=== PATIENT | female | born 1955 | race Caucasian/White ===

== ENCOUNTER 2024-08-30 10:59 | Emergency (ER) | payer OTHER, SELFPAY ==
[2024-08-30] VITALS (17 sets, daily range): BP systolic 117; BP diastolic 59–62; PULSE 60–70; TEMP 36.7; O2SAT 96–99; BMI 33.5
--- NOTE | 2024-08-30 11:41 | US_ITS ---
[place] [id number] Patient Name: OVIDIO AZAR MRN: [id number] date: 1955 Sex: F Assigned Patient Location: ER Current Patient Location: ER Accession/Order Number: [id number] Exam Date: 08/30/2024 12:10 Report Date: 08/30/2024 13:23 At the request of: TREVOR MOSQUEDA Procedure: US venous doppler LE RT Ultrasound venous duplex scan right lower extremity CLINICAL: Right leg pain TECHNIQUE: Sanchez-scale, color Doppler and Duplex examination of the right lower extremity was performed with and without provocative maneuvers. FINDINGS: Comparison: None. Sonographic examination of the right lower extremity deep venous system to include the common femoral, superficial femoral and popliteal veins, demonstrates normal compressibility, color-flow, respiratory variation, and augmentation. The origin of the greater saphenous vein demonstrates normal compression, and there is normal color-flow in the proximal profunda femoral vein. There is normal color-flow in the peroneal, posterior tibial, and anterior tibial veins. US/US venous doppler LE RT IMPRESSION: 1. No deep venous thrombosis in the right lower extremity. Electronically authenticated by: PRINCE PIKE Date: 08/30/2024 13:23
--- NOTE | 2024-08-30 11:42 | ECG_ITS ---
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
--- NOTE | 2024-08-30 11:42 | XR_ITS ---
The [address] [address] Patient Name: OVIDIO AZAR MRN: [id number] date: 1955 Sex: F Assigned Patient Location: ER Current Patient Location: ER Accession/Order Number: [id number] Exam Date: 08/30/2024 12:07 Report Date: 08/30/2024 12:19 At the request of: TREVOR MOSQUEDA Procedure: XR chest 2V EXAM: XR chest 2V HISTORY: left leg swollen COMPARISON: None. TECHNIQUE: PA and lateral views of the chest performed. FINDINGS: There is a left subclavian dual-lead pacemaker with leads extending into the right atrium and the right ventricle. There is mild enlargement of the cardiac silhouette. The mediastinal silhouette and hilar shadows are unremarkable. There is epicardial fat at the right cardiophrenic angle. There is epicardial fat along the left cardiac apex. There is no consolidation, pleural effusion or pulmonary vascular congestion. There is no pneumothorax or acute osseous abnormality. There is spinal fixation hardware along the cervical spine. XR/XR chest 2V IMPRESSION: There is no acute cardiopulmonary process. Electronically authenticated by: KATLIN WATSON Date: 08/30/2024 12:19
--- NOTE | 2024-08-30 11:43 | ED_ITS ---
HPI HPI - General Adult General Chief complaint: Extremity Problem, Nontraumatic Stated complaint: RIGHT FOOT PAIN Time Seen by Provider: 08/30/24 11:40 Source: patient Mode of arrival: ambulance History of Present Illness HPI narrative: Patient is a 69-year-old female who is presenting to the ER today with chief complaint of lower remedy pain, right foot pain with mild swelling. Patient came in by EMS. Patient states she has been having the pain and swelling yesterday and today. Patient has been using her 's rollator and sitting down and pushing herself around the house yesterday and today. Patient had no fall, no injury. Patient does not remember twisting or turning it in the last 2 or 3 days. Does not believe that she injured the right foot while she was sleeping. Patient has no history of gout. Patient has no significant kidney history. Patient has been told that her kidneys are not working as good, but she does not know if she is ever been told she has stage III of 4 kidney disea se. Patient's PCP is Dr. Wyatt. Patient has not been to [facility] before. Patient typically goes to [facility]. Patient asked EMS to bring her to [facility] today. She has no chest pain or shortness of breath. She has multiple comorbidities. She has no chest pain, tightness, no shortness of breath. No acute complaints. All systems are negative except as noted/marked. All systems reviewed and otherwise negative. Nurses note and vital signs reviewed and patient is not hypoxic. General: The patient appears well and in no apparent distress. Patient is resting comfortably on cart. Patient is not toxic, lethargic, or listless. Patient is guarded to any type of motion towards her right lower extremity/foot, or touching the dorsal aspect of right foot. Skin: Warm, dry, no pallor noted. There is no rash noted. No petechiae, purpura. Patient has no erythema, redness, mild swelling to the right distal third of the lower extremity and dorsal aspect of right foot. No signs of venous stasis or cellulitis. Head: Normocephalic, atraumatic Eye: Normal conjunctiva, no drainage, EOMI. PERRL Ears, Nose, Mouth, and Throat: oral mucosa is moist. Nares patent. Mouth without vesicles. Cardiovascular: Regular Rate and Rhythm, no murmur, gallop, rub Respiratory: Patient is in no distress, no accessory muscle use, lungs are clear to auscultation, no wheezing, rales or rhonchi Back: non-tender, no CVA tenderness bilaterally to percussion. No CT LS midline pain GI: no tenderness to palpation, no masses appreciated. No rebound, guarding, or rigidity noted. No distention Musculoskeletal: Patient has full range of motion of all of the extremities except to right lower extremity. Patient right Achilles tendon is intact. Patient has moderate tenderness palpation to the right lateral and medial malleoli, patient has moderate to severe tenderness palpation to the dorsal aspect of the right foot. No redness noted. No specific joint. No history of gouty arthritis. Patient has no pain at proximal right fibular head. No pain to plantar aspect. No pain to the posterior aspect of right posterior hip, popliteal fossa, or calf. no motor, sensory, or focal neurological deficits Neurological: A&O x4, normal speech Psychiatric: Cooperative Related Data Home Medications ?Medication ?Instructions ?Recorded ?Confirmed albuterol sulfate 90 mcg/actuation 2 puff inhalation Q6H PRN 08/30/24 08/30/24 aerosol inhaler shortness of breath or wheezing amlodipine 10 mg tablet 10 mg PO QDAY 08/30/24 08/30/24 aspirin 81 mg tablet,delayed 81 mg PO DAILY 08/30/24 08/30/24 release (Adult Aspirin Regimen) clopidogrel 75 mg tablet 75 mg PO QDAY 08/30/24 08/30/24 furosemide 40 mg tablet 40 mg PO QDAY 08/30/24 08/30/24 glimepiride 2 mg tablet 2 mg PO QDAY 08/30/24 08/30/24 hydroxyzine HCl 25 mg tablet 25 mg PO TID PRN itching 08/30/24 08/30/24 irbesartan 300 mg tablet 300 mg PO .qhs 08/30/24 08/30/24 isosorbide mononitrate 30 mg 30 mg PO QAM 08/30/24 08/30/24 tablet,extended release 24 hr nitroglycerin 0.4 mg sublingual 0.4 mg sublingual Q5M PRN chest 08/30/24 08/30/24 tablet pain pantoprazole 20 mg tablet,delayed 20 mg PO QDAY 08/30/24 08/30/24 release rosuvastatin 40 mg tablet 40 mg PO QAM 08/30/24 08/30/24 tramadol 50 mg tablet 50 mg PO Q8H PRN pain 08/30/24 08/30/24 triamterene 37.5 1 tab PO QAM 08/30/24 08/30/24 mg-hydrochlorothiazide 25 mg tablet Previous Rx's ?Medication ?Instructions ?Recorded hydrocodone 5 mg-acetaminophen 325 1 tab PO Q4H PRN pain #10 tabs 08/30/24 mg tablet Allergies Allergy/AdvReac Type Severity Reaction Status Date / Time No Known Drug Allergies Allergy Verified 08/30/24 11:01 Opioid HPI Opioid Management Most Recent Opioid Data: Last Pain Scale 7 08/30/24 13:15 08/30/24 Last MAR Pain Assessment 08/30/24 13:16 [facility] Medical History (Updated 08/30/24 @ 15:16 by Alfredo Silva MD) Carpal tunnel syndrome of right wrist ?G56.01 - Carpal tunnel syndrome, right upper limb (ICD-10) Carpal tunnel syndrome of left wrist ?G56.02 - Carpal tunnel syndrome, left upper limb (ICD-10) Arthritis ?M19.90 - Unspecified osteoarthritis, unspecified site (ICD-10) Diabetes 1.5, managed as type 2 ?E13.9 - Other specified diabetes mellitus without complications (ICD-10) HTN (hypertension) ?I10 - Essential (primary) hypertension (ICD-10) History of heart attack ?I25.2 - Old myocardial infarction (ICD-10) CVA (cerebral vascular accident) ?I63.9 - Cerebral infarction, unspecified (ICD-10) Pacemaker ?Z95.0 - Presence of cardiac pacemaker (ICD-10) Surgical History (Updated 08/30/24 @ 11:52 by Nelly Marroquin) H/O: hysterectomy ?Z90.710 - Acquired absence of both cervix and uterus (ICD-10) History of cataract removal with insertion of prosthetic lens ?Z98.49 - Cataract extraction status, unspecified eye (ICD-10) ?Z96.1 - Presence of intraocular lens (ICD-10) S/P foot surgery, right ?Z98.890 - Other specified postprocedural states (ICD-10) History of cholecystectomy ?Z90.49 - Acquired absence of other specified parts of digestive tract (ICD- 10) H/O neck surgery ?Z98.890 - Other specified postprocedural states (ICD-10) Total knee replacement status ?Z96.659 - Presence of unspecified artificial knee joint (ICD-10) Social History Little interest or pleasure in doing things: not at all Feeling down, depressed, or hopeless: not at all Exam Constitutional Vital Signs, click to edit/add: Last Vital Signs Temp 98.0 F 08/30/24 11:01 Pulse 70 08/30/24 15:28 Resp 18 08/30/24 15:28 BP 117/62 08/30/24 15:28 Pulse Ox 97 08/30/24 15:28 O2 Del Method Room Air 08/30/24 11:01 Course Vital Signs Vital signs: Vital Signs Temperature 98.0 F 08/30/24 11:01 Pulse Rate 61 08/30/24 11:01 Respiratory Rate 18 08/30/24 11:01 Blood Pressure 117/59 08/30/24 11:01 Pulse Oximetry 99 08/30/24 11:01 Oxygen Delivery Method Room Air 08/30/24 11:01 Temperature 98.0 F 08/30/24 11:01 Pulse Rate 70 08/30/24 15:28 Respiratory Rate 18 08/30/24 15:28 Blood Pressure 117/62 08/30/24 15:28 Pulse Oximetry 97 08/30/24 15:28 Oxygen Delivery Method Room Air 08/30/24 11:01 Medical Decision Making MDM Narrative Medical decision making narrative: Patient preliminary ultrasound shows no obvious signs of acute DVT. Patient lungs are clear. Patient BUN and creatinine are 52/2.65. H&H is 8.9/26. The BNP is 1381. We have no old test in our computer system to compare patient's lab work 2. Patient states she normally goes to [facility] for all of her medical care. Patient told EMS that she wanted to try out [place] today. Patient sees Dr. Santos in the office I have spoken to Dr. Wyatt at approximately 2 PM. I have discussed with him patient's BUN and creatinine today of 52/2.65. In looking at patient's lab work from August 30 of last 2023, patient's BUN and creatinine were 36/1.36. CBC was 10.7/30. On November 16, 2023, patient's BUN and creatinine were 47/1.68. Procedure note: Patient was placed in a right foot Oumar wrap and Aircast. Patient has a rollator of her 's at home that she will use. Splint was assisted with . the patient was neurovascularly intact before and after the splint was placed. the affected bones/injured area had proper alignment in a splint. Education on splint care at home was given at bedside. Patient and family have no questions at discharge. Patient uric acid was slightly elevated, patient kidney function is also elevated at 52/2.65. Education on using ice was discussed at bedside. Patient uses Tylenol and tramadol at home for pain. Education at bedside and very clear discharge paperwork was done as well that patient cannot take tramadol and [place] together, but she can use Tylenol for minimal pain, tramadol for medium pain which patient understood the language, and [place] for severe pain. Patient knows that she has to wait 4 hours before she can take any 1 of those pills and they have to be . Patient is aware that she could do Tylenol with tramadol but not with [place]. This was discussed at bedside and on discharge paperwork. Patient is A and O x 3, GCS 15. Patient understands that she cannot take tramadol and [place] together. Patient understands that she will follow-up with Dr. Santos in the office. I type very clearly on her discharge papers with Dr. Wyatt has told me that he will follow-up with her in the office on Monday or Monday. Patient has no other questions, lungs are clear, no signs of CHF. BNP elevated, but chest x- ray clear, patient is lungs are crystal clear, no rales or crackles. Lab work was obtained from [facility] to compare her BUN and creatinine to today's testing. Patient has not been at [place] before, she typically goes to [facility]. Lab Data Labs: Lab Results 08/30/24 Range/Units 11:10 WBC 11.5 H (4.0-11.0) 10^3/uL RBC 2.88 L (4.20-5.40) 10^6/uL Hgb 8.9 L (12.0-16.0) g/dL Hct 26.3 L (36.0-48.0) % MCV 91.3 (81.0-99.0) fL MCH 30.9 (26.7-34.0) pg MCHC 33.8 (29.9-35.2) g/dL RDW 11.9 (11.0-15.0) % Plt Count 172 (150-450) 10^3/uL MPV 10.5 (9.5-13.5) fL Neut % (Auto) 85.4 H (43.0-75.0) % Lymph % (Auto) 6.1 L (20.5-60.0) % [place] % (Auto) 7.6 (1.7-12.0) % Eos % (Auto) 0.3 L (0.9-7.0) % Baso % (Auto) 0.2 (0.2-2.0) % Neut # (Auto) 9.8 H (1.4-6.5) 10^3/uL Lymph # (Auto) 0.7 L (1.2-3.8) 10^3/uL [place] # (Auto) 0.9 H (0.3-0.8) 10^3/uL Eos # (Auto) 0.0 (0.0-0.7) 10^3/uL Baso # (Auto) 0.0 (0.0-0.1) 10^3/uL Abs Immat Gran (auto) 0.05 H (0.00-0.03) 10^3/uL Imm/Tot Granulo (auto) 0.4 (0.0-0.5) % Sodium 134 L (136-145) mmol/L Potassium 5.1 (3.5-5.1) mmol/L Chloride 97 L (98-107) mmol/L Carbon Dioxide 23.6 (21.0-32.0) mmol/L Anion Gap 18.5 BUN 52.0 H (7.0-18.0) mg/dL Creatinine 2.65 H (0.55-1.02) mg/dL Est GFR ( Amer) 22 L (>=60 mL/min/1.73m^2) Est GFR (Non-Af Amer) 18 L (>=60 mL/min/1.73m^2) BUN/Creatinine Ratio 19.6 Glucose 167 H (74-106) mg/dL Uric Acid 10.1 H (2.6-6.0) mg/dL Calcium 9.1 (8.5-10.1) mg/dL NT-Pro-B Natriuret Pep 1381.0 H* (<=900.0) pg/mL Discharge Plan Discharge Chief Complaint: Extremity Problem, Nontraumatic Clinical Impression: Foot pain, right, Pain in right lower leg, MORRIS (acute kidney injury) Patient Disposition: Home, Self-Care Time of Disposition Decision: 15:15 Condition: Fair Mode of Transportation: Private Vehicle Prescriptions / Home Meds: New hydrocodone-acetaminophen 5-325 mg tablet 1 tab PO Q4H PRN (Reason: pain) Qty: 10 0RF No Action albuterol sulfate 90 mcg/actuation HFA aerosol inhaler 2 puff INHALATION Q6H PRN (Reason: shortness of breath or wheezing) amlodipine 10 mg tablet 10 mg PO QDAY clopidogrel 75 mg tablet 75 mg PO QDAY furosemide 40 mg tablet 40 mg PO QDAY glimepiride 2 mg tablet 2 mg PO QDAY hydroxyzine HCl 25 mg tablet 25 mg PO TID PRN (Reason: itching) irbesartan 300 mg tablet 300 mg PO .qhs isosorbide mononitrate 30 mg tablet extended release 24 hr 30 mg PO QAM nitroglycerin 0.4 mg tablet, sublingual 0.4 mg sublingual Q5M PRN (Reason: chest pain) pantoprazole 20 mg tablet,delayed release (DR/EC) 20 mg PO QDAY rosuvastatin 40 mg tablet 40 mg PO QAM tramadol 50 mg tablet 50 mg PO Q8H PRN (Reason: pain) triamterene-hydrochlorothiazid 37.5-25 mg tablet 1 tab PO QAM aspirin [Adult Aspirin Regimen] 81 mg tablet,delayed release (DR/EC) 81 mg PO DAILY Print Language: Lithuanian Instructions: Acute Kidney Injury (DC), Gout (ED), Foot Sprain (ED), P.R.I.C.E. Treatment (ED) Additional Instructions: You are not displaying classic signs or symptoms of gout, but education on gout was given to you for educational purposes only since we have discussed this at bedside. Use ice 20 minutes on, 20 minutes off If you are having mild pain, use Tylenol. For medium pain, use tramadol. If you are having severe pain, use [place]. Do not take Tylenol and [place] together, you could accidentally take too much Tylenol together. If you are having severe pain, substitute a [place] tablet instead of Tylenol. Do not take Tylenol and [place] at the same time, you may actually take too much Tylenol at 1 setting or in 1 day. Maximum Tylenol dose of Tylenol is 3000 mg a day. Call the office on Monday, and make sure that you tell the office staff that Dr. Silva has spoken to Dr. Wyatt and you need to be seen Monday or Monday in the office. This is from Dr. Santos orders. Your BUN and creatinine were 52/2.65 today, those are kidney function test we discussed. Referrals: SAHRA WYATT [Primary Care Provider] - 1 week
[2024-08-30 11:58] LABS: Basophils Percent Auto 0.2 % (0.2-2.0); Eosinophils Percent Auto 0.3 % (0.9-7.0); Hematocrit 26.3 % (36.0-48.0); Hemoglobin 8.9 g/dL (12.0-16.0); Immature Granulocytes Abs Auto 0.05 10^3/uL (0.00-0.03); Immature Granulocytes Pct Auto 0.4 % (0.0-0.5); Lymphocytes Absolute Auto 0.7 10^3/uL (1.2-3.8); Lymphocytes Percent Auto 6.1 % (20.5-60.0); Mean Corpuscular HGB Conc 33.8 g/dL (29.9-35.2); Mean Corpuscular Hemoglobin 30.9 pg (26.7-34.0); Mean Corpuscular Volume 91.3 fL (81.0-99.0); Mean Platelet Volume 10.5 fL (9.5-13.5); Monocytes Absolute Auto 0.9 10^3/uL (0.3-0.8); Monocytes Percent Auto 7.6 % (1.7-12.0); Neutrophils Absolute Auto 9.8 10^3/uL (1.4-6.5); Neutrophils Percent Auto 85.4 % (43.0-75.0); Platelet Count 172 10^3/uL (150-450); Red Blood Count 2.88 10^6/uL (4.20-5.40); Red Cell Distribution Width 11.9 % (11.0-15.0); White Blood Count 11.5 10^3/uL (4.0-11.0)
[2024-08-30 12:04] LABS: Anion Gap 18.5; BUN Creatinine Ratio 19.6; Calcium 9.1 mg/dL (8.5-10.1); Carbon Dioxide 23.6 mmol/L (21.0-32.0); Chloride 97 mmol/L (98-107); Estimated GFR (African America 22 (>=60 mL/min/1.73m^2); Estimated GFR (Non-African Ame 18 (>=60 mL/min/1.73m^2); Glucose 167 mg/dL (74-106); Potassium 5.1 mmol/L (3.5-5.1); Sodium 134 mmol/L (136-145)
[2024-08-30] MEDS: TRAMADOL HCL 50 MG TABLET PO (13:15)
[2024-08-30] MEDS: ACETAMINOPHEN 500 MG TABLET PO (13:16)
--- NOTE | 2024-08-30 14:15 | XR_ITS ---
The [address] [address] Patient Name: OVIDIO AZAR MRN: [id number] date: 1955 Sex: F Assigned Patient Location: ER Current Patient Location: Accession/Order Number: [id number] Exam Date: 08/30/2024 14:45 Report Date: 08/30/2024 15:54 At the request of: TREVOR MOSQUEDA Procedure: XR foot RT min 3V EXAMINATION: XR foot RT min 3V, , 08/30/2024 11:45 AM PST INDICATION: pain HISTORY: Ordering Provider Reason for Exam: pain Technologist Note: Additional: COMPARISON: None. TECHNIQUE: Right foot x-ray: 3 view(s). FINDINGS: No acute fracture. Joint alignment is anatomic. Joint spaces are preserved. Soft tissues are within normal limits. XR/XR foot RT min 3V IMPRESSION: No acute fracture or traumatic malalignment. Electronically authenticated by: MEDINA DOE Date: 08/30/2024 15:54
[2024-08-30 14:21] LABS: Uric Acid 10.1 mg/dL (2.6-6.0)
--- NOTE | 2024-08-30 15:24 | PC.NURSE ---
right foot wrapped in LUMA Wrap and air cast. Instructions discussed with patient.
== END 2024-08-30 15:45 | disposition home or self-care (01) ==
PROVIDERS: Emergency Provider Emergency Medicine; PCP Internal Medicine
DX: M25.571 Pain in right ankle and joints of right foot (principal); M79.661 Pain in right lower leg; N17.9 Acute kidney failure, unspecified; Z95.0 Presence of cardiac pacemaker; Z90.710 Acquired absence of both cervix and uterus; Z90.49 Acquired absence of other specified parts of digestive tract
CPT/HCPCS: 36415; 71046; 73630; 80048; 83880; 84550; 85025; 93005; 93971; 99285

== ENCOUNTER 2024-11-14 10:35 | Emergency (ER) | payer OTHER, SELFPAY ==
[2024-11-14 10:40] VITALS: BP 137/83; PULSE 66; TEMP 37; O2SAT 100; BMI 36.3
--- NOTE | 2024-11-14 11:14 | ED.GENADUL1 ---
HPI HPI - General Adult General Chief complaint: Extremity Injury, Lower Stated complaint: FELL 3 WKS AGO HURT LEFT FOOT PAIN Time Seen by Provider: 11/14/24 11:10 Source: patient Mode of arrival: Wheelchair Limitations: no limitations History of Present Illness HPI narrative: This 69-year-old female states she fell injuring the left foot 3 weeks ago and continues to have pain. Today she was unable to bear weight due to pain. She denies any other area of injury. Related Data Home Medications ?Medication ?Instructions ?Recorded ?Confirmed albuterol sulfate 90 mcg/actuation 2 puff inhalation Q6H PRN 08/30/24 08/30/24 aerosol inhaler shortness of breath or wheezing amlodipine 10 mg tablet 10 mg PO QDAY 08/30/24 08/30/24 aspirin 81 mg tablet,delayed 81 mg PO DAILY 08/30/24 08/30/24 release (Adult Aspirin Regimen) clopidogrel 75 mg tablet 75 mg PO QDAY 08/30/24 08/30/24 furosemide 40 mg tablet 40 mg PO QDAY 08/30/24 08/30/24 glimepiride 2 mg tablet 2 mg PO QDAY 08/30/24 08/30/24 hydroxyzine HCl 25 mg tablet 25 mg PO TID PRN itching 08/30/24 08/30/24 irbesartan 300 mg tablet 300 mg PO .qhs 08/30/24 08/30/24 isosorbide mononitrate 30 mg 30 mg PO QAM 08/30/24 08/30/24 tablet,extended release 24 hr nitroglycerin 0.4 mg sublingual 0.4 mg sublingual Q5M PRN chest 08/30/24 08/30/24 tablet pain pantoprazole 20 mg tablet,delayed 20 mg PO QDAY 08/30/24 08/30/24 release rosuvastatin 40 mg tablet 40 mg PO QAM 08/30/24 08/30/24 tramadol 50 mg tablet 50 mg PO Q8H PRN pain 08/30/24 08/30/24 triamterene 37.5 1 tab PO QAM 08/30/24 08/30/24 mg-hydrochlorothiazide 25 mg tablet Previous Rx's ?Medication ?Instructions ?Recorded hydrocodone 5 mg-acetaminophen 325 1 tab PO Q4H PRN pain #10 tabs 08/30/24 mg tablet Allergies Allergy/AdvReac Type Severity Reaction Status Date / Time No Known Drug Allergies Allergy Verified 08/30/24 11:01 Opioid HPI Opioid Management Most Recent Opioid Data: Last Pain Scale 7 08/30/24, 13:15 Review of Systems ROS Status of ROS 10 or more systems reviewed and unremarkable except as noted in history and below [facility] Medical History Carpal tunnel syndrome of right wrist ?G56.01 - Carpal tunnel syndrome, right upper limb (ICD-10) Carpal tunnel syndrome of left wrist ?G56.02 - Carpal tunnel syndrome, left upper limb (ICD-10) Arthritis ?M19.90 - Unspecified osteoarthritis, unspecified site (ICD-10) Diabetes 1.5, managed as type 2 ?E13.9 - Other specified diabetes mellitus without complications (ICD-10) HTN (hypertension) ?I10 - Essential (primary) hypertension (ICD-10) History of heart attack ?I25.2 - Old myocardial infarction (ICD-10) CVA (cerebral vascular accident) ?I63.9 - Cerebral infarction, unspecified (ICD-10) Pacemaker ?Z95.0 - Presence of cardiac pacemaker (ICD-10) Surgical History H/O: hysterectomy ?Z90.710 - Acquired absence of both cervix and uterus (ICD-10) History of cataract removal with insertion of prosthetic lens ?Z98.49 - Cataract extraction status, unspecified eye (ICD-10) ?Z96.1 - Presence of intraocular lens (ICD-10) S/P foot surgery, right ?Z98.890 - Other specified postprocedural states (ICD-10) History of cholecystectomy ?Z90.49 - Acquired absence of other specified parts of digestive tract (ICD-10) H/O neck surgery ?Z98.890 - Other specified postprocedural states (ICD-10) Total knee replacement status ?Z96.659 - Presence of unspecified artificial knee joint (ICD-10) Social History Little interest or pleasure in doing things: not at all Feeling down, depressed, or hopeless: not at all Exam Narrative Exam Narrative: Focused physical examination of the left lower extremity is carried out. There is no obvious swelling or deformity of the left foot. Pulses are intact. Tenderness localizes mainly over the lateral aspect of the foot. Ankle ligaments are intact. There is no overlying redness or warmth. The left lower leg and knee are nontender. Skin is warm and dry. Constitutional Vital Signs, click to edit/add: Last Vital Signs Temp 98.6 F 11/14/24 10:40 Pulse 60 11/14/24 14:11 Resp 18 11/14/24 14:11 BP 170/58 H 11/14/24 14:11 Pulse Ox 97 11/14/24 14:11 O2 Del Method Room Air 11/14/24 14:11 Course Vital Signs Vital signs: Vital Signs Temperature 98.6 F 11/14/24 10:40 Pulse Rate 66 11/14/24 10:40 Respiratory Rate 18 11/14/24 10:40 Blood Pressure 137/83 11/14/24 10:40 Pulse Oximetry 100 11/14/24 10:40 Oxygen Delivery Method Room Air 11/14/24 10:40 Temperature 98.6 F 11/14/24 10:40 Pulse Rate 60 11/14/24 14:11 Respiratory Rate 18 11/14/24 14:11 Blood Pressure 170/58 H 11/14/24 14:11 Pulse Oximetry 97 11/14/24 14:11 Oxygen Delivery Method Room Air 11/14/24 14:11 Medical Decision Making MDM Narrative Medical decision making narrative: X-rays of the left ankle and foot do not reveal any fracture or other acute pathology. An Ortho boot is applied so that the patient may be able to walk and she is referred to outpatient podiatry follow-up. Discharge Plan Discharge Chief Complaint: Extremity Injury, Lower Clinical Impression: Sprain of foot, left Qualifiers: Encounter type: initial encounter Qualified Code(s): S93.602A - Unspecified sprain of left foot, initial encounter Patient Disposition: Home, Self-Care Time of Disposition Decision: 13:51 Condition: Good Mode of Transportation: Private Vehicle Prescriptions / Home Meds: No Action albuterol sulfate 90 mcg/actuation HFA aerosol inhaler 2 puff INHALATION Q6H PRN (Reason: shortness of breath or wheezing) amlodipine 10 mg tablet 10 mg PO QDAY clopidogrel 75 mg tablet 75 mg PO QDAY furosemide 40 mg tablet 40 mg PO QDAY glimepiride 2 mg tablet 2 mg PO QDAY hydroxyzine HCl 25 mg tablet 25 mg PO TID PRN (Reason: itching) irbesartan 300 mg tablet 300 mg PO .qhs isosorbide mononitrate 30 mg tablet extended release 24 hr 30 mg PO QAM nitroglycerin 0.4 mg tablet, sublingual 0.4 mg sublingual Q5M PRN (Reason: chest pain) pantoprazole 20 mg tablet,delayed release (DR/EC) 20 mg PO QDAY rosuvastatin 40 mg tablet 40 mg PO QAM tramadol 50 mg tablet 50 mg PO Q8H PRN (Reason: pain) triamterene-hydrochlorothiazid 37.5-25 mg tablet 1 tab PO QAM aspirin [Adult Aspirin Regimen] 81 mg tablet,delayed release (DR/EC) 81 mg PO DAILY hydrocodone-acetaminophen 5-325 mg tablet 1 tab PO Q4H PRN (Reason: pain) Qty: 10 0RF Print Language: Italian Instructions: Foot Sprain (ED) Additional Instructions: Elevation. Ice. 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 Return for worsening symptoms. Referrals: SAHRA DAVIS [Primary Care Provider, Internal Medicine] - 1 week Gerber Ho DPM [Physician, Podiatry] - As soon as possible Discharge Date/Time: 11/14/24 14:13
[2024-11-14 14:11] VITALS: BP 170/58; PULSE 60; O2SAT 97
== END 2024-11-14 14:13 | disposition home or self-care (01) ==
PROVIDERS: Emergency Provider Emergency Medicine; PCP Internal Medicine
DX: S93.602A Unspecified sprain of left foot, initial encounter (principal); Z90.710 Acquired absence of both cervix and uterus; Z90.49 Acquired absence of other specified parts of digestive tract; Z96.659 Presence of unspecified artificial knee joint; W19.XXXA Unspecified fall, initial encounter
CPT/HCPCS: 73610; 73630; 99284

== ENCOUNTER 2025-01-12 10:33 | Emergency (ER) | payer OTHER, SELFPAY ==
[2025-01-12] VITALS (27 sets, daily range): BP systolic 122–177; BP diastolic 42–80; PULSE 60–62; TEMP 36.7; O2SAT 95–100; BMI 35.6
--- OUTSIDE RECORDS SUMMARY | 2025-01-12 10:48 | XMS_ITS | Encounter Summary ---
Author Organization [facility] Address [address] [facility] [place] [address] Care Team Providers Care Switch Technician Name Role Phone Jason Wyatt MD Unavailable [phone] Jason Wyatt MD Primary Care Provider [phone] Jason Wyatt MD Unavailable [phone] Bryon Pruitt MD Unavailable [phone] Sara Brewer Unavailable Alida Telles RN Unavailable [phone] Melissa Sloan LPN Unavailable Encounter Details Date Type Department Care Team (Late st Contact Info) Description 10/12/2023 Abstract [facility] 112 [facility] 110 [place] [address] Jason Wyatt MD [address] [facility] 110 [place], [place] [address] Social History Tobacco Use Types Packs/Day Years Used Date Smoking Tobacco: Never Smokeless Tobacco: Never Alcohol Use Standard Drinks/Week Comments Never 0 (1 standard drink = 0.6 oz pur e alcohol) Humiliation, Afraid, Rape, and Kick questionnair e Answer Date Recorded Within the last year, have y ou been afraid of your partner or ex-partner? No 03/02/2023 Within the last year, have y ou been humiliated or emotionally abused in other ways by your partner or ex-partner? No Within the last year, have y ou been kicked, hit, slapped, or otherwise physically hurt by your partner or ex-partner? No 03/02/2023 Within the last year, have y ou been raped or forced to have any kind of sexual activity by your partner or ex-partner? No 03/02/2023 Social Connection and Isolation Panel [NHANES] A nswer Date Recorded In a typical week, how many times do you talk on the phone with family, friends, or neighbors? Once a week 03/02/2023 How often do you get together with friends or re latives? Once a week 03/02/2023 How often do you attend mandaeism or jehovah's witness serv ices? Never 03/02/2023 Do you belong to any clubs o r organizations such as mandaeism groups, unions, fraternal or athletic groups, or school groups? No 03/02/2023 How often do you attend meet ings of the clubs or organizations you belong to? Never 03/02/2023 Are you , , di vorced, , never , or living with a partner? 03/02/2023 AUDIT-C Answer Date Recorded Q1: How often do you have a drink containing alcohol? Never 03/02/2023 Q2: How many drinks containi ng alcohol do you have on a typical day when you are drinking? Patient does not drink Q3: How often do you have si x or more drinks on one occasion? Never 03/02/2023 Overall Financial Resource Strain (CARDIA) Answe r Date Recorded How hard is it for you to pa y for the very basics like food, housing, medical care, and heating? Not hard at all 03/02/2023 PHQ-2 Answer Date Recorded Patient Health Questionnaire-2 Score 0 03/09/2023 [facility] of Occupat ional Health - Occupational Stress Questionnaire Answer Date Recorded Do you feel stress - tense, restless, nervous, or anxious, or unable to sleep at night because your mind is troubled all the time - these days? To some extent 03/02/2023 Exercise Vital Sign Answer Date Recorde d On average, how many days pe r week do you engage in moderate to strenuous exercise (like a brisk walk)? 7 days 03/02/2023 On average, how many minutes do you engage in exercise at this level? 10 min 03/02/2023 Hunger Vital Sign Answer Date Recorded Within the past 12 months, y ou worried that your food would run out before you got the money to buy more. Never true 03/02/20 Within the past 12 months, t he food you bought just didn't last and you didn't have money to get more. Never true 03/02/2023 PRAPARE - Transportation Answer Date Re corded In the past 12 months, has l ack of transportation kept you from medical appointments or from getting medications? No 02/14 In the past 12 months, has l ack of transportation kept you from meetings, work, or from getting things needed for daily living? No 03/02/2023 Housing Stability Vital Sign Answer Danial e Recorded In the last 12 months, was t here a time when you were not able to pay the mortgage or rent on time? No 03/02/2023 In the last 12 months, how many places have you lived? 1 03/02/2023 In the last 12 months, was t here a time when you did not have a steady place to sleep or slept in a usp (including now)? No 03/02/2023 Comments Unknown Sex and Gender Information Value Date Recorded Sex Assigned at Not on file Legal Sex Female 6:36 PM EDT Gender Identity Not on file Sexual Orientation Not on file documented as of this encounter Plan of Treatment Upcoming Encounters Date Type Department Care Team (Late st Contact Info) Description 01/20/2025 9:00 AM EDT Office Visit [facility] [address] [facility] 110 [place] [address] Jason Wyatt MD [address] [facility] 110 [place] [address] documented as of this encounter Visit Diagnoses Not on filedocumented in this encounter Care Teams Switch Technician Relationship Specialty Start Date End Date Jason Wyatt MD [address] [facility] 110 [place] [address] PCP - Devoted 07/17/22 Jason Wyatt MD [address] [facility] 110 [place] [address] PCP - General Internal Medicine 01/02/23 Jason Wyatt MD [address] [place] [address] [place] [address] PCP - Humana 07/17/21 01/14/24 Bryon Pruitt MD [address] [place] [address] Referring Physician Neurology 06/06/24 Sara Brewer PA [address] [place] [address] [place] [address] Physician Turn Out Neurology 06/06/24 Alida Telles, ZE [address] [place] [address] Clinical Advocate Family Medicine 08/23/24 10/02/24 Melissa Sloan LPN [address] [place] [address] [place] [address] 10/02/24 documented as of this encounter
--- OUTSIDE RECORDS SUMMARY | 2025-01-12 10:48 | XMS_ITS | Encounter Summary ---
Author Organization [facility] Address [address] [facility] [place] [address] Care Team Providers Care Shove Up Name Role Phone Jason Wyatt MD Unavailable [phone] Jason Wyatt MD Primary Care Provider [phone] Jason Wyatt MD Unavailable [phone] Bryon Pruitt MD Unavailable [phone] Sara Brewer Unavailable Alida Telles RN Unavailable [phone] Melissa Sloan LPN Unavailable Encounter Details Date Type Department Care Team (Late st Contact Info) Description 11/06/2023 Abstract [facility] 112 [facility] 110 [place] [address] Jason Wyatt MD [address] [place] [facility] 110 [place], [place] [id number] Social History Tobacco Use Types Packs/Day Years [...] week 03/02/2023 How often do you attend episcopalian or adventist serv ices? Never 03/02/2023 Do you belong to any clubs o r organizations such as episcopalian groups, unions, fraternal or athletic groups, or [...] Recorded Patient Health Questionnaire-2 Score 0 03/09/2023 [facility] of Occupat ional Health - Occupational Stress [...] place to sleep or slept in a care home (including now)? No 03/02/2023 Comments Unknown Sex [...] Visit [facility] [address] [facility] 110 [place] [address] Jason Wyatt MD [address] [facility] [address] [place] [address] documented as of this encounter Visit Diagnoses Not on filedocumented in this encounter Care Teams Shove Up Relationship Specialty Start Date End Date Jason Wyatt MD [address] [facility] 110 [place] [address] PCP - Devoted 07/17/22 Jason Wyatt MD [address] [facility] 110 [place] [address] PCP - General Internal Medicine 01/02/23 Jason Wyatt MD [address] [place] [address] [place] [address] PCP - Humana 07/17/21 01/14/24 Bryon Pruitt MD [address] [place] [address] Referring Physician Neurology 06/06/24 Sara Brewer PA [address] [place] [address] [place] [address] Physician Fence Installer Foreman Neurology 06/06/24 Alida Telles, ZE [address] [place] [address] Clinical Advocate Family Medicine 08/23/24 10/02/24 Melissa Sloan LPN [address] [place] [address] [place] [address] 10/02/24 documented as of this encounter
--- OUTSIDE RECORDS SUMMARY | 2025-01-12 10:48 | XMS_ITS | Encounter Summary ---
Author Organization [facility] Address [address] [facility] [place] [address] Care Team Providers Care Packaging Associate Name Role Phone Jason Wyatt MD Unavailable [phone] Jason Wyatt MD Primary Care Provider [phone] Jason Wyatt MD Unavailable [phone] Bryon Pruitt MD Unavailable [phone] Sara Brewer Unavailable Alida Telles RN Unavailable [phone] Melissa Sloan LPN Unavailable Encounter Details Date Type Department Care Team (Late st Contact Info) Description 10/31/2023 Abstract [facility] 112 [facility] 110 [place] [address] Jason Wyatt MD [address] [place] [facility] 110 [place], [place] [address] Social History Tobacco Use Types Packs/Day Years [...] week 03/02/2023 How often do you attend samaritan or confucianist serv ices? Never 03/02/2023 Do you belong to any clubs o r organizations such as samaritan groups, unions, fraternal or athletic groups, or [...] Recorded Patient Health Questionnaire-2 Score 0 03/09/2023 [facility] of Occupat ional Health - Occupational [...] place to sleep or slept in a jail (including now)? No 03/02/2023 Comments Unknown Sex [...] Visit [facility] [address] [facility] 110 [place] [address] Jason Wyatt MD [address] [facility] 110 [place] [address] documented as of this encounter Visit Diagnoses Not on filedocumented in this encounter Care Teams Packaging Associate Relationship Specialty Start Date End Date Jason Wyatt MD [address] [facility] 110 [place] [address] PCP - Devoted 07/17/22 Jason Wyatt MD [address] [facility] 110 [place] [address] PCP - General Internal Medicine 01/02/23 Jason Wyatt MD [address] [place] [address] [place] [address] PCP - Humana 07/17/21 01/14/24 Bryon Pruitt MD [address] [place] [address] Referring Physician Neurology 06/06/24 Sara Brewer PA [address] [place] [address] [place] [address] Physician Engineering Tech Neurology 06/06/24 Alida Telles, ZE [address] [place] [address] Clinical Advocate Family Medicine 08/23/24 10/02/24 Melissa Sloan LPN [address] [place] [address] [place] [address] 10/02/24 documented as of this encounter
--- OUTSIDE RECORDS SUMMARY | 2025-01-12 10:49 | XMS_ITS | Encounter Summary ---
Author Organization [facility] Address [address] [facility] [place] [address] Care Team Providers Care Revenue Accountant Name Role Phone Jason Wyatt MD Unavailable [phone] Jason Wyatt MD Primary Care Provider [phone] Jason Wyatt MD Unavailable [phone] Bryon Pruitt MD Unavailable [phone] Sara Brewer Unavailable Alida Telles RN Unavailable [phone] Melissa Sloan LPN Unavailable Encounter Details Date Type Department Care Team (Late st Contact Info) Description 01/03/2023 Abstract [facility] [address] [facility] 110 [place] [address] Jason Wyatt MD [address] [id number] Social History Tobacco Use Types Packs/Day Years Used Date Smoking Tobacco: Never Smokeless Tobacco: Never Comments Unknown Sex and Gender Information Value Date Recorded Sex Assigned at Not on file Legal Sex Female 6:36 PM EDT Gender Identity Not on file Sexual Orientation Not on file documented as of this encounter Plan of Treatment Upcoming Encounters Date Type Department Care Team (Late Contact Info) Description 01/20/2025 9:00 AM EDT Office Visit [facility] [address] [facility] 110 [place] [address] Jason Wyatt MD 112 [facility] 110 [place], [place] [id number] documented as of this encounter Visit Diagnoses Not on filedocumented in this encounter Care Teams Revenue Accountant Relationship Specialty Start Date End Date Jason Wyatt MD [address] [facility] 110 [place] [address] PCP - Devoted 07/17/22 Jason Wyatt MD [address] [facility] 110 [place] [address] PCP - General Internal Medicine 01/02/23 Jason Wyatt MD [address] [facility] 110 [place] [address] PCP - Humana 07/17/21 01/14/24 Bryon Prutit MD [address] [facility] 110 [place] [address] Referring Physician Neurology 06/06/24 Sara Brewer PA [address] [facility] 110 [place] [address] Physician Senior Drupal Developer Neurology 06/06/24 Alida Telles, ZE [address] [place] [address] Clinical Advocate Family Medicine 08/23/24 10/02/24 Melissa Sloan LPN [address] [facility] 110 [place] [address] 10/02/24 documented as of this encounter
--- OUTSIDE RECORDS SUMMARY | 2025-01-12 10:49 | XMS_ITS | Encounter Summary ---
Author Organization [facility] Address [address] [facility] [place] [address] Care Team Providers Care Greenskeeper Supervisor Name Role Phone Jason Wyatt MD Unavailable [phone] Jason Wyatt MD Primary Care Provider [phone] Bryon Pruitt MD Unavailable [phone] Sara Brewer Unavailable Alida Telles RN Unavailable [phone] Melissa Sloan LPN Unavailable Encounter Details Date Type Department Care Team (Late st Contact Info) Description 01/25/2024 Abstract [facility] [address] [facility] 110 [place] [address] Jason Wyatt MD 112 [facility] 110 [place], [place] [id number] Social History Tobacco Use Types Packs/Day Years [...] week 03/02/2023 How often do you attend jain or pentecostalism serv ices? Never 03/02/2023 Do you belong to any clubs o r organizations such as jain groups, unions, fraternal or athletic groups, or [...] Recorded Patient Health Questionnaire-2 Score 0 03/09/2023 [facility] of Occupat ional Health - Occupational [...] the money to buy more. Never true 08/17/20 23 Within the past 12 months, t he [...] Visit [facility] [address] [facility] 110 [place] [address] Jason Wyatt MD [address] [facility] 110 [place] [address] documented as of this encounter Visit Diagnoses Not on filedocumented in this encounter Care Teams Greenskeeper Supervisor Relationship Specialty Start Date End Date Jason Wyatt MD [address] [facility] 110 [place] [address] PCP - Devoted 07/17/22 Jason Wyatt MD [address] [facility] 110 [place] [address] PCP - General Internal Medicine 01/02/23 Bryon Pruitt MD [address] [address] Referring Physician Neurology 06/06/24 Sara Brewer PA [address] [address] Physician Disease Case Manager Rn Neurology 06/06/24 Alida Telles, ZE [address] [place] [address] Clinical Advocate Family Medicine 08/23/24 10/02/24 Melissa Sloan LPN [address] [address] 10/02/24 documented as of this encounter
--- OUTSIDE RECORDS SUMMARY | 2025-01-12 10:49 | XMS_ITS | Encounter Summary ---
Author Organization [facility] Address [address] [facility] [place] [address] Care Team Providers Care Psychologist Research Assistant Name Role Phone Jason Wyatt MD Unavailable [phone] Jason Wyatt MD Primary Care Provider [phone] Bryon Pruitt MD Unavailable [phone] Sara Brewer Unavailable Alida Telles RN Unavailable [phone] Melissa Sloan LPN Unavailable Encounter Details Date Type Department Care Team (Late st Contact Info) Description 02/21/2024 Abstract [facility] [address] [facility] 110 [place] [address] Jason Wyatt MD 112 [facility] 110 [place], [place] [id number] Social History Tobacco Use Types Packs/Day Years Used Date Smoking Tobacco: Never Smokeless Tobacco: Never Alcohol Use Standard Drinks/Week Comments Never 0 (1 standard drink = 0.6 oz pur e alcohol) B1300 Health Literacy Answer Date Recor ded How often do you need to hav e someone help you when you read instructions, pamphlets, or other written material from your doctor or pharmacy? Never 02/19/2024 Humiliation, Afraid, Rape, and Kick questionnair e [...] week 03/02/2023 How often do you attend religion or sabianism serv ices? Never 03/02/2023 Do you belong to any clubs o r organizations such as religion groups, unions, fraternal or athletic groups, or [...] Recorded Patient Health Questionnaire-2 Score 0 03/09/2023 [facility] of Occupat ional Health - Occupational Stress [...] place to sleep or slept in a intermediate (including now)? No 03/02/2023 Comments Unknown Sex [...] Visit [facility] [address] [facility] 110 [place] [address] Jason Wyatt MD [address] [facility] 110 [place] [address] documented as of this encounter Visit Diagnoses Not on filedocumented in this encounter Care Teams Psychologist Research Assistant Relationship Specialty Start Date End Date Jason Wyatt MD [address] [facility] [address] [place] [address] PCP - Devoted 07/17/22 Jason Wyatt MD [address] [facility] 110 [place] [address] PCP - General Internal Medicine 01/02/23 Bryon Pruitt MD [address] [place] [address] Referring Physician Neurology 06/06/24 Sara Brewer PA [address] [place] [address] Physician Reverse Unit Operator Fisherman Neurology 06/06/24 Alida Telles, RN [address] [place] [address] Clinical Advocate Family Medicine 08/23/24 10/02/24 Melissa Sloan LPN [address] [place] [address] 10/02/24 documented as of this encounter
--- OUTSIDE RECORDS SUMMARY | 2025-01-12 10:49 | XMS_ITS | Encounter Summary ---
Author Organization [facility] Address [address] [facility] [place] [address] Care Team Providers Care Gas Pit Worker Name Role Phone Jason Wyatt MD Unavailable [phone] Jason Wyatt MD Primary Care Provider [phone] Jason Wyatt MD Unavailable [phone] Bryon Pruitt MD Unavailable [phone] Sara Brewer Unavailable Alida Telles RN Unavailable [phone] Melissa Sloan LPN Unavailable Encounter Details Date Type Department Care Team (Late st Contact Info) Description 09/04/2023 Abstract [facility] 112 [facility] 110 [place] [address] Jason Wyatt MD [address] [facility] 110 [place], [place] [address] Social History Tobacco Use Types Packs/Day Years [...] week 03/02/2023 How often do you attend amish or mandaeism serv ices? Never 03/02/2023 Do you belong to any clubs o r organizations such as amish groups, unions, fraternal or athletic groups, or [...] Recorded Patient Health Questionnaire-2 Score 0 03/09/2023 [facility] of Occupat ional Health - Occupational [...] place to sleep or slept in a senior living (including now)? No 03/02/2023 Comments Unknown Sex [...] Visit [facility] [address] [facility] 110 [place] [address] Jason Wyatt MD [address] [facility] 110 [place] [address] documented as of this encounter Visit Diagnoses Not on filedocumented in this encounter Care Teams Gas Pit Worker Relationship Specialty Start Date End Date Jason Wyatt MD [address] [facility] 110 [place] [address] PCP - Devoted 07/17/22 Jason Wyatt MD [address] [facility] 110 [place] [address] PCP - General Internal Medicine 01/02/23 Jason Wyatt MD [address] [place] [address] [place] [address] PCP - Humana 07/17/21 01/14/24 Bryon Pruitt MD [address] [place] [address] Referring Physician Neurology 06/06/24 Sara Brewer PA [address] [place] [address] [place] [address] Physician Baker Neurology 06/06/24 Alida Telles, ZE [address] [place] [address] Clinical Advocate Family Medicine 08/23/24 10/02/24 Melissa Sloan LPN [address] [place] [address] [place] [address] 10/02/24 documented as of this encounter
--- OUTSIDE RECORDS SUMMARY | 2025-01-12 10:49 | XMS_ITS | Encounter Summary ---
Author Organization [facility] Address [address] [facility] [place] [address] Care Team Providers Care Oil Exploration Engineer Name Role Phone Jason Wyatt MD Unavailable [phone] Jason Wyatt MD Primary Care Provider [phone] Bryon Pruitt MD Unavailable [phone] Sara Brewer Unavailable Alida Telles RN Unavailable [phone] Melissa Sloan LPN Unavailable Encounter Details Date Type Department Care Team (Late st Contact Info) Description 04/03/2024 Abstract [facility] [address] [facility] 110 [place] [id number] Jason Wyatt MD 112 [facility] 110 [place], [place] [address] Social History Tobacco Use Types Packs/Day Years [...] week 03/02/2023 How often do you attend cheondoism or voodoo serv ices? Never 03/02/2023 Do you belong to any clubs o r organizations such as cheondoism groups, unions, fraternal or athletic groups, or [...] Date Recorded Patient Health Questionnaire-2 Score 0 03/06/2024 [facility] of Occupat ional Health - [...] place to sleep or slept in a nursing home (including now)? No 03/02/2023 Comments Unknown [...] Visit [facility] [address] [facility] 110 [place] [address] Jason Wyatt MD [address] [facility] [address] [place] [address] documented as of this encounter Visit Diagnoses Not on filedocumented in this encounter Care Teams Oil Exploration Engineer Relationship Specialty Start Date End Date Jason Wyatt MD [address] [facility] [address] [place] [address] PCP - Devoted 07/17/22 Jason Wyatt MD [address] [facility] [address] [place] [address] PCP - General Internal Medicine 01/02/23 Bryon Pruitt MD [address] [place] [address] Referring Physician Neurology 06/06/24 Sara Brewer PA [address] [place] [address] Physician Card Maker Neurology 06/06/24 Alida Telles, RN [address] [place] [address] Clinical Advocate Family Medicine 08/23/24 10/02/24 Melissa Sloan LPN [address] [place] [address] 10/02/24 documented as of this encounter
--- OUTSIDE RECORDS SUMMARY | 2025-01-12 10:49 | XMS_ITS | Encounter Summary ---
Author Organization [facility] Address [address] [facility] [place] [address] Care Team Providers Care Crucible Furnace Tender Name Role Phone Jason Wyatt MD Unavailable [phone] Jason Wyatt MD Primary Care Provider [phone] Jason Wyatt MD Unavailable [phone] Bryon Pruitt MD Unavailable [phone] Sara Brewer Unavailable Alida Telles RN Unavailable [phone] Melissa Sloan LPN Unavailable Encounter Details Date Type Department Care Team (Late st Contact Info) Description 08/24/2023 Abstract [facility] 112 [facility] 110 [place] [address] Jason Wyatt MD 112 [address] [facility] 110 [place], [place] [id number] Social History Tobacco Use Types Packs/Day Years [...] week 03/02/2023 How often do you attend muslim or voodoo serv ices? Never 03/02/2023 Do you belong to any clubs o r organizations such as muslim groups, unions, fraternal or athletic groups, or [...] Recorded Patient Health Questionnaire-2 Score 0 03/09/2023 [facility] ional [facility] - [...] place to sleep or slept in a chcf (including now)? No 03/02/2023 Comments Unknown Sex [...] Visit [facility] [address] [facility] 110 [place] [address] Jason Wyatt MD [address] [facility] 110 [place] [address] documented as of this encounter Visit Diagnoses Not on filedocumented in this encounter Care Teams Crucible Furnace Tender Relationship Specialty Start Date End Date Jason Wyatt MD [address] [facility] 110 [place] [address] PCP - Devoted 07/17/22 Jason Wyatt MD [address] [facility] 110 [place] [address] PCP - General Internal Medicine 01/02/23 Jason Wyatt MD [address] [place] [address] [place] [address] PCP - Humana 07/17/21 01/14/24 Bryon Pruitt MD [address] [place] [address] Referring Physician Neurology 06/06/24 Sara Brewer PA [address] [place] [address] [place] [address] Physician Water Pollution Control Technician Neurology 06/06/24 Alida Telles, ZE [address] [place] [address] Clinical Advocate Family Medicine 08/23/24 10/02/24 Melissa Sloan LPN [address] [place] [address] [place] [address] 10/02/24 documented as of this encounter
--- OUTSIDE RECORDS SUMMARY | 2025-01-12 10:49 | XMS_ITS | Encounter Summary ---
Author Organization [facility] Address [address] [place] [address] Phone Care Team Providers Care Container Repairer Name Role Phone Generic Provider, No Assigned Pcp Primary Car e Provider Unavailable Jason Wyatt MD Primary Care Provider [phone] Encounter Details Date Type Department Care Team (Late st Contact Info) Description 04/13/2023 Scanned Document [facility] [address] [place] [address] Scanning, Generic Provider Social History Tobacco Use Types Packs/Day Years Used Date Smoking Tobacco: Never Assessed Comments Unknown Sex and Gender Information Value Date Recorded Sex Assigned at Female 03/21/2024 1:58 PM EDT Legal Sex Female 8:53 AM EST Gender Identity Female 03/21/2024 1:58 PM EDT Sexual Orientation Choose not to disclose 2023 1:58 PM EDT documented as of this encounter Plan of Treatment Not on file documented as of this encounter Visit Diagnoses Not on filedocumented in this encounter Care Teams Container Repairer Relationship Specialty Start Date End Date Generic Provider, No Assigned Pcp, [place] [address] PCP - General Helminthology Teacher 04/11/24 04/16/24 Jason Wyatt MD [address] [facility] 110 [place] [address] PCP - General Internal Medicine 04/17/24 documented as of this encounter
--- OUTSIDE RECORDS SUMMARY | 2025-01-12 10:49 | XMS_ITS | Encounter Summary ---
Author Organization [facility] Address [address] [facility] [place] [address] Care Team Providers Care Mail Technician Name Role Phone Jason Wyatt MD Unavailable [phone] Jason Wyatt MD Primary Care Provider [phone] Jason Wyatt MD Unavailable [phone] Bryon Pruitt MD Unavailable [phone] Sara Brewer Unavailable Alida Telles RN Unavailable [phone] Melissa Sloan LPN Unavailable Encounter Details Date Type Department Care Team (Late st Contact Info) Description 01/23/2023 Abstract [facility] 112 [address] [facility] 110 [place] [phone] Jason Wyatt MD [address] [address] Social History Tobacco Use Types Packs/Day Years [...] Office Visit [facility] [address] [facility] 110 [place] [address] Jason Wyatt MD 112 [facility] 110 [place], [place] [address] documented as of this encounter Visit Diagnoses Not on filedocumented in this encounter Care Teams Mail Technician Relationship Specialty Start Date End Date Jason Wyatt MD [address] [facility] 110 [place] [address] PCP - Devoted 07/17/22 Jason Wyatt MD [address] [facility] 110 [place] [address] PCP - General Internal Medicine 01/02/23 Jason Wyatt MD [address] [facility] 110 [place] [address] PCP - Humana 07/17/21 01/14/24 Bryon Pruitt MD [address] [facility] 110 [place] [address] Referring Physician Neurology 06/06/24 Sara Brewer PA [address] [facility] 110 [place] [address] Physician Industrial Fabric Cutter Neurology 06/06/24 Alida Telles, ZE [address] [place] [address] Clinical Advocate Family Medicine 08/23/24 10/02/24 Melissa Sloan LPN [address] [facility] 110 [place] [address] 10/02/24 documented as of this encounter
--- OUTSIDE RECORDS SUMMARY | 2025-01-12 10:49 | XMS_ITS | Encounter Summary ---
Author Organization [facility] Address [address] [facility] [place] [address] Care Team Providers Care Siding Coreboard Inspector Name Role Phone Jason Wyatt MD Unavailable [phone] Jason Wyatt MD Primary Care Provider [phone] Jason Wyatt MD Unavailable [phone] Bryon Pruitt MD Unavailable [phone] Sara Brewer Unavailable Alida Telles RN Unavailable [phone] Melissa Sloan LPN Unavailable Encounter Details Date Type Department Care Team (Late st Contact Info) Description 09/13/2023 Abstract [facility] 112 [facility] 110 [place] [address] Jason Wyatt MD 112 [facility] 110 [place], [place] [id number] Social History Tobacco Use Types Packs/Day Years [...] week 03/02/2023 How often do you attend congregation or lutheran serv ices? Never 03/02/2023 Do you belong to any clubs o r organizations such as congregation groups, unions, fraternal or athletic groups, or [...] Recorded Patient Health Questionnaire-2 Score 0 03/09/2023 [facility] Occupat ional Health - [...] place to sleep or slept in a residential (including now)? No 03/02/2023 Comments Unknown Sex [...] Visit [facility] [address] [facility] 110 [place] [address] Jason Wyatt MD [address] [facility] 110 [place] [address] documented as of this encounter Visit Diagnoses Not on filedocumented in this encounter Care Teams Siding Coreboard Inspector Relationship Specialty Start Date End Date Jason Wyatt MD [address] [facility] 110 [place] [address] PCP - Devoted 07/17/22 Jason Wyatt MD [address] [facility] 110 [place] [address] PCP - General Internal Medicine 01/02/23 Jason Wyatt MD [address] [place] [address] [place] [address] PCP - Humana 07/17/21 01/14/24 Bryon Pruitt MD [address] [place] [address] Referring Physician Neurology 06/06/24 Sara Brewer PA [address] [place] [address] [place] [address] Physician Lawn Specialist Neurology 06/06/24 Alida Telles, ZE [address] [place] [address] Clinical Advocate Family Medicine 08/23/24 10/02/24 Melissa Sloan LPN [address] [place] [address] [place] [address] 10/02/24 documented as of this encounter
--- OUTSIDE RECORDS SUMMARY | 2025-01-12 10:49 | XMS_ITS | Encounter Summary ---
Author Organization [facility] Address [address] [place] [address] Care Team Providers Care Credit Union Manager Name Role Phone Jason Wyatt MD Unavailable [phone] Jason Wyatt MD Primary Care Provider [phone] Jason Wyatt MD Unavailable [phone] Bryon Pruitt MD Unavailable [phone] Sara Brewer Unavailable Alida Telles RN Unavailable [phone] Melissa Sloan LPN Unavailable Encounter Details Date Type Department Care Team (Late st Contact Info) Description 01/12/2024 External Result Encounter [facility] External Department Unsolicited Jason Wyatt MD [address] [address] Social History Tobacco Use Types Packs/Day Years [...] week 03/02/2023 How often do you attend holiness or judaism serv ices? Never 03/02/2023 Do you belong to any clubs o r organizations such as holiness groups, unions, fraternal or athletic groups, or [...] money to buy more. Never true 03/02/20 23 Within the past 12 months, t [...] place to sleep or slept in a half-way (including now)? No 03/02/2023 Comments Unknown Sex and Gender Information Value Date Recorded Sex Assigned at Not on file Legal Sex Female 6:36 PM EDT Gender Identity Not on file Sexual Orientation Not on file documented as of this encounter Plan of Treatment Upcoming Encounters Date Type Department Care Team (Late st Contact Info) Description 01/20/2025 9:00 AM EDT Office Visit [facility] [address] [address] Jason Wyatt MD 112 [facility] 110 [place] [address] documented as of this encounter Procedures Procedure Name Priority Date/Time Associated Diagnosis Comments BI MAMMOGRAM SCREENING TOMOSYNTHESIS BILATERAL 01/12/2024 2:31 PM EDT documented in this encounter Results * Bilateral screening mammogram with tomosynthesis (01/12/2024 2:31 PM EDT) Anatomical Region Laterality Modality Breast Bilateral Mammography 01/12/2024 2:31 PM EDT Impressions 01/12/2024 2:34 PM EDT NO MAMMOGRAPHIC EVIDENCE OF MALIGNANCY. ROUTINE FOLLOW-UP IS RECOMMENDED IN ONE YEAR. RESULT CODE: 1 Negative DENSITY CODE: 2 (approximately 25-50% glandular) FOLLOW UP: 1YR The false-negative rate of mammography is approximately 10-percent. Management of a palpable abnormality must be based on clinical grounds. Patient was entered into a reminder system with a target due date for the next mammogram. Impression dictated by: Wilton Jones Jr. D.ORaffy01/12/2024 2:32 PM Dictation Location: [facility] Transcribed By: PWS 01/12/24 1432 Dictated By: Wilton Jones Jr, DO 01/12/24 1431 Signed By: <Electronically signed by Wilton Jones Jr, DO in OV> 01/12/24 1432 Narrative 01/12/2024 2:34 PM EDT [place] [id number] Mammography Report Signed Patient: Marisela Hsieh MR#: [id number] : 1955 Acct:[id number] Age/Sex: 68 / F ADM Date: 01/12/24 Loc: IN Room: Type: [facility] Attending Dr: Jason Wyatt II, MD Copies to: Jason Wyatt II, MD Ordering Provider: Jason Wyatt II, MD Date of Service: 01/12/24 MM/MM screening mammo BI w/CAD: SCREENING CLINICAL DATA: Screening for malignancy. SCREENING MAMMOGRAM - FULL FIELD DIGITAL WITH TOMOSYNTHESIS AND CAD COMPARISON:Mammograms dating back to 2020 Tomosynthesis craniocaudal and mediolateral oblique views of both breasts were obtained using low- dose digital technique. This examination was reviewed with the aid of CAD. FINDINGS: The breast tissue is composed of scattered fibroglandular densities. There are no dominant masses, typically malignant calcifications or architectural distortion. There has been no significant interval change. MM/MM screening mammo BI w/CAD Procedure Note Radiology, Radiologist, - 01/12/[address] [address] Mammography Report Signed Patient: Marisela Hsieh KMR#: [id number] : 5Acct:[id number] Age/Sex: 68 / FADM Date: 01/12/24 Loc: IN Room:Type: [facility] Attending Dr: Jason Wyatt II, MD Copies to: Jason Wyatt II, MD Ordering Provider: Jason Wyatt II, MD Date of Service: 01/12/24 MM/MM screening mammo BI w/CAD: SCREENING CLINICAL DATA: Screening for malignancy. SCREENING MAMMOGRAM - FULL FIELD DIGITAL WITH TOMOSYNTHESIS AND CAD COMPARISON:Mammograms dating back to 2020 Tomosynthesis craniocaudal and mediolateral oblique views of both breastswere obtained using low- dose digital technique. This examination was reviewed with the aid ofCAD. FINDINGS: The breast tissue is composed of scattered fibroglandular densities.There are no dominant masses, typically malignant calcifications or architectural distortion. There hasbeen no significant interval change. MM/MM screening mammo BI w/CAD IMPRESSION: NO MAMMOGRAPHIC EVIDENCE OF MALIGNANCY. ROUTINE FOLLOW-UP IS RECOMMENDED IN ONE YEAR. RESULT CODE: 1 Negative DENSITY CODE: 2 (approximately 25-50% glandular) FOLLOW UP: 1YR The false-negative rate of mammography is approximately 10-percent. Management of a palpable abnormality must be based on clinical grounds. Patient was entered into a reminder system with a target due date for thenext mammogram. Impression dictated by: Wilton Jones Jr., D.ORaffy01/12/2024 2:32 PM Dictation Location: [facility] Transcribed By: [facility] 01/12/24 1432 Dictated By: Wilton Jones Jr, DO 01/12/24 1431 Signed By: <Electronically signed by Wilton Jones Jr, DO inOV> 01/12/24 1432 us Jason Wyatt MD IMG BI PROCEDURES Final Result documented in this encounter Visit Diagnoses Not on filedocumented in this encounter Care Teams Credit Union Manager Relationship Specialty Start Date End Date Jason Wyatt MD [address] [facility] 110 [place] [address] PCP - Devoted 07/17/22 Jason Wyatt MD [address] [facility] 110 [place] [address] PCP - General Internal Medicine 01/02/23 Jason Wyatt MD [address] [facility] 110 [place] [address] PCP - Humana 07/17/21 01/14/24 Bryon Pruitt MD [address] [facility] 110 [place] [address] Referring Physician Neurology 06/06/24 Sara Brewer PA [address] [facility] 110 [place] [address] Physician Wave Guide Assembler Neurology 06/06/24 Alida Telles, RN [address] [place] [address] Clinical Advocate Family Medicine 08/23/24 10/02/24 Melissa Sloan LPN [address] [facility] 110 [place] [address] 10/02/24 documented as of this encounter
--- OUTSIDE RECORDS SUMMARY | 2025-01-12 10:49 | XMS_ITS | Encounter Summary ---
Author Organization [facility] Address [address] [facility] [place] [address] Care Team Providers Care Filtrose Crusher Name Role Phone Jason Wyatt MD Unavailable [phone] Jason Wyatt MD Primary Care Provider [phone] Bryon Pruitt MD Unavailable [phone] Sara Brewer Unavailable Alida Telles RN Unavailable [phone] Melissa Sloan LPN Unavailable Encounter Details Date Type Department Care Team (Late st Contact Info) Description 01/22/2024 Abstract [facility] 112 [address] [facility] 110 [place] [address] Jason Wyatt MD 112 [facility] 110 [place], [place] [address] Social History Tobacco Use Types Packs/Day Years [...] week 03/02/2023 How often do you attend spiritism or pentecostalism serv ices? Never 03/02/2023 Do you belong to any clubs o r organizations such as spiritism groups, unions, fraternal or athletic groups, or [...] Recorded Patient Health Questionnaire-2 Score 0 03/09/2023 [facility] Occupat ional Health - Occupational [...] place to sleep or slept in a halfway (including now)? No 03/02/2023 Comments Unknown Sex [...] Visit [facility] [address] [facility] 110 [place] [address] Jason Wyatt MD [address] [facility] 110 [place] [address] documented as of this encounter Visit Diagnoses Not on filedocumented in this encounter Care Teams Filtrose Crusher Relationship Specialty Start Date End Date Jason Wyatt MD [address] [facility] 110 [place] [address] PCP - Devoted 07/17/22 Jason Wyatt MD [address] [facility] 110 [place] [address] PCP - General Internal Medicine 01/02/23 Bryon Pruitt MD [address] [address] Referring Physician Neurology 06/06/24 Sara Brewer PA [address] [address] Physician City Editor Neurology 06/06/24 Alida Telles, ZE [address] [place] [address] Clinical Advocate Family Medicine 08/23/24 10/02/24 Melissa Sloan LPN [address] [address] 10/02/24 documented as of this encounter
--- OUTSIDE RECORDS SUMMARY | 2025-01-12 10:49 | XMS_ITS | Encounter Summary ---
Author Organization [facility] Address [address] [facility] [place] [address] Care Team Providers Care Duct Cleaner Name Role Phone Jason Wyatt MD Unavailable [phone] Jason Wyatt MD Primary Care Provider [phone] Jason Wyatt MD Unavailable [phone] Bryon Pruitt MD Unavailable [phone] Sara Brewer Unavailable Alida Telles RN Unavailable [phone] Melissa Sloan LPN Unavailable Encounter Details Date Type Department Care Team (Late Contact Info) Description 12/22/2022 Abstract [facility] 112 [facility] 110 [place] [phone] Jason Wyatt MD [address] [id number] Social History Tobacco Use Types Packs/Day Years [...] Office Visit [facility] 112 [address] [facility] 110 [place] [address] Jason Wyatt MD 112 [facility] 110 [place], [place] [address] documented as of this encounter Visit Diagnoses Not on filedocumented in this encounter Care Teams Duct Cleaner Relationship Specialty Start Date End Date Jason Wyatt MD [address] [facility] [address] [place] [address] PCP - Devoted 07/17/22 Jason Wyatt MD [address] [facility] [address] [place] [address] PCP - General Internal Medicine 01/02/23 Jason Wyatt MD [address] [facility] 110 [place] [address] PCP - Humana 07/17/21 01/14/24 Bryon Pruitt MD [address] [facility] 110 [place] [address] Referring Physician Neurology 06/06/24 Sara Brewer PA [address] [facility] 110 [place] [address] Physician Manager Of Enterprise Neurology 06/06/24 Alida Telles, ZE [address] [place] [address] Clinical Advocate Family Medicine 08/23/24 10/02/24 Melissa Sloan LPN [address] [facility] 110 [place] [address] 10/02/24 documented as of this encounter
--- OUTSIDE RECORDS SUMMARY | 2025-01-12 10:49 | XMS_ITS | Encounter Summary ---
Author Organization [facility] Address [address] [facility] [place] [address] Care Team Providers Care Measuring Machine Tender Name Role Phone Jason Wyatt MD Unavailable [phone] Jason Wyatt MD Primary Care Provider [phone] Jason Wyatt MD Unavailable [phone] Bryon Pruitt MD Unavailable [phone] Sara Brewer Unavailable Alida Telles RN Unavailable [phone] Melissa Sloan LPN Unavailable Encounter Details Date Type Department Care Team (Late st Contact Info) Description 12/19/2023 Abstract [facility] 112 [facility] 110 [place] [address] Jason Wyatt MD 112 [place] [facility] 110 [place], [place] [phone] Social History Tobacco Use Types Packs/Day Years [...] week 03/02/2023 How often do you attend zoroastrian or mandaen serv ices? Never 03/02/2023 Do you belong to any clubs o r organizations such as zoroastrian groups, unions, fraternal or athletic groups, or [...] Recorded Patient Health Questionnaire-2 Score 0 03/09/2023 [facility] of Occupat ional Health - [...] place to sleep or slept in a longterm (including now)? No 03/02/2023 Comments Unknown Sex [...] WAY [facility] 110 [place] [address] Jason Wyatt MD [address] [facility] 110 [place] [address] documented as of this encounter Visit Diagnoses Not on filedocumented in this encounter Care Teams Measuring Machine Tender Relationship Specialty Start Date End Date Jason Wyatt MD [address] [facility] 110 [place] [address] PCP - Devoted 07/17/22 Jason Wyatt MD [address] [facility] 110 [place] [address] PCP - General Internal Medicine 01/02/23 Jason Wyatt MD [address] [place] [address] [place] [address] PCP - Humana 07/17/21 01/14/24 Bryon Pruitt MD [address] [place] [address] Referring Physician Neurology 06/06/24 Sara Brewer PA [address] [place] [address] [place] [address] Physician Training Consultant Neurology 06/06/24 Alida Telles, ZE [address] [place] [address] Clinical Advocate Family Medicine 08/23/24 10/02/24 Melissa Sloan LPN [address] [place] [address] [place] [address] 10/02/24 documented as of this encounter
--- OUTSIDE RECORDS SUMMARY | 2025-01-12 10:49 | XMS_ITS | Encounter Summary ---
Author Organization [facility] Address [address] [facility] [place] [address] Care Team Providers Care Human Resource Advisor Name Role Phone Jason Wyatt MD Unavailable [phone] Jason Wyatt MD Primary Care Provider [phone] Bryon Pruitt MD Unavailable [phone] Sara Brewer Unavailable Alida Telles RN Unavailable [phone] Melissa Sloan LPN Unavailable Encounter Details Date Type Department Care Team (Late st Contact Info) Description 04/03/2024 Abstract [facility] [address] [facility] 110 [place] [address] Jason Wyatt MD 112 [facility] 110 [place], [place] [address] Social History Tobacco Use Types Packs/Day Years [...] week 03/02/2023 How often do you attend temple or cheondoism serv ices? Never 03/02/2023 Do you belong to any clubs o r organizations such as temple groups, unions, fraternal or athletic groups, or [...] Recorded Patient Health Questionnaire-2 Score 0 03/06/2024 [facility] of Occupat ional Health - [...] place to sleep or slept in a custodial (including now)? No 03/02/2023 Comments Unknown Sex [...] Visit [facility] [address] [facility] 110 [place] [address] Jason Wyatt MD [address] [facility] 110 [place] [address] documented as of this encounter Visit Diagnoses Not on filedocumented in this encounter Care Teams Human Resource Advisor Relationship Specialty Start Date End Date Jason Wyatt MD [address] [facility] [address] [place] [address] PCP - Devoted 07/17/22 Jason Wyatt MD [address] [facility] 110 [place] [address] PCP - General Internal Medicine 01/02/23 Bryon Pruitt MD [address] [place] [address] Referring Physician Neurology 06/06/24 Sara Brewer PA [address] [place] [address] Physician African History Professor Neurology 06/06/24 Alida Telles, RN [address] [place] [address] Clinical Advocate Family Medicine 08/23/24 10/02/24 Melissa Sloan LPN [address] [place] [address] 10/02/24 documented as of this encounter
--- OUTSIDE RECORDS SUMMARY | 2025-01-12 10:49 | XMS_ITS | Encounter Summary ---
Author Organization [facility] Address [address] [facility] [place] [address] Care Team Providers Care Beef Selector Name Role Phone Jason Wyatt MD Unavailable [phone] Jason Wyatt MD Primary Care Provider [phone] Jason Wyatt MD Unavailable [phone] Bryon Pruitt MD Unavailable [phone] Sara Brewer Unavailable Alida Telles RN Unavailable [phone] Melissa Sloan LPN Unavailable Encounter Details Date Type Department Care Team (Late st Contact Info) Description 10/04/2023 Abstract [facility] 112 [facility] 110 [place] [address] Jason Wyatt MD [address] [facility] 110 [place], [place] [id number] Social History Tobacco Use Types Packs/Day Years [...] week 03/02/2023 How often do you attend taoism or adventist serv ices? Never 03/02/2023 Do you belong to any clubs o r organizations such as taoism groups, unions, fraternal or athletic groups, or [...] Recorded Patient Health Questionnaire-2 Score 0 03/09/2023 [facility] of Occupat ional Health - Occupational [...] [address] [facility] 110 [place] [address] Jason Wyatt MD [address] [facility] 110 [place] [address] documented as of this encounter Visit Diagnoses Not on filedocumented in this encounter Care Teams Beef Selector Relationship Specialty Start Date End Date Jason Wyatt MD [address] [facility] 110 [place] [address] PCP - Devoted 07/17/22 Jason Wyatt MD [address] [facility] 110 [place] [address] PCP - General Internal Medicine 01/02/23 Jason Wyatt MD [address] [place] [address] [place] [address] PCP - Humana 07/17/21 01/14/24 Bryon Pruitt MD [address] [place] [address] Referring Physician Neurology 06/06/24 Sara Brewer PA [address] [place] [address] [place] [address] Physician Ferryboat Helper Neurology 06/06/24 Alida Telles, ZE [address] [place] [address] Clinical Advocate Family Medicine 08/23/24 10/02/24 Melissa Sloan LPN [address] [place] [address] [place] [address] 10/02/24 documented as of this encounter
--- OUTSIDE RECORDS SUMMARY | 2025-01-12 10:49 | XMS_ITS | Encounter Summary ---
Author Organization [facility] Address [address] [facility] [place] [address] Care Team Providers Care Roofing Foreman Name Role Phone Jason Wyatt MD Unavailable [phone] Jason Wyatt MD Primary Care Provider [phone] Jason Wyatt MD Unavailable [phone] Bryon Pruitt MD Unavailable [phone] Sara Brewer Unavailable Alida Telles RN Unavailable [phone] Melissa Sloan LPN Unavailable Encounter Details Date Type Department Care Team (Late st Contact Info) Description 10/10/2023 Abstract [facility] [address] [facility] 110 [place] [address] Jason Wyatt MD [address] [facility] 110 [place], [place] [id number] Social History Tobacco Use Types Packs/Day Years [...] week 03/02/2023 How often do you attend tenriism or mormonism serv ices? Never 03/02/2023 Do you belong to any clubs o r organizations such as tenriism groups, unions, fraternal or athletic groups, or [...] Recorded Patient Health Questionnaire-2 Score 0 03/09/2023 [facility] of Occupat ional Health - [...] Visit [facility] [address] [facility] 110 [place] [address] Jason Wyatt MD [address] [facility] 110 [place] [address] documented as of this encounter Visit Diagnoses Not on filedocumented in this encounter Care Teams Roofing Foreman Relationship Specialty Start Date End Date Jason Wyatt MD [address] [facility] 110 [place] [address] PCP - Devoted 07/17/22 Jason Wyatt MD [address] [facility] 110 [place] [address] PCP - General Internal Medicine 01/02/23 Jason Wyatt MD [address] [place] [address] [place] [address] PCP - Humana 07/17/21 01/14/24 Bryon Pruitt MD [address] [place] [address] Referring Physician Neurology 06/06/24 Sara Brewer PA [address] [place] [address] [place] [address] Physician Multi Share Program Coordinator Neurology 06/06/24 Alida Telles, ZE [address] [place] [address] Clinical Advocate Family Medicine 08/23/24 10/02/24 Melissa Sloan LPN [address] [place] [address] [place] [address] 10/02/24 documented as of this encounter
--- OUTSIDE RECORDS SUMMARY | 2025-01-12 10:49 | XMS_ITS | Encounter Summary ---
Author Organization [facility] Address [address] [facility] [place] [address] Care Team Providers Care Insurance Licensing Supervisor Name Role Phone Jason Wyatt MD Unavailable [phone] Jason Wyatt MD Primary Care Provider [phone] Bryon Pruitt MD Unavailable [phone] Sara Brewer Unavailable Alida Telles RN Unavailable [phone] Melissa Sloan LPN Unavailable Encounter Details Date Type Department Care Team (Late st Contact Info) Description 04/22/2024 Abstract [facility] 112 [address] [facility] 110 [place] [address] Jason Wyatt MD 112 [facility] 110 [place], [place] [id number] Social History Tobacco Use Types Packs/Day Years [...] week 03/02/2023 How often do you attend zoroastrianism or orthodox serv ices? Never 03/02/2023 Do you belong to any clubs o r organizations such as zoroastrianism groups, unions, fraternal or athletic groups, or [...] Recorded Patient Health Questionnaire-2 Score 0 03/06/2024 [facility] of Occupat ional Health - Occupational [...] place to sleep or slept in a long-term (including now)? No 03/02/2023 Comments Unknown Sex [...] [address] [facility] 110 [place] [address] Jason Wyatt MD [address] [facility] [address] [place] [address] documented as of this encounter Visit Diagnoses Not on filedocumented in this encounter Care Teams Insurance Licensing Supervisor Relationship Specialty Start Date End Date Jason Wyatt MD [address] [facility] 110 [place] [address] PCP - Devoted 07/17/22 Jason Wyatt MD [address] [facility] [address] [place] [address] PCP - General Internal Medicine 01/02/23 Bryon Pruitt MD [address] [place] [address] Referring Physician Neurology 06/06/24 Sara Brewer PA [address] [place] [address] Physician Supervisor Inspection Department Neurology 06/06/24 Alida Telles, RN [address] [place] [address] Clinical Advocate Family Medicine 08/23/24 10/02/24 Melissa Sloan LPN [address] [place] [address] 10/02/24 documented as of this encounter
--- OUTSIDE RECORDS SUMMARY | 2025-01-12 10:49 | XMS_ITS | Encounter Summary ---
Author Organization [facility] Address [address] [facility] [place] [address] Care Team Providers Care Mold Stamper And Repairer Name Role Phone Jason Wyatt MD Unavailable [phone] Jason Wyatt MD Primary Care Provider [phone] Jason Wyatt MD Unavailable [phone] Bryon Pruitt MD Unavailable [phone] Sara Brewer Unavailable Alida Telles RN Unavailable [phone] Melissa Sloan LPN Unavailable Encounter Details Date Type Department Care Team (Late st Contact Info) Description 10/31/2023 Abstract [facility] 112 [facility] 110 [place] [address] Jason Wyatt MD [address] [facility] 110 [place], [place] [id number] Social History Tobacco Use Types Packs/Day Years [...] week 03/02/2023 How often do you attend caodaism or taoism serv ices? Never 03/02/2023 Do you belong to any clubs o r organizations such as caodaism groups, unions, fraternal or athletic groups, or [...] Questionnaire-2 Score 0 03/09/2023 [facility] of Occupat ional Health - Occupational [...] place to sleep or slept in a snf (including now)? No 03/02/2023 Comments Unknown Sex [...] Visit [facility] [address] [facility] 110 [place] [address] Jason Wyatt MD [address] [facility] 110 [place] [address] documented as of this encounter Visit Diagnoses Not on filedocumented in this encounter Care Teams Mold Stamper And Repairer Relationship Specialty Start Date End Date Jason Wyatt MD [address] [facility] 110 [place] [address] PCP - Devoted 07/17/22 Jason Wyatt MD [address] [facility] 110 [place] [address] PCP - General Internal Medicine 01/02/23 Jason Wyatt MD [address] [place] [address] [place] [address] PCP - Humana 07/17/21 01/14/24 Bryon Pruitt MD [address] [place] [address] Referring Physician Neurology 06/06/24 Sara Brewer PA [address] [place] [address] [place] [address] Physician Woven Paper Hat Mender Neurology 06/06/24 Alida Telles, ZE [address] [place] [address] Clinical Advocate Family Medicine 08/23/24 10/02/24 Melissa Sloan LPN [address] [place] [address] [place] [address] 10/02/24 documented as of this encounter
--- OUTSIDE RECORDS SUMMARY | 2025-01-12 10:49 | XMS_ITS | Encounter Summary ---
Author Organization [facility] Address [address] [facility] [place] [address] Care Team Providers Care Automobile Washer Steam Name Role Phone Jason Wyatt MD Unavailable [phone] Jason Wyatt MD Primary Care Provider [phone] Bryon Pruitt MD Unavailable [phone] Sara Brewer Unavailable Alida Telles RN Unavailable [phone] Melissa Sloan LPN Unavailable Encounter Details Date Type Department Care Team (Late st Contact Info) Description 01/22/2024 Abstract [facility] 112 [address] [facility] 110 [place] [address] Jason Wyatt MD 112 [facility] 110 [place], [place] [address] Social History Tobacco Use Types Packs/Day Years [...] week 03/02/2023 How often do you attend yazidi or christian serv ices? Never 03/02/2023 Do you belong to any clubs o r organizations such as yazidi groups, unions, fraternal or athletic groups, or [...] Recorded Patient Health Questionnaire-2 Score 0 03/09/2023 [facility] of Occupat ional Health - Occupational Stress [...] place to sleep or slept in a assisted (including now)? No 03/02/2023 Comments Unknown Sex [...] Visit [facility] [address] [facility] 110 [place] [address] Jason Wyatt MD [address] [facility] 110 [place] [address] documented as of this encounter Visit Diagnoses Not on filedocumented in this encounter Care Teams Automobile Washer Steam Relationship Specialty Start Date End Date Jason Wyatt MD [address] [facility] 110 [place] [address] PCP - Devoted 07/17/22 Jason Wyatt MD [address] [facility] 110 [place] [address] PCP - General Internal Medicine 01/02/23 Bryon Pruitt MD [address] [address] Referring Physician Neurology 06/06/24 aSra Brewer PA [address] [address] Physician Livestock Trucker Neurology 06/06/24 Alida Telles, ZE [address] [place] [address] Clinical Advocate Family Medicine 08/23/24 10/02/24 Melissa Sloan LPN [address] [address] 10/02/24 documented as of this encounter
--- OUTSIDE RECORDS SUMMARY | 2025-01-12 10:49 | XMS_ITS | Encounter Summary ---
Author Organization [facility] Address [address] [facility] [place] [address] Care Team Providers Care Foxing Painter Name Role Phone Jason Wyatt MD Unavailable [phone] Jason Wyatt MD Primary Care Provider [phone] Jason Wyatt MD Unavailable [phone] Bryon Pruitt MD Unavailable [phone] Sara Brewer Unavailable Alida Telles RN Unavailable [phone] Melissa Sloan LPN Unavailable Encounter Details Date Type Department Care Team (Late st Contact Info) Description 12/19/2023 Abstract [facility] [address] [facility] 110 [place] [address] Jason Wyatt MD 112 [facility] 110 [place], [place] [id number] Social History Tobacco Use Types Packs/Day Years [...] How often do you attend cheondoism or roman catholic serv ices? Never 03/02/2023 Do you belong [...] Recorded Patient Health Questionnaire-2 Score 0 03/09/2023 [facility] of Occupat ional Health - Occupational [...] place to sleep or slept in a long term (including now)? No 03/02/2023 Comments Unknown Sex [...] [address] [facility] 110 [place] [address] Jason Wyatt MD [address] [facility] 110 [place] [address] documented as of this encounter Visit Diagnoses Not on filedocumented in this encounter Care Teams Foxing Painter Relationship Specialty Start Date End Date Jason Wyatt MD [address] [facility] 110 [place] [address] PCP - Devoted 07/17/22 Jason Wyatt MD [address] [facility] 110 [place] [address] PCP - General Internal Medicine 01/02/23 Jason Wyatt MD [address] [place] [address] [place] [address] PCP - Humana 07/17/21 01/14/24 Bryon Pruitt MD [address] [place] [address] Referring Physician Neurology 06/06/24 Sara Brewer PA [address] [place] [address] [place] [address] Physician Synthetic Gem Press Operator Neurology 06/06/24 Alida Telles, ZE [address] [place] [address] Clinical Advocate Family Medicine 08/23/24 10/02/24 Melissa Sloan LPN [address] [place] [address] [place] [address] 10/02/24 documented as of this encounter
--- OUTSIDE RECORDS SUMMARY | 2025-01-12 10:49 | XMS_ITS | Encounter Summary ---
Author Organization [facility] Address [address] [place] [address] Care Team Providers Care Production Technician Name Role Phone Jason Wyatt MD Unavailable [phone] Jason Wyatt MD Primary Care Provider [phone] Bryon Pruitt MD Unavailable [phone] Sara Brewer Unavailable Melissa Sloan LPN Unavailable Encounter Details Date Type Department Care Team (Late st Contact Info) Description 12/05/2024 Abstract [facility] 112 [address] [facility] 110 [place] [address] Jason Wyatt MD 112 [facility] 110 [place] [address] Social History Tobacco Use Types Packs/Day Years [...] week 03/02/2023 How often do you attend yarsanism or mandaen serv ices? Never 03/02/2023 Do you belong to any clubs o r organizations such as yarsanism groups, unions, fraternal or athletic groups, or [...] Date Recorded Patient Health Questionnaire-2 Score 0 11/21/2024 [facility] of Occupat ional Health - Occupational [...] place to sleep or slept in a [place] [facility] [place] facility (including now)? No 03/02/2023 Comments Unknown Sex and Gender Information Value Date Recorded Sex Assigned at Not on file Legal Sex Female 6:36 PM EDT Gender Identity Not on file Sexual Orientation Not on file documented as of this encounter Plan of Treatment Upcoming Encounters Date Type Department Care Team (Late st Contact Info) Description 01/20/2025 9:00 AM EDT Office Visit [facility] [address] [facility] 110 [place] [address] Jason Wyatt MD [address] [facility] 110 [place] [address] documented as of this encounter Visit Diagnoses Not on filedocumented in this encounter Care Teams Production Technician Relationship Specialty Start Date End Date Jason Wyatt MD [address] [facility] 110 [place] [address] PCP - Devoted 07/17/22 Jason Wyatt MD [address] [facility] [address] [place] [address] PCP - General Internal Medicine 01/02/23 Bryon Pruitt MD [address] [address] Referring Physician Neurology 06/06/24 Sara Brewer PA [address] [address] Physician Mold Shaker Neurology 06/06/24 Melissa Sloan LPN [address] [address] 10/02/24 documented as of this encounter
--- OUTSIDE RECORDS SUMMARY | 2025-01-12 10:49 | XMS_ITS | Encounter Summary ---
Author Organization [facility] Address [address] [place] [address] Care Team Providers Care Lehr Attendant Name Role Phone Jason Wyatt MD Unavailable [phone] Jason Wyatt MD Primary Care Provider [phone] Jason Wyatt MD Unavailable [phone] Bryon Pruitt MD Unavailable [phone] Sara Brewer Unavailable Alida Telles RN Unavailable [phone] Melissa Sloan LPN Unavailable Encounter Details Date Type Department Care Team (Late st Contact Info) Description 12/19/2023 Orders Only [facility] [address] [facility] 110 [place] [address] Unallocated, Noms Provider, [address] [place], [place] [address] Social History Tobacco Use Types Packs/Day Years [...] week 03/02/2023 How often do you attend taoist or restorationist serv ices? Never 03/02/2023 Do you belong to any clubs o r organizations such as taoist groups, unions, fraternal or athletic groups, or [...] Recorded Patient Health Questionnaire-2 Score 0 03/09/2023 [facility] of Occupat ional Health - [...] 01/20/2025 9:00 AM EDT Office Visit [facility] 112 [facility] 110 [place] [address] Jason Wyatt MD 112 [facility] 110 [place], [place] [address] documented as of this encounter Procedures Procedure Name Priority Date/Time Associated Diagnosis Comments SCANNED LABS Routine 12/18/2023 9:32 AM EDT documented in this encounter Results * SCANNED LABS (12/18/2023 9:32 AM EDT) us Noms Provider Unallocated LAB CHG PERFORMABLE S Final Result documented in this encounter Visit Diagnoses Not on filedocumented in this encounter Care Teams Lehr Attendant Relationship Specialty Start Date End Date Jason Wyatt MD [address] [facility] [place] [address] PCP - Devoted 07/17/22 Jason Wyatt MD [address] [facility] [place] [address] PCP - General Internal Medicine 01/02/23 Jason Wyatt MD [address] [facility] [place] [address] PCP - Humana 07/17/21 01/14/24 Bryon Pruitt MD [address] [facility] [place] [address] Referring Physician Neurology 06/06/24 Sara Brewer PA [address] [facility] [place] [address] Physician Commanding Officer Motorized Squad Neurology 06/06/24 Alida Telles, RN [address] [place] [address] Clinical Advocate Family Medicine 08/23/24 10/02/24 Melissa Sloan LPN [address] [facility] [place] [address] 10/02/24 documented as of this encounter
--- OUTSIDE RECORDS SUMMARY | 2025-01-12 10:49 | XMS_ITS | Encounter Summary ---
Author Organization [facility] Address [address] [facility] [place] [address] Care Team Providers Care Perianesthesia Nurse Name Role Phone Jason Wyatt MD Unavailable [phone] Jason Wyatt MD Primary Care Provider [phone] Bryon Pruitt MD Unavailable [phone] Sara Brewer Unavailable Melissa Sloan LPN Unavailable Encounter Details Date Type Department Care Team (Late st Contact Info) Description 12/24/2024 Abstract [facility] [address] [facility] 110 [place] [address] Jason Wyatt MD 112 [facility] 110 [place] [address] Social History Tobacco Use Types [...] week 03/02/2023 How often do you attend nondenominational or yarsani serv ices? Never 03/02/2023 Do you belong to any clubs o r organizations such as nondenominational groups, unions, fraternal or athletic groups, or [...] Recorded Patient Health Questionnaire-2 Score 0 11/21/2024 [facility] of Occupat [...] place to sleep or slept in a penitentiary (including now)? No 03/02/2023 Comments Unknown Sex and Gender Information Value Date Recorded Sex Assigned at Not on file Legal Sex Female 6:36 PM EDT Gender Identity Not on file Sexual Orientation Not on file documented as of this encounter Plan of Treatment Upcoming Encounters Date Type Department Care Team (Late st Contact Info) Description 01/20/2025 9:00 AM EDT Office Visit [facility] [address] [facility] 110 [place] [address] Jason Wyatt MD [address] [facility] 110 [place] [address] documented as of this encounter Visit Diagnoses Not on filedocumented in this encounter Care Teams Perianesthesia Nurse Relationship Specialty Start Date End Date Jason Wyatt MD [address] [facility] 110 [place] [address] PCP - Devoted 07/17/22 Jason Wyatt MD [address] [facility] [address] [place] [address] PCP - General Internal Medicine 01/02/23 Bryon Pruitt MD [address] [address] Referring Physician Neurology 06/06/24 Sara Brewer PA [address] [address] Physician Analytical Consultant Neurology 06/06/24 Melissa Sloan LPN [address] [address] 10/02/24 documented as of this encounter
--- OUTSIDE RECORDS SUMMARY | 2025-01-12 10:49 | XMS_ITS | Encounter Summary ---
Author Organization [facility] Address [address] [facility] [place] [address] Care Team Providers Care Tanning Consultant Name Role Phone Jason Wyatt MD Unavailable [phone] Jason Wyatt MD Primary Care Provider [phone] Bryon Pruitt MD Unavailable [phone] Sara Brewer Unavailable Alida Telles RN Unavailable [phone] Melissa Sloan LPN Unavailable Encounter Details Date Type Department Care Team (Late st Contact Info) Description 01/25/2024 Abstract [facility] [address] [facility] 110 [place] [address] Jason Wyatt MD 112 [facility] 110 [place], [place] [address] Social History Tobacco Use Types Packs/Day Years [...] week 03/02/2023 How often do you attend yazidism or hinduism serv ices? Never 03/02/2023 Do you belong to any clubs o r organizations such as yazidism groups, unions, fraternal or athletic groups, or [...] Patient Health Questionnaire-2 Score 0 03/09/2023 [facility] of Occupat ional Health - Occupational [...] place to sleep or slept in a correction (including now)? No 03/02/2023 Comments Unknown Sex [...] WAY [facility] 110 [place] [address] Jason Wyatt MD [address] [facility] 110 [place] [address] documented as of this encounter Visit Diagnoses Not on filedocumented in this encounter Care Teams Tanning Consultant Relationship Specialty Start Date End Date Jason Wyatt MD [address] [facility] 110 [place] [address] PCP - Devoted 07/17/22 Jason Wyatt MD [address] [facility] 110 [place] [address] PCP - General Internal Medicine 01/02/23 Bryon Pruitt MD [address] [address] Referring Physician Neurology 06/06/24 Sara Brewer PA [address] [address] Physician Php Developer Neurology 06/06/24 Alida Telles, ZE [address] [place] [address] Clinical Advocate Family Medicine 08/23/24 10/02/24 Melissa Sloan LPN [address] [address] 10/02/24 documented as of this encounter
--- OUTSIDE RECORDS SUMMARY | 2025-01-12 10:49 | XMS_ITS | Encounter Summary ---
Author Organization [facility] Address [address] [facility] [place] [address] Care Team Providers Care Foam Rubber Fabricator Name Role Phone Jason Wyatt MD Unavailable [phone] Jason Wyatt MD Primary Care Provider [phone] Jason Wyatt MD Unavailable [phone] Bryon Pruitt MD Unavailable [phone] Sara Brewer Unavailable Alida Telles RN Unavailable [phone] Melissa [place] LPN Unavailable Encounter Details Date Type Department Care Team (Late st Contact Info) Description 01/16/2023 Abstract [facility] [address] [facility] 110 [place] [id number] Jason Wyatt MD [address] [address] Social History Tobacco Use Types Packs/Day Years [...] Office Visit [facility] [address] [facility] 110 [place] [phone] Jason Wyatt MD 112 [facility] 110 [place], [place] [id number] documented as of this encounter Visit Diagnoses Not on filedocumented in this encounter Care Teams Foam Rubber Fabricator Relationship Specialty Start Date End Date Jason Wyatt MD [address] [facility] 110 [place] [address] PCP - Devoted 07/17/22 Jason Wyatt MD [address] [facility] 110 [place] [address] PCP - General Internal Medicine 01/02/23 Jason Wyatt MD [address] [facility] 110 [place] [address] PCP - [employer] 07/17/21 01/14/24 Bryon Pruitt MD [address] [facility] 110 [place] [address] Referring Physician Neurology 06/06/24 Sara Brewer PA [address] [facility] 110 [place] [address] Physician Operating Room Technician Neurology 06/06/24 Alida Telles, ZE [address] [place] [address] Clinical Advocate Family Medicine 08/23/24 10/02/24 Melissa [place] LPN [address] [facility] 110 [place] [address] 10/02/24 documented as of this encounter
--- OUTSIDE RECORDS SUMMARY | 2025-01-12 10:49 | XMS_ITS | Encounter Summary ---
Author Organization [facility] Address [address] [facility] [place] [address] Care Team Providers Care Wood Milling Machine Hand Name Role Phone Jason Wyatt MD Unavailable [phone] Jason Wyatt MD Primary Care Provider [phone] Bryon Pruitt MD Unavailable [phone] Sara Brewer Unavailable Melissa [place] LPN Unavailable Reason for Visit * Reason Comments Med Refill Encounter Details Date Type Department Care Team (Late Contact Info) Description 12/28/2024 Refill [facility] 112 [address] [facility] 110 [place] [id number] Jason Wyatt MD 112 [facility] 110 [place] [address] Primary osteoarthritis involving multiple joints Social History Tobacco Use Types Packs/Day Years [...] How often do you attend nondenominational or sabianism serv ices? Never 03/02/2023 Do [...] Patient Health Questionnaire-2 Score 0 11/21/2024 [facility] of Occupat ional Health - [...] place to sleep or slept in a retirement (including now)? No 03/02/2023 Comments Unknown Sex [...] [facility] [address] [facility] 110 [place] [address] Jason Wyatt MD [address] [facility] 110 [place] [address] documented as of this encounter Visit Diagnoses Diagnosis Primary osteoarthritis involving multiple joints documented in this encounter Care Teams Wood Milling Machine Hand Relationship Specialty Start Date End Date Jason Wyatt MD [address] [facility] [address] [place] [address] PCP - Devoted 07/17/22 Jason Wyatt MD [address] [place] [address] [place] [address] PCP - General Internal Medicine 01/02/23 Bryon Pruitt MD [address] [place] [address] Referring Physician Neurology 06/06/24 Sara Brewer PA [address] [place] [address] Physician Nursing Faculty Neurology 06/06/24 Melissa [place] LPN [address] [place] [address] [place] [address] 10/02/24 documented as of this encounter
--- OUTSIDE RECORDS SUMMARY | 2025-01-12 10:49 | XMS_ITS | Encounter Summary ---
Author Organization [facility] Address [address] [facility] [place] [address] Care Team Providers Care Music Internship Name Role Phone Jason Wyatt MD Unavailable [phone] Jason Wyatt MD Primary Care Provider [phone] Bryon Pruitt MD Unavailable [phone] Sara Brweer Unavailable Alida Telles RN Unavailable [phone] Melissa [place] LPN Unavailable Encounter Details Date Type Department Care Team (Late st Contact Info) Description 04/26/2024 Abstract [facility] 112 [address] [facility] 110 [place] [phone] Jason Wyatt MD 112 [facility] 110 [place], [place] [id number] Social History Tobacco Use Types Packs/Day Years [...] week 03/02/2023 How often do you attend denominational or rastafarian serv ices? Never 03/02/2023 Do you belong to any clubs o r organizations such as denominational groups, unions, fraternal or athletic groups, or [...] Recorded Patient Health Questionnaire-2 Score 0 03/06/2024 [facility] of Occupat ional Health - [...] to sleep or slept in a senior care (including now)? No 03/02/2023 Comments Unknown Sex [...] Visit [facility] [address] [facility] 110 [place] [address] Jason Wyatt MD [address] [place] [address] [place] [address] documented as of this encounter Visit Diagnoses Not on filedocumented in this encounter Care Teams Music Internship Relationship Specialty Start Date End Date Jason Wyatt MD [address] [facility] [address] [place] [address] PCP - Devoted 07/17/22 Jason Wyatt MD [address] [facility] [address] [place] [address] PCP - General Internal Medicine 01/02/23 Bryon Pruitt MD [address] [place] [address] Referring Physician Neurology 06/06/24 Sara Brewer PA [address] [place] [address] Physician Music Instructor Neurology 06/06/24 Alida Telles, RN [address] [place] [address] Clinical Advocate Family Medicine 08/23/24 10/02/24 Melissa [place] LPN [address] [place] [address] 10/02/24 documented as of this encounter
--- OUTSIDE RECORDS SUMMARY | 2025-01-12 10:49 | XMS_ITS | Encounter Summary ---
Author Organization [facility] Address [address] [facility] [place] [address] Care Team Providers Care Nut Roaster Name Role Phone Jason Wyatt MD Unavailable [phone] Jason Wyatt MD Primary Care Provider [phone] Bryon Pruitt MD Unavailable [phone] Sara Brewer Unavailable Alida Telles RN Unavailable [phone] Melissa [place] LPN Unavailable Encounter Details Date Type Department Care Team (Late st Contact Info) Description 02/21/2024 Abstract [facility] [address] [facility] 110 [place] [phone] Jason Wyatt MD 112 [facility] 110 [place], [place] [id number] Social History Tobacco Use Types Packs/Day Years [...] week 03/02/2023 How often do you attend sabianism or buddhist serv ices? Never 03/02/2023 Do you belong to any clubs o r organizations such as sabianism groups, unions, fraternal or athletic groups, or [...] Recorded Patient Health Questionnaire-2 Score 0 03/09/2023 [facility] of Occupat ional Health - Occupational [...] Visit [facility] [address] [facility] 110 [place] [address] Jason Wyatt MD [address] [place] [address] [place] [address] documented as of this encounter Visit Diagnoses Not on filedocumented in this encounter Care Teams Nut Roaster Relationship Specialty Start Date End Date Jason Wyatt MD [address] [place] [address] [place] [address] PCP - Devoted 07/17/22 Jason Wyatt MD [address] [facility] [address] [place] [address] PCP - General Internal Medicine 01/02/23 Bryon Pruitt MD [address] [place] [address] Referring Physician Neurology 06/06/24 Sara Brewer PA [address] [place] [address] Physician Electronic Systems Technician Neurology 06/06/24 Alida Telles, RN [address] [place] [address] Clinical Advocate Family Medicine 08/23/24 10/02/24 Melissa [place] LPN [address] [place] [address] 10/02/24 documented as of this encounter
--- OUTSIDE RECORDS SUMMARY | 2025-01-12 10:49 | XMS_ITS | Encounter Summary ---
Author Organization [facility] Address [address] [facility] [place] [address] Care Team Providers Care Golf Starter And Ranger Name Role Phone Jason Wyatt MD Unavailable [phone] Jason Wyatt MD Primary Care Provider [phone] Bryon Pruitt MD Unavailable [phone] Sara Brewer Unavailable Alida Telles RN Unavailable [phone] Melissa [place] LPN Unavailable Encounter Details Date Type Department Care Team (Late st Contact Info) Description 05/30/2024 Abstract [facility] 112 [address] [facility] 110 [place] [phone] Jason Wyatt MD [address] [facility] 110 [place], [place] [id number] Social History Tobacco Use Types Packs/Day Years [...] week 03/02/2023 How often do you attend anabaptist or nondenominational serv ices? Never 03/02/2023 Do you belong to any clubs o r organizations such as anabaptist groups, unions, fraternal or athletic groups, or [...] Recorded Patient Health Questionnaire-2 Score 0 03/06/2024 [facility] of Occupat ional Health - Occupational [...] Visit [facility] [address] [facility] 110 [place] [address] Jason Wyatt MD [address] [place] [address] [place] [address] documented as of this encounter Visit Diagnoses Not on filedocumented in this encounter Care Teams Golf Starter And Ranger Relationship Specialty Start Date End Date Jason Wyatt MD [address] [facility] [address] [place] [address] PCP - Devoted 07/17/22 Jason Wyatt MD [address] [facility] [address] [place] [address] PCP - General Internal Medicine 01/02/23 Bryon Pruitt MD [address] [place] [address] Referring Physician Neurology 06/06/24 Sara Brewer PA [address] [place] [address] Physician Production Line Manager Neurology 06/06/24 Alida Telles, RN [address] [place] [address] Clinical Advocate Family Medicine 08/23/24 10/02/24 Melissa [place] LPN [address] [place] [address] [place] [address] 10/02/24 documented as of this encounter
--- OUTSIDE RECORDS SUMMARY | 2025-01-12 10:49 | XMS_ITS | Encounter Summary ---
Author Organization [facility] Address [address] [facility] [place] [address] Care Team Providers Care Poultry Dressing Worker Name Role Phone Jason Wyatt MD Unavailable [phone] Jason Wyatt MD Primary Care Provider [phone] Bryon Pruitt MD Unavailable [phone] Sara Brewer Unavailable Melissa [place] LPN Unavailable Encounter Details Date Type Department Care Team (Late st Contact Info) Description 12/16/2024 Abstract [facility] 112 [address] [facility] 110 [place] [address] Jason Wyatt MD 112 [facility] 110 [place] [address] Social History Tobacco Use Types [...] week 03/02/2023 How often do you attend christianity or denominational serv ices? Never 03/02/2023 Do you belong to any clubs o r organizations such as christianity groups, unions, fraternal or athletic groups, or [...] Recorded Patient Health Questionnaire-2 Score 0 11/21/2024 [facility] of Occupat ional Health - [...] 01/20/2025 9:00 AM EDT Office Visit [facility] [address] [facility] 110 [place] [address] Jason Wyatt MD [address] [facility] 110 [place] [address] documented as of this encounter Visit Diagnoses Not on filedocumented in this encounter Care Teams Poultry Dressing Worker Relationship Specialty Start Date End Date Jason Wyatt MD [address] [facility] 110 [place] [address] PCP - Devoted 07/17/22 Jsaon Wyatt MD [address] [facility] 110 [place] [address] PCP - General Internal Medicine 01/02/23 Bryon Pruitt MD [address] [place] [address] [address] Referring Physician Neurology 06/06/24 Sara Brewer PA [address] [place] [address] [address] Physician Administrative Office Assistant Neurology 06/06/24 Melissa [place] LPN [address] [place] [address] [address] 10/02/24 documented as of this encounter
--- OUTSIDE RECORDS SUMMARY | 2025-01-12 10:49 | XMS_ITS | Clinical Summary ---
Author Organization [facility] Address [address] [place] [address] Care Team Providers Care Civil Design Specialist Name Role Phone Jason Wyatt MD Unavailable [phone] Jason Wyatt MD Primary Care Provider [phone] Bryon Pruitt MD Unavailable [phone] Sara Brewer Unavailable Melissa Sloan LPN Unavailable Allergies Active Allergy Reactions Criticality Noted Date Comments Atorvastatin GI intolerance 06/23/2023 Heartburn Dulaglutide 12/27/2022 Other Reaction(s): Vision Changes Lisinopril Cough 12/27/2022 Oxycodone-Acetaminophen GI intolerance 12/28/19 23 Sulfa Antibiotics GI intolerance 12/27/2022 Medications acetaminophen (Tylenol Extra Strength) 500 MG tablet Take 500 mg by mouth every 6 (six) hours. Active albuterol (2.5 MG/3ML) 0.083% nebulizer solution Take 2.5 mg by nebulization every 6 (six) hours if needed. 2021 Active glucose blood test strip 1 each by Other route in the morning. Active aspirin 81 MG EC tabletIndication s:Transient Ischemic Attacks Take 81 mg by mouth in the morning. 2022 Active isosorbide mononitrate ER (Imdur) 30 MG 24 hr tablet Take 30 mg by mouth in the morning. 2023 Active furosemide (Lasix) 40 MG tabletIndication s:Systolic dysfunction, left ventricle Take 1 tablet (40 mg) by mouth Daily 90 tablet 2 2023 Active clopidogrel (Plavix) 75 MG tabletIndication s:Transient cerebral ischemia, unspecified type Take 1 tablet (75 mg) by mouth Daily 100 tablet 3 07/08 Active albuterol HFA 90 mcg/act inhalerIndicatio ns:Moderate persistent asthma without complication (HCC) Inhale 2 puffs every 4 (four) hours if needed for wheezing or shortness of breath 18 g 3 2023 Active hydrOXYzine HCl (Atarax) 25 MG tabletIndication s:Chronic pruritus Take 1 tablet (25 mg) by mouth 3 (three) times a day as needed for itching 90 tablet 3 2023 Active rosuvastatin (Crestor) 40 MG tabletIndication s:Cerebrovascula r accident (CVA) due to thrombosis of cerebral artery (HCC),Mixed hyperlipidemia TAKE 1 TABLET BY MOUTH IN THE MORNING 90 tablet 3 2023 Active insulin degludec (Tresiba FlexTouch) 200 UNIT/ML injectionIndicat ions:Type 2 diabetes mellitus with other diabetic kidney complication (HCC) Inject 20 Units under the skin at bedtime 9 mL 3 2023 Active Additional Information Patient taking differently: 45 UnitsSubcutaneous Nightly, Reported on 10/21/2024 amLODIPine (Norvasc) 10 MG tabletIndication s:Essential hypertension Take 1 tablet (10 mg) by mouth Daily 90 tablet 3 07/22 Active irbesartan (Avapro) 300 MG tabletIndication s:Mixed hyperlipidemia Take 1 tablet (300 mg) by mouth at bedtime 90 tablet 3 2024 Active pantoprazole (ProtoNix) 20 MG EC tabletIndication s:Gastroesophage al reflux disease without esophagitis Take 1 tablet (20 mg) by mouth Daily 90 tablet 3 08/12 Active glimepiride (Amaryl) 2 MG tabletIndication s:Type 2 diabetes mellitus with diabetic chronic kidney disease (HCC) Take 1 tablet (2 mg) by mouth Daily Take before supper 30 tablet 11 08/21 Active Continuous Glucose Sensor (FreeStyle Kwasi 2 Sensor) miscIndications: Type 2 diabetes mellitus with hyperglycemia (HCC),Type 2 diabetes mellitus with other diabetic kidney complication (HCC) USE 1 SENSOR EVERY 14 (FOURTEEN) DAYS 6 each 3 2024 Active triamterene-hydr ochlorothiazide (Maxzide-25) 37.5-25 MG tablet Take 1 tablet by mouth Daily 2024 Active allopurinol (Zyloprim) 100 MG tabletIndication s:Hyperuricemia Take 0.5 tablets (50 mg) by mouth every other day 25 tablet 3 2024 Active traMADol (Ultram) 50 MG tabletIndication s:Primary osteoarthritis involving multiple joints Take 1 tablet (50 mg) by mouth every 8 (eight) hours if needed for severe pain 120 tablet 1 2024 Active traMADol (Ultram) 50 MG tabletIndication s:Primary osteoarthritis involving multiple joints Take 1 tablet (50 mg) by mouth every 8 (eight) hours if needed for severe pain (For osteoarthritis pain) 120 tablet 1 12/30 Discontinued Active Problems Problem Noted Date Diagnosed Date Hyperuricemia 09/18/2024 CKD (chronic kidney disease) stage 4, GFR 15-29 ml/min 09/18/2024 Anemia of chronic disease 09/18/2024 Abnormal EKG 04/17/2024 Coronary artery disease invo lving [place] coronary artery of [place] heart without angina pectoris 08/10/2023 Systolic dysfunction, left ventricle 08/10/2023 Cerebrovascular accident (CV A) due to thrombosis of cerebral artery 05/15/2023 Hemiparesis affecting right side as late effect of cerebrovascular accident 05/15/2023 Abnormal mammogram of left breast 12/27/2022 Acquired absence of both cervix and uterus 12/27 Acquired hallux valgus 12/27/2022 Chronic constipation 12/27/2022 Chronic insomnia 12/27/2022 Contracture, left ankle 12/27/2022 Diabetic mononeuropathy 12/27/2022 Essential hypertension 12/27/2022 Estrogen deficiency 12/27/2022 Gastroesophageal reflux disease without esophagi tis 12/27/2022 Grief reaction 12/27/2022 Arthritis 12/27/2022 Migraine with aura and witho ut status migrainosus, not intractable 12/27/2022 Mixed hyperlipidemia 12/27/2022 Moderate episode of recurrent major depressive d isorder 12/27/2022 Moderate persistent asthma without complication 12/27/2022 Myalgia 12/27/2022 Obesity (BMI 30-39.9) 12/27/2022 Osteopenia of right hip 12/27/2022 Primary osteoarthritis involving multiple joints 12/27/2022 Seasonal allergic rhinitis 12/27/2022 Type 2 diabetes mellitus with hyperglycemia 12/15 Type 2 diabetes mellitus wit h other diabetic kidney complication 12/27/2022 Encounters Date Type Department Care Team Description 01/06/2025 Telephone [facility] [address] [place] [id number] Delma Villarreal NP 12/28/2024 Refill [facility] [address] [place] [address] Jason Wyatt MD Primary osteoarthritis involving multiple joints 12/24/2024 Abstract [facility] [address] [place] [address] Jason Wyatt MD 12/16/2024 Abstract [facility] [address] [facility] [address] [place] [address] Jason Wyatt MD 12/05/2024 Abstract [facility] [address] [facility] [address] [place] [address] Jason Wyatt MD 11/21/2024 10:00 AM EDT Office Visit [facility] [address] [place] [address] Elvira Lutz PA Foot sprain, left, sequela (Primary Dx); Hyperuricemia; Grief reaction 11/21/2024 Bamboo flowsheet [facility] [address] [facility] [address] [place] [address] Elvira Lutz PA 11/21/2024 Travel 11/18/2024 Patient Outreach [facility] [address] [place] [address] Melissa Sloan LPN 11/15/2024 Abstract [facility] [address] [place] [address] Melissa Sloan LPN 10/22/2024 Abstract [facility] [address] [facility] [address] [place] [address] Jason Wyatt MD 10/22/2024 Abstract [facility] [address] [facility] [address] [place] [address] Jason Wyatt MD 10/21/2024 9:15 AM EDT Office Visit [facility] [address] [facility] [address] [place] [address] Jason Wyatt MD Type 2 diabetes mellitus with other diabetic kidney complication (HCC) (Primary Dx); CKD (chronic kidney disease) stage 4, GFR 15-29 ml/min (HCC); Essential hypertension ; Systolic dysfunction, left ventricle 10/21/2024 Travel 10/21/2024 Abstract [facility] [address] [facility] [address] [place] [address] Jason Wyatt MD 10/17/2024 Abstract [facility] [address] [facility] [address] [place] [address] Jason Wyatt MD from Last 3 Months Immunizations Immunization Administration Dates Next Due Influenza, High Dose Seasonal, Preservative Free 06/16/2022,06/09/2021 Influenza, seasonal, intradermal, preservative f ree 07/19/2017 Pneumococcal Polysaccharide PPSV23 07/17/2014 Family History Medical History Relation Name Comments Heart disease Father Diabetes Mother Heart disease Mother Stroke Mother Relation Name Status Comments Father Mother Other spouse Social History Tobacco Use Types Packs/Day Years [...] week 03/02/2023 How often do you attend shinto or catholic serv ices? Never 03/02/2023 Do you belong to any clubs o r organizations such as shinto groups, unions, fraternal or athletic groups, or [...] Recorded Patient Health Questionnaire-2 Score 0 11/21/2024 [facility] Occup[facility] - Occupational Stress [...] on file Sexual Orientation Not on file Last Filed Vital Signs Vital Sign Reading Time Taken Comments Blood Pressure 148/72 11/21/2024 10:06 AM EDT has not taken her BP pills yet today Pulse 52 11/21/2024 10:06 AM EDT Temperature - - Respiratory Rate 16 09/10/2024 9:01 AM EST Oxygen Saturation 99% 11/21/2024 10: 06 AM EDT Inhaled Oxygen Concentration - - Weight 70.4 kg (155 lb 3.2 oz) 11/21/2024 10:06 AM EDT Height 149.9 cm (4' 11 ) 11/21/2024 10: 06 AM EDT Body Mass Index 31.35 11/21/2024 10:06 AM EDT Plan of Treatment Upcoming Encounters Date Type Department Care Team (Late st Contact Info) Description 01/20/2025 9:00 AM EDT Office Visit [facility] 112 [facility] [address] [place] [address] Jason Wyatt MD 112 [facility] [address] [place] [address] Health Maintenance Due Date Last Done Comments CT Colonography 1955 Colonoscopy 1955 FIT-DNA 1955 FIT 1955 FOBT 1955 Sigmoidoscopy 1955 Pneumococcal Vaccine: 65+ Years (2 of 2 - PCV) 07/17/2015 07/17/2014 Diabetes: Retinopathy Screening 05/11/2024 05/11/2023, 11/23/2021, 06/22/2020, Additional history exists Mammogram 01/11/2025 01/12/2024, 12/16, 06/06/2022, Additional history exists Diabetes: Hemoglobin A1C 01/20/2025 025, 08/21/2024, 06/06/2024, Additional history exists Diabetes: Urine Protein Screening 03/06/2025 03/06/2024, 03/10/2023, 02/09/2022, Additional history exists Medicare Annual Wellness (AWV) 03/06/2025 03/06/2024, 03/09/2023 Influenza Vaccine (Season Ended) 2025 06/16/2022, 06/09/2021, 07/19/2017 Colorectal Cancer Screening 11/21/2025 Postponed from 1955 (Patient Refused) Procedures Procedure Name Priority Date/Time Associated Diagnosis Comments POCT GLYCATED HEMOGLOBIN, TOTAL Routine 10/21/2024 9:57 AM EDT Type 2 diabetes mellitus with other diabetic kidney complication (HCC) MICROALBUMIN / CREATININE URINE RATIO Routine 03/06/2024 9:48 AM EDT Type 2 diabetes mellitus with other diabetic kidney complication (HCC) BI MAMMOGRAM SCREENING TOMOSYNTHESIS BILATERAL 01/12/2024 2:31 PM EDT DIABETIC RETINOPATHY SCREENING - OU - BOTH EYES Routine 05/11/2023 from Last 3 Months or Most Recently Relevant to Health Maintenance Results * POCT Glycated hemoglobin, total (10/21/2024 9:57 AM EDT) Hemoglobin A1C 7.6 Blood 10/21/2024 9:57 AM EDT us Jason Wyatt MD POINT OF CARE TEST ENTER/EDIT ORDERABLES Final Result * (ABNORMAL) Microalbumin / creatinine urine ratio (03/06/2024 9:48 AM EDT) CREATININE, RANDOM URINE 66 20 - 275 mg/dL [facility] ALBUMIN, URINE 19.6 See Note: mg/dL [facility] Comment: Reference Range: Reference Range Not established ALBUMIN/CREATININE RATIO, RANDOM URINE 297(H) <30 mg/g creat [facility] Comment: The ADA defines abnormalities in albumin excretion as follows: Albuminuria Category Result (mg/g creatinine) Normal to Mildly increased <30 Moderately increased 30-299 Severely increased > OR = 300 The ADA recommends that at least two of three specimens collected within a 3-6 month period be abnormal before considering a patient to be within a diagnostic category. Urine Urine specimen obtained by clean catch procedure / Unknown 03/06/2024 9:48 AM EDT 03/06/2024 9:49 AM EDT Narrative [facility] - 03/07/2024 11:16 AM EDT FASTING:YES FASTING: YES Resulting Agency Comment Performing Organization Information Site ID: [id number] Name: [facility] Address: [address] [place] [address], [address] [place] [id number] Director: Tyler Tate MD us Jason Wyatt MD LAB URINE ORDERABLES Final Res ult [facility] * Bilateral screening mammogram with tomosynthesis (01/12/2024 [...] mammogram. Impression dictated by: Wilton Jones Jr. DRaffyORaffy01/12/2024 2:32 PM Dictation Location: [facility] Transcribed By: [facility]WS 01/12/24 1432 Dictated By: Wilton Jones Jr, DO 01/12/24 1431 Signed By: <Electronically signed by Wilton Jones Jr, DO in OV> 01/12/24 1432 Narrative 01/12/2024 2:34 [place] [address] Mammography Report Signed Patient: Marisela Hsieh MR#: [id number] : 1955 Acct:[id number] Age/Sex: 68 / F ADM Date: 01/12/24 Loc: [place] Room: Type: [facility] Attending Dr: Jason Wyatt II, MD Copies [...] mammo BI w/CAD Procedure Note Radiology, Radiologist, MD - 01/12/[address] [address] Mammography Report Signed Patient: Marisela Hsieh KMR#: [id number] : 5Acct:[id number] Age/Sex: 68 / FADM Date: 01/12/24 Loc: [place] Room:Type: [facility] Attending Dr: Jason Wyatt II, MD Copies [...] mammogram. Impression dictated by: Wilton Jones Jr., D.O.01/12/2024 2:32 PM Dictation Location: [facility] Transcribed By: [facility] 01/12/24 1432 Dictated By: Wilton Jones Jr, DO 01/12/24 1431 Signed By: <Electronically signed by Wilton Jones Jr, DO inOV> 01/12/24 1432 us Jason Wyatt MD IMG BI PROCEDURES Final Result * (ABNORMAL) Diabetic Retinopathy Screening - OU - Both Eyes (05/11/2023) RESULTS Abnormal Anatomical Region Laterality Modality Head Other 05/11/2023 Narrative 05/11/2023 10:27 AM EDT Diabetic Retinopathy Jason Wyatt MD OPHTH PHOTOGRAPHY Final Result from Last 3 Months or Most Recently Relevant to Health Maintenance Insurance [employer] Care Teams Civil Design Specialist Relationship Specialty Start Date End Date Jason Wyatt MD [address] [facility] [address] [place] [address] PCP - Devoted 07/17/22 Jason Wyatt MD [address] [facility] [address] [place] [address] PCP - General Internal Medicine 01/02/23 Bryon Pruitt MD [address] [facility] [address] [place] [address] Referring Physician Neurology 06/06/24 Sara Brewer PA [address] [facility] [address] [place] [address] Physician Graduate Civil Engineer Neurology 06/06/24 Melissa Sloan LPN [address] [facility] [address] [place] [address] 10/02/24
--- OUTSIDE RECORDS SUMMARY | 2025-01-12 10:50 | XMS_ITS | Encounter Summary ---
Author Organization [facility] Address [address] [facility] [place] [address] Care Team Providers Care Rotoprinter Name Role Phone Jason Wyatt MD Unavailable [phone] Jason Wyatt MD Primary Care Provider [phone] Jason Wyatt MD Unavailable [phone] Bryon Pruitt MD Unavailable [phone] Sara Brewer Unavailable Alida Telles RN Unavailable [phone] Melissa Sloan LPN Unavailable Encounter Details Date Type Department Care Team (Late st Contact Info) Description 04/21/2023 Abstract [facility] 112 [facility] 110 [place] [address] Jason Wyatt MD 112 [facility] [address] [place], [place] [id number] Social History Tobacco Use Types Packs/Day Years [...] week 03/02/2023 How often do you attend anglican or yazidism serv ices? Never 03/02/2023 Do you belong to any clubs o r organizations such as anglican groups, unions, fraternal or athletic groups, or [...] Recorded Patient Health Questionnaire-2 Score 0 03/09/2023 [facility] ional Health - Occupational [...] place to sleep or slept in a fci (including now)? No 03/02/2023 Comments Unknown Sex [...] Visit [facility] [address] [facility] [address] [place] [address] Jason Wyatt MD [address] [facility] [address] [place] [address] documented as of this encounter Visit Diagnoses Not on filedocumented in this encounter Care Teams Rotoprinter Relationship Specialty Start Date End Date Jason Wyatt MD [address] [facility] [address] [place] [address] PCP - Devoted 07/17/22 Jason Wyatt MD [address] [facility] [address] [place] [address] PCP - General Internal Medicine 01/02/23 Jason Wyatt MD [address] [place] [address] [place] [address] PCP - Humana 07/17/21 01/14/24 Bryon Pruitt MD [address] [place] [address] Referring Physician Neurology 06/06/24 Sara Brewer PA [address] [place] [address] [place] [address] Physician Automotive Parts Salesperson Neurology 06/06/24 Alida Telles, ZE [address] [place] [address] Clinical Advocate Family Medicine 08/23/24 10/02/24 Melissa Sloan LPN [address] [place] [address] [place] [address] 10/02/24 documented as of this encounter
--- OUTSIDE RECORDS SUMMARY | 2025-01-12 10:50 | XMS_ITS | Encounter Summary ---
Author Organization [facility] Address [address] [place] [address] Care Team Providers Care Order Desk Clerk Name Role Phone Jason Wyatt MD Unavailable [phone] Jason Wyatt MD Primary Care Provider [phone] Jason Wyatt MD Unavailable [phone] Bryon Pruitt MD Unavailable [phone] Sara Brewer Unavailable Alida Telles RN Unavailable [phone] Melissa Sloan LPN Unavailable Encounter Details Date Type Department Care Team (Late st Contact Info) Description 06/13/2023 Abstract [facility] 112 [facility] 110 [place] [address] Jason Wyatt MD [address] [facility] 110 [place], [place] [id number] Social History Tobacco Use Types Packs/Day Years [...] week 03/02/2023 How often do you attend pentecostalism or confucianist serv ices? Never 03/02/2023 Do you belong to any clubs o r organizations such as pentecostalism groups, unions, fraternal or athletic groups, or [...] Recorded Patient Health Questionnaire-2 Score 0 03/09/2023 [facility] Occupat ional Health - [...] place to sleep or slept in a alf (including now)? No 03/02/2023 Comments Unknown Sex [...] [address] [facility] [address] [place] [address] Jason Wyatt MD [address] [facility] [address] [place] [address] documented as of this encounter Visit Diagnoses Not on filedocumented in this encounter Care Teams Order Desk Clerk Relationship Specialty Start Date End Date Jason Wyatt MD [address] [facility] [address] [place] [address] PCP - Devoted 07/17/22 Jason Wyatt MD [address] [facility] [address] [place] [address] PCP - General Internal Medicine 01/02/23 Jason Wyatt MD [address] [place] [address] [place] [address] PCP - Humana 07/17/21 01/14/24 Bryon Pruitt MD [address] [place] [address] Referring Physician Neurology 06/06/24 Sara Brewer PA [address] [place] [address] [place] [address] Physician Topographical Drafter Neurology 06/06/24 Alida Telles, ZE [address] [place] [address] Clinical Advocate Family Medicine 08/23/24 10/02/24 Melissa Sloan LPN [address] [place] [address] [place] [address] 10/02/24 documented as of this encounter
--- OUTSIDE RECORDS SUMMARY | 2025-01-12 10:50 | XMS_ITS | Encounter Summary ---
Author Organization [facility] Address [address] [facility] [place] [address] Care Team Providers Care Lead Pressman Name Role Phone Jason Wyatt MD Unavailable [phone] Jason Wyatt MD Primary Care Provider [phone] Jason Wyatt MD Unavailable [phone] Bryon Pruitt MD Unavailable [phone] Sara Brewer Unavailable Alida Telles RN Unavailable [phone] Melissa Sloan LPN Unavailable Encounter Details Date Type Department Care Team (Late st Contact Info) Description 04/18/2023 Abstract [facility] 112 [facility] 110 [place] [address] Jason Wyatt MD [address] [facility] 110 [place], [place] [id number] Social History Tobacco Use Types Packs/Day Years [...] week 03/02/2023 How often do you attend quaker or mu-ism serv ices? Never 03/02/2023 Do you belong to any clubs o r organizations such as quaker groups, unions, fraternal or athletic groups, or [...] [address] [facility] [address] [place] [address] Jason Wyatt MD [address] [facility] [address] [place] [address] documented as of this encounter Visit Diagnoses Not on filedocumented in this encounter Care Teams Lead Pressman Relationship Specialty Start Date End Date Jason Wyatt MD [address] [facility] [address] [place] [address] PCP - Devoted 07/17/22 Jason Wyatt MD [address] [facility] [address] [place] [address] PCP - General Internal Medicine 01/02/23 Jason Wyatt MD [address] [place] [address] [place] [address] PCP - Humana 07/17/21 01/14/24 Bryon Pruitt MD [address] [place] [address] Referring Physician Neurology 06/06/24 Sara Brewer PA [address] [place] [address] [place] [address] Physician Compressor Mechanic Bus Neurology 06/06/24 Alida Telles, ZE [address] [place] [address] Clinical Advocate Family Medicine 08/23/24 10/02/24 Melissa Sloan LPN [address] [place] [address] [place] [address] 10/02/24 documented as of this encounter
--- OUTSIDE RECORDS SUMMARY | 2025-01-12 10:50 | XMS_ITS | Encounter Summary ---
Author Organization [facility] Address [address] [facility] [place] [address] Care Team Providers Care Issuing Operator Name Role Phone Jason Wyatt MD Unavailable [phone] Jason Wyatt MD Primary Care Provider [phone] Jason Wyatt MD Unavailable [phone] Bryon Pruitt MD Unavailable [phone] Sara Brewer Unavailable Alida Telles RN Unavailable [phone] Melissa Sloan LPN Unavailable Encounter Details Date Type Department Care Team (Late st Contact Info) Description 04/18/2023 Abstract [facility] 112 [facility] 110 [place] [address] Jason Wyatt MD [address] [facility] 110 [place], [place] [id number] Social History Tobacco Use Types Packs/Day Years [...] How often do you attend tenriism or adventist serv ices? Never 03/02/2023 Do [...] Recorded Patient Health Questionnaire-2 Score 0 03/09/2023 [facility] Occupat ional Health - [...] Visit [facility] [address] [facility] [address] [place] [address] Jason Wyatt MD [address] [facility] [address] [place] [address] documented as of this encounter Visit Diagnoses Not on filedocumented in this encounter Care Teams Issuing Operator Relationship Specialty Start Date End Date Jason Wyatt MD [address] [facility] [address] [place] [address] PCP - Devoted 07/17/22 Jason Wyatt MD [address] [facility] [address] [place] [address] PCP - General Internal Medicine 01/02/23 Jason Wyatt MD [address] [place] [address] [place] [address] PCP - Humana 07/17/21 01/14/24 Bryon Pruitt MD [address] [place] [address] Referring Physician Neurology 06/06/24 Sara Brewer PA [address] [place] [address] [place] [address] Physician Animation Director Neurology 06/06/24 Alida Telles, ZE [address] [place] [address] Clinical Advocate Family Medicine 08/23/24 10/02/24 Melissa Sloan LPN [address] [place] [address] [place] [address] 10/02/24 documented as of this encounter
--- OUTSIDE RECORDS SUMMARY | 2025-01-12 10:50 | XMS_ITS | Encounter Summary ---
Author Organization [facility] Address [address] [facility] [place] [address] Care Team Providers Care Plumber Apprentice Name Role Phone Jason Wyatt MD Unavailable [phone] Jason Wyatt MD Primary Care Provider [phone] Jason Wyatt MD Unavailable [phone] Bryon Pruitt MD Unavailable [phone] Sara Brewer Unavailable Alida Telles RN Unavailable [phone] Melissa Sloan LPN Unavailable Encounter Details Date Type Department Care Team (Late st Contact Info) Description 05/30/2023 Abstract [facility] [address] [facility] [address] [place] [address] Jason Wyatt MD [address] [facility] 110 [place], [place] [id number] Social History Tobacco Use Types Packs/Day Years [...] How often do you attend christianity or muslim serv ices? Never 03/02/2023 Do you belong [...] Recorded Patient Health Questionnaire-2 Score 0 03/09/2023 [facility] - Occupational [...] [facility] [address] [facility] [address] [place] [address] Jason Wyatt MD [address] [facility] [address] [place] [address] documented as of this encounter Visit Diagnoses Not on filedocumented in this encounter Care Teams Plumber Apprentice Relationship Specialty Start Date End Date Jason Wyatt MD [address] [facility] [address] [place] [address] PCP - Devoted 07/17/22 Jason Wyatt MD [address] [facility] [address] [place] [address] PCP - General Internal Medicine 01/02/23 Jason Wyatt MD [address] [place] [address] [place] [address] PCP - Humana 07/17/21 01/14/24 Bryon Pruitt MD [address] [place] [address] Referring Physician Neurology 06/06/24 Sara Brewer PA [address] [place] [address] [place] [address] Physician Customer Service Agent Neurology 06/06/24 Alida Telles, ZE [address] [place] [address] Clinical Advocate Family Medicine 08/23/24 10/02/24 Melissa Sloan LPN [address] [place] [address] [place] [address] 10/02/24 documented as of this encounter
--- OUTSIDE RECORDS SUMMARY | 2025-01-12 10:50 | XMS_ITS | Encounter Summary ---
Author Organization [facility] Address [address] [facility] [place] [address] Care Team Providers Care Vocational Evaluator Name Role Phone Jason Wyatt MD Unavailable [phone] Jason Wyatt MD Primary Care Provider [phone] Jason Wyatt MD Unavailable [phone] Bryon Pruitt MD Unavailable [phone] Sara Brewer Unavailable Alida Telles RN Unavailable [phone] Melissa Sloan LPN Unavailable Encounter Details Date Type Department Care Team (Late st Contact Info) Description 03/22/2023 Abstract [facility] [address] [facility] 110 [place] [address] Jason Wyatt MD [address] [facility] [address] [place], [place] [address] Social History Tobacco Use Types Packs/Day Years [...] week 03/02/2023 How often do you attend scientologist or caodaism serv ices? Never 03/02/2023 Do you belong to any clubs o r organizations such as scientologist groups, unions, fraternal or athletic groups, or [...] Recorded Patient Health Questionnaire-2 Score 0 03/09/2023 [facility] - [...] Visit [facility] [address] [facility] [address] [place] [address] Jason Wyatt MD [address] [facility] [address] [place] [address] documented as of this encounter Visit Diagnoses Not on filedocumented in this encounter Care Teams Vocational Evaluator Relationship Specialty Start Date End Date Jason Wyatt MD [address] [facility] [address] [place] [address] PCP - Devoted 07/17/22 Jason Wyatt MD [address] [facility] [address] [place] [address] PCP - General Internal Medicine 01/02/23 Jason Wyatt MD [address] [place] [address] [place] [address] PCP - Hum[employer] 07/17/21 01/14/24 Bryon Pruitt MD [address] [place] [address] Referring Physician Neurology 06/06/24 Sara Brewer PA [address] [place] [address] [place] [address] Physician Auto Emissions Technician Neurology 06/06/24 Alida Telles, ZE [address] [place] [address] Clinical Advocate Family Medicine 08/23/24 10/02/24 Melissa Sloan LPN [address] [place] [address] [place] [address] 10/02/24 documented as of this encounter
--- OUTSIDE RECORDS SUMMARY | 2025-01-12 10:50 | XMS_ITS | CCD ---
Author Organization [facility] Care Team Providers Care Commercial Reporter Name Role Phone CHAD Wyatt Primary Care Provider BRYON Riley Attending Provider CHAD Wyatt Attending Provider DR JASON WYATT Primary Care Unavailable RYAN, DR BOCANEGRA Consulting Unavailable RYAN, DR BOCANEGRA Attending Unavailable RYAN, DR BOCANEGRA Admitting Unavailable ZIEBMATTHEW, DR CEE Sanches Consulting Unavailable RYAN, DR BOCANEGRA Admitting Unavailable RYAN, DR BOCANEGRA Consulting Unavailable RYAN, DR BOCANEGRA Attending Unavailable CHAD Wyatt Primary Care Provider Bekah, DO Tee Leung Emergency Provider MD Jax Seay Admit Provider MD Jax Seay Attending Provider CHAD Wyatt Primary Care Provider Bekah, DO Tee Leung Emergency Provider MD Jax Seay Admit Provider MD Gema Fay Attending Provider DO Richard Kim Other Provider MD Martina Nash Attending Provider Martina Nash Unavailable CHAD Wyatt Primary Care Provider MD Martina Nash Attending Provider [phone] MD Martina Nash Referring Provider CHAD Wyatt Primary Care Provider MD Martina Nash Attending Provider [phone] MD Martina Nash Referring Provider CHAD Wyatt Primary Care Provider MD Martina Nash Attending Provider JASON WYATT Primary Care Physician Jason Wyatt Primary Care Unavailable Martina Nash Admitting Unavailable Martina Nash Attending Unavailable Jason Wyatt Primary Care Unavailable Gema Fay Attending Unavailable Richard Kim Consulting Unavailable Jax Seay Admitting Unavailable Jason Wyatt Primary Care Unavailable Martina Nash Admitting Unavailable Martina Nash Attending Unavailable Jason Wyatt Attending Unavailable Jason Wyatt Admitting Unavailable Jason Wyatt Primary Care Unavailable Jason Wyatt Primary Care Unavailable Martina Nash Admitting Unavailable Martina Nash Attending Unavailable Jason Wyatt Primary Care Unavailable Martina Nash Referring Unavailable Martina Nash Admitting Unavailable Martina Nash Attending Unavailable Martina Nash Admitting Unavailable Martina Nash Attending Unavailable Jason Wyatt Primary Care Unavailable NONE, XXXX Referring Unavailable Dom Garcia Attending Unavailable Dom Garcia Admitting Unavailable JASON WYATT Referring Unavailable Dom Garcia Attending Unavailable KirnDom armenta Attending Unavailable Kirjaved, Dom Abdifatah Admitting Unavailable MONIKA Espana Attending Unavailable NONE, XXXX Referring Unavailable MONIKA Espana Admitting Unavailable MONIKA Espana Attending Unavailable MD Dom Garcia Admitting Unavailable MD Dom Garcia Attending Unavailable Generic Provider MD, No Assigned Pcp Primary Car e Provider Unavailable Jason Wyatt MD Unavailable [phone] Jason Wyatt MD Primary Care Provider [phone] Jason Wyatt MD Primary Care Provider JASON WYATT Primary Care Unavailable Cee Pruitt MD Unavailable Sara Baker Unavailable Elfego KUNZ, Alida Unavailable Adamowicz, Jarred Admitting Unavailable Adamowicz, Jarred Attending Unavailable Sloan DIETARY SERVICES MANAGER, Melissa Unavailable Unavailable WILLAMS, ESSEIM Attending Unavailable WILLAMS, ESSEIM Referring Unavailable WYATT, JASON B Primary Care Unavailable WYATT, JASON B Primary Care Unavailable WILLAMS, ESSEIM Admitting Unavailable WILLAMS, ESSEIM Attending Unavailable WYATT, JASON B Primary Care Unavailable WILLAMS, ESSEIM Referring Unavailable WYTAT, JASON B Primary Care Unavailable WILLAMS, ESSEIM Referring Unavailable WYATT, JASON B Primary Care Unavailable Cee Pruitt MD Unavailable Unavailable JASON WYATT Attending Unavailable HEMELVIRA RUBIO Attending Unavailable JASON WYATT B Attending Unavailable JASON WYATT B Attending Unavailable WYATTJASON B Attending Unavailable HEMMERELVIRA Attending Unavailable IZABEL COLLINS Attending Unavailable JASON WYATT Attending Unavailable Hemant Espana Admitting Unavailable Hemant Espana Attending Unavailable NONE, XXXX Referring Unavailable Hemant Espana Attending Unavailable NONE, XXXX Referring Unavailable Adamowicz, Jarred Attending Unavailable Adamowicz, Jarred Admitting Unavailable Hemant Espana A Admitting Unavailable Hemant Espana Attending Unavailable Hemant Espana Referring Unavailable Deangelo Schaeffer Attending Unavailable WYATT, JASON B Referring Unavailable Adamowicz, Jarred Attending Unavailable Hemant Espana A Admitting Unavailable Hemant Espana Attending Unavailable NONE, XXXX Referring Unavailable Jovi, Hemant Sharif Admitting Unavailable Dom Garcia Attending Unavailable NONE, XXXX Referring Unavailable Adamowicz, Jarred Attending Unavailable Adamowicz, Jarred Admitting Unavailable Adamowicz, Jarred Attending Unavailable Sara Baker Unavailable Luther MAK, Melissa Unavailable LINDA, FREDRICK Garza Attending Unavailab le Adamowicz, Jarred Admitting Unavailable Adamowicz, Jarred Attending Unavailable Cee Pruitt MD Unavailable [phone] Allergies Allergy Classification Reported Allergen(s) Allergy Type Date of Onset Reaction(s) Facility Acetaminophen (1 source) Acetaminophen Drug Allergy 10-02-19 [facility] Repository Opioid Agonists (1 source) oxyCODONE Drug Allergy 11-16-19 [facility] Rep[facility] Sulfonamides (antibiotic) (1 source) Sulfonamides (Antibiotic) Drug Allergy 11-16-19 24 [facility] Repository (1 source) Acetaminophen / oxyCODONE Drug Allergy 12-31-19 15 [facility] Repository (1 source) Sulfonamides (Antibiotic) Drug allergy (disorder) 12-31-19 15 [facility] Repository (7 sources) Acetaminophen / oxyCODONE Drug Allergy 12-28-19 23 GI intolerance [facility] Other (3 sources) Sulfonamides (Antibiotic) Propensity to adverse reactions vomiting [facility] Other (4 sources) Acetaminophen Drug Allergy 08-30-19 24 vomiting [facility] (20 sources) oxyCODONE; Translations: [Oxycodone] Drug Allergy 08-30-19 Heartburn (finding), GI Upset [facility] (11 sources) Sulfonamides (Antibiotic); Translations: [SULFA (SULFONAMIDE ANTIBIOTICS)] Allergy to substance 12-28-19 GI intolerance [facility] (20 sources) atorvastatin; Translations: [atorvastatin] Drug Allergy 06-23-20 23 Heartburn (finding), GI intolerance, GI Upset [facility] (20 sources) dulaglutide; Translations: [dulaglutide] Drug Allergy 12-28-19 Vision therapy (regime/therap y), Blurred vision [facility] (20 sources) Lisinopril; Translations: [lisinopril] Drug Allergy 12-28-19 Cough (finding), Cough [facility] (5 sources) oxyCODONE; Translations: [OxyCODONE Hydrochloride ER] Drug Allergy [facility] Repository (20 sources) Acetaminophen / oxyCODONE; Translations: [OXYCODONE-ACETAM INOPHEN] Drug Allergy 12-28-19 GI intolerance [facility] (20 sources) atorvastatin Drug Allergy 06-23-20 GI intolerance [facility] Work Phone: (20 sources) Lisinopril Allergy to substance 12-28-19 Cough [facility] (20 sources) Sulfonamides (Antibiotic) Drug Allergy 12-28-19 GI intolerance [facility] Medications Current Medications Medication Drug Class(es) Dates Sig (Normalized) Sig (Original) acetaminophen 325 mg oral tablet (20 sources) Start: 04-30-2024 take 1 tablet by mouth every four hours as needed 650 mg, oral, Every 4 hours PRN, pain mild (1-3), first line, Starting on Mon04/30/24 at 1449, If ordered PRN for pain, nurse is permitted to administer this medication for higher pain scores based on patient preference? Yes Start: 12-18-2023 acetaminophen Refills(s) 0 Start Date: 12/18/23 Status: Ordered Repeat number: 1 Start: 12-18-2023 acetaminophen Refills(s) 0 Start Date: 12/18/23 Status: Ordered take 1 tablet by nate th every six hours acetaminophen (Tylenol Extra Strength) 500 MG tablet Take 500 mg by mouth every 6 (six) hours. Active acetaminophen 325 mg / HYDROcodone bitartrate 5 mg oral tablet (3 sources) Opioid Agonist Start: 08-30-2024 End: 09-10-2024 take 1 tablet by mouth every four hours as needed HYDROcodone-acetaminophen ([place]) 5-325 MG tablet Take 1 tablet by mouth every 4 (four) hours if needed 08/30/2024 09/10/2024 Discontinued (Therapy completed) [id number] 200 actuat albuterol 0.09 mg/actuat metered dose inhaler (20 sources) beta2-Adren ergic Agonist Start: 06-03-2024 End: 09-01-2024 take 2 puff(s) by inhalation every four hours for wheezing albuterol HFA 90 mcg/act inhaler Indications: Moderate persistent asthma without complication (HCC) Inhale 2 puffs every 4 (four) hours if needed for wheezing or shortness of breath 18 g 3 06/03/2024 Active Start: 12-18-2023 albuterol Refi lls(s) 0 Start Date: 12/18/23 Status: Ordered Repeat number: 1 Start: 12-18-2023 albuterol Refi lls(s) 0 Start Date: 12/18/23 Status: Ordered Start: 09-29-2023 End: 11-03-2023 take 2 puff(s) by inhalation every six hours as needed Albuterol Sulfate Active 2 PUFF INHALATION Every 6 hours November 03, 2023 11:33am [employer] puffs as needed Inhalation every 6 hrs; Note: Source Status: Taking; Refills: 5; Provider: Saad Mack ( ) Start: 03-16-2023 take 2 puff(s) by in halation every four hours albuterol 90 mcg/actuation inhaler Inhale 2 puffs every 4 hours if needed. 03/16/2023 Active Start: 03-16-2023 take 2 puff(s) by in halation every four hours for wheezing albuterol HFA 90 mcg/act inhaler Indications: Essential hypertension (CMS/HCC) Inhale 2 puffs every 4 (four) hours if needed for wheezing or shortness of breath. 18 g 3 03/16/2023 Active Start: 02-09-2022 albuterol (2.5 MG/3ML) 0.083% nebulizer solution Take 2.5 mg by nebulization every 6 (six) hours if needed. 02/09/2022 Active Start: 10-31-2018 take 2 puff(s) by in halation every six hours as needed Albuterol Sulfate HFA 108 (90 Base) MCG/ACT 2 puffs as needed Inhalation every 6 hrs for 30 days Oct, Active Start: 10-31-2018 take 2 puff(s) by in halation every six hours as needed Albuterol Sulfate HFA 108 (90 Base) MCG/ACT 2 puffs as needed Inhalation every 6 hrs for 30 days Oct, Active allopurinol 100 mg oral tablet (19 sources) Xanthine Oxidase Inhibitor Start: 11-21-2024 take 0.5 tablet by mouth every other day allopurinol (Zyloprim) 100 MG tablet Indications: Hyperuricemia Take 0.5 tablets (50 mg) by mouth every other day 25 tablet 3 11/21/2024 Active Start: 10-17-2024 allopurinol Re fills(s) 0 Start Date: 10/17/24 Status: Ordered Repeat number: 1 Start: 09-18-2024 End: 11-21-2024 take 0.5 tablet by mouth every week allopurinol (Zyloprim) 100 MG tablet Indications: Hyperuricemia Take 0.5 tablets (50 mg) by mouth 1 (one) time per week 6 tablet 3 09/18/2024 11/21/2024 Discontinued (Reorder) amLODIPine 10 mg oral tablet (20 sources) Dihydropyridine Calcium Channel Mary Start: 12-18-2023 amlodipine Refills(s) 0 Start Date: 12/18/23 Status: Ordered Start: 04-17-2023 End: 07-22-2025 take 1 tablet by mouth once daily amLODIPine (Norvasc) 10 MG tablet Indications: Essential hypertension Take 1 tablet (10 mg) by mouth Daily 90 tablet 3 07/22/2024 07/22/2025 Active aspirin 81 mg delayed release oral tablet (20 sources) Platelet Aggregation Inhibitor, Nonsteroidal Anti-inflammatory Drug Start: 04-17-2023 take 1 tablet by mouth in the morning aspirin 81 MG EC tablet Indications: Transient Ischemic Attacks Take 81 mg by mouth in the morning. 04/17/2023 Active take 1 capsule by mouth once janet ly aspirin 81 mg capsule Take 81 mg by mouth once daily. Active cephalexin 500 mg oral capsule (3 sources) Cephalosporin Antibacterial Start: 04-30-2024 take 1 capsule by mouth twice daily cephalexin (Keflex) 500 mg capsule Indications: Pacemaker Take 1 capsule (500 mg) by mouth 2 times a day. 14 capsule 04/30/2024 Active citalopram 10 mg oral tablet (4 sources) Serotonin Reuptake Inhibitor Start: 07-13-2023 take 1 tablet by mouth once daily before mealtime citalopram (CeleXA) 10 mg tablet Take 1 tablet (10 mg) by mouth once daily in the morning. Take before meals. 07/13/2023 Active clopidogrel 75 mg oral tablet (20 sources) [id number] Platelet Inhibitor Start: 04-17-2023 End: 07-08-2025 take 1 tablet by mouth once daily clopidogrel (Plavix) 75 MG tablet Indications: Transient cerebral ischemia, unspecified type Take 1 tablet (75 mg) by mouth Daily 100 tablet 3 06/03/2024 07/08/2025 Active colchicine 0.6 mg oral tablet (3 sources) Start: 09-10-2024 End: 09-18-2024 take 2 tablets by mouth once daily, then take 1 tablet by mouth once daily colchicine 0.6 MG tablet Indications: Acute gout involving toe of right foot, unspecified cause Take 2 tablets (1.2 mg) by mouth Daily for 1 day, THEN 1 tablet (0.6 mg) Daily for 1 day. Take second dosage 1 hour after first dosage.. 3 tablet 09/10/2024 09/18/2024 Discontinued (Therapy completed) Continuous Blood Gluc Computer Education Professor (FreeStyle Kwasi 2 [place]) device (17 sources) Start: 09-06-2023 End: 09-05-2024 Continuous Blood Gluc Computer Education Professor (FreeStyle Kwasi 2 [place]) device Indications: Type 2 diabetes mellitus with hyperglycemia, with long-term current use of insulin (CMS/HCC) , 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) , Diabetic mononeuropathy associated with type 2 diabetes mellitus (HCC) (CMS/HCC) 1 Device in the morning and 1 Device at noon and 1 Device in the evening and 1 Device before bedtime. 1 each 09/06/2023 09/05/2024 Active Continuous Glucose Sensor (FreeStyle Kwasi 2 Sensor) misc (14 sources) Start: 08-22-2024 Continuous Glucose Sensor (FreeStyle Kwais 2 Sensor) misc Indications: Type 2 diabetes mellitus with hyperglycemia (HCC) , Type 2 diabetes mellitus with other diabetic kidney complication (HCC) USE 1 SENSOR EVERY 14 (FOURTEEN) DAYS 6 each 3 08/22/2024 Active Start: 08-22-2024 Continuous Glu cose Sensor (FreeStyle Kwasi 2 Sensor) misc Indications: Type 2 diabetes mellitus with hyperglycemia (CMS/HCC) , Type 2 diabetes mellitus with other diabetic kidney complication USE 1 SENSOR EVERY 14 (FOURTEEN) DAYS 6 each 3 08/22/2024 Active Start: 08-22-2024 Continuous Glu cose Sensor (FreeStyle Kwasi 2 Sensor) misc Indications: Type 2 diabetes mellitus with hyperglycemia (CMS/HCC) , 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) USE 1 SENSOR EVERY 14 (FOURTEEN) DAYS 6 each 3 08/22/2024 Active Start: 04-13-2024 Continuous Glu cose Sensor (FreeStyle Kwasi 2 Sensor) misc every 14 (fourteen) days 04/13/2024 Active FLUoxetine 10 mg oral capsule (4 sources) Serotonin Reuptake Inhibitor Start: 07-13-2023 take 1 capsule by mouth once daily FLUoxetine (PROzac) 10 mg capsule Take 1 capsule (10 mg) by mouth once daily. 07/13/2023 Active furosemide 40 mg oral tablet (20 sources) Loop Diuretic Start: 01-24-2024 take 1 tablet by mouth once daily furosemide (Lasix) 40 MG tablet Indications: Systolic dysfunction, left ventricle Take 1 tablet (40 mg) by mouth Daily 90 tablet 2 05/22/2024 Active Start: 11-03-2023 End: 11-16-2023 take 1 tablet by mouth once daily Furosemide (Lasix) 40 mg tablet Active 40 MG PO Daily 30 November 16, 2023 12:19pm glimepiride 2 mg oral tablet (20 sources) Sulfonylurea Start: 08-21-2024 End: 08-21-2025 take 1 tablet by mouth once daily glimepiride (Amaryl) 2 MG tablet Indications: Type 2 diabetes mellitus with diabetic chronic kidney disease (HCC) Take 1 tablet (2 mg) by mouth Daily Take before supper 30 tablet 11 08/21/2024 08/21/2025 Active hydroCHLOROthiazide 25 mg / triamterene 37.5 mg oral tablet (20 sources) Potassium-sparing Diuretic, Thiazide Diuretic Start: 12-18-2023 hydrochlorothiazi de-triamterene 25 mg-37.5 mg oral capsule Refill(s) 0 Start Date: 12/18/23 Status: Ordered Start: 06-05-2023 End: 07-09-2025 take 1 tablet by mouth once daily triamterene-hydrochlorothiazide (Maxzide -25) 37.5-25 MG tablet Take 1 tablet by mouth Daily 09/26/2024 Active Start: 06-05-2023 End: 06-04-2024 hydrochlorothiazide-triamter bo 25 mg-37.5 mg Tab Refill(s) 0, 30 EA, 0 Refill(s), TAKE 1 TABLET BY MOUTH IN THE MORNING Start Date: 03/21/24 Status: Ordered Repeat number: 1 take 1 capsule by mouth every twenty-four hours Triamterene-HCTZ 37.5-25 MG 1 tablet in the morning Orally Once a day Active hydrOXYzine hydrochloride 25 mg oral tablet (20 sources) Antihistamine Start: 06-06-2024 End: 10-04-2024 take 1 tablet by mouth three times daily as needed hydrOXYzine HCl (Atarax) 25 MG tablet Indications: Chronic pruritus Take 1 tablet (25 mg) by mouth 3 (three) times a day as needed for itching 90 tablet 3 06/06/2024 Active 3 ml insulin degludec 200 unt/ml pen injector (20 sources) Insulin Analog Start: 06-12-2024 inject 20 [IU] by subcutaneous injection at bedtime insulin degludec (Tresiba FlexTouch) 200 UNIT/ML injection Indications: Type 2 diabetes mellitus with other diabetic kidney complication (HCC) Inject 20 Units under the skin at bedtime 9 mL 3 06/12/2024 Active Start: 12-18-2023 insulin deglud ec (TRESIBA U-100 INSULIN SUBQ) Inject 40 Units as directed once daily in the evening. Last dose 1800 on 04-28-24. 12/18/2023 Active Start: 12-18-2023 insulin deglud ec (TRESIBA U-100 INSULIN SUBQ) Refills(s) 0 12/18/2023 Active Start: 12-18-2023 Tresiba Refill s(s) 0 Start Date: 12/18/23 Status: Ordered Repeat number: 1 Start: 12-18-2023 Tresiba Refill s(s) 0 Start Date: 12/18/23 Status: Ordered Start: 07-18-2023 End: 07-17-2024 insulin degludec (Tresiba Fl exTouch) 100 UNIT/ML injection Indications: Type 2 diabetes mellitus with hyperglycemia, with long-term current use of insulin ([facility]/HCC) Inject 40 Units under the skin at bedtime 36 mL 3 07/18/2023 06/06/2024 Discontinued Insulin Detemir U-100 (Levem ir Flexpen) 100 unit/mL (3 mL) Insulin Pen (7 sources) Start: 04-15-2023 Insulin Detemi r U-100 (Levemir Flexpen) 100 unit/mL (3 mL) Insulin Pen Active 40 UNIT SUBCUT Every evening April 15, 2023 12:00am Start: 04-15-2023 Insulin Detemi r U-100 (Levemir Flexpen) 100 unit/mL (3 mL) Insulin Pen Active 40 UNIT SUBCUT Every evening April 14, 2023 11:00pm Start: 04-15-2023 Insulin Detemi r U-100 (Levemir Flexpen) 100 unit/mL (3 mL) Insulin Pen Active 40 UNIT SUBCUT Every morning April 15, 2023 12:00am 3 ml insulin glargine 100 unt/ml pen injector (7 sources) Insulin Analog Start: 06-07-2024 End: 06-07-2024 Lantus SoloStar 100 UNIT/ML pen Indications: Type 2 diabetes mellitus with diabetic chronic kidney disease (CMS/HCC) INJECT 20 UNITS SUBCUTANEOUSLY (UNDER THE SKIN) TWICE DAILY (IN THE MORNING and BEFORE bedtime) 15 mL 11 06/07/2024 06/07/2024 Discontinued Start: 06-06-2024 End: 06-06-2025 insulin glargine (Lantus Ama oStar) 100 UNIT/ML pen Indications: Type 2 diabetes mellitus with diabetic chronic kidney disease (CMS/HCC) Inject 20 Units under the skin at bedtime 15 mL 3 06/07/2024 06/12/2024 Discontinued (Cost of medication) irbesartan 300 mg oral tablet (20 sources) Angiotensin 2 Receptor Mary Start: 08-12-2024 take 1 tablet by mouth at bedtime irbesartan (Avapro) 300 MG tablet Indications: Mixed hyperlipidemia Take 1 tablet (300 mg) by mouth at bedtime 90 tablet 3 08/12/2024 Active Start: 07-12-2024 take 1 tablet by nate th at bedtime irbesartan (Avapro) 300 MG tablet Indications: Mixed hyperlipidemia (CMS/HCC) TAKE 1 TABLET BY MOUTH AT BEDTIME 90 tablet 3 07/12/2024 Active Start: 08-01-2023 End: 07-31-2024 take 1 tablet by mouth once daily Avapro 300 mg Tab 300 mg = 1 tab(s), Oral, Daily, Refills(s) 0 Start Date: 12/18/23 Status: Ordered Repeat number: 1 Start: 04-17-2023 End: 08-30-2023 take 150 mg by mouth once daily Irbesartan Discontinued 150 MG PO Daily April 17, 2023 12:00am August 30, 2023 9:53am Start: 04-13-2023 End: 04-17-2023 take 75 mg by mouth once daily Irbesartan Discontinued 75 MG PO Daily April 13, 2023 12:00am April 17, 2023 1:04pm 24 hr isosorbide mononitrate 30 mg extended release oral tablet (20 sources) Nitrate Vasodilator Start: 01-24-2024 take 1 tablet by mouth in the morning, then take 1 tablet by mouth every twenty-four hours isosorbide mononitrate ER (Imdur) 30 MG 24 hr tablet Take 30 mg by mouth in the morning. 02/21/2024 Active Start: 10-02-2023 End: 10-09-2023 Isosorbide Mononitrate Disco ntinued 30 MG PO .COMPLEX October 02, 2023 12:00am October 09, 2023 3:51pm 30 mg orally take with a 60 mg tab to = 90 mg daily; Start: 09-21-2023 End: 10-09-2023 Isosorbide Mononitrate Disco ntinued 60 MG PO .COMPLEX October 02, 2023 12:00am October 09, 2023 3:51pm 60 mg orally take with a 30 mg tab to = 90 mg daily; Start: 09-01-2023 End: 09-21-2023 take 30 mg by mouth once daily Isosorbide Mononitrate Discontinued 30 MG PO Daily September 01, 2023 1:00am September 21, 2023 3:32pm Levemir FlexTouch 100 UNIT/ML (3 sources) Start: 08-12-2019 inject 10 [IU] by subcutaneous injection once daily Levemir FlexTouch 100 UNIT/ML 10 units Subcutaneous Once a day for 30 days Jul, Active loratadine 10 mg oral tablet (8 sources) Start: 09-29-2023 End: 11-03-2023 take 1 tablet by mouth once daily Loratadine Active 10 MG PO Daily November 03, 2023 11:34am FreeText[employer] tablet Orally Once a day; Note: Source Status: Not-Taking\PRN; Refills: 0; Qty: 14 Tablet; Provider: Saad Mack ( ) Start: 08-19-2019 take 1 tablet by nate th every twenty-four hours Loratadine 10 MG 1 tablet Orally Once a day for 14 days Aug, Not-Taking/PRN nitroglycerin 0.4 mg sublingual tablet (20 sources) Nitrate Vasodilator Start: 12-18-2023 nitroglyce rin 0.4 mg sublingual Tab 0.4 mg = 1 tab(s), SubLingual, q5min, PRN for chest pain, # 100 tab(s), Refills(s) 0 Start Date: 12/18/23 Status: Ordered Quantity: 100.0 Unit: tab(s) Repeat number: 1 Start: 10-02-2023 Nitroglycerin Active 0.4 MG SUBLINGUAL Q5M October 02, 2023 12:00am do not exceed 3 doses per episode Ondansetron (1 source) Serotonin-3 Receptor Antagonist Start: 04-30-2024 take 1 tablet by mouth every eight hours as needed ondansetron (Zofran) tablet 4 mg pantoprazole 20 mg delayed release oral tablet (20 sources) Proton Pump Inhibitor Start: 05-29-2024 End: 08-12-2025 take 1 tablet by mouth once daily pantoprazole (ProtoNix) 20 MG EC tablet Indications: Gastroesophageal reflux disease without esophagitis Take 1 tablet (20 mg) by mouth Daily 90 tablet 3 08/12/2024 08/12/2025 Active 12 hr ranolazine 500 mg extended release oral tablet (8 sources) Anti-anginal Start: 11-06-2023 take 1 tablet by mouth every twelve hours ranolazine (Ranexa) 500 mg 12 hr tablet Take 1 tablet (500 mg) by mouth every 12 hours. 11/06/2023 Active Start: 10-09-2023 take 500 mg by mouth twice daily Ranolazine Active 500 MG PO Twice daily 60 October 09, 2023 12:00am rimegepant 75 mg disintegrating oral tablet (7 sources) Start: 10-11-2023 End: 10-10-2024 take 1 tablet by mouth every other day Rimegepant Sulfate (Nurtec) 75 MG tablet dispersible Indications: Migraine with aura and without status migrainosus, not intractable (CMS/HCC) Take 75 mg by mouth every other day if needed (migraine) 15 tablet 11 10/11/2023 10/10/2024 Active rosuvastatin calcium 40 mg oral tablet (20 sources) HMG-CoA Reductase Inhibitor Start: 06-22-2023 take 3 tablets by mouth in the morning Start: 06-22-2023 End: 06-10-2024 take 1 tablet by mouth in the morning rosuvastatin (Crestor) 40 MG tablet Indications: Cerebrovascular accident (CVA) due to thrombosis of cerebral artery (HCC) , Mixed hyperlipidemia TAKE 1 TABLET BY MOUTH IN THE MORNING 90 tablet 3 06/10/2024 Active traMADol hydrochloride 50 mg oral tablet (20 sources) Opioid Agonist Start: 12-30-2024 take 1 tablet by mouth every eight hours for pain traMADol (Ultram) 50 MG tablet Indications: Primary osteoarthritis involving multiple joints Take 1 tablet (50 mg) by mouth every 8 (eight) hours if needed for severe pain 120 tablet 1 12/30/2024 Active Start: 10-17-2024 tramadol Refil ls(s) 0 Start Date: 10/17/24 Status: Ordered Repeat number: 1 Start: 04-30-2024 End: 12-30-2024 take 1 tablet by mouth every eight hours for pain traMADol (Ultram) 50 MG tablet Indications: Primary osteoarthritis involving multiple joints Take 1 tablet (50 mg) by mouth every 8 (eight) hours if needed for severe pain (For osteoarthritis pain) 120 tablet 1 08/21/2024 12/30/2024 Discontinued triamcinolone acetonide 0.055 mg/actuat metered dose nasal spray (8 sources) Corticosteroid Start: 09-29-2023 End: 11-03-2023 take 1 spray(s) nasal route once daily Triamcinolone Acetonide (Nasacort Allergy) 55 mcg aerosol,spray Active 1 SPRAY INTRANASAL Daily November 03, 2023 11:35am administer into each nostril Start: 08-19-2019 take 1 spray(s) nasa l route once daily as needed Nasacort Allergy 24HR 55 MCG/ACT 1 spray in each nostril Nasally Once a day for 14 days Aug, Not-Taking/PRN Start: 08-19-2019 take 1 spray(s) nasa l route once daily Nasacort Allergy 24HR 55 MCG/ACT 1 spray in each nostril Nasally Once a day for 14 days Aug, Not-Taking Completed/Discontinued Medications Medication Drug Class(es) Dates Sig (Normalized) Sig (Original) amoxicillin 875 mg / clavulanate 125 mg oral tablet (3 sources) Penicillin-class Antibacterial Start: 03-06-2024 End: 04-17-2024 take 1 tablet by mouth twice daily amoxicillin-pot clavulanate (Augmentin) 875-125 mg tablet Take 1 tablet (875 mg) by mouth 2 times a day. 03/06/2024 04/17/2024 Discontinued (Therapy completed) atorvastatin 40 mg oral tablet (11 sources) HMG-CoA Reductase Inhibitor Start: 04-17-2023 End: 08-30-2023 take 40 mg by mouth once daily in the evening Atorvastatin Discontinued 40 MG PO Every evening April 17, 2023 12:00am August 30, 2023 9:52am chlorhexidine gluconate 40 mg/ml medicated liquid soap (1 source) Start: 04-30-2024 End: 04-30-2024 apply 1 dose topically once Topical, Once, On Mon04/30/24 at 1145, For 1 dose, Preprocedure, For pre-op skin preparation Start: 04-30-2024 End: 04-30-2024 apply 1 dose topically once Topical, Once, On 04/16 at 1145, For 1 dose, Preprocedure, For pre-op skin preparation Glucometer 1 Glucometer Kit (3 sources) Start: 10-10-2018 Glucometer 1 G lucometer Kit as directed in vitro as directed for 90 days *please review for potential _update for e-prescription and drug interaction check* Dx: E11.65 Sep, Not-Taking/PRN Start: 10-10-2018 Glucometer 1 G lucometer Kit as directed in vitro as directed for 90 days *please review for potential _update for e-prescription and drug interaction check* Dx: E11.65 Sep, Not-Taking 3 ml insulin aspart, human 100 unt/ml pen injector (3 sources) Insulin Analog Start: 08-12-2019 inject 5 [IU] by subcutaneous injection three times daily as needed NovoLOG FlexPen 100 UNIT/ML 5 units Subcutaneous Three times a day for 30 days Jul, Not-Taking/PRN ketorolac tromethamine 5 mg/ml ophthalmic solution (11 sources) Nonsteroidal Anti-inflammatory Drug, Cyclooxygenase Inhibitor Start: 04-13-2023 End: 08-30-2023 take 1 drop(s) into the eye(s) four times daily Ketorolac Discontinued 1 DROPS EYE-BOTH Four times daily April 13, 2023 12:00am August 30, 2023 9:55am Start: 12-01-2013 Toradol per 15 mg November, 60 mg methylPREDNISolone (3 sources) Corticosteroid Start: 12-01-2013 Depo-Medrol 80 mg November, 80 mg mupirocin 0.02 mg/mg topical ointment (1 source) RNA Synthetase Inhibitor Antibacterial Start: 04-30-2024 End: 04-30-2024 1 Application, Topical, Once, On Mon04/30/24 at 1145, For 1 dose, Preprocedure, Apply topically to both nares prior to procedure. Do not initiate until staph screening obtained first. Start: 04-30-2024 End: 04-30-2024 1 Application, Topical, Once , On Mon04/30/24 at 1145, For 1 dose, Preprocedure, Apply topically to both nares prior to procedure. Do not initiate until staph screening obtained first. polyethylene glycol 3350 [id number] mg / potassium chloride 2970 mg / sodium bicarbonate 6740 mg / sodium chloride 5860 mg / sodium sulfate 29109 mg powder for oral solution (11 sources) Osmotic Laxative Start: 04-13-2023 End: 08-30-2023 Peg 3350-Electrolytes Discontinued ML April 13, 2023 12:00am August 30, 2023 9:55am Start: 04-12-2023 take 236 g by mouth once daily as needed Golytely 236 GM as directed Orally once daily for 1 days Mar, Not-Taking/PRN SUMAtriptan 100 mg oral tablet (6 sources) Serotonin-1b and Serotonin-1d Receptor Agonist Start: 09-29-2023 End: 11-03-2023 take 1 tablet by mouth twice daily as needed for headache Sumatriptan Succinate (Imitrex) 100 mg tablet Discontinued 100 MG PO September 29, 2023 12:00am November 03, 2023 11:35am [employer] tablet as needed at onset of headache Orally Twice a day; Note: Source Status: Taking; Provider: Saad Mack ( ) take 1 tablet by nate th twice daily as needed for headache Imitrex 100 mg 1 tablet as needed at onset of headache Orally Twice a day Active Problems Active Problems Problem Classification Problem Date Documented Da te Episodic/Chronic Acquired foot deformities (20 sources) Acquired hallux valgus; Translations: [Hallux valgus (acquired), unspecified foot] Onset: 3 12-27-2022 Chronic Acute and unspecified renal failure (2 sources) Acute renal failure syndrome; Translations: [Acute kidney failure, unspecified] 09-10-2024 Episodic Acute cerebrovascular disease (20 sources) Ischemic stroke; Translations: [Cerebral infarction, unspecified] Onset: 3 04-14-2023 Chronic Adjustment disorders (20 sources) Grief finding; Translations: [Adjustment disorder with depressed mood] Onset: 3 12-27-2022 Chronic Asthma (20 sources) Moderate persistent asthma; Translations: [Moderate persistent asthma, uncomplicated] Onset: 3 12-18-2023 Chronic Cardiac dysrhythmias (5 sources) Sinus node dysfunction; Translations: [Sick sinus syndrome] Onset: 5 04-30-2024 Chronic Cardiac dysrhythmias (7 sources) Bradycardia; Translations: [Bradycardia, unspecified] Onset: 4 11-03-2023 Episodic Chronic kidney disease (20 sources) Chronic kidney disease stage 3B ; Translations: [Chronic kidney disease, stage 3b (HCC) (CMS/HCC)] Onset: 5 06-06-2024 Chronic Conduction disorders (11 sources) Cardiac pacemaker in situ; Translations: [Presence of cardiac pacemaker] Onset: 4 04-30-2024 Chronic Coronary atherosclerosis and other heart disease (20 sources) Atypical angina; Translations: [Anginal equivalent] Onset: 4 10-09-2023 Chronic Deficiency and other anemia (11 sources) Anemia of chronic disease; Translations: [Anemia in other chronic diseases classified elsewhere] Onset: 5 09-18-2024 Chronic Deficiency and other anemia (1 source) Anemia of chronic renal failure; Translations: [Anemia in chronic kidney disease] Onset: 5 Chronic Deficiency and other anemia (3 sources) Anemia; Translations: [Anemia, unspecified] Onset: 4 Episodic Diabetes mellitus with complications (20 sources) Disorder of nervous system due to type 2 diabetes mellitus; Translations: [Diabetes mellitus with neurological manifestations type II or unspecified type, uncontrolled] Onset: 3 10-02-2023 Chronic Diabetes mellitus without complication (20 sources) Type 2 diabetes mellitus; Translations: [Type 2 diabetes mellitus without complications] Onset: 3 04-14-2023 Chronic Disorders of lipid metabolism (20 sources) Hyperlipidemia; Translations: [Hyperlipidemia, unspecified] Onset: 3 04-15-2023 Chronic Esophageal disorders (20 sources) Gastroesophageal reflux disease without esophagitis; Translations: [Gastro-esophageal reflux disease without esophagitis] Onset: 3 08-30-2023 Chronic Essential hypertension (20 sources) Hypertensive disorder; Translations: [Essential (primary) hypertension] Onset: 3 04-14-2023 Chronic Gout and other crystal arthropathies (2 sources) Gouty arthritis of toe; Translations: [Gout, unspecified] 09-10-2024 Chronic Headache; including migraine (20 sources) Migraine with aura; Translations: [Migraine with aura, not intractable, without status migrainosus] Onset: 3 12-27-2022 Chronic Late effects of cerebrovascular disease (20 sources) Hemiparesis as late effect of cerebrovascular accident; Translations: [Hemiplegia and hemiparesis following cerebral infarction affecting right dominant side] Onset: 3 05-15-2023 Chronic Malaise and fatigue (1 source) Fatigue; Translations: [Other fatigue] Onset: 4 Episodic Menopausal disorders (20 sources) Decreased estrogen level; Translations: [Other primary ovarian failure] Onset: 3 12-27-2022 Chronic Miscellaneous mental health disorders (20 sources) Chronic insomnia; Translations: [Psychophysiologic insomnia] Onset: 3 08-30-2023 Chronic Mood disorders (20 sources) Recurrent major depressive episodes, moderate ; Translations: [Major depressive disorder, recurrent, moderate] Onset: 3 12-27-2022 Chronic Nutritional deficiencies (3 sources) Vitamin D deficiency; Translations: [Vitamin D deficiency disease] Chronic Osteoarthritis (20 sources) Primary osteoarthritis, right ankle and foot; Translations: [Degenerative joint disease involving multiple joints] Onset: 2 Chronic Other acquired deformities (20 sources) Contracture of joint of left ankle; Translations: [Contracture, left ankle] Onset: 3 12-27-2022 Chronic Other aftercare (6 sources) Long-term current use of insulin; Translations: [senior care (current) use of insulin] 09-29-2023 Episodic Other and ill-defined heart disease (20 sources) Left ventricular systolic dysfunction; Translations: [Heart disease, unspecified] Onset: 4 08-10-2023 Chronic Other gastrointestinal disorders (1 source) Heartburn; Translations: [Heartburn] Onset: 4 Episodic Other inflammatory condition of skin (2 sources) Itching of skin; Translations: [Pruritus, unspecified] 06-06-2024 Episodic Other lower respiratory disease (1 source) Dyspnea on exertion; Translations: [Other forms of dyspnea] Episodic Other lower respiratory disease (1 source) Other forms of dyspnea Episodic Other lower respiratory disease (1 source) Shortness of breath; Translations: [Shortness of breath] Onset: 4 Episodic Other nutritional; endocrine; and metabolic disorders (3 sources) Morbid obesity; Translations: [Morbid obesity with BMI of 40.0-44.9, adult] Chronic Other nutritional; endocrine; and metabolic disorders (20 sources) Body mass index 30+ - obesity; Translations: [Obesity, unspecified] Onset: 3 12-27-2022 Chronic Other nutritional; endocrine; and metabolic disorders (4 sources) Obesity caused by energy imbalance; Translations: [Morbid (severe) obesity due to excess calories] 06-06-2024 Chronic Other upper respiratory disease (20 sources) Seasonal allergic rhinitis; Translations: [Other seasonal allergic rhinitis] Onset: 3 12-27-2022 Chronic Pulmonary heart disease (4 sources) Secondary pulmonary hypertension; Translations: [Other secondary pulmonary hypertension] 03-06-2024 Chronic Residual codes; unclassified (3 sources) Hypersomnia; Translations: [Hypersomnia, unspecified] Onset: 4 Chronic Rheumatoid arthritis and related disease (4 sources) Inflammatory polyarthropathy; Translations: [Inflammatory polyarthropathy] 03-06-2024 Chronic Sprains and strains (2 sources) Sprain of left foot; Translations: [Unspecified sprain of left foot, sequela] 11-21-2024 Episodic Transient cerebral ischemia (13 sources) Cerebral ischemia; Translations: [Transient cerebral ischemic attack, unspecified] Onset: 3 04-13-2023 Chronic Unclassified (3 sources) CONTACT W/AND (SUSP) EXPOS COVID-19; Translations: [CONTACT W/AND (SUSP) EXPOS COVID-19] Onset: 2 Unclassified (1 source) Encounter for preprocedural laboratory examination; Translations: [Encounter for preprocedural laboratory examination] Onset: 4 Past or Other Problems Problem Classification Problem Date Documented Da te Episodic/Chronic Administrative/social admission (5 sources) Caregiver role strain; Translations: [Dependent relative needing care at home] 03-06-2024 Episodic Genitourinary symptoms and ill-defined conditions (1 source) Dysuria; Translations: [DYSURIA] Onset: 07-20-2021 Episodic Other bone disease and musculoskeletal deformities (20 sources) Osteopenia; Translations: [Other specified disorders of bone density and structure, right thigh] Onset: 12-27-2022 12-27-2022 Episodic Other connective tissue disease (20 sources) Muscle pain; Translations: [Myalgia, unspecified site] Onset: 12-27-2022 12-27-2022 Episodic Other gastrointestinal disorders (20 sources) Chronic constipation; Translations: [Other constipation] Onset: 12-27-2022 08-30-2023 Episodic Other lower respiratory disease (2 sources) Nocturnal dyspnea; Translations: [Dyspnea, unspecified] 03-19-2024 Episodic Other nutritional; endocrine; and metabolic disorders (12 sources) Hyperuricemia; Translations: [Hyperuricemia without signs of inflammatory arthritis and tophaceous disease] Onset: 09-18-2024 09-18-2024 Episodic Other screening for suspected conditions (not mental disorders or infectious disease) (20 sources) Echocardiogram abnormal; Translations: [Abnormal findings on diagnostic imaging of heart and coronary circulation] Onset: 12-27-2022 Episodic Other upper respiratory infections (2 sources) Acute pansinusitis; Translations: [Acute pansinusitis, unspecified] 03-06-2024 Episodic Residual codes; unclassified (20 sources) Acquired absence of cervix and uterus; Translations: [Acquired absence of both cervix and uterus] Onset: 12-27-2022 12-27-2022 Episodic Unclassified (1 source) CONTACT W/AND (SUSP) EXPOS COVID-19; Translations: [CONTACT W/AND (SUSP) EXPOS COVID-19] Onset: 07-13-2021 Unclassified (3 sources) Long-term current use of insulin; Translations: [Current use of insulin] Unclassified (1 source) Anginal equivalent I20.89 Unclassified (4 sources) Onset: 04-17-2024 04-17-2024 Results Test Name Value Interpretation Reference Range Facility CBC w/ Auto Diffon 5 Basophil Absolute 0.0 E9/L Normal 0.0-0.2 [facility] Comment on above: Performed By: #### 2 [id number] #### [facility] [address] [place] [address] Basophils/100 WBC (Bld) 0.6 % Normal 0.0-2.0 [facility] Comment on above: Performed By: #### 2 [id number] #### [facility] [address] [place] [address] Eos Absolute 0.3 E9/L Normal 0.0-0.5 [facility] Comment on above: Performed By: #### 2 [id number] #### [facility] [address] [place] [address] Eosinophils/100 WBC (Bld) 5.5 % Normal 0.0-8.0 [facility] Comment on above: Performed By: #### 2 [id number] #### [facility] [address] [place] [address] Erythrocyte distribution width (RBC) [Ratio] 14.9 % High 10.9-14.2 [facility] Comment on above: Performed By: #### 2 [id number] #### [facility] [address] [place] [address] Hematocrit (Bld) [Volume fraction] 32.1 % Low 34.0-46.0 [facility] Comment on above: Performed By: #### 2 [id number] #### [facility] [address] [place] [address] Hemoglobin (Bld) [Mass/Vol] 11.1 g/dL Low 12.0-16.0 [facility] Comment on above: Performed By: #### 2 [id number] #### [facility] [address] [place] [address] Lymph Absolute 1.7 E9/L Normal 1.0-4.0 [facility] Comment on above: Performed By: #### 2 [id number] #### [facility] [address] [place] [address] Lymphocytes/100 WBC (Bld) 27.9 % Normal 14.0-50.0 [facility] Comment on above: Performed By: #### 2 [id number] #### [facility] [address] [place] [address] MCH (RBC) [Entitic mass] 31.4 pg Normal 27.0-34.0 [facility] Comment on above: Performed By: #### 2 [id number] #### [facility] [address] [place] [address] MCHC (RBC) [Mass/Vol] 34.7 g/dL Normal 31.4-36.0 [facility] Comment on above: Performed By: #### 2 [id number] #### [facility] [address] [place] [address] MCV (RBC) [Entitic vol] 90.4 fL Normal 80.0-100.0 [facility] Comment on above: Performed By: #### 2 [id number] #### [facility] [address] [place] [address] [place] Absolute 0.4 E9/L Normal 0.2-1.0 [facility] Comment on above: Performed By: #### 2 [id number] #### [facility] [address] [place] [address] Monocytes/100 WBC (Bld) 6.9 % Normal 4.0-14.0 [facility] Comment on above: Performed By: #### 2 [id number] #### [facility] [address] [place] [address] Neutro Absolute 3.5 E9/L Normal 2.0-7.5 [facility] Comment on above: Performed By: #### 2 [id number] #### [facility] [address] [place] [address] Neutro Auto 59.1 % Normal 36.0-75.0 [facility] Comment on above: Performed By: #### 2 [id number] #### [facility] [address] [place] [address] Platelet 241.0 E9/L Normal 150.0-500. 0 [facility] Comment on above: Performed By: #### 2 [id number] #### [facility] [address] [place] [address] Platelet mean volume (Bld) [Entitic vol] 8.8 fL Normal 6.4-10.8 [facility] Comment on above: Performed By: #### 2 [id number] #### [facility] [address] [place] [address] RBC 3.6 E12/L Low 4.3-5.9 [facility] Comment on above: Performed By: #### 2 [id number] #### [facility] [address] [place] [address] WBC 6.0 E9/L Normal 4.0-11.0 [facility] Comment on above: Performed By: #### 2 [id number] #### [facility] [address] [place] [address] HEMATOLOGYOrdered By: SYSTEM SYSTEM on 12-23-2024 Basophils/100 WBC (Bld) 0.6 % Normal 0.0 - 2.0 % [facility]e Basophils/Leukocytes Auto (Bld) [Pure # fraction] 0.0 E9/L Normal 0.0 - 0.2 E9/L [facility] Eosinophils (Bld) [#/Vol] 0.3 E9/L Normal 0.0 - 0.5 E9/L [facility] Eosinophils/100 WBC (Bld) 5.5 % Normal 0.0 - 8.0 % [facility] Erythrocyte distribution width (RBC) [Ratio] 14.9 % High 10.9 - 14.2 % [facility] Hematocrit (Bld) [Volume fraction] 32.1 % Low 34.0 - 46.0 % [facility] Hemoglobin (Bld) [Mass/Vol] 11.1 g/dL Low 12.0 - 16.0 gm/dL [facility] Lymphocytes (Bld) [#/Vol] 1.7 E9/L Normal 1.0 - 4.0 E9/L [facility] Lymphocytes/100 WBC (Bld) 27.9 % Normal 14.0 - 50.0 % [facility] MCH (RBC) [Entitic mass] 31.4 pg Normal 27.0 - 34.0 pg [facility] MCHC (RBC) [Mass/Vol] 34.7 g/dL Normal 31.4 - 36.0 gm/dL [facility] MCV (RBC) [Entitic vol] 90.4 fL Normal 80.0 - 100.0 fL [facility] Monocytes (Bld) [#/Vol] 0.4 E9/L Normal 0.2 - 1.0 E9/L [facility] Monocytes/100 WBC (Bld) 6.9 % Normal 4.0 - 14.0 % [facility] Neutrophils (Bld) [#/Vol] 3.5 E9/L Normal 2.0 - 7.5 E9/L [facility] Neutrophils/100 WBC (Bld) 59.1 % Normal 36.0 - 75.0 % [facility] Platelet mean volume (Bld) [Entitic vol] 8.8 fL Normal 6.4 - 10.8 fL [facility] Platelets (Bld) [#/Vol] 241.0 E9/L Normal 150.0 - 500.0 E9/L [facility] RBC (Bld) [#/Vol] 3.6 E12/L Low 4.3 - 5.9 E12/L [facility] WBC corrected for nucl RBC Auto (Bld) [#/Vol] 6.0 E9/L Normal 4.0 - 11.0 E9/L [facility] Heart and Vascular Office/Cl [facility] Noteon 12-04-2024 Heart and Vascular Office/Clinic Note Heart and Vascular Office/Clinic Note Chief Complaint 6 month follow up History of Present Illness The patient is a pleasant 69-year-old female with past medical history of diabetes, hypertension, CVA, CAD diagnosed at the cardiac catheterization in August 2023 in a context of abnormal stress test. Patient comes in for 6-month follow-up today. Reviewed prior cath reports from outside hospital. At last visit, patient saw Dr. Garcia at which time she was continued on current medications. Patient reports that she is feeling significantly better since she had pacemaker placed in 04/2025. She has 1 more energy does not feel fatigued all the time. She states that she feels back to like her normal self and is hoping to discontinue some medications in the near future. Patient reports she has not been back up for a pacemaker check to [place] since her pacer was placed. She states that she believes she did have 1 remote check because they sent her something in the mail, but she is not scheduled for any additional appointments with them. Patient blood pressure is at goal today in the office. She is taking a number of medications that would affect her blood pressure including amlodipine, Lasix, HCTZ-triamterene, irbesartan, isosorbide. Patient is hoping to discontinue some of these medications and we did have a discussion about this in the office today. Patient has a history of significant CAD that is not amenable to PCI or CABG. Therefore, patient is being treated medically with aspirin, Plavix, isosorbide, rosuvastatin and nitro as needed. Patient reports that she has not needed any nitro at all since last visit. Explained the benefit of these medications and she is not having any chest pain or anginal symptoms at this time and want to stick with the medications to ensure that she does not start with any additional symptoms. Patient was understanding. REVIEWED PRIOR NOTE FROM 04/25/2024: Patient got labs since last visit, checked iron to ensure that is not why she is anemic and all her iron levels came back normal. She states that she is feeling no better than last visit. Her heart rate is a little higher today at the office at 53 bpm. Patient states that she is getting fatigued very quickly with any activity and taking lots of naps throughout the day. Patient reports that she did the home sleep study yesterday, but results will likely not be back for a couple of weeks yet. Do think that sleep apnea could be contributing to her fatigue and would benefit from treatment if she comes back positive. Feels like a burden as she cannot get anything down and is only sleeping throughout the day. Patient did have an appointment with NICK Jones, and he did suggest a pacemaker placement which has been scheduled for 05/01/2024. Review of Systems PHQ Score Initial Depression Screen Score: 0 SCORE ROS - Provider Constitutional: no fever, no chills, no sweats, no weakness Respiratory: no shortness of breath, no cough Cardiovascular: no chest pain Neuro: no dizziness. no loss of consciousness Physical Exam Vitals & Measurements HR: 63(Peripheral) RR: 16 BP: 110/66 HT: 55 in HT: 139 cm WT: 69.8 kg WT: 153.882 lb BMI: 36.13 General: alert, no acute distress Cardiovascular: regular rate and rhythm, no murmur normal peripheral perfusion Respiratory: Lungs CTAB, respirations non labored Extremities: no edema left lower extremity. no edema right lower extremity Neurological: oriented x 4, LOC appropriate for age, speech normal Skin: Warm, dry, intact- no rash or concerning lesions Cardiac Diagnostics Assessment/Plan 1. CAD in [place] artery (I25.10: Atherosclerotic heart disease of [place] coronary artery without angina pectoris) The patient has severe diffuse coronary artery disease of the LAD territory, long segment of the small caliber mid LAD, diagonal artery, severe stenosis of a small OM2. RCA appears to be relatively free of significant disease, however, PDA and PLV have evidence of severe diffuse disease. Would advocate aggressive medical management, indefinite dual antiplatelet therapy. At last visit, was started on isosorbide 30 mg ER daily by Dr. Garcia as patient cannot tolerate Ranexa. He is tolerating the isosorbide pretty well. Will have patient continue with current medications of aspirin 81 mg daily, Plavix 75 mg daily, isosorbide 30 mg ER daily and rosuvastatin 40 mg daily. Patient declines addition of beta-mary at this time as she wants to cut medicines down and not had any additional even after explained the benefit of medication for CAD 2. HTN (hypertension) (I10: Essential (primary) hypertension) Patient blood pressure is at goal in the office today. Patient is currently taking amlodipine 10 mg daily, Lasix 40 mg daily, HCTZ-triamterene 25-37.5 mg daily, irbesartan 300 mg daily, isosorbide 30 mg ER daily that would affect her blood pressure. Patient is hoping to discontinue medications that she is feeling better and does not want to cont (more content not included)... Normal [facility] Comment on above: Result Comment: Elec tronically Signed By: Hemant Espana PA-C\tk\Date and Time Signed: 12/04/24 10:31 EDT Erythropoiet Lvlon Erythropoietin (EPO) Qn 16.4 mIU/mL Invalid Interpretation Code 2.6-18.5 [facility] Comment on above: Result Comment: [email or web address] DxI 800 Immunoassay System Values obtained with different assay methods or kits cannot be used interchangeably. Results cannot be interpreted as absolute evidence of the presence or absence of malignant disease. Performed at: [facility] [id number] PhD Cameron Rowe Performed By: #### 1 [id number] #### [facility] [address] [place] [address] Free K+L Lt Chains,Qn,Son Immunoglobulin light chains.kappa.free (S) [Mass/Vol] 35.1 mg/L High 3.3-19.4 [facility] Comment on above: Performed By: #### 2 [id number] #### [facility] [address] [place] [address] Immunoglobulin light chains.kappa.free/Immu noglobulin light chains.lambda.free (S) [Mass ratio] 1.31 Invalid Interpretation Code 0.26-1.65 [facility] Comment on above: Result Comment: Perf ormed at: [facility] [id number] PhD Cameron Rowe Performed By: #### 2 [id number] #### [facility] [address] [place] [address] Immunoglobulin light chains.lambda.free [Mass/Vol] 26.7 mg/L High 5.7-26.3 [facility] Comment on above: Performed By: #### 2 [id number] #### [facility] [address] [place] [address] HERBERTH and PE, Serumon 10-22-19 25 Albumin [Mass/Vol] 3.4 g/dL Invalid Interpretation Code 2.9-4.4 [facility] Comment on above: Performed By: #### 1 [id number] #### [facility] [address] [place] [address] Albumin/Globulin [Mass ratio] 1.2 {ratio} Invalid Interpretation Code 0.7-1.7 [facility] Comment on above: Performed By: #### 1 [id number] #### [facility] [address] [place] [address] Alpha 1 globulin Elph [Mass/Vol] 0.2 g/dL Invalid Interpretation Code 0.0-0.4 [facility] Comment on above: Performed By: #### 1 [id number] #### [facility] [address] [place] [address] Alpha 2 globulin Elph [Mass/Vol] 0.9 g/dL Invalid Interpretation Code 0.4-1.0 [facility] Comment on above: Performed By: #### 1 [id number] #### [facility] [address] [place] [address] Beta globulin Elph [Mass/Vol] 0.9 g/dL Invalid Interpretation Code 0.7-1.3 [facility] Comment on above: Performed By: #### 1 [id number] #### [facility] [address] [place] [address] Gamma globulin Elph [Mass/Vol] 0.8 g/dL Invalid Interpretation Code 0.4-1.8 [facility] Comment on above: Performed By: #### 1 [id number] #### [facility] [address] [place] [address] Globulin (S) [Mass/Vol] 2.9 g/dL Invalid Interpretation Code 2.2-3.9 [facility] Comment on above: Performed By: #### 1 [id number] #### [facility] [address] [place] [address] IgA [Mass/Vol] 247 mg/dL Invalid Interpretation Code 87-352 [facility] Comment on above: Performed By: #### 1 [id number] #### [facility] [address] [place] [address] IgG [Mass/Vol] 846 mg/dL Invalid Interpretation Code 586-1602 [facility] Comment on above: Performed By: #### 1 [id number] #### [facility] [address] [place] [address] IgM [Mass/Vol] 97 mg/dL Invalid Interpretation Code [facility] Comment on above: Performed By: #### 1 [id number] #### [facility] [address] [place] [address] Interpretation IEP [Interp] Comment Invalid Interpretation Code [facility] Comment on above: Result Comment: No m onoclonality detected. Performed By: #### 1 [id number] #### [facility] [address] [place] [address] Laboratory comment Alex (Report) Comment Invalid Interpretation Code [facility] Comment on above: Result Comment: Prot ein electrophoresis scan will follow via computer, mail, or creative lead delivery. Performed at: [address] [id number] PhD Cameron Rowe Performed By: #### 1 [id number] #### [facility] [address] [place] [address] Protein [Mass/Vol] 6.3 g/dL Invalid Interpretation Code 6.0-8.5 [facility] Comment on above: Performed By: #### 1 [id number] #### [facility] [address] [place] [address] Protein.monoclonal Elph [Mass/Vol] Not Observed Invalid Interpretation Code Not Observed [facility] Comment on above: Performed By: #### 1 [id number] #### [facility] [address] [place] [address] Laboratory - Hematology and Cell countson 10-21-2024 HbA1c (Bld) [Mass fraction] 7.6 % [facility] No Panel Informationon 10-21 [facility] CBC w/ Auto Diffon 5 Basophils/100 WBC (Bld) 0.6 % Normal 0.0-2.0 [facility] Comment on above: Performed By: #### 2 [id number] #### [facility] [address] [place] [address] Basophils/Leukocytes Auto (Bld) [Pure # fraction] 0.0 E9/L Normal 0.0-0.2 [facility] Comment on above: Performed By: #### 2 [id number] #### [facility] [address] [place] [address] Eosinophils (Bld) [#/Vol] 0.3 E9/L Normal 0.0-0.5 [facility] Comment on above: Performed By: #### 2 [id number] #### [facility] [address] [place] [address] Eosinophils/100 WBC (Bld) 4.9 % Normal 0.0-8.0 [facility] Comment on above: Performed By: #### 2 [id number] #### [facility] [address] [place] [address] Erythrocyte distribution width (RBC) [Ratio] 13.9 % Normal 10.9-14.2 [facility] Comment on above: Performed By: #### 2 [id number] #### [facility] [address] [place] [address] Hematocrit (Bld) [Volume fraction] 27.5 % Low 34.0-46.0 [facility] Comment on above: Performed By: #### 2 [id number] #### [facility] [address] [place] [address] Hemoglobin (Bld) [Mass/Vol] 9.6 g/dL Low 12.0-16.0 [facility] Comment on above: Performed By: #### 2 [id number] #### [facility] [address] [place] [address] Lymphocytes (Bld) [#/Vol] 1.4 E9/L Normal 1.0-4.0 [facility] Comment on above: Performed By: #### 2 [id number] #### [facility] [address] [place] [address] Lymphocytes/100 WBC (Bld) 21.7 % Normal 14.0-50.0 [facility] Comment on above: Performed By: #### 2 [id number] #### [facility] [address] [place] [address] MCH (RBC) [Entitic mass] 31.1 pg Normal 27.0-34.0 [facility] Comment on above: Performed By: #### 2 [id number] #### [facility] [address] [place] [address] MCHC (RBC) [Mass/Vol] 34.8 g/dL Normal 31.4-36.0 [facility] Comment on above: Performed By: #### 2 [id number] #### [facility] [address] [place] [address] MCV (RBC) [Entitic vol] 89.2 fL Normal 80.0-100.0 [facility] Comment on above: Performed By: #### 2 [id number] #### [facility] [address] [place] [address] Monocytes (Bld) [#/Vol] 0.4 E9/L Normal 0.2-1.0 [facility] Comment on above: Performed By: #### 2 [id number] #### [facility] [address] [place] [address] Neutrophils (Bld) [#/Vol] 4.2 E9/L Normal 2.0-7.5 [facility] Comment on above: Performed By: #### 2 [id number] #### [facility] [address] [place] [address] Neutrophils/100 WBC (Bld) 66.1 % Normal 36.0-75.0 [facility] Comment on above: Performed By: #### 2 [id number] #### [facility] [address] [place] [address] Platelet 224.0 E9/L Normal 150.0-500. 0 [facility] Comment on above: Performed By: #### 2 [id number] #### [facility] [address] [place] [address] Platelet mean volume (Bld) [Entitic vol] 8.0 fL Normal 6.4-10.8 [facility] Comment on above: Performed By: #### 2 [id number] #### [facility] [address] [place] [address] RBC (Bld) [#/Vol] 3.1 E12/L Low 4.3-5.9 [facility] Comment on above: Performed By: #### 2 [id number] #### [facility] [address] [place] [address] WBC corrected for nucl RBC Auto (Bld) [#/Vol] 6.4 E9/L Normal 4.0-11.0 [facility] Comment on above: Performed By: #### 2 [id number] #### [facility] [address] [place] [address] CHEMISTRYOrdered By: SYSTEM SYSTEM on 10-17-2024 Albumin [Mass/Vol] 3.9 g/dL Normal 3.3 - 5.0 gm/dL [facility] Albumin/Globulin [Mass ratio] 1.3 {ratio} Normal 1.1 - 2.2 [facility] ALP [Catalytic activity/Vol] 53 [iU]/d Normal 21 - 98 Int._Unit/ L [facility] ALT No additional P-5'-P [Catalytic activity/Vol] 15 [iU]/d Normal 6 - 46 Int._Unit/ L [facility] Anion gap [Moles/Vol] 14 mmol/L Normal 6 - 16 mEq/L [facility] AST [Catalytic activity/Vol] 18 [iU]/d Normal 5 - 43 Int._Unit/ L [facility] Bilirubin [Mass/Vol] 0.4 mg/dL Normal 0.0 - 1 .1 mg/dL [facility] Calcium [Mass/Vol] 9.1 mg/dL Normal 8.9 - 11. 1 mg/dL [facility] Chloride [Moles/Vol] 106 mmol/L Normal 101 - 1 11 mmol/L [facility] CO2 [Moles/Vol] 23 mmol/L Normal 21 - 31 mmol/L [facility] Cobalamin (Vitamin B12) [Mass/Vol] 436 pg/mL Normal 50 - 1500 pg/mL [facility] Creatinine [Mass/Vol] 1.6 mg/dL High 0.5 - 1.3 mg/dL [facility] eGFR 34 mL/min/1.73 m2 Low >=59mL/min /1.73 m2 [facility] Ferritin [Mass/Vol] 143 ng/mL Normal 11 - 307 ng/mL [facility] Folate [Mass/Vol] ng/mL Normal >=6.7ng/mL [facility] Globulin (S) [Mass/Vol] 2.9 g/dL Normal 1.4 - 4.0 gm/dL [facility] Glucose [Mass/Vol] 185 mg/dL Normal 55 - 199 mg/dL [facility] Iron [Mass/Vol] 76 ug/dL Normal 35 - 153 mcg/dL [facility] Iron binding capacity [Mass/Vol] 280 ug/dL Normal 250 - 400 mcg/dL [facility] Iron saturation [Mass fraction] 27 % Normal 20 - 50 % [facility] Potassium [Moles/Vol] 4.4 mmol/L Normal 3.5 - 5.3 mmol/L [facility] Protein [Mass/Vol] 6.8 g/dL Normal 6.0 - 7.8 gm/dL [facility] Sodium [Moles/Vol] 139 mmol/L Normal 135 - 145 mmol/L [facility] Transferrin [Mass/Vol] 200 mg/dL Normal 200 - 370 mg/dL [facility] Urea nitrogen [Mass/Vol] 35 mg/dL High 5 - 21 mg/dL [facility] Urea nitrogen/Creatinine [Mass ratio] 22 mg/mg High 10 - 20 [facility] CMPon 10-17-2024 Albumin [Mass/Vol] 3.9 g/dL Normal 3.3-5.0 [facility] Comment on above: Performed By: #### 2 [id number] #### [facility] [address] [place] [address] Albumin/Globulin (S) [Mass conc ratio] 1.3 Normal 1.1-2.2 [facility] Comment on above: Performed By: #### 2 [id number] #### [facility] [address] [place] [address] ALP [Catalytic activity/Vol] 53 Int._Unit/L Normal 21-98 [facility] Comment on above: Performed By: #### 2 [id number] #### [facility] [address] [place] [address] ALT No additional P-5'-P [Catalytic activity/Vol] 15 Int._Unit/L Normal 6-46 [facility] Comment on above: Performed By: #### 2 [id number] #### [facility] [address] [place] [address] Anion gap [Moles/Vol] 14 mmol/L Normal 6-16 [facility] Comment on above: Performed By: #### 2 [id number] #### [facility] [address] [place] [address] AST [Catalytic activity/Vol] 18 Int._Unit/L Normal 5-43 [facility] Comment on above: Performed By: #### 2 [id number] #### [facility] [address] [place] [address] Bilirubin [Mass/Vol] 0.4 mg/dL Normal 0.0-1.1 [facility] Comment on above: Performed By: #### 2 458108 #### [facility] [address] [place] [address] Calcium [Mass/Vol] 9.1 mg/dL Normal 8.9-11.1 [facility] Comment on above: Performed By: #### 2 743151 #### [facility] [address] [place] [address] Chloride [Moles/Vol] 106 mmol/L Normal 101-111 [facility] Comment on above: Performed By: #### 2 [id number] #### [facility] [address] [place] [address] CO2 [Moles/Vol] 23 mmol/L Normal 21-31 [facility] Comment on above: Performed By: #### 2 [id number] #### [facility] [address] [place] [address] Creatinine [Mass/Vol] 1.6 mg/dL High 0.5-1.3 [facility] Comment on above: Performed By: #### 2 [id number] #### [facility] [address] [place] [address] Globulin (S) [Mass/Vol] 2.9 g/dL Normal 1.4-4.0 [facility] Comment on above: Performed By: #### 2 [id number] #### [facility] [address] [place] [address] Glucose [Mass/Vol] 185 mg/dL Normal 55-199 [facility] Comment on above: Performed By: #### 2 236690 #### [facility] [address] [place] [address] Potassium [Moles/Vol] 4.4 mmol/L Normal 3.5-5.3 [facility] Comment on above: Performed By: #### 2 [id number] #### [facility] [address] [place] [address] Protein [Mass/Vol] 6.8 g/dL Normal 6.0-7.8 [facility] Comment on above: Performed By: #### 2 [id number] #### [facility] [address] [place] [address] Sodium [Moles/Vol] 139 mmol/L Normal 135-145 [facility] Comment on above: Performed By: #### 2 [id number] #### [facility] [address] [place] [address] Urea nitrogen [Mass/Vol] 35 mg/dL High 5-21 [facility] Comment on above: Performed By: #### 2 [id number] #### [facility] [address] [place] [address] Urea nitrogen/Creatinine [Mass ratio] 22 No Units High 10-20 [facility] Comment on above: Performed By: #### 2 [id number] #### [facility] [address] [address] [facility] ED [facility] Hematology Anemia Anemia is a condition in which there are not enough red blood cells or hemoglobin in the blood. Hemoglobin is a substance in red blood cells that carries oxygen. When you do not have enough red blood cells or hemoglobin (are anemic), your body cannot get enough oxygen, and your organs may not work properly. As a result, you may feel very tired or have other problems. What are the causes? Common causes of anemia include: ??? Excessive bleeding. Anemia can be caused by excessive bleeding inside or outside the body, including bleeding from the intestines or from heavy menstrual periods in females. ??? Poor nutrition. ??? Long-lasting (chronic) kidney, thyroid, and liver disease. ??? Bone marrow disorders, spleen problems, and blood disorders. ??? Cancer and treatments for cancer. ??? Human immunodeficiency virus (HIV) and acquired immunodeficiency syndrome (AIDS). ??? Infections, medicines, and autoimmune disorders that destroy red blood cells. What are the signs or symptoms? Symptoms of this condition include: ??? Minor weakness. ??? Dizziness. ??? Headache, or difficulties concentrating and sleeping. ??? Heartbeats that feel irregular or faster than normal (palpitations). ??? Shortness of breath, especially with exercise. ??? Pale skin, lips, and nails, or cold hands and feet. ??? Upset stomach (indigestion) and nausea. Symptoms may occur suddenly or develop slowly. If your anemia is mild, you may not have symptoms. How is this diagnosed? This condition is diagnosed based on blood tests, your medical history, and a physical exam. In some cases, a test may be needed in which cells are removed from the soft tissue inside of a bone and looked at under a microscope (bone marrow biopsy). Your health care provider may also check your stool (feces) for blood and may do more testing to look for the cause of your bleeding. Other tests may include: ??? Imaging tests, such as a CT scan or MRI. ??? A procedure to see inside your esophagus and stomach (endoscopy). The esophagus is the part of the body that moves food from your mouth to your stomach. ??? A procedure to see inside your colon and rectum (colonoscopy). How is this treated? Treatment for this condition depends on the cause. If you continue to lose a lot of blood, you may need to be treated at a hospital. Treatment may include: ??? Taking supplements of iron, vitamin B12, or folic acid. ??? Taking a hormone medicine (erythropoietin) that can help to stimulate red blood cell growth. ??? Receiving donated blood through an IV (blood transfusion). This may be needed if you lose a lot of blood. ??? Making changes to your diet. ??? Having surgery to remove your spleen. Follow these instructions at home: ??? Take pcdr-quj-vbtodij and prescription medicines only as told by your health care provider. ??? Take supplements only as told by your health care provider. ??? Follow any diet instructions that you were given by your health care provider. ??? Keep all follow-up visits. Your health care provider will want to recheck your blood tests. Contact a health care provider if: ??? You develop new bleeding anywhere in the body. ??? You are very weak. Get help right away if: ??? You are short of breath. ??? You have pain in your abdomen or chest. ??? You are dizzy or feel faint. ??? You have trouble concentrating. ??? You have bloody stools, black stools, or tarry stools. ??? You vomit repeatedly or you vomit up blood. These symptoms may be an emergency. Get help right away. Call 911. ??? Do not wait to see if the symptoms will go away. ??? Do not drive yourself to the hospital. Summary ??? Anemia is a condition in which you do not have enough red blood cells or enough of a substance in your red blood cells that carries oxygen. ??? Symptoms may occur suddenly or develop slowly. ??? If your anemia is mild, you may not have symptoms. ??? This condition is diagnosed with blood tests, a medical history, and a physical exam. Other tests may be needed. ??? Treatment for this condition depends on the cause of the anemia. This information is not intended to replace advice given to you by your health care provider. Make sure you discuss any questions you have with your health care provider. Document Revised: 09/26/2022 Document Reviewed: 09/26/2022 [employer] Patient Education ? 2023 [employer] Normal [facility] Ferritinon 10-17-2024 Ferritin [Mass/Vol] 143 ng/mL Normal 11-307 [facility] Comment on above: Performed By: #### 2 [id number] #### [facility] [address] [place] [address] Folateon 10-17-2024 Folate [Mass/Vol] ng/mL Normal >=6.7 [facility] Comment on above: Performed By: #### 2 [id number] #### [facility] [address] [place] [address] HEMATOLOGYOrdered By: SYSTEM SYSTEM on 10-17-2024 Basophils/100 WBC (Bld) 0.6 % Normal 0.0 - 2.0 % [facility] Basophils/Leukocytes Auto (Bld) [Pure # fraction] 0.0 E9/L Normal 0.0 - 0.2 E9/L [facility] Eosinophils (Bld) [#/Vol] 0.3 E9/L Normal 0.0 - 0.5 E9/L [facility] Eosinophils/100 WBC (Bld) 4.9 % Normal 0.0 - 8.0 % [facility] Erythrocyte distribution width (RBC) [Ratio] 13.9 % Normal 10.9 - 14.2 % [facility] Hematocrit (Bld) [Volume fraction] 27.5 % Low 34.0 - 46.0 % [facility] Hemoglobin (Bld) [Mass/Vol] 9.6 g/dL Low 12.0 - 16.0 gm/dL [facility] Lymphocytes (Bld) [#/Vol] 1.4 E9/L Normal 1.0 - 4.0 E9/L [facility] Lymphocytes/100 WBC (Bld) 21.7 % Normal 14.0 - 50.0 % [facility] MCH (RBC) [Entitic mass] 31.1 pg Normal 27.0 - 34.0 pg [facility] MCHC (RBC) [Mass/Vol] 34.8 g/dL Normal 31.4 - 36.0 gm/dL [facility] MCV (RBC) [Entitic vol] 89.2 fL Normal 80.0 - 100.0 fL [facility] Monocytes (Bld) [#/Vol] 0.4 E9/L Normal 0.2 - 1.0 E9/L [facility] Monocytes/100 WBC (Bld) 6.7 % Normal 4.0 - 14.0 % [facility] Neutrophils (Bld) [#/Vol] 4.2 E9/L Normal 2.0 - 7.5 E9/L [facility] Neutrophils/100 WBC (Bld) 66.1 % Normal 36.0 - 75.0 % [facility] Platelet 224.0 E9/L Normal 150.0 - 500.0 E9/L [facility] Platelet mean volume (Bld) [Entitic vol] 8.0 fL Normal 6.4 - 10.8 fL [facility] RBC (Bld) [#/Vol] 3.1 E12/L Low 4.3 - 5.9 E12/L [facility] Reticulocytes/100 RBC (Bld) 1.0 % Normal 0.5 - 2.2 % [facility] Comment on above: Result Comment: Reti culocyte count has been corrected for anemia WBC corrected for nucl RBC Auto (Bld) [#/Vol] 6.4 E9/L Normal 4.0 - 11.0 E9/L [facility] HEMATOLOGYOrdered By: Nelly Pisano on 10-17-2024 ESR (Bld) [Velocity] 39 mm/h High 0 - 34 mm/hr [facility] HemeAutoSS Ironon 10-17-2024 Iron [Mass/Vol] 76 microgram/dL Normal 35-153 [facility] Comment on above: Performed By: #### 2 [id number] #### [facility] [address] [place] [address] Iron Saturationon 10-17-2024 Iron binding capacity [Mass/Vol] 280 microgram/dL Normal 250-400 [facility] Comment on above: Performed By: #### 2 [id number] #### [facility] [address] [place] [address] Iron saturation [Mass fraction] 27 % Normal 20-50 [facility] Comment on above: Performed By: #### 2 [id number] #### [facility] [address] [place] [address] Retic Counton 10-17-2024 Reticulocytes/100 RBC (Bld) 1.0 % Normal 0.5-2.2 [facility] Comment on above: Result Comment: Reti culocyte count has been corrected for anemia Performed By: #### 2 [id number] #### [facility] [address] [place] [address] Sed Rate Automatedon 025 ESR (Bld) [Velocity] 39 mm/h High 0-34 [facility] Comment on above: Performed By: #### 1 [id number] #### [facility] [address] [place] [address] Transferrinon 10-17-2024 Transferrin [Mass/Vol] 200 mg/dL Normal 200-370 [facility] Comment on above: Performed By: #### 2 517852 #### [facility] [address] [place] [address] Vit B12on 10-17-2024 Cobalamin (Vitamin B12) [Mass/Vol] 436 pg/mL Normal 50-1500 [facility] Comment on above: Performed By: #### 2 [id number] #### [facility] [address] [place] [address] eGFRon 10-17-2024 eGFR 34 mL/min/1.73 m2 Low >=59 [facility] Comment on above: Performed By: #### 1 [id number] #### [facility] [address] [place] [address] BASIC METABOLIC PANELon 09-14 Calcium [Mass/Vol] 9.2 mg/dL Normal 8.6-10.4 [facility] Comment on above: Performed By: #### 1 657, 31824, 5616 #### [facility] [address] [facility], [address] [place] [address] Directional Bore Operator: Tyler Tate MD Chloride [Moles/Vol] 101 mmol/L Normal 98-110 [facility] Comment on above: Performed By: #### 1 759, 27136, 5616 #### [facility] [place] [address] Directional Bore Operator: Tyler Tate MD CO2 [Moles/Vol] 25 mmol/L Normal 20-32 [facility] Comment on above: Performed By: #### 1 759, 85496, 5616 #### [facility] [place] [address] Directional Bore Operator: Tyler Tate MD Creatinine [Mass/Vol] 1.67 mg/dL High 0.60-1.[address] [facility] Comment on above: Performed By: #### 1 969, 83303, 5616 #### [facility] [place] [address] Directional Bore Operator: Tyler Tate MD GFR/1.73 sq M.predicted among non-blacks MDRD (S/P/Bld) [Vol rate/Area] 33 mL/min/{1.73_m2} Low > OR = 60 [facility] Comment on above: Performed By: #### 1 539, 99617, 5616 #### [facility] [place] [address] Directional Bore Operator: Tyler Tate MD Glucose [Mass/Vol] 223 mg/dL High 65-99 [facility] Comment on above: Result Comment: Fasting reference interval For someone without known diabetes, a glucose value >125 mg/dL indicates that they may have diabetes and this should be confirmed with a follow-up test. Performed By: #### 1 689, 88371, 5616 #### [facility] [address], [address] [place] [address] Directional Bore Operator: Tyler Tate MD Potassium [Moles/Vol] 4.3 mmol/L Normal 3.5-5.[address] [facility] Comment on above: Performed By: #### 1 759, 24718, 5616 #### [facility] of [address], [address] [place] [address] Directional Bore Operator: Tyler Tate MD Sodium [Moles/Vol] 138 mmol/L Normal 135-146 [facility] Comment on above: Performed By: #### 1 759, 03311, 5616 #### [facility] of [address], [address] [place] [address] Directional Bore Operator: Tyler Tate MD Urea nitrogen [Mass/Vol] 42 mg/dL High 7-25 [facility] Comment on above: Performed By: #### 1 759, 28265, 5616 #### [facility] of [place] [address] Directional Bore Operator: Tyler Tate MD Urea nitrogen/Creatinine [Mass ratio] 25 mg/mg High 6-22 [facility] Comment on above: Performed By: #### 1 759, 23757, 5616 #### [facility] of [place] [address] Directional Bore Operator: Tyler Tate MD CBC (H/H, RBC, INDICES, WBC, PLT)on 09-26-2024 Erythrocyte distribution width (RBC) [Ratio] 11.8 % Normal 11.0-15.0 [facility] Comment on above: Performed By: #### 1 759, 32156, 5616 #### [facility] of [place] [address] Directional Bore Operator: Tyler Tate MD Hematocrit (Bld) [Volume fraction] 28.9 % Low 35.0-45.0 [facility] Comment on above: Performed By: #### 1 759, 24327, 5616 #### [facility] of [place] [address] Directional Bore Operator: Tyler Tate MD Hemoglobin (Bld) [Mass/Vol] 9.5 g/dL Low 11.7-15.5 [facility] Comment on above: Performed By: #### 1 759, 75941, 5616 #### [facility] [address], [address] [place] [address] Directional Bore Operator: Tyler Tate MD MCH (RBC) [Entitic mass] 30.4 pg Normal 27.0-33.0 [facility] Comment on above: Performed By: #### 1 759, 31944, 5616 #### [facility] [place] [address] Directional Bore Operator: Tyler Tate MD MCHC (RBC) [Mass/Vol] 32.9 g/dL Normal 32.0-36.[address] [facility] [address] [facility] Comment on above: Result Comment: For adults, a slight decrease in the calculated MCHC value (in the range of 30 to 32 g/dL) is most likely not clinically significant; however, it should be interpreted with caution in correlation with other red cell parameters and the patient's clinical condition. Performed By: #### 1 759, 34537, 5616 #### [facility] [place] [address] Directional Bore Operator: Tyler Tate MD MCV (RBC) [Entitic vol] 92.3 fL Normal 80.0-100.0 [facility] Comment on above: Performed By: #### 1 759, 25380, 5616 #### [facility] [place] [address] Directional Bore Operator: Tyler Tate MD Platelet mean volume (Bld) [Entitic vol] 11.0 fL Normal 7.5-12.5 [facility] Comment on above: Performed By: #### 1 759, 54744, 5616 #### [facility] [place] [address] Directional Bore Operator: Tyler Tate MD Platelets (Bld) [#/Vol] 228 10*3/uL Normal 140-400 [facility] Comment on above: Performed By: #### 1 759, 96519, 5616 #### [facility] [place] [address] Directional Bore Operator: Tyler Tate MD RBC (Bld) [#/Vol] 3.13 10*6/uL Low 3.80-5.10 [facility] Comment on above: Performed By: #### 1 759, 63981, 5616 #### [facility] of [address], [address] [place] [address] Directional Bore Operator: Tyler Tate MD WBC (Bld) [#/Vol] 7.6 10*3/uL Normal 3.8-10.8 [facility] Comment on above: Performed By: #### 1 759, 32661, 5616 #### [facility] of [address], [address] [place] [address] Directional Bore Operator: Tyler Tate MD IRON, TIBC AND FERRITIN PANE Rafa 09-26-2024 % SATURATION 26 % (calc) Normal 16-45 [facility] Comment on above: Performed By: #### 1 759, 34672, 5616 #### [facility] of [address], [address] [place] [address] Directional Bore Operator: Tyler Tate MD Ferritin [Mass/Vol] 191 ng/mL Normal 16-288 [facility] Comment on above: Performed By: #### 1 759, 76969, 5616 #### [facility] of [place] [address] Directional Bore Operator: Tyler Tate MD IRON BINDING CAPACITY 254 mcg/dL (calc) Normal 250-450 [facility] Comment on above: Performed By: #### 1 759, 90550, 5616 #### [facility] of [place] [address] Directional Bore Operator: Tyler Tate MD IRON, TOTAL 66 mcg/dL Normal 45-160 [facility] Comment on above: Performed By: #### 1 759, 20133, 5616 #### [facility] of [address], [address] [place] [address] Directional Bore Operator: Tyler Tate MD B TYPE NATRIURETIC PEPTIDE ( BNP)on 09-17-2024 Natriuretic peptide B (Bld) [Mass/Vol] 119 pg/mL High <100 [facility] Comment on above: Result Comment: BNP levels increase with age in the general population with the highest values seen in individuals greater than 75 years of age. Reference: J. Am. Hesham. Cardiol. 2002; 40:976-982. Performed By: #### 9 , , 175, 83179 #### [facility] [place] [address] Directional Bore Operator: Tyler Tate MD BASIC METABOLIC PANELon Calcium [Mass/Vol] 9.6 mg/dL Normal 8.6-10.4 [facility] Comment on above: Performed By: #### 9 , , 1758, 56872 #### [facility] [place] [address] Directional Bore Operator: Tyler Tate MD Chloride [Moles/Vol] 100 mmol/L Normal 98-110 [facility] Comment on above: Performed By: #### 9 05, , 1758, 97691 #### [facility] [place] [address] Directional Bore Operator: Tyler Tate MD CO2 [Moles/Vol] 19 mmol/L Low 20-32 [facility] Comment on above: Performed By: #### 9 , , 175, 40024 #### [facility] [place] [address] Directional Bore Operator: Tyler Tate MD Creatinine [Mass/Vol] 2.03 mg/dL High 0.60-1.[address] [facility] Comment on above: Performed By: #### 9 05, , 175, 09525 #### [facility] [place] [address] Directional Bore Operator: Tyler Tate MD GFR/1.73 sq M.predicted among non-blacks MDRD (S/P/Bld) [Vol rate/Area] 26 mL/min/{1.73_m2} Low > OR = 60 [facility] Comment on above: Performed By: #### 9 , , 1758, 03667 #### [facility] [place] [address] Directional Bore Operator: Tyler Tate MD Glucose [Mass/Vol] 131 mg/dL High 65-99 [facility] Comment on above: Result Comment: Fasting reference interval For someone without known diabetes, a glucose value >125 mg/dL indicates that they may have diabetes and this should be confirmed with a follow-up test. Performed By: #### 9 05, , 1758, 53612 #### [facility] [place] [address] Directional Bore Operator: Tyler Tate MD Potassium [Moles/Vol] 4.4 mmol/L Normal 3.5-5.[address] [facility] [address] [facility] Comment on above: Performed By: #### 9 , , 1758, 28151 #### [facility] [place] [address] Directional Bore Operator: Tyler Tate MD Sodium [Moles/Vol] 136 mmol/L Normal 135-146 [facility] Comment on above: Performed By: #### 9 05, , 1758, 40551 #### [facility] [place] [address] Directional Bore Operator: Tyler Tate MD Urea nitrogen [Mass/Vol] 54 mg/dL High 7-25 [facility] Comment on above: Performed By: #### 9 , , 175, 09041 #### [facility] of [place] [address] Directional Bore Operator: Tyler Tate MD Urea nitrogen/Creatinine [Mass ratio] 27 mg/mg High 6-22 [facility] Comment on above: Performed By: #### 9 , , 175, 31044 #### [facility] of [place] [address] Directional Bore Operator: Tyler Tate MD CBC (H/H, RBC, INDICES, WBC, PLT)on 09-17-2024 Erythrocyte distribution width (RBC) [Ratio] 12.2 % Normal 11.0-15.0 [facility] Comment on above: Performed By: #### 9 , , 1758, 58770 #### [facility] [place] [address] Directional Bore Operator: Tyler Tate MD Hematocrit (Bld) [Volume fraction] 31.8 % Low 35.0-45.0 [facility] Comment on above: Performed By: #### 9 , , 1758, 47876 #### [facility] [place] [address] Directional Bore Operator: Tyler Tate MD Hemoglobin (Bld) [Mass/Vol] 10.5 g/dL Low 11.7-15.5 [facility] Comment on above: Performed By: #### 9 , , 1758, #### [facility] of [place] [address] Directional Bore Operator: Tyler Tate MD MCH (RBC) [Entitic mass] 30.3 pg Normal 27.0-33.0 [facility] Comment on above: Performed By: #### 9 , , 1758, 21874 #### [facility] [place] [address] Directional Bore Operator: Tyler Tate MD MCHC (RBC) [Mass/Vol] 33.0 g/dL Normal 32.0-36.[address] [facility] [address] [facility] Comment on above: Result Comment: For adults, a slight decrease in the calculated MCHC value (in the range of 30 to 32 g/dL) is most likely not clinically significant; however, it should be interpreted with caution in correlation with other red cell parameters and the patient's clinical condition. Performed By: #### 9 , , 1758, 06167 #### [facility] [place] [address] Directional Bore Operator: Tyler Tate MD MCV (RBC) [Entitic vol] 91.6 fL Normal 80.0-100.0 [facility] Comment on above: Performed By: #### 9 , , 1758, 59867 #### [facility] of [place] [address] Directional Bore Operator: Tyler Tate MD Platelet mean volume (Bld) [Entitic vol] 10.3 fL Normal 7.5-12.5 [facility] Comment on above: Performed By: #### 9 05, , 1758, 87886 #### [facility] of [place] [address] Directional Bore Operator: Tyler Tate MD Platelets (Bld) [#/Vol] 326 10*3/uL Normal 140-400 [facility] Comment on above: Performed By: #### 9 , , 1758, 15380 #### [facility] of [place] [address] Directional Bore Operator: Tyler Tate MD RBC (Bld) [#/Vol] 3.47 10*6/uL Low 3.80-5.10 [facility] Comment on above: Performed By: #### 9 , , 1758, 97801 #### [facility] [place] [address] Directional Bore Operator: Tyler Tate MD WBC (Bld) [#/Vol] 8.0 10*3/uL Normal 3.8-10.8 [facility] Comment on above: Performed By: #### 9 , , 1758, 98702 #### [facility] of [place] [address] Directional Bore Operator: Tyler Tate MD URIC ACIDon 09-17-2024 Urate [Mass/Vol] 10.6 mg/dL High 2.5-7.0 [facility] Comment on above: Order Comment: FASTI NG:YES FASTING: YES Result Comment: Ther apeutic target for gout patients: <6.0 mg/dL Performed By: #### 9 05, 30568, 9293, 01118 #### [facility] [address], [address] [place] [address] Directional Bore Operator: Tyler Tate MD Laboratory - Hematology and Cell countson 08-21-2024 HbA1c (Bld) [Mass fraction] 8.3 % [facility] No Panel Informationon 08-21 [facility] Laboratory - Hematology and Cell countson 06-06-2024 HbA1c (Bld) [Mass fraction] 8.1 % [facility] No Panel Informationon 06-06 [facility] Heart and Vascular Office/Cl inic Noteon 05-29-2024 Heart and Vascular Office/Clinic Note Heart and Vascular Office/Clinic Note Chief Complaint 6 wk f/u bradycardia, cad, pacemaker placement History of Present Illness The patient is a pleasant 68-year-old female with past medical history of diabetes, hypertension, CVA, CAD diagnosed at the cardiac catheterization in August 2023 in a context of abnormal stress test, who has a history of symptomatic bradycardia and is status post permanent pacemaker placement. She reports no chest pain, however admits metallic taste in her mouth as well as some heartburn. She reports no chest pain or worsening shortness of breath. She still she is still being bothered by some fatigue, however, states that she is feeling much better after the pacemaker placement. She states that she cannot afford cardiac rehabilitation. Review of Systems PHQ Score Initial Depression Screen Score: 0 SCORE ROS - Provider Constitutional: no fever, no chills, yes fatigue Skin:no rash, no lesions ENMT: no ear pain, no sore throat, no congestion. Respiratory: no shortness of breath, no cough, no wheezing. Cardiovascular: no chest pain, no palpitations, no edema. Gastrointestinal: no nausea, no vomiting, no diarrhea, no GI bleeding. Positive for heartburn Genitourinary: no dysuria, no frequencyno hematuria Musculoskeletal: no back pain, no trauma. Neurologic: no headache, no dizziness, no numbness, no weakness. Psychiatric: no sleeping problems, no irritability, no mood swings/depression. Heme/Lymph: no bleeding tendency, no bruising tendency, no petechiae, Allergy/Immuno logic: no seasonal allergies, no food allergies, no recurrent infections Physical Exam Vitals & Measurements HR: 60(Peripheral) RR: 16 BP: 124/72 SpO2: 99% HT: 55 in HT: 139 cm WT: 74 kg WT: 163.142 lb BMI: 38.3 General: alert, no acute distress Neck: Supple, noJVD nocarotid bruit Cardiovascular: regular rate and rhythm, no murmur normal peripheral perfusion Respiratory: Lungs CTAB, respirations non labored Extremities: no edema left lower extremity. no edema right lower extremity Neurological: oriented x 4, LOC appropriate for age, speech normal Skin: Warm, dry, intact- no rash or concerning lesions Assessment/Plan 1. CAD in [place] artery (I25.10: Atherosclerotic heart disease of [place] coronary artery without angina pectoris) Severe, diffuse disease, not amenable for percutaneous or surgical treatment. Aggressive medical therapy is indicated. Continue rosuvastatin, aspirin. Continue isosorbide. 2. Heartburn (R12: Heartburn) One of the antiplatelets may be possibly contributory. I think we can probably stop Plavix, continue aspirin; will provide prescription for pantoprazole 3. Pacemaker (Z95.0: Presence of cardiac pacemaker) Routine interrogations Follow-up No qualifying data available 6 months Problem List/Past Medical History Ongoing No qualifying data Historical Arthritis Asthma CVA - Cerebrovascular accident GERD - Gastro-esophageal reflux disease HLD - Hyperlipidemia Procedure/Surgical History Cardiac pacemaker (04/2024), Cardiac catheterization (09/01/2023). Medications acetaminophen albuterol amLODIPine 10 mg Tab aspirin 81 mg Oral EC Tab Avapro 300 mg Tab, 300 mg= 1 tab(s), Oral, Daily clopidogrel 75 mg Tab, 75 mg= 1 tab(s), Oral, Daily Crestor 40 mg Tab furosemide 40 mg Tab, 40 mg= 1 tab(s), Oral, Daily hydrochlorothiazide-triamt erene 25 mg-37.5 mg Tab isosorbide mononitrate 30 mg ER Tab, 30 mg= 1 tab(s), Oral, qAM, 6 refills nitroglycerin 0.4 mg sublingual Tab, 0.4 mg= 1 tab(s), SubLingual, q5min, PRN Tresiba Allergies OxyCODONE Hydrochloride ER (Heartburn) atorvastatin (Heartburn) dulaglutide (Vision care) lisinopril (Cough) Social History Alcohol - Denies Alcohol Use, 12/18/2023 Never., 05/29/2024 Substance Abuse - Denies Substance Abuse, 12/18/2023 Never., 05/29/2024 Tobacco - Denies Tobacco Use, 12/18/2023 Never (less than 100 in lifetime) Tobacco Use:., 05/29/2024 Normal [facility] Comment on above: Result Comment: Elec tronically Signed By: Radha ADAMS, Dom Gardiner\.br\Date and Time Signed: 05/29/24 15:54 EST Basic metabolic 2000 panelon 04-30-2024 Anion gap [Moles/Vol] 16 mmol/L 10 - 2 0 mmol/L [facility] Calcium [Mass/Vol] 9.1 mg/dL 8.6 - 10. 3 mg/dL [facility] Chloride [Moles/Vol] 107 mmol/L 98 - 10 7 mmol/L [facility] CO2 [Moles/Vol] 17 mmol/L Low 21 - 32 mmol/L [facility] Creatinine [Mass/Vol] 1.76 mg/dL High 0.50 - 1.05 mg/dL [facility] GFR/1.73 sq M.predicted among non-blacks MDRD (S/P/Bld) [Vol rate/Area] 31 mL/min/{1.73_m2} Low - PINF [facility] Comment on above: Calculations of kristan mated GFR are performed using the 2020 CKD-EPI Study Refit equation without the race variable for the IDMS-Traceable creatinine methods. https://jasn.asnjournals.org/content//ASN.14676 12865 Glucose [Mass/Vol] 162 mg/dL High 74 - 99 mg/dL [facility] Interpretation and review of laboratory results Abnormal [facility] Potassium [Moles/Vol] 5.0 mmol/L 3.5 - 5.3 mmol/L [facility] Sodium [Moles/Vol] 135 mmol/L Low 136 - 145 mmol/L [facility] Urea nitrogen [Mass/Vol] 55 mg/dL High 6 - 23 mg/dL [facility] Anion gap [Moles/Vol] 16 mmol/L Normal 10-20 [facility] Comment on above: Performed By: #### 2 4321-2 #### ABEL MUÑOZ ([id number]) [facility] ([facility]) [address] [place] [address] 98439 Calcium [Mass/Vol] 9.1 mg/dL Normal 8.6-10.3 [facility] Comment on above: Performed By: #### 2 4321-2 #### RAMONEIBURI MUÑOZ ([id number]) [facility] ([facility]) [address] [place] [address] 60212 Chloride [Moles/Vol] 107 mmol/L Normal 98-107 [facility] Comment on above: Performed By: #### 2 4321-2 #### ABEL MUÑOZ ([id number]) [facility] ([facility]) [address] [place] [address] 82253 CO2 [Moles/Vol] 17 mmol/L Low 21-32 [facility] Comment on above: Performed By: #### 2 4321-2 #### ABEL MUÑOZ ([id number]) [facility] ([facility]) [address] [place] [address] 12006 Creatinine [Mass/Vol] 1.76 mg/dL High 0.50-1.05 [facility] Comment on above: Performed By: #### 2 4321-2 #### ABEL MUÑOZ ([id number]) [facility] ([facility]) [address] [place] [address] 04444 Glomerular filtration rate/1.73 sq M.predicted 31 mL/min/1.73m*2 Low >60 [facility] Comment on above: Result Comment: Calc ulations of estimated GFR are performed using the 2020 CKD-EPI Study Refit equation without the race variable for the IDMS-Traceable creatinine methods. https://jasn.asnjournals.org/content/early/ASN.09184 00043 Performed By: #### 2 4321-2 #### ABEL MUÑOZ ([id number]) [facility] ([facility]) [address] [place] [address] Glucose [Mass/Vol] 162 mg/dL High 74-99 [facility] Comment on above: Performed By: #### 2 4321-2 #### ABEL MUÑOZ ([id number]) [facility] ([facility]) [address] [place] [address] Potassium [Moles/Vol] 5.0 mmol/L Normal 3.5-5.3 [facility] Comment on above: Performed By: #### 2 4321-2 #### ABEL MUÑOZ ([id number]) [facility] ([facility]) [address] [place] [address] 92391 Sodium [Moles/Vol] 135 mmol/L Low 136-145 [facility] Comment on above: Performed By: #### 2 4321-2 #### ABEL MUÑOZ ([id number]) [facility] ([facility]) [address] [place] [address] 86817 Urea nitrogen [Mass/Vol] 55 mg/dL High 6-23 [facility] Comment on above: Performed By: #### 2 4321-2 #### ABEL MUÑOZ ([id number]) [facility] ([facility]) [address] [place] [address] 07366 CBC panel Auto (Bld)on 04-30 Erythrocyte distribution width (RBC) [Ratio] 11.8 % 11.5 - 14.5 % [facility] Hematocrit (Bld) [Volume fraction] 26.8 % Low 36.0 - 46.0 % [facility] Hemoglobin (Bld) [Mass/Vol] 9.4 g/dL Low 12.0 - 16.0 g/dL [facility] Interpretation and review of laboratory results Abnormal [facility] MCH (RBC) [Entitic mass] 31.8 pg 26.0 - 34.0 pg [facility] MCHC (RBC) [Mass/Vol] 35.1 g/dL 32.0 - 36.0 g/dL [facility] MCV (RBC) [Entitic vol] 91 fL 80 - 100 fL [facility] Nucleated RBC/100 WBC (Bld) [Ratio] 0.0 % [facility] Platelets (Bld) [#/Vol] 178 10*3/uL [facility] RBC (Bld) [#/Vol] 2.96 10*6/uL Low [facility] WBC (Bld) [#/Vol] 6.2 10*3/uL [facility] Erythrocyte distribution width (RBC) [Ratio] 11.8 % Normal 11.5-14.5 [facility] Comment on above: Performed By: #### 5 8410-2 #### ABEL MUÑOZ ([id number]) [facility] ([facility]) [address] [place] [address] 33785 Hematocrit (Bld) [Volume fraction] 26.8 % Low 36.0-46.0 [facility] Comment on above: Performed By: #### 5 8410-2 #### ABEL MUÑOZ ([id number]) [facility] ([facility]) [address] [place] [address] 26581 Hemoglobin (Bld) [Mass/Vol] 9.4 g/dL Low 12.0-16.0 [facility] Comment on above: Performed By: #### 5 8410-2 #### ABEL MUÑOZ ([id number]) [facility] ([facility]) [address] [place] [address] 98201 MCH (RBC) [Entitic mass] 31.8 pg Normal 26.0-34.0 [facility] Comment on above: Performed By: #### 5 8410-2 #### ABEL MUÑOZ ([id number]) [facility] ([facility]) [address] [place] [address] 68460 MCHC (RBC) [Mass/Vol] 35.1 g/dL Normal 32.0-36.0 [facility] Comment on above: Performed By: #### 5 8410-2 #### ABEL MUÑOZ ([id number]) [facility] ([facility]) [address] [place] [address] 79138 MCV (RBC) [Entitic vol] 91 fL Normal 80-100 [facility] Comment on above: Performed By: #### 5 8410-2 #### ABEL MUÑOZ ([id number]) [facility] ([facility]) [address] [place] [address] 18979 Nucleated RBC/100 WBC (Bld) [Ratio] 0.0 /100 WBCs Normal 0.0-0.0 [facility] Comment on above: Performed By: #### 5 8410-2 #### ABEL UMÑOZ ([id number]) [facility] ([facility]) [address] [place] [address] 36880 Platelets (Bld) [#/Vol] 178 x10*3/uL Normal 150-450 [facility] Comment on above: Performed By: #### 5 8410-2 #### ABEL MUÑOZ ([id number]) [facility] ([facility]) [address] [place] [address] RBC (Bld) [#/Vol] 2.96 x10*6/uL Low 4.00-5.20 [facility] Comment on above: Performed By: #### 5 8410-2 #### ABEL MUÑOZ ([id number]) [facility] ([facility]) [address] [place] [address] 44946 WBC (Bld) [#/Vol] 6.2 x10*3/uL Normal 4.4-11.3 [facility] Comment on above: Performed By: #### 5 8410-2 #### ABEL MUÑOZ ([id number]) [facility] ([facility]) [address] [place] [address] 73506 ECG 12-LEADon 04-30-2024 ECG 12-LEAD Ventricular Rate 60 Atrial Rate 60 P-R Interval 220 QRS Duration 86 Q-T Interval 464 QTC Calculation(Bazett) 464 P August[place] 15 R Augusta -1 T [place] 109 QRS Count 10 Q Onset 222 P Onset 157 P Offset 191 T Offset 454 QTC Fredericia 464 Diagnosis Atrial-paced rhythm with prolonged AV conduction ST & T wave abnormality, consider lateral ischemia Abnormal ECG When compared with ECG of 30-APR-2024 11:22, (unconfirmed) Electronic atrial pacemaker has replaced Sinus rhythm T wave inversion more evident in Anterolateral leads Confirmed by Rao Isaac ([id number]) on 05/01/2024 11:51:26 AM Normal [facility] ECG 12-LEAD Ventricular Rate 46 Atrial Rate 46 P-R Interval 154 QRS Duration 80 Q-T Interval 498 QTC Calculation(Bazett) 435 P August[place] 60 R Augusta 11 T [place] 98 QRS Count 8 Q Onset 219 P Onset 142 P Offset 194 T Offset 468 QTC Fredericia 455 Diagnosis Sinus bradycardia Nonspecific ST and T wave abnormality Abnormal ECG No previous ECGs available Confirmed by Rao Isaac ([id number]) on 05/01/2024 11:49:44 AM Normal [facility] PT and aPTT panel Coag (PPP) on 04-30-2024 aPTT Coag (PPP) [Time] 34 s [facility] INR Coag (PPP) [Relative time] 1.0 {INR} 0.9 - 1.1 [facility] Interpretation and review of laboratory results Normal [facility] PT Coag (PPP) [Time] 11.5 s [facility] The APTT is no longe r used for monitoring Unfractionated Heparin Therapy. For monitoring Heparin Therapy, use the Heparin Assay. [facility] aPTT Coag (PPP) [Time] 34 s Normal 27-38 [facility] Comment on above: Order Comment: The A PTT is no longer used for monitoring Unfractionated Heparin Therapy. For monitoring Heparin Therapy, use the Heparin Assay. Performed By: #### 3 4529-8 #### BAEL MUÑOZ ([id number]) [facility] ([facility]) [address] [place] [address] 01699 INR Coag (PPP) [Relative time] 1.0 Normal 0.9-1.1 [facility] Comment on above: Order Comment: The A PTT is no longer used for monitoring Unfractionated Heparin Therapy. For monitoring Heparin Therapy, use the Heparin Assay. Performed By: #### 3 4529-8 #### ABEL [facility] ([id number]) [facility] ([facility]) [address] [place] [address] 46508 PT Coag (PPP) [Time] 11.5 s Normal 9.8-12.8 [facility] Comment on above: Order Comment: The A PTT is no longer used for monitoring Unfractionated Heparin Therapy. For monitoring Heparin Therapy, use the Heparin Assay. Performed By: #### 3 4529-8 #### ABEL [facility] ([id number]) [facility] (EM) [address] [place] [id number] XR CHEST 2 VIEWSon XR CHEST 2 VIEWS Interpreted By: Jeremy Oswald, STUDY: XR CHEST 2 VIEWS; 04/30/2024 4:18 pm INDICATION: Signs/Symptoms:Post PPM. COMPARISON: None. ACCESSION NUMBER(S): [id number] ORDERING CLINICIAN: LIZBET MOREL FINDINGS: Left-sided pacemaker in place CARDIOMEDIASTINAL SILHOUETTE: Cardiomediastinal silhouette is mildly enlarged. LUNGS: No consolidation or effusion seen. There is no edema ABDOMEN: No remarkable upper abdominal findings. BONES: No acute osseous changes. IMPRESSION: 1. No evidence of acute cardiopulmonary process. MACRO: None Signed by: Jeremy Fam 05/01/2024 8:00 PM Dictation workstation: [id number] [facility] Comment on above: Order Comment: Wet r ead. Discharge pending film. Heart and Vascular Office/Cl inic Noteon 04-25-2024 Heart and Vascular Office/Clinic Note Heart and Vascular Office/Clinic Note Chief Complaint 1 mo f/u bradycardia, cad History of Present Illness The patient is a pleasant 68-year-old female with past medical history of diabetes, hypertension, CVA, CAD diagnosed at the cardiac catheterization in August 2023 in a context of abnormal stress test, who presents for fatigue and bradycardia. Patient got labs since last visit, checked iron to ensure that is not why she is anemic and all her iron levels came back normal. She states that she is feeling no better than last visit. Her heart rate is a little higher today at the office at 53 bpm. Patient states that she is getting fatigued very quickly with any activity and taking lots of naps throughout the day. Patient reports that she did the home sleep study yesterday, but results will likely not be back for a couple of weeks yet. Do think that sleep apnea could be contributing to her fatigue and would benefit from treatment if she comes back positive. Feels like a burden as she cannot get anything down and is only sleeping throughout the day. Patient did have an appointment with NICK Jones, and he did suggest a pacemaker placement which has been scheduled for 05/01/2024. NOTE FROM 03/21/2024: At last visit, patient saw Dr. Garcia at which time he added on isosorbide to try to help with patient is chest pain symptoms. He had a continued her other medications. Patient reports that she has been taking isosorbide and tolerating well. She does complain of ongoing chest heaviness with intermittent chest pains. She describes chest pain this is a moderate pain across her chest and sometimes will radiate down her right arm. Patient does admit the chest heaviness and the intermittent chest pains are not new and patient thinks they might be slightly better after the addition of the isosorbide. Patient does have known history of multivessel CAD, however she is not a good candidate for CABG or stenting and therefore is being managed medically. Today, patient comes to the office due to low heart rate and feeling very fatigued. She states that she feels like all she wants to sleep all the time and is sleeping a lot. She also states that when she starts to get active she gets very worn out, very quickly. Patient has been monitoring her heart rate at home and has only been running in the 40s lately. Patient reports that she will sometimes feel like her heart is racing, especially if she is doing anything active. Her blood pressure has been a little bit variable ranging from low 100s to 150 systolic and 60s or 70s diastolic. EKG in the office shows junctional bradycardia. This could be in part due to her known CAD, but patient would like to be evaluated for pacemaker if possible to see if that would help her symptoms and quality of life at all Patient denies swelling to lower extremities Review of Systems PHQ Score Initial Depression Screen Score: 0 SCORE ROS - Provider Constitutional: no fever, no chills, no sweats, no weakness Respiratory: no shortness of breath, no cough Cardiovascular: no chest pain Neuro: no dizziness. no loss of consciousness Physical Exam Vitals & Measurements HR: 53(Peripheral) RR: 16 BP: 132/78 SpO2: 100% HT: 55 in HT: 139 cm WT: 74 kg WT: 162.8 lb BMI: 38.3 General: alert, no acute distress Neck: Supple, noJVD nocarotid bruit Cardiovascular: regular rate and rhythm, no murmur normal peripheral perfusion Respiratory: Lungs CTAB, respirations non labored Extremities: no edema left lower extremity. no edema right lower extremity Neurological: oriented x 4, LOC appropriate for age, speech normal Skin: Warm, dry, intact- no rash or concerning lesions Cardiac Diagnostics Assessment/Plan 1. Bradycardia (R00.1: Bradycardia, unspecified) Patient has bradycardia ongoing right now. Heart rate in the office is 53 which is a little higher than she has been recently. Based on her her last EKG, she is in a junctional rhythm, although hard to tell due to a little bit of artifact. Patient still feeling very fatigued and is sleeping numerous hours per day. Patient had appointment with Dr. Willams last week and is now scheduled for pacemaker placement on 05/01/2024. 2. CAD in [place] artery (I25.10: Atherosclerotic heart disease of [place] coronary artery without angina pectoris) The patient has severe diffuse coronary artery disease of the LAD territory, long segment of the small caliber mid LAD, diagonal artery, severe stenosis of a small OM2. RCA appears to be relatively free of significant disease, however, PDA and PLV have evidence of severe diffuse disease. Would advocate aggressive medical management, indefinite dual antiplatelet therapy. At last visit, was started on isosorbide 30 mg ER daily by Dr. Garcia as patient cannot tolerate Ranexa. He is tolerating the isosorbide pretty well although does admit to some headaches. She can limit the headaches at this time and wants to continue with isosorbide. Patient will also be able t (more content not included)... Normal [facility] Comment on above: Result Comment: Elec tronically Signed By: Jovi FRANK, Hemant Sharif\.alanna\Date and Time Signed: 04/25/24 10:51 EDT Blood type and Indirect anti body screen panel (Bld)on 04-17-2024 ABO group Nom (Bld) A Normal [facility] Comment on above: Order Comment: Speci men for compatibility testing requires full first and last name, MRN, , date, time of collection, and e commerce architect/insurance collector's signature on tube(s) or it will be rejected. Please collect 1 lavender top-KEDTA OR 1 pink top-KEDTA and sign, date and time with the patient's full first and last name, MRN and . Performed By: #### 3 4532-2 #### [facility] ([id number]) [facility] [address] [place] [address] Blood group antibody screen Ql Negative [facility] Comment on above: Order Comment: Speci men for compatibility testing requires full first and last name, MRN, , date, time of collection, and e commerce architect/insurance collector's signature on tube(s) or it will be rejected. Please collect 1 lavender top-KEDTA OR 1 pink top-KEDTA and sign, date and time with the patient's full first and last name, MRN and . Performed By: #### 3 4532-2 #### ABEL BRITT RIO [facility]Y ([id number]) [facility] ([facility]) [address] [place] [address] D Ag Ql (Bld) Positive [facility] Comment on above: Order Comment: Speci men for compatibility testing requires full first and last name, MRN, , date, time of collection, and e commerce architect/insurance collector's signature on tube(s) or it will be rejected. Please collect 1 lavender top-KEDTA OR 1 pink top-KEDTA and sign, date and time with the patient's full first and last name, MRN and . Performed By: #### 3 4532-2 #### [facility] ([id number]) [facility] ([facility]) [address] [place] [address] ECG 12 Leadon 04-17-2024 Sinus bradycardia, S T and T wave abnormalities, abnormal EKG, heart rate 51 bpm [facility] Work Phone: Heart and Vascular Office/Cl inic Noteon 04-02-2024 Heart and Vascular Office/Clinic Note Heart and Vascular Office/Clinic Note Chief Complaint f/u - discuss labs History of Present Illness The patient is a pleasant 68-year-old female with past medical history of diabetes, hypertension, CVA, CAD diagnosed at the cardiac catheterization in August 2023 in a context of abnormal stress test, who presents for fatigue and bradycardia. Patient got labs since last visit, was mildly anemic and has decreased kidney function, but that appeared stable compared to previous labs. She states that she is feeling no better than last visit. Her heart rate is a little higher today at the office at 53 bpm. Patient states that she is getting fatigued very quickly with any activity and taking lots of naps throughout the day. Patient states she has never had a sleep study, although talked with neurology about it at 1 point in the past. Has never heard anything further for them. Patient reports that she Feels like a burden as she cannot get anything down and is only sleeping throughout the day. She does have an appointment scheduled with EP at [facility], Dr. Willams on 04/17/2024. Ensured patient that we are working to figure out why she is feeling like she is, but it could be related to her CAD and patient voiced understanding to that. NOTE FROM 03/21/2024: At last visit, patient saw Dr. Garcia at which time he added on isosorbide to try to help with patient is chest pain symptoms. He had a continued her other medications. Patient reports that she has been taking isosorbide and tolerating well. She does complain of ongoing chest heaviness with intermittent chest pains. She describes chest pain this is a moderate pain across her chest and sometimes will radiate down her right arm. Patient does admit the chest heaviness and the intermittent chest pains are not new and patient thinks they might be slightly better after the addition of the isosorbide. Patient does have known history of multivessel CAD, however she is not a good candidate for CABG or stenting and therefore is being managed medically. Today, patient comes to the office due to low heart rate and feeling very fatigued. She states that she feels like all she wants to sleep all the time and is sleeping a lot. She also states that when she starts to get active she gets very worn out, very quickly. Patient has been monitoring her heart rate at home and has only been running in the 40s lately. Patient reports that she will sometimes feel like her heart is racing, especially if she is doing anything active. Her blood pressure has been a little bit variable ranging from low 100s to 150 systolic and 60s or 70s diastolic. EKG in the office shows junctional bradycardia. This could be in part due to her known CAD, but patient would like to be evaluated for pacemaker if possible to see if that would help her symptoms and quality of life at all Patient denies swelling to lower extremities Review of Systems ROS - Provider Constitutional: no fever, no chills, no sweats, no weakness Respiratory: no shortness of breath, no cough Cardiovascular: no chest pain Neuro: no dizziness. no loss of consciousness Physical Exam Vitals & Measurements HR: 53(Peripheral) RR: 16 BP: 140/70 SpO2: 99% HT: 55 in HT: 139 cm WT: 75 kg WT: 165 lb BMI: 38.82 General: alert, no acute distress Cardiovascular: regular rate and rhythm, no murmur normal peripheral perfusion Respiratory: Lungs CTAB, respirations non labored Extremities: no edema left lower extremity. no edema right lower extremity Neurological: oriented x 4, LOC appropriate for age, speech normal Skin: Warm, dry, intact- no rash or concerning lesions Cardiac Diagnostics Assessment/Plan 1. Bradycardia (R00.1: Bradycardia, unspecified) Patient has bradycardia ongoing right now. Heart rate in the office is 53 which is a little higher than she has been recently patient her last EKG, she is in a junctional rhythm based on her EKG although hard to tell due to a little bit of artifact. Patient still feeling very fatigued and is sleeping numerous hours per day. Thinking this could be related to heart and she has been referred to EP and has appointment with Dr. Willams at [facility] on 04/17/2024. 2. CAD in [place] artery (I25.10: Atherosclerotic heart disease of [place] coronary artery without angina pectoris) The patient has severe diffuse coronary artery disease of the LAD territory, long segment of the small caliber mid LAD, diagonal artery, severe stenosis of a small OM2. RCA appears to be relatively free of significant disease, however, PDA and PLV have evidence of severe diffuse disease. Would advocate aggressive medical management, indefinite dual antiplatelet therapy. At last visit, was started on isosorbide 30 mg ER daily by Dr. Garcia as patient cannot tolerate Ranexa. He is tolerating the isosorbide pretty well and we will have her continue with current medications 3. Fatigue (R53.83: Other fatigue) Due to ongoing fatigue, patient feels like she is a burden and is (more content not included)... Normal [facility] Comment on above: Result Comment: Elec tronically Signed By: Jovi FRANK, Hemant Sharif\.br\Date and Time Signed: 04/02/24 13:55 EDT CBC w/ Auto Diffon 4 Basophils/100 WBC (Bld) 0.5 % Normal 0.0-2.0 [facility] Comment on above: Performed By: #### 2 [id number] #### [facility] [address] [place] [address] Basophils/Leukocytes Auto (Bld) [Pure # fraction] 0.0 E9/L Normal 0.0-0.2 [facility] Comment on above: Performed By: #### 2 [id number] #### [facility] [address] [place] [address] Eosinophils (Bld) [#/Vol] 0.3 E9/L Normal 0.0-0.5 [facility] Comment on above: Performed By: #### 2 [id number] #### [facility] [address] [place] [address] Eosinophils/100 WBC (Bld) 3.6 % Normal 0.0-8.0 [facility] Comment on above: Performed By: #### 2 [id number] #### [facility] [address] [place] [address] Erythrocyte distribution width (RBC) [Ratio] 12.4 % Normal 10.9-14.2 [facility] Comment on above: Performed By: #### 2 [id number] #### [facility] [address] [place] [address] Hematocrit (Bld) [Volume fraction] 31.5 % Low 34.0-46.0 [facility] Comment on above: Performed By: #### 2 [id number] #### [facility] [address] [place] [address] Hemoglobin (Bld) [Mass/Vol] 11.0 g/dL Low 12.0-16.0 [facility] Comment on above: Performed By: #### 2 [id number] #### [facility] [address] [place] [address] Lymphocytes (Bld) [#/Vol] 1.4 E9/L Normal 1.0-4.0 [facility] Comment on above: Performed By: #### 2 [id number] #### [facility] [address] [place] [address] Lymphocytes/100 WBC (Bld) 16.3 % Normal 14.0-50.0 [facility] Comment on above: Performed By: #### 2 [id number] #### [facility] [address] [place] [address] MCH (RBC) [Entitic mass] 32.2 pg Normal 27.0-34.0 [facility] Comment on above: Performed By: #### 2 [id number] #### [facility] [address] [place] [address] MCHC (RBC) [Mass/Vol] 34.9 g/dL Normal 31.4-36.0 [facility] Comment on above: Performed By: #### 2 [id number] #### [facility] [address] [place] [address] MCV (RBC) [Entitic vol] 92.3 fL Normal 80.0-100.0 [facility] Comment on above: Performed By: #### 2 [id number] #### [facility] [address] [place] [address] Monocytes (Bld) [#/Vol] 0.6 E9/L Normal 0.2-1.0 [facility] Comment on above: Performed By: #### 2 [id number] #### [facility] [address] [place] [address] Neutrophils (Bld) [#/Vol] 6.3 E9/L Normal 2.0-7.5 [facility] Comment on above: Performed By: #### 2 [id number] #### [facility] [address] [place] [address] Neutrophils/100 WBC (Bld) 72.8 % Normal 36.0-75.0 [facility] Comment on above: Performed By: #### 2 [id number] #### [facility] [address] [place] [address] Platelet mean volume (Bld) [Entitic vol] 8.9 fL Normal 6.4-10.8 [facility] Comment on above: Performed By: #### 2 [id number] #### [facility] [address] [place] [address] Platelets (Bld) [#/Vol] 229.0 E9/L Normal 150.0-500. 0 [facility] Comment on above: Performed By: #### 2 [id number] #### [facility] [address] [place] [address] RBC (Bld) [#/Vol] 3.4 E12/L Low 4.3-5.9 [facility] Comment on above: Performed By: #### 2 [id number] #### [facility] [address] [place] [address] WBC corrected for nucl RBC Auto (Bld) [#/Vol] 8.6 E9/L Normal 4.0-11.0 [facility] Comment on above: Performed By: #### 2 [id number] #### [facility] [address] [place] [address] CHEMISTRYOrdered By: SYSTEM SYSTEM on 03-21-2024 Albumin [Mass/Vol] 4.3 g/dL Normal 3.3 - 5.0 gm/dL [facility] Albumin/Globulin [Mass ratio] 1.3 {ratio} Normal 1.1 - 2.2 [facility] ALP [Catalytic activity/Vol] 55 [iU]/d Normal 21 - 98 Int._Unit/ L [facility] ALT No additional P-5'-P [Catalytic activity/Vol] 14 [iU]/d Normal 6 - 46 Int._Unit/ L [facility] Anion gap [Moles/Vol] 14 mmol/L Normal 6 - 16 mEq/L [facility] AST [Catalytic activity/Vol] 13 [iU]/d Normal 5 - 43 Int._Unit/ L [facility] Bilirubin [Mass/Vol] 0.3 mg/dL Normal 0.0 - 1 .1 mg/dL [facility] Calcium [Mass/Vol] 9.9 mg/dL Normal 8.9 - 11. 1 mg/dL [facility] Chloride [Moles/Vol] 105 mmol/L Normal 101 - 1 11 mmol/L [facility] CO2 [Moles/Vol] 21 mmol/L Normal 21 - 31 mmol/L [facility] Creatinine [Mass/Vol] 1.6 mg/dL High 0.5 - 1.3 mg/dL [facility] eGFR 35 mL/min/1.73 m2 Low >=59mL/min /1.73 m2 [facility] Globulin (S) [Mass/Vol] 3.2 g/dL Normal 1.4 - 4.0 gm/dL [facility] Glucose [Mass/Vol] 209 mg/dL High 55 - 199 mg/dL [facility] Potassium [Moles/Vol] 5.3 mmol/L Normal 3.5 - 5.3 mmol/L [facility] Protein [Mass/Vol] 7.5 g/dL Normal 6.0 - 7.8 gm/dL [facility] Sodium [Moles/Vol] 135 mmol/L Normal 135 - 145 mmol/L [facility] TSH Qn 1.33 m[IU]/L Normal 0.34 - 5.60 mcIU/mL [facility] Urea nitrogen [Mass/Vol] 67 mg/dL High 5 - 21 mg/dL [facility] Urea nitrogen/Creatinine [Mass ratio] 42 mg/mg High 10 - 20 [facility] CMPon 03-21-2024 Albumin [Mass/Vol] 4.3 g/dL Normal 3.3-5.0 [facility] Comment on above: Performed By: #### 2 [id number] #### [facility] [address] [place] [address] Albumin/Globulin (S) [Mass conc ratio] 1.3 Normal 1.1-2.2 [facility] Comment on above: Performed By: #### 2 [id number] #### [facility] [address] [place] [address] ALP [Catalytic activity/Vol] 55 Int._Unit/L Normal 21-98 [facility] Comment on above: Performed By: #### 2 [id number] #### [facility] [address] [place] [address] ALT No additional P-5'-P [Catalytic activity/Vol] 14 Int._Unit/L Normal 6-46 [facility] Comment on above: Performed By: #### 2 [id number] #### [facility] [address] [place] [address] Anion gap [Moles/Vol] 14 mmol/L Normal 6-16 [facility] Comment on above: Performed By: #### 2 [id number] #### [facility] [address] [place] [address] AST [Catalytic activity/Vol] 13 Int._Unit/L Normal 5-43 [facility] Comment on above: Performed By: #### 2 [id number] #### [facility] [address] [place] [address] Bilirubin [Mass/Vol] 0.3 mg/dL Normal 0.0-1.1 [facility] Comment on above: Performed By: #### 2 [id number] #### [facility] [address] [place] [address] Calcium [Mass/Vol] 9.9 mg/dL Normal 8.9-11.1 [facility] Comment on above: Performed By: #### 2 [id number] #### [facility] [address] [place] [address] Chloride [Moles/Vol] 105 mmol/L Normal 101-111 [facility] Comment on above: Performed By: #### 2 [id number] #### [facility] [address] [place] [address] CO2 [Moles/Vol] 21 mmol/L Normal 21-31 [facility] Comment on above: Performed By: #### 2 043921 #### [facility] [address] [place] [address] Creatinine [Mass/Vol] 1.6 mg/dL High 0.5-1.3 [facility] Comment on above: Performed By: #### 2 [id number] #### [facility] [address] [place] [address] Globulin (S) [Mass/Vol] 3.2 g/dL Normal 1.4-4.0 [facility] Comment on above: Performed By: #### 2 [id number] #### [facility] [address] [place] [address] Glucose [Mass/Vol] 209 mg/dL High 55-199 [facility] Comment on above: Performed By: #### 2 [id number] #### [facility] [address] [place] [address] Potassium [Moles/Vol] 5.3 mmol/L Normal 3.5-5.3 [facility] Comment on above: Performed By: #### 2 949144 #### [facility] [address] [place] [address] Protein [Mass/Vol] 7.5 g/dL Normal 6.0-7.8 [facility] Comment on above: Performed By: #### 2 [id number] #### [facility] [address] [place] [address] Sodium [Moles/Vol] 135 mmol/L Normal 135-145 [facility] Comment on above: Performed By: #### 2 [id number] #### [facility] [address] [place] [address] Urea nitrogen [Mass/Vol] 67 mg/dL High 5-21 [facility] Comment on above: Performed By: #### 2 535383 #### [facility] [address] [place] [address] Urea nitrogen/Creatinine [Mass ratio] 42 No Units High 10-20 [facility] Comment on above: Performed By: #### 2 [id number] #### [facility] [address] [place] [address] HEMATOLOGYOrdered By: SYSTEM SYSTEM on 03-21-2024 Basophils/100 WBC (Bld) 0.5 % Normal 0.0 - 2.0 % [facility] Basophils/Leukocytes Auto (Bld) [Pure # fraction] 0.0 E9/L Normal 0.0 - 0.2 E9/L [facility] Eosinophils (Bld) [#/Vol] 0.3 E9/L Normal 0.0 - 0.5 E9/L [facility] Eosinophils/100 WBC (Bld) 3.6 % Normal 0.0 - 8.0 % [facility] Erythrocyte distribution width (RBC) [Ratio] 12.4 % Normal 10.9 - 14.2 % [facility] Hematocrit (Bld) [Volume fraction] 31.5 % Low 34.0 - 46.0 % [facility] Hemoglobin (Bld) [Mass/Vol] 11.0 g/dL Low 12.0 - 16.0 gm/dL [facility] Lymphocytes (Bld) [#/Vol] 1.4 E9/L Normal 1.0 - 4.0 E9/L [facility] Lymphocytes/100 WBC (Bld) 16.3 % Normal 14.0 - 50.0 % [facility] MCH (RBC) [Entitic mass] 32.2 pg Normal 27.0 - 34.0 pg [facility] MCHC (RBC) [Mass/Vol] 34.9 g/dL Normal 31.4 - 36.0 gm/dL [facility] MCV (RBC) [Entitic vol] 92.3 fL Normal 80.0 - 100.0 fL [facility] Monocytes (Bld) [#/Vol] 0.6 E9/L Normal 0.2 - 1.0 E9/L [facility] Monocytes/100 WBC (Bld) 6.8 % Normal 4.0 - 14.0 % [facility] Neutrophils (Bld) [#/Vol] 6.3 E9/L Normal 2.0 - 7.5 E9/L [facility] Neutrophils/100 WBC (Bld) 72.8 % Normal 36.0 - 75.0 % [facility] Platelet mean volume (Bld) [Entitic vol] 8.9 fL Normal 6.4 - 10.8 fL [facility] Platelets (Bld) [#/Vol] 229.0 E9/L Normal 150.0 - 500.0 E9/L [facility] RBC (Bld) [#/Vol] 3.4 E12/L Low 4.3 - 5.9 E12/L [facility] WBC corrected for nucl RBC Auto (Bld) [#/Vol] 8.6 E9/L Normal 4.0 - 11.0 E9/L [facility] Heart and Vascular Office/Cl inic Noteon 03-21-2024 Heart and Vascular Office/Clinic Note Heart and Vascular Office/Clinic Note Chief Complaint 2 month F/U History of Present Illness The patient is a pleasant 68-year-old female with past medical history of diabetes, hypertension, CVA, CAD diagnosed at the cardiac catheterization in August 2023 in a context of abnormal stress test, who presents for fluctuating blood pressure and heart rate At last visit, patient saw Dr. Garcia at which time he added on isosorbide to try to help with patient is chest pain symptoms. He had a continued her other medications. Patient reports that she has been taking isosorbide and tolerating well. She does complain of ongoing chest heaviness with intermittent chest pains. She describes chest pain this is a moderate pain across her chest and sometimes will radiate down her right arm. Patient does admit the chest heaviness and the intermittent chest pains are not new and patient thinks they might be slightly better after the addition of the isosorbide. Patient does have known history of multivessel CAD, however she is not a good candidate for CABG or stenting and therefore is being managed medically. Today, patient comes to the office due to low heart rate and feeling very fatigued. She states that she feels like all she wants to sleep all the time and is sleeping a lot. She also states that when she starts to get active she gets very worn out, very quickly. Patient has been monitoring her heart rate at home and has only been running in the 40s lately. Patient reports that she will sometimes feel like her heart is racing, especially if she is doing anything active. Her blood pressure has been a little bit variable ranging from low 100s to 150 systolic and 60s or 70s diastolic. EKG in the office shows junctional bradycardia. This could be in part due to her known CAD, but patient would like to be evaluated for pacemaker if possible to see if that would help her symptoms and quality of life at all Patient denies swelling to lower extremities Review of Systems PHQ Score Initial Depression Screen Score: 0 SCORE ROS - Provider Constitutional: no fever, no chills, no sweats, no weakness Respiratory: no shortness of breath, no cough Cardiovascular: no chest pain Neuro: no dizziness. no loss of consciousness Physical Exam Vitals & Measurements HR: 46(Peripheral) RR: 18 BP: 140/62 SpO2: 100% HT: 55 in HT: 139 cm WT: 73.8 kg WT: 162.36 lb BMI: 38.2 General: alert, no acute distress Cardiovascular: regular rate and rhythm, no murmur normal peripheral perfusion Respiratory: Lungs CTAB, respirations non labored Extremities: no edema left lower extremity. no edema right lower extremity Neurological: oriented x 4, LOC appropriate for age, speech normal Skin: Warm, dry, intact- no rash or concerning lesions Cardiac Diagnostics Assessment/Plan 1. Bradycardia (R00.1: Bradycardia, unspecified) Patient has bradycardia ongoing right now. Heart rate in the office is 46 which is confirmed by EKG in the office. It appears that she is in a junctional rhythm based on her EKG although hard to tell due to a little bit of artifact. Do not have a previous EKG to compare to but possible lateral ischemia. Patient does have chest heaviness which is not new for her, but instructed patient that if symptoms worsen or do not resolve then she needs to go to ER. Patient voiced understanding. Will refer to EP for evaluation of bradycardia, but not sure she is a great candidate based on CAD and unable to have CABG. Will check blood tests-electrolytes and thyroid - to rule out cause of bradycardia. Ordered: CBC w/ Auto Diff Comprehensive Metabolic Panel eGFR [facility] External Ambulatory Referral TSH With T4fr Reflex 2. CAD in [place] artery (I25.10: Atherosclerotic heart disease of [place] coronary artery without angina pectoris) The patient has severe diffuse coronary artery disease of the LAD territory, long segment of the small caliber mid LAD, diagonal artery, severe stenosis of a small OM2. RCA appears to be relatively free of significant disease, however, PDA and PLV have evidence of severe diffuse disease. Would advocate aggressive medical management, indefinite dual antiplatelet therapy. At last visit, was started on isosorbide 30 mg ER daily by Dr. Garcia as patient cannot tolerate Ranexa. He is tolerating the isosorbide pretty well and we will have her continue with current medications Ordered: CBC w/ Auto Diff Comprehensive Metabolic Panel eGFR [facility] External Ambulatory Referral TSH With T4fr Reflex Orders: ECG 12 Lead Adult Follow-up as scheduled with Dr. Garcia portions of this record may have been created with voice recognition artificial intelligence software, specifically [employer], [employer] and or [employer]. Substitutions may have occurred due to the inherent limitations of voice recognition and artificial intelligence software. Total time spent preparing for the encounter, evaluating and assessing the patient, (more content not included)... Normal [facility] Comment on above: Result Comment: Elec tronically Signed By: Jovi FRANK, Hemant Sharif\.br\Date and Time Signed: 03/21/24 13:03 EDT TSH With T4fr Reflexon 03-21 TSH Qn 1.33 m[IU]/L Normal 0.34-5.60 [facility] Comment on above: Performed By: #### 1 [id number] #### [facility] [address] [place] [address] eGFRon 03-21-2024 eGFR 35 mL/min/1.73 m2 Low >=59 [facility] Comment on above: Order Comment: Order added by Discern Expert. Performed By: #### 1 [id number] #### [facility] [address] [place] [address] Laboratory - Hematology and Cell countson 03-06-2024 HbA1c (Bld) [Mass fraction] 7.4 % [facility] [employer] No Panel Informationon 03-06 [facility] Heart and Vascular Office/Cl inic Noteon 01-24-2024 Heart and Vascular Office/Clinic Note Heart and Vascular Office/Clinic Note Chief Complaint 1 month f/u HTN/CAD History of Present Illness The patient is a pleasant 68-year-old female with past medical history of diabetes, hypertension, CVA, CAD diagnosed at the cardiac catheterization in August 2023 in a context of abnormal stress test, who presents for a follow-up appointment. I did review images from her cardiac catheterization and concur with the assessment of the prior [employer] consultant. She presents with complaints of shortness of breath, at mild to moderate physical exertion, tiredness and fatigue, occasional left arm discomfort. She reports no chest tightness or discomfort per se. She states compliance with the current treatment plan. Denies any side effects. Review of Systems ROS - Provider Constitutional: no fever, no chills, no fatigue Skin:no rash, no lesions ENMT: no ear pain, no sore throat, no congestion. Respiratory: yes shortness of breath, no cough, no wheezing. Cardiovascular: no chest pain, no palpitations, no edema. Gastrointestinal: no nausea, no vomiting, no diarrhea, no GI bleeding. Genitourinary: no dysuria, no frequencyno hematuria Musculoskeletal: no back pain, no trauma. Neurologic: no headache, no dizziness, no numbness, no weakness. Psychiatric: no sleeping problems, no irritability, no mood swings/depression. Heme/Lymph: no bleeding tendency, no bruising tendency, no petechiae, Allergy/Immuno logic: no seasonal allergies, no food allergies, no recurrent infections Physical Exam Vitals & Measurements HR: 67(Peripheral) RR: 16 BP: 136/68 SpO2: 100% HT: 55 in HT: 139 cm WT: 73 kg WT: 160.6 lb BMI: 37.78 General: alert, no acute distress Neck: Supple, noJVD nocarotid bruit Cardiovascular: regular rate and rhythm, no murmur normal peripheral perfusion Respiratory: Lungs CTAB, respirations non labored Extremities: no edema left lower extremity. no edema right lower extremity Neurological: oriented x 4, LOC appropriate for age, speech normal Skin: Warm, dry, intact- no rash or concerning lesions Assessment/Plan 1. CAD in [place] artery (I25.10: Atherosclerotic heart disease of [place] coronary artery without angina pectoris) The patient has severe diffuse coronary artery disease of the LAD territory, long segment of the small caliber mid LAD, diagonal artery, severe stenosis of a small OM2. RCA appears to be relatively free of significant disease, however, PDA and PLV have evidence of severe diffuse disease. Would advocate aggressive medical management, indefinite dual antiplatelet therapy. For symptoms relief, will start isosorbide mononitrate 30 mg daily. She could not tolerate Ranexa. Continue amlodipine. Will update fasting lipids. 2. Hypertension (I10: Essential (primary) hypertension) Blood pressure is well-controlled. Continue current treatment. Follow-up No qualifying data available 6 months Problem List/Past Medical History Ongoing No qualifying data Historical Arthritis Asthma CVA - Cerebrovascular accident GERD - Gastro-esophageal reflux disease HLD - Hyperlipidemia Procedure/Surgical History Cardiac catheterization (09/01/2023). Medications acetaminophen albuterol amlodipine aspirin 81 mg Oral EC Tab Avapro 300 mg Tab clopidogrel 75 mg Tab furosemide 40 mg Tab hydrochlorothiazide-triamt erene 25 mg-37.5 mg oral capsule nitroglycerin 0.4 mg sublingual Tab, 0.4 mg= 1 tab(s), SubLingual, q5min, PRN rosuvastatin 40 mg Tab Tresiba Allergies OxyCODONE Hydrochloride ER (Heartburn) atorvastatin (Heartburn) dulaglutide (Vision care) lisinopril (Cough) Social History Alcohol - Denies Alcohol Use, 12/18/2023 Substance Abuse - Denies Substance Abuse, 12/18/2023 Tobacco - Denies Tobacco Use, 12/18/2023 [facility] Comment on above: Result Comment: Elec tronically Signed By: Radha ADAMS, Dom Gardiner\.br\Date and Time Signed: 01/24/24 15:11 EDT MM screening mammo BI w/CADo n 01-12-2024 MM screening mammo BI w/CAD [facility] [place] [address] [place] [address] Mammography Report Signed Patient: Marisela Hsieh MR#: [id number] : 1955 Acct:[id number] Age/Sex: 68 / F ADM Date: 01/12/24 Loc: [place] Room: Type: [facility] Attending Dr: Jason Wyatt II, MD [...] next mammogram. Impression dictated by: Wilton Jones Jr., D.ORaffy01/12/2024 2:32 PM Dictation Location: [facility] Transcribed By: [facility] 01/12/24 1432 Dictated By: Wilton Jones Jr, DO 01/12/24 1431 Signed By: 01/12/24 1432 Normal [facility] Outside Cardiovascularon Outside Cardiovascular [id number]#1.00TIFF Normal [facility] Outside Recordson 12-20-2023 Outside Records [id number]#1.00TIFF Normal [facility] BMPon 12-18-2023 Anion gap [Moles/Vol] 13 mmol/L Normal 6-16 [facility] Comment on above: Performed By: #### 2 [id number] #### [facility] [address] [place] [address] Calcium [Mass/Vol] 9.4 mg/dL Normal 8.9-11.1 [facility] Comment on above: Performed By: #### 2 [id number] #### [facility] [address] [place] [address] Chloride [Moles/Vol] 104 mmol/L Normal 101-111 [facility] Comment on above: Performed By: #### 2 [id number] #### [facility] [address] [place] [address] CO2 [Moles/Vol] 22 mmol/L Normal 21-31 [facility] Comment on above: Performed By: #### 2 [id number] #### [facility] [address] [place] [address] Creatinine [Mass/Vol] 1.6 mg/dL High 0.5-1.3 [facility] Comment on above: Performed By: #### 2 [id number] #### [facility] [address] [place] [address] Glucose [Mass/Vol] 241 mg/dL High 55-199 [facility] Comment on above: Performed By: #### 2 [id number] #### [facility] [address] [place] [address] Potassium [Moles/Vol] 4.9 mmol/L Normal 3.5-5.3 [facility] Comment on above: Performed By: #### 2 [id number] #### [facility] [address] [place] [address] Sodium [Moles/Vol] 134 mmol/L Low 135-145 [facility] Comment on above: Performed By: #### 2 [id number] #### [facility] [address] [place] [address] Urea nitrogen [Mass/Vol] 48 mg/dL High 5-21 [facility] Comment on above: Performed By: #### 2 [id number] #### [facility] [address] [place] [address] Urea nitrogen/Creatinine [Mass ratio] 30 No Units High 10-20 [facility] Comment on above: Performed By: #### 2 [id number] #### [facility] [address] [place] [address] CHEMISTRYOrdered By: SYSTEM SYSTEM on 12-18-2023 Anion gap [Moles/Vol] 13 mmol/L Normal 6 - 16 mEq/L Remisol Chem Calcium [Mass/Vol] 9.4 mg/dL Normal 8.9 - 11. 1 mg/dL Remisol Chem Chloride [Moles/Vol] 104 mmol/L Normal 101 - 1 11 mmol/L Rem[facility] CO2 [Moles/Vol] 22 mmol/L Normal 21 - 31 mmol/L Rem[facility] Creatinine [Mass/Vol] 1.6 mg/dL High 0.5 - 1.3 mg/dL Remisol Chem eGFR 35 mL/min/1.73 m2 Low >=59mL/min /1.73 m2 Rem[facility] Glucose [Mass/Vol] 241 mg/dL High 55 - 199 mg/dL [facility] Potassium [Moles/Vol] 4.9 mmol/L Normal 3.5 - 5.3 mmol/L [facility] Sodium [Moles/Vol] 134 mmol/L Low 135 - 145 mmol/L [facility] Urea nitrogen [Mass/Vol] 48 mg/dL High 5 - 21 mg/dL [facility] Urea nitrogen/Creatinine [Mass ratio] 30 mg/mg High 10 - 20 Remisol Chem Consent for Treatmenton Consent for Treatment [id number]#1.00TIFF Normal [facility] Consent for Treatment [id number]#1.00TIFF [facility] Heart and Vascular Office/Cl inic Noteon 12-18-2023 Heart and Vascular Office/Clinic Note Chief Complaint here to establish care - HTN History of coronary artery disease History of Present Illness The patient is a pleasant 68-year-old female with past medical history of diabetes mellitus, hypertension, CVA, coronary artery disease diagnosed at the cardiac catheterization in August of 2023 and a context of abnormal stress test, which reportedly demonstrated nonrevascularizable coronary artery disease, who presents for establishment. No prior records are available. She states that she is not feeling too bad. Occasionally, she does have some discomfort in both of her shoulders during the night, however, no exertional symptoms. Denies excessive shortness of breath, dizziness or lightheadedness, palpitations, syncope or presyncope. She is on dual antiplatelet therapy with aspirin and clopidogrel. She was initially placed on furosemide but apparently had to stop it, due to some kidney issues. On ranolazine but states that this is giving her excessive sleepiness. Review of Systems ROS - Provider Constitutional: no fever, no chills, no fatigue Skin:no rash, no lesions ENMT: no ear pain, no sore throat, no congestion. Respiratory: no shortness of breath, no cough, no wheezing. Cardiovascular: no chest pain, no palpitations, no edema. Gastrointestinal: no nausea, no vomiting, no diarrhea, no GI bleeding. Genitourinary: no dysuria, no frequencyno hematuria Musculoskeletal: no back pain, no trauma. Neurologic: no headache, no dizziness, no numbness, no weakness. Psychiatric: no sleeping problems, no irritability, no mood swings/depression. Heme/Lymph: no bleeding tendency, no bruising tendency, no petechiae, Allergy/Immuno logic: no seasonal allergies, no food allergies, no recurrent infections Physical Exam Vitals & Measurements HR: 46(Peripheral) BP: 167/75 SpO2: 99% HT: 55 in HT: 139 cm WT: 74.6 kg WT: 164.12 lb BMI: 38.61 General: alert, no acute distress Neck: Supple, noJVD nocarotid bruit Cardiovascular: regular rate and rhythm, no murmur normal peripheral perfusion Respiratory: Lungs CTAB, respirations non labored Extremities: no edema left lower extremity. no edema right lower extremity Neurological: oriented x 4, LOC appropriate for age, speech normal Skin: Warm, dry, intact- no rash or concerning lesions Assessment/Plan 1. CAD in [place] artery (I25.10: Atherosclerotic heart disease of [place] coronary artery without angina pectoris) I would like to obtain prior cardiac records, including the DVD with images of the cardiac catheterization. The patient is on dual antiplatelet therapy, which I would like to continue. Continue high potency statin. LDL is well-controlled overall. As there is no much issues with angina/side effects from ranolazine, I think we can stop ranolazine. 2. HTN (hypertension) (I10: Essential (primary) hypertension) Blood pressure is elevated. I would like to obtain basic metabolic profile today to evaluate creatinine clearance and make necessary adjustments in antihypertensives. Follow-up No qualifying data available 1 month, earlier if clinically indicated Problem List/Past Medical History Ongoing No qualifying data Historical Arthritis Asthma CVA - Cerebrovascular accident GERD - Gastro-esophageal reflux disease HLD - Hyperlipidemia Procedure/Surgical History Cardiac catheterization (09/01/2023). Medications acetaminophen albuterol amlodipine aspirin 81 mg Oral EC Tab Avapro 300 mg Tab clopidogrel 75 mg Tab hydrochlorothiazide-triamt erene 25 mg-37.5 mg oral capsule nitroglycerin 0.4 mg sublingual Tab, 0.4 mg= 1 tab(s), SubLingual, q5min, PRN ranolazine 500 mg oral ER Tab rosuvastatin 40 mg Tab Tresiba Allergies OxyCODONE Hydrochloride ER (Heartburn) atorvastatin (Heartburn) dulaglutide (Vision care) lisinopril (Cough) Social History Alcohol - Denies Alcohol Use, 12/18/2023 Substance Abuse - Denies Substance Abuse, 12/18/2023 Tobacco - Denies Tobacco Use, 12/18/2023 [facility] Comment on above: Result Comment: Elec tronically Signed By: Radha ADAMS, Dom Gardiner\.br\Date and Time Signed: 12/18/23 11:55 EDT Outside Recordson 12-18-2023 Outside Records [id number]#1.00TIFF [facility] Outside Records [id number]#1.00TIFF [facility] Outside Records [id number]#1.00TIFF [facility] Outside Records [id number]#1.00TIFF [facility] Outside Records [id number]#1.00TIFF [facility] Physician Orderon 12-18-2023 Outside Records [id number]#1.00TIFF [facility] Physician Order [id number]#1.00TIFF Normal [facility] Physician Order [id number]#1.00TIFF Normal [facility] eGFRon 12-18-2023 eGFR 35 mL/min/1.73 m2 Low >=59 [facility] Comment on above: Order Comment: Order added by Discern Expert. Performed By: #### 1 [id number] #### [facility] [address] [id number] Referrals Officeon 4 Referrals Office [id number]#2.00TIFF Normal [facility] BNP ser/plasOrdered By: Catia Nash on 11-16-2023 Natriuretic peptide B (Bld) [Mass/Vol] 239.0 pg/mL High 5-100 [facility] Comment on above: Result Comment: PERF ORMED BY: [place] [id number] PATHOLOGIST ADVERTISING [employer] CAN M.D. Performed By: #### G LULS #### Point of Care testing , Basic Metabolic Panelon GFR/1.73 sq M.predicted MDRD (S/P/Bld) [Vol rate/Area] 32.722 mL/min/{1.73_m2} Normal [facility] Comment on above: Performed By: #### B MP, BNP #### [facility] [address] [place] [address] Calcium [Mass/volume] in Ser um or PlasmaOrdered By: Martina Nash on 11-16-2023 Calcium [Mass/Vol] 9.7 mg/dL Normal 8.6-10.3 [facility] Comment on above: Result Comment: PERF ORMED BY: [place] [address] PATHOLOGIST ADVERTISING [employer] CAN M.D. Performed By: #### B MP, BNP #### [facility] [address] [place], [place] [id number] [facility] Carbon dioxide, total [Moles /volume] in Serum or PlasmaOrdered By: Martina Nash on 11-16-2023 CO2 [Moles/Vol] 21.8 mmol/L Normal 21.0-31.0 [facility] Comment on above: Performed By: #### B MP, BNP #### [facility] [address] [place] [address] [place] Chloride [Moles/volume] in S angel or PlasmaOrdered By: Martina Nash on 11-16-2023 Chloride [Moles/Vol] 104 mmol/L Normal 98-107 [facility] Comment on above: Performed By: #### B MP, BNP #### [facility] [address] Creatinine [Mass/volume] in Serum or PlasmaOrdered By: Martina Nash on 11-16-2023 Creatinine [Mass/Vol] 1.68 mg/dL High 0.60-1.20 [facility] Comment on above: Performed By: #### B MP, BNP #### [facility] [address] Glucose [Mass/volume] in Ser um or PlasmaOrdered By: Martina Nash on 11-16-2023 Glucose [Mass/Vol] 147 mg/dL High 70-100 [facility] Comment on above: ADA recommended refe rence rangeRandom Glucose Reference Range is dependent on time and content of last meal. Glucose of more than 200 mg/dL in a nonstressed, ambulatory subject supports the diagnosis of Diabetes Mellitus. Result Comment: Nutrioso om Glucose Reference Range is dependent on time and content of last meal. Glucose of more than 200 mg/dL in a nonstressed, ambulatory subject supports the diagnosis of Diabetes Mellitus. ADA recommended reference range Performed By: #### B MP, BNP #### [facility] [address] No Panel InformationOrdered By: Martina Nash on 11-16-2023 Estimated GFR (CKD-EPI) 32.722 mL/Min [facility] Creatinine Clearance (Chem N/A [facility] Potassium [Moles/volume] in Serum or PlasmaOrdered By: Martina Nash on 11-16-2023 Potassium [Moles/Vol] 5.7 mmol/L High 3.5-5.1 [facility] Comment on above: Performed By: #### B MP, BNP #### [facility] [address] Serum or plasma anion gap de terminationOrdered By: Martina Nash on 11-16-2023 Anion gap [Moles/Vol] 13.9 mmol/L Normal 6.0-15.0 [facility] Comment on above: Performed By: #### B MP, BNP #### [facility] [address] [place] [address] Sodium [Moles/volume] in Ser um or PlasmaOrdered By: Martina Nash on 11-16-2023 Sodium [Moles/Vol] 134 mmol/L Low 136-145 [facility] Comment on above: Performed By: #### B MP, BNP #### [facility] [address] [place] [address] Urea nitrogen [Mass/volume] in Serum or PlasmaOrdered By: Martina Nash on 11-16-2023 Urea nitrogen [Mass/Vol] 47 mg/dL High 7-25 [facility] Comment on above: Performed By: #### B MP, BNP #### [facility] [address] [place] [address] Activated partial thrombopla stin time (aPTT) in platelet poor plasma by coagulation aOrdered By: Martina Nash on 08-30-2023 aPTT Coag (PPP) [Time] 33.8 s 25.1-36.5 [facility] Comment on above: A hematocrit value g reater than 55% may lead to inaccurate results in coagulation testing. Patients having hematocrit values >55% require a special collection tube for coagulation studies. Please contact the laboratory at [phone] for redraw instructions. Automated basophil %Ordered By: Martina Nash on 08-30-2023 Basophils/100 WBC (Bld) 0.4 % Normal . [facility] Comment on above: Performed By: #### G LULS #### Point of Care testing , Automated basophil countOrde red By: Martina Nash on 08-30-2023 Basophils (Bld) [#/Vol] 0.0 10*3/uL Normal 0.0-0.2 [facility] Comment on above: Result Comment: PERF ORMED BY: [facility] [place] [address] PATHOLOGIST ADVERTISING [employer] M.D. Performed By: #### G LULS #### Point of Care testing , Automated blood monocyte cou ntOrdered By: Martina Nash on 08-30-2023 Monocytes (Bld) [#/Vol] 0.6 10*3/uL Normal 0.0-0.8 [facility] Comment on above: Performed By: #### G LULS #### Point of Care testing , Automated eosinophil %Ordere d By: Martina Nash on 08-30-2023 Eosinophils/100 WBC (Bld) 4.2 % Normal . [facility] Comment on above: Performed By: #### G LULS #### Point of Care testing , Automated eosinophil countOr dered By: Martina Nash on 08-30-2023 Eosinophils (Bld) [#/Vol] 0.3 10*3/uL Normal 0.0-0.45 [facility] Comment on above: Performed By: #### G LULS #### Point of Care testing , Automated monocyte %Ordered By: Martina Nash on 08-30-2023 Monocytes/100 WBC (Bld) 7.7 % Normal . [facility] Comment on above: Performed By: #### G LULS #### Point of Care testing , Automated neutrophil %Ordere d By: Martina Nash on 08-30-2023 Neutrophils/100 WBC (Bld) 74.8 % Normal . [facility] Comment on above: Performed By: #### G LULS #### Point of Care testing , Carbon dioxide, total [Moles /volume] in Serum or PlasmaOrdered By: Martina Nash on 08-30-2023 CO2 [Moles/Vol] 21.7 mmol/L Normal 21.0-31.0 [facility] Comment on above: Performed By: #### G CHANGLS #### Point of Care testing , Chloride [Moles/volume] in S angel or PlasmaOrdered By: Martina Nash on 08-30-2023 Chloride [Moles/Vol] 109 mmol/L High 98-107 [facility] Comment on above: Performed By: #### G LULS #### Point of Care testing , Cholesterol [Mass/volume] in Serum or PlasmaOrdered By: Martina Nash on 08-30-2023 Cholesterol [Mass/Vol] 105 mg/dL Low 140-200 [facility] Comment on above: Chol less than 200 m g/dl low riskChol 201-239 mg/dl borderline riskChol 240 mg/dl and greater high risk Result Comment: Chol less than 200 mg/dl low risk Chol 201-239 mg/dl borderline risk Chol 240 mg/dl and greater high risk Performed By: #### G LULS #### Point of Care testing , Cholesterol in LDL Calc [Mas s/Vol]Ordered By: Martina Nash on 08-30-2023 Cholesterol in LDL [Mass/Vol] 34 mg/dL 0-100 [facility] Comment on above: LDL ATP III CLASSIFI CATIONLDL less than 100 mg/dL OptimalLDL 100-129 mg/dL Near or above optimalLDL 130-159 mg/dL Borderline highLDL 160-189 mg/dL HighLDL greater than 189 mg/dL Very high Cholesterol in VLDL Calc [Ma ss/Vol]Ordered By: Martina Nash on 08-30-2023 Cholesterol in VLDL [Mass/Vol] 22 mg/dL [facility] Coagulation Profileon 2023 aPTT Coag (Bld) [Time] 33.8 s Normal 25.1-36.5 [facility] Comment on above: Result Comment: A he matocrit value greater than 55% may lead to inaccurate results in coagulation testing. Patients having hematocrit values >55% require a special collection tube for coagulation studies. Please contact the laboratory at [phone] for redraw instructions. PERFORMED BY: [place] [id number] PATHOLOGIST ADVERTISING [employer] M.D. Performed By: #### G LULS #### Point of Care testing , Complete Blood Count Auto Di ffon 08-30-2023 Mean Corpuscular HGB Conc 35.2 g/dL High 32.0-35.0 [facility] Comment on above: Performed By: #### G LULS #### Point of Care testing , NRBC% 0.0 /100{WBC} Normal 0-0.5 [facility] Comment on above: Performed By: #### G LULS #### Point of Care testing , Creatinineon 08-30-2023 GFR/1.73 sq M.predicted MDRD (S/P/Bld) [Vol rate/Area] 42.166 mL/min/{1.73_m2} Normal [facility] Comment on above: Performed By: #### G LULS #### Point of Care testing , Creatinine [Mass/volume] in Serum or PlasmaOrdered By: Martina Nash on 08-30-2023 Creatinine [Mass/Vol] 1.36 mg/dL High 0.60-1.20 [facility] Comment on above: Performed By: #### G LULS #### Point of Care testing , ECG 12 lead ECGon 08-30-2023 ECG 12 lead ECG [facility] [place] [address] Electrocardiograph Report Signed Patient: Marisela Hsieh MR#: [id number] 332 : 1955 Acct:[id number] Age/Sex: 68 / F ADM Date: 08/30/23 Loc: PS Room: Type: [facility] Attending Dr: Martina Nash MD Ordering Provider: Martina Nash MD Date of Service: 08/30/23 ECG/ECG 12 lead ECG: [facility] Copies to: Test Reason : Blood Pressure : / mmHG Vent. Rate : 045 BPM Atrial Rate : 045 BPM P-R Int : 146 ms QRS Dur : 090 ms QT Int : 490 ms P-R-T Axes : 045 008 114 degrees QTc Int : 423 ms Marked sinus bradycardia Cannot rule out Anterior infarct , age undetermined Abnormal ECG When compared with ECG of 13-APR-2023 18:41, Nonspecific T wave abnormality no longer evident in Inferior leads T wave inversion less evident in Anterolateral leads Confirmed by Robinson Lynn ([id number]) on 08/30/2023 12:24:27 PM Referred By: SAAD Electronically Signed By:Robinson Lynn Transcribed By: MUS Signed By Robinson Lynn MD 08/30/23 1224 Normal [facility] Erythrocyte distribution wid th [Ratio] by Automated countOrdered By: Martina Nash on 08-30-2023 Erythrocyte distribution width (RBC) [Ratio] 13.9 % Normal 11.9-15.3 [facility] Comment on above: Performed By: #### G LULS #### Point of Care testing , Erythrocytes [#/volume] in B lood by Automated countOrdered By: Martina Nash on 08-30-2023 RBC (Bld) [#/Vol] 3.37 10*6/uL Low 3.60-5.00 [facility] Comment on above: Performed By: #### G CRESCENCIO #### Point of Care testing , Hematocrit [Volume Fraction] of Blood by Automated countOrdered By: Martina Nash on 08-30-2023 Hematocrit (Bld) [Volume fraction] 30.4 % Low 34.0-46.4 [facility] Comment on above: Performed By: #### G CHANGLS #### Point of Care testing , Hemoglobin [Mass/volume] in BloodOrdered By: Martina Nash on 08-30-2023 Hemoglobin (Bld) [Mass/Vol] 10.7 g/dL Low 11.8-15.4 [facility] Comment on above: Performed By: #### G LULS #### Point of Care testing , INR in Platelet poor plasma by Coagulation assayOrdered By: Martina Nash on 08-30-2023 INR Coag (PPP) [Relative time] 1.0 {INR} Normal [facility] Comment on above: INR Therapeutic Rang e A) Pre- and Peroperative OAT started two weeks before surgery. NOT HIP SURGERY: 1.5 - 2.5 HIP SURGERY: 2 - 3B) Primary and secondary prevention of venous THROMBOSIS: 2 - 3C) Active venous thrombosis, pulmonary embolismand prevention of recurrent venous thrombosis: 2 - 3D) Prevention of arterial thromboembolismincluding patients with mechanical heart valves: 3 - 4.5 Result Comment: INR Therapeutic Range A) Pre- and Peroperative OAT started two weeks before surgery. NOT HIP SURGERY: 1.5 - 2.5 HIP SURGERY: 2 - 3 B) Primary and secondary prevention of venous THROMBOSIS: 2 - 3 C) Active venous thrombosis, pulmonary embolism and prevention of recurrent venous thrombosis: 2 - 3 D) Prevention of arterial thromboembolism including patients with mechanical heart valves: 3 - 4.5 Performed By: #### G LULS #### Point of Care testing , Leukocytes [#/volume] correc elton for nucleated erythrocytes in Blood by Automated counOrdered By: Martina Nash on 08-30-2023 WBC corrected for nucl RBC Auto (Bld) [#/Vol] 7.7 10*3/uL 3.8-11.6 [facility] Leukocytes [#/volume] in Blo od by Automated countOrdered By: Martina Nash on 08-30-2023 WBC (Bld) [#/Vol] 7.7 10*3/uL Normal 3.8-11.6 [facility] Comment on above: Performed By: #### G LULS #### Point of Care testing , Lipid Panelon 08-30-2023 LDL Cholesterol,Calculated 34 mg/dL Normal 0-100 [facility] Comment on above: Result Comment: LDL ATP III CLASSIFICATION LDL less than 100 mg/dL Optimal LDL 100-129 mg/dL Near or above optimal LDL 130-159 mg/dL Borderline high LDL 160-189 mg/dL High LDL greater than 189 mg/dL Very high Performed By: #### G LULS #### Point of Care testing , Triglyceride w/Reflex 110 mg/dL Normal 0-149 [facility] Comment on above: Result Comment: TRIG ATP III CLASSIFICATION TRIG less than 150 mg/dL Normal TRIG 150-199 mg/dL Borderline high TRIG 200-500 mg/dL High TRIG greater than 500 mg/dL Very high Standard traceable to the Center for Disease Conrtrol and Prevention (CDC) test method. Performed By: #### G LULS #### Point of Care testing , VLDL CHOLESTEROL 22 mg/dL Normal [facility] Comment on above: Performed By: #### G LULS #### Point of Care testing , Lymphocytes [#/volume] in Bl ood by Automated countOrdered By: Martina Nash on 08-30-2023 Lymphocytes (Bld) [#/Vol] 1.0 10*3/uL Normal 1.00-4.8 [facility] Comment on above: Performed By: #### G LULS #### Point of Care testing , Lymphocytes/100 leukocytes i n Blood by Automated countOrdered By: Martina Nash on 08-30-2023 Lymphocytes/100 WBC (Bld) 12.9 % Normal . [facility] Comment on above: Performed By: #### G LULS #### Point of Care testing , MCH [Entitic mass] by Automa elton countOrdered By: Martina Nash on 08-30-2023 MCH (RBC) [Entitic mass] 31.8 pg Normal 24.7-34.3 [facility] Comment on above: Performed By: #### G LULS #### Point of Care testing , MCHC Auto (RBC) [Mass/Vol]Or dered By: Martina Nash on 08-30-2023 MCHC (RBC) [Mass/Vol] 35.2 g/dL 32.0-35.0 [facility] MCV [Entitic volume] by Auto mated countOrdered By: Martina Nash on 08-30-2023 MCV (RBC) [Entitic vol] 90.3 fL Normal 80-100 [facility] Comment on above: Performed By: #### G LULS #### Point of Care testing , Neutrophils [#/volume] in Bl ood by Automated countOrdered By: Martina Nash on 08-30-2023 Neutrophils (Bld) [#/Vol] 5.8 10*3/uL Normal 1.8-7.7 [facility] Comment on above: Performed By: #### G LULS #### Point of Care testing , No Panel InformationOrdered By: Martina Nash on 08-30-2023 Estimated GFR (CKD-EPI) 42.166 mL/Min [facility] Creatinine Clearance (Chem N/A [facility] Nucleated erythrocytes [Pres ence] in Blood by Automated countOrdered By: Martina Nash on 08-30-2023 Nucleated RBC Auto Ql (Bld) 0.0 /100{WBC} 0-0.5 [facility] Platelet mean volume [Entiti c volume] in Blood by Automated countOrdered By: Martina Nash on 08-30-2023 Platelet mean volume (Bld) [Entitic vol] 8.0 fL Normal 6.3-10.7 [facility] Comment on above: Performed By: #### G LULS #### Point of Care testing , Platelets [#/volume] in Bloo d by Automated countOrdered By: Martina Nash on 08-30-2023 Platelets (Bld) [#/Vol] 235 10*3/uL Normal 150-450 [facility] Comment on above: Performed By: #### G LULS #### Point of Care testing , Potassium [Moles/volume] in Serum or PlasmaOrdered By: Martina Nash on 08-30-2023 Potassium [Moles/Vol] 5.1 mmol/L Normal 3.5-5.1 [facility] Comment on above: Performed By: #### G LULS #### Point of Care testing , Prothrombin time (PT)Ordered By: Martina Nash on 08-30-2023 PT Coag (PPP) [Time] 11.7 s Normal 9.0-12.9 [facility] Comment on above: A hematocrit value g reater than 55% may lead to inaccurate results in coagulation testing. Patients having hematocrit values >55% require a special collection tube for coagulation studies. Please contact the laboratory at [phone] for redraw instructions. Result Comment: A he matocrit value greater than 55% may lead to inaccurate results in coagulation testing. Patients having hematocrit values >55% require a special collection tube for coagulation studies. Please contact the laboratory at [phone] for redraw instructions. Performed By: #### G LULS #### Point of Care testing , Serum or plasma anion gap de terminationOrdered By: Martina Nash on 08-30-2023 Anion gap [Moles/Vol] 13.4 mmol/L Normal 6.0-15.0 [facility] Comment on above: Performed By: #### G LULS #### Point of Care testing , Serum or plasma high density lipoprotein (HDL) cholesterol measurementOrdered By: Martina Nash on 08-30-2023 Cholesterol in HDL [Mass/Vol] 49 mg/dL Normal 23-92 [facility] Comment on above: HDL CHOL ATP-III CLA SSIFICATION Cardiovascular RiskHDL > or equal to 60 mg/dL LOWHDL < 40 mg/dL HIGH Result Comment: HDL CHOL ATP-III CLASSIFICATION Cardiovascular Risk HDL > or equal to 60 mg/dL LOW HDL < 40 mg/dL HIGH Performed By: #### G LULS #### Point of Care testing , Serum or plasma total choles terol/high density lipoprotein (HDL) cholesterol mass ratOrdered By: Martina Nash on 08-30-2023 Cholesterol.total/Chol esterol in HDL [Mass ratio] 2.1 {ratio} Normal <5.0 [facility] Comment on above: Result Comment: PERF ORMED BY: [facility] [address] [place] [address] PATHOLOGIST ADVERTISING [employer] M.D. Performed By: #### G LULS #### Point of Care testing , Sodium [Moles/volume] in Ser um or PlasmaOrdered By: Martina Nash on 08-30-2023 Sodium [Moles/Vol] 139 mmol/L Normal 136-145 [facility] Comment on above: Performed By: #### G LULS #### Point of Care testing , Triglyceride [Mass/volume] i n Serum or PlasmaOrdered By: Martina Nash on 08-30-2023 Triglyceride [Mass/Vol] 110 mg/dL 0-149 [facility] Comment on above: TRIG ATP III CLASSIF ICATIONTRIG less than 150 mg/dL NormalTRIG 150-199 mg/dL Borderline highTRIG 200-500 mg/dL High TRIG greater than 500 mg/dL Very highStandard traceable to the Center for Disease Conrtrol and Prevention (CDC) test method. Urea nitrogen [Mass/volume] in Serum or PlasmaOrdered By: Martina Nash on 08-30-2023 Urea nitrogen [Mass/Vol] 36 mg/dL High 7-25 [facility] Comment on above: Performed By: #### G LULS #### Point of Care testing , NM daniel perf SPECT rest stron 08-01-2023 NM daniel perf SPECT rest str [facility] [place] [address] [place] [address] Nuclear Medicine Report Signed Patient: Marisela Hsieh MR#: [id number] 332 : 1955 Acct:[id number] Age/Sex: 68 / F ADM Date: 08/01/23 Loc: DC Room: Type: [facility] Attending Dr: Martina Nash MD Copies to: MD Ck Nichols MD Ordering Provider: Martina Nash MD Date of Service: 08/01/23 NM/NM daniel perf SPECT rest str: R93.1, I63.9 REFERRING PHYSICIAN: Martina Nash MD REASON FOR THE STUDY: Abnormal EKG and echo. PROCEDURE: The patient underwent 1-day rest/stress protocol. Rest images obtained by injecting 6.4 mCi of Cardiolite. Stress images obtained by injecting 18.7 mCi of Cardiolite. Subsequently, gated SPECT and ejection fraction studies were performed. IMAGING RESULT: This appears to be a technically suboptimal study secondary to extracardiac tracer uptake. There is a moderate-sized severe defect involving the mid to distal anteroseptal wall and apex. This defect demonstrates mild reversibility of mid segment of the anterior wall. This is consistent with moderate anteroseptal apical wall myocardial infarction with a mild area of anterior wall ischemia. Left ventricular ejection fraction appears normal, calculated at 51% with distal anteroseptal and apical wall akinesis. TID index is normal at 1.23. CONCLUSION: 1. Abnormal myocardial perfusion study. 2. Evidence of moderate anteroseptal and apical wall myocardial infarction with small area of mid anterior wall ischemia. 3. Abnormal left ventricular systolic function with calculated ejection fraction 51% with akinesis of distal anteroseptal wall and apex. 4. No previous study available for comparison. Transcribed By: BALBIR 08/01/232122 Dictated By: Ck Reynoso MD 08/01/231936 Signed By: 08/02/23 1149 Normal [facility] STR cardiac stress/lexiscano n 08-01-2023 STR cardiac stress/lexiscan [facility] [place] [address] Cardiac Stress Test Signed Patient: Marisela Hsieh MR#: [id number] 332 : 1955 Acct:[id number] Age/Sex: 68 / F ADM Date: 08/01/23 Loc: DC Room: Type: [facility] Attending Dr: Martina Nash MD Copies to: MD Ck Nichols MD Ordering Provider: Martina Nash MD Date of Service: 08/01/23 STR/STR cardiac stress/lexiscan: Abnormal echocardiogram;Cerebrovasc ular accident (CVA), unsp REFERRING PHYSICIAN: Martina Nash MD REASON FOR THE STUDY: Abnormal EKG. PROCEDURE: The patient underwent Lexiscan myocardial perfusion study. The patient was injected with 0.4 mg of Lexiscan, following which no symptoms reported. Blood pressure and heart response to Lexiscan was physiologic. Baseline ECG showed normal sinus rhythm with diffuse nonspecific ST-T changes. Following Lexiscan, no changes were seen. CONCLUSION: 1. Lexiscan Cardiolite stress test without diagnostic ST-T changes for ischemia. 2. No provoked chest pain or arrhythmia. 3. Appropriate hemodynamic response to Lexiscan. 4. Myocardial perfusion study will be dictated separately. Transcribed By: BALBIR 08/02/231718 Dictated By: Ck Reynoso MD 08/01/231918 Signed By: 08/03/23 1214 Normal [facility] Capillary blood glucose miim urement by glucometer (mass/volume)Ordered By: Gema Fay on 04-17-2023 Glucose [Mass/Vol] 160 mg/dL Normal [facility] Comment on above: Random Glucose Refer ence Range is dependent on time and content of last meal. Glucose of more than 200 mg/dL in a nonstressed, ambulatory subject supports the diagnosis of Diabetes Mellitus. Result Comment: [facility] Glucose Reference Range is dependent on time and content of last meal. Glucose of more than 200 mg/dL in a nonstressed, ambulatory subject supports the diagnosis of Diabetes Mellitus. PERFORMED BY: [place] [address] PATHOLOGIST ADVERTISING [employer] CAN M.D. Performed By: #### G LULS #### Point of Care testing , [facility] echo transesophageal BART on 04-17-2023 [facility] echo transesophageal BART [facility] [place] [address] [place], [place] [id number] Echocardiogram Signed Patient: Marisela Hsieh MR#: [id number] 332 : 1955 Acct:[id number] Age/Sex: 67 / F ADM Date: 04/14/23 Loc: Room: [address] [place] [address] Type: ADM IN Attending Dr: Gema Fay MD Ordering Provider: Richard Kim DO Date of Service: 04/17/23/ [facility] echo transesophageal BART: thrombus? - severe hypokinesis LV, cardioembolic stroke Copies to: DO Martina Walter MD Reason For Study: thrombus? - severe hypokinesis LV, cardioembolic stroke History: Asthma. DM. HTN. HLD. Interpretation Summary No left ventricular thrombus or mass is seen. No thrombus or spontaneous echo contrast seen in the left atrial appendage. The left ventricular size, thickness and function are normal Ejection Fraction = 50-55%. There is mild mitral regurgitation. There is severe apical and distal anteroseptal wall hypokinesis. The left atrium appears mildly dilated. Atrial septum appears to be intact and there is no evidence of flow across the atrial septum either by colorflow Doppler or by agitated saline. Procdure: A two-dimensional transesophageal echocardiogram with color flow and Doppler was performed. Left Ventricle: The left ventricular size, thickness and function are normal. Ejection Fraction = 50-55%. There is severe apical wall hypokinesis. Severe hypokinesis of distal anteroseptal wall. No left ventricular thrombus or mass is seen. Left Atrium: The left atrium appears mildly dilated. Left atrial appendage velocities are normal. No thrombus or spontaneous echo contrast seen. Atrial septum appears to be intact and there is no evidence of flow across the atrial septum either by colorflow Doppler or by agitated saline. Right Atrium: The right atrium appears normal in size. Right Ventricle: The right ventricular size, thickness and function are normal. There is no mass or thrombus in the right ventricle. Aortic Valve: The aortic valve is normal in structure and function. Mitral Valve: The mitral valve is normal. There is mild mitral regurgitation. Tricuspid Valve: The tricuspid valve is normal in structure and function. Pulmonic Valve: The pulmonic valve is not well seen, but is grossly normal. Arteries: The aortic root is normal size. The aortic arch was visualized and no abnormalities were seen. Venous: The IVC is normal in size with an inspiratory collapse of greater then 50%, suggesting normal right atrial pressure. Effusions: No pericardial effusion seen. Transcribed By: MARLEY Performed At: 04/17/23 0946 Signed By: Martina Nash MD 04/17/23 1133 Normal [facility] Glucose Poct Glucometerson 1 Glucose [Mass/Vol] 155 mg/dL Normal [facility] Comment on above: Result Comment: [facility] Glucose Reference Range is dependent on time and content of last meal. Glucose of more than 200 mg/dL in a nonstressed, ambulatory subject supports the diagnosis of Diabetes Mellitus. PERFORMED BY: [place] [address] [place] [address] PATHOLOGIST ADVERTISING [employer] M.D. Performed By: #### G LUANDIE #### Point of Care testing , US carotid doppler BIon 10-0 US carotid doppler BI [facility] [place] [address] [place] [address] Ultrasound Report Signed Patient: Marisela Hsieh MR#: [id number] 332 : 1955 Acct:[id number] Age/Sex: 67 / F ADM Date: 04/14/23 Loc: Room: [address] [place] [address] Type: ADM IN Attending Dr: Gema Fay MD Ordering Provider: Gema Fay MD Date of Service: 04/14/23 US/US carotid doppler BI: acute stroke Copies to: Gema Fay MD CAROTID DUPLEX INDICATION: Aphasia and right arm numbness. Stroke workup. PROCEDURE: Color-flow duplex scanning is used to interrogate the extracranial carotid arterial system, as well as both vertebral arteries. The proximal right internal carotid artery shows a highest peak systolic velocity of 92.5 cm/s with an end-diastolic velocity of 21.2 cm/s . The mid internal carotid artery measures 65.9 cm/s peak systolic with an end-diastolic velocity of 17.6 cm/s . The distal segment measures 58.4 cm/s peak systolic with an end diastolic velocity of 13.7 cm/s . The velocities of the right common carotid artery are 112 cm/s peak systolic and 21 cm/s end- diastolic proximally and 79.9 cm/s peak systolic and 18.2 cm/s end-diastolic distally. The peak systolic velocity ratio of the internal to the common carotid artery is 0.83 . The right external carotid artery measures 196 cm/s peak systolic. The right vertebral artery is patent at 57.4 cm/s peak systolic and with antegrade flow. The proximal left internal carotid artery shows a highest peak systolic velocity of 83.4 cm/s with an end-diastolic velocity of 21.7 cm/s . The mid internal carotid artery measures 102 cm/s peak systolic with an end-diastolic velocity of 25.9 cm/s . The distal segment measures 80.6 cm/s peak systolic with an end diastolic velocity of 26.6 cm/s . The velocities of the left common carotid artery are 103 cm/s peak systolic and 21.2 cm/s end-diastolic proximally and 67.5 cm/s peak systolic and 14.3 cm/s end-diastolic distally. The peak systolic velocity ratio of the internal to the common carotid artery is 0.99 . The left external carotid artery measures 199 cm/s peak systolic. The left vertebral artery is patent at 39.3 cm/s peak systolic with antegrade flow. US/US carotid doppler BI IMPRESSION: NO HEMODYNAMICALLY SIGNIFICANT STENOSIS OF EITHER EXTRACRANIAL INTERNAL CAROTID ARTERY. BOTH VERTEBRAL ARTERIES ARE PATENT WITH ANTEGRADE FLOW. Impression dictated by: Star Thornton MD04/17/2023 11:54 AM Dictation Location: [place] [address] Tech: Hailey Osorio Transcribed By: [facility] 04/17/23 1154 Dictated By: Star Thornton MD 04/17/231152 Signed By: 04/17/23 115 Normal [facility] Glucose Poct Glucometerson 1 Glucose [Mass/Vol] 190 mg/dL Normal [facility] Comment on above: Result Comment: [facility] Glucose Reference Range is dependent on time and content of last meal. Glucose of more than 200 mg/dL in a nonstressed, ambulatory subject supports the diagnosis of Diabetes Mellitus. PERFORMED BY: [address] [address] PATHOLOGIST ADVERTISING [employer] CAN M.D. Performed By: #### G LULS #### Point of Care testing , Glucose [Mass/Vol] 174 mg/dL Normal [facility] Comment on above: Result Comment: [place] Glucose Reference Range is dependent on time and content of last meal. Glucose of more than 200 mg/dL in a nonstressed, ambulatory subject supports the diagnosis of Diabetes Mellitus. PERFORMED BY: [address] [place] [id number] PATHOLOGIST ADVERTISING INSERTER BERT CAN M.D. Performed By: #### G LULS #### Point of Care testing , Commemt1 Glu2: Cleaned Meter Normal [facility] Comment on above: Result Comment: PERF ORMED BY: [address] [place] [address] PATHOLOGIST ADVERTISING INSERTER BERT CAN M.D. Performed By: #### G LULS #### Point of Care testing , Glucose [Mass/Vol] 363 mg/dL Normal [facility] Comment on above: Result Comment: [place] om Glucose Reference Range is dependent on time and content of last meal. Glucose of more than 200 mg/dL in a nonstressed, ambulatory subject supports the diagnosis of Diabetes Mellitus. Performed By: #### G LULS #### Point of Care testing , Glucose [Mass/Vol] 187 mg/dL Normal [facility] Comment on above: Result Comment: [place] om Glucose Reference Range is dependent on time and content of last meal. Glucose of more than 200 mg/dL in a nonstressed, ambulatory subject supports the diagnosis of Diabetes Mellitus. PERFORMED BY: [address] [place] [id number] PATHOLOGIST ADVERTISING INSERTER BERT CAN M.D. Performed By: #### G LULS #### Point of Care testing , No Panel InformationOrdered By: Gema Fay on 04-16-2023 Bedside Glucose Comment Glu2: cleaned meter [facility] Glucose Poct Glucometerson 0 04-15-2023 Glucose [Mass/Vol] 291 mg/dL Normal [facility] Comment on above: Result Comment: [place] om Glucose Reference Range is dependent on time and content of last meal. Glucose of more than 200 mg/dL in a nonstressed, ambulatory subject supports the diagnosis of Diabetes Mellitus. PERFORMED BY: [address] [place] [id number] PATHOLOGIST ADVERTISING INSERTER BERT CAN M.D. Performed By: #### G LULS #### Point of Care testing , Commemt1 Glu2: Cleaned Meter Normal [facility] Comment on above: Result Comment: PERF ORMED BY: [address] [place] [id number] PATHOLOGIST ADVERTISING INSERTER BERT CAN M.D. Performed By: #### G LULS #### Point of Care testing , Glucose [Mass/Vol] 176 mg/dL Normal [facility] Comment on above: Result Comment: [place] om Glucose Reference Range is dependent on time and content of last meal. Glucose of more than 200 mg/dL in a nonstressed, ambulatory subject supports the diagnosis of Diabetes Mellitus. Performed By: #### G LULS #### Point of Care testing , Glucose [Mass/Vol] 255 mg/dL Normal [facility] Comment on above: Result Comment: [facility] Glucose Reference Range is dependent on time and content of last meal. Glucose of more than 200 mg/dL in a nonstressed, ambulatory subject supports the diagnosis of Diabetes Mellitus. PERFORMED BY: [place] [id number] PATHOLOGIST ADVERTISING INSERTER BERT CAN M.D. Performed By: #### G LULS #### Point of Care testing , Glucose [Mass/Vol] 172 mg/dL Normal [facility] Comment on above: Result Comment: [facility] Glucose Reference Range is dependent on time and content of last meal. Glucose of more than 200 mg/dL in a nonstressed, ambulatory subject supports the diagnosis of Diabetes Mellitus. PERFORMED BY: [address] [address] PATHOLOGIST ADVERTISING INSERTER BERT CAN M.D. Performed By: #### G LULS #### Point of Care testing , A1C with Estimated Average [facility] 04-14-2023 Glucose [Mass/Vol] 186 mg/dL Normal [facility] Comment on above: Result Comment: PERF ORMED BY: [address] [address] PATHOLOGIST ADVERTISING INSERTER BERT CAN M.D. Performed By: #### G LULS #### Point of Care testing , CT angio neckon 04-14-2023 CT angio neck [facility] Main [address] [address] [address] Scan Report Signed Patient: Marisela Hsieh MR#: [id number] 332 : 1955 Acct:[id number] Age/Sex: 67 / F ADM Date: 04/13/23 Loc: Room: [address] [place] [address] Type: ADM INOo Attending Dr: Gema Fay MD Copies to: MD Tee Garcia DO Ordering Provider: Tee oGdfrey DO Date of Service: 04/13/23 CT/CT angio neck: cva ([id number]) CT/CT head stroke alert wo con: cva ([id number]) CT/CT angio head: cva CT head stroke alert wo con, CT angio head, CT angio neck 04/13/2023 9:19 PM SIGNS AND SYMPTOMS: Right arm weakness and numbness, fatigue TECHNIQUE: Multi-detector CT angiography axial slices of the head and neck were obtained before and during intravenous administration of IV contrast material. Sagittal, coronal, and 3-D reconstructions were performed and viewed on a separate workstation. CT was performed with one or more of the following dose reduction techniques: Automated exposure control, adjustment of the mA and/or kV according to patient size, or use of iterative reconstruction technique. Stenoses were measured using the NASCET criteria. COMPARISON: None. FINDINGS: Noncontrast head CT: There is no shift of the midline structures, acute intracranial bleeding, mass effects, or evidence of acute ischemia. Mild periventricular white matter hypoattenuation is noted. The ventricular system is normal in size. The brainstem and the cerebellum are unremarkable. The visualized intraorbital contents, the visualized paranasal sinuses, and the visualized soft tissue in the infratemporal spaces show no abnormality. The osseous structures in the skull base and the calvarium show no acute abnormality. CTA HEAD: The superior cerebellar arteries, posterior inferior cerebellar arteries, and the basilar artery are within normal limits. The posterior cerebral arteries are unremarkable. The intracranial segments of the internal carotid arteries are within normal limits. There are normal anterior and middle cerebral arteries. Anterior communicating artery is patent. Posterior communicating arteries are present. The deep venous system and dural venous systems appear to be patent. No bony abnormalities are appreciated. CTA NECK: There is a normal three-vessel arch. The subclavian arteries are within normal limits. The vertebral arteries arise from the subclavian arteries and are normal in course and caliber up to the skull base. The common and internal carotid arteries are within normal limits. Visualized lung parenchyma is clear. There is heterogeneous enhancement of the left thyroid lobe. There is anterior fusion hardware at C6-C7. No acute bony abnormalities are identified. The paraspinous soft tissues are within normal limits. CT/CT head stroke alert wo con IMPRESSION: No acute intracranial pathology. Mild chronic microvascular ischemic changes are noted. No evidence of focal stenosis, aneurysmal dilatation, dissection or occlusion. There is heterogeneous enlargement of the left thyroid lobe. Nonemergent ultrasound follow-up is recommended as malignancy is not excluded. Impression dictated by: Jorge L Ceballos M.D.04/14/2023 9:21 AM Dictation Location: [place] [address] Transcribed By: DILAN 04/14/23920 Dictated By: Jorge L Ceballos II, MD 04/14/23910 Signed By: 04/14/23920 Normal [facility] Cholesterol [Mass/volume] in Serum or PlasmaOrdered By: Richard Kim on 04-14-2023 Cholesterol [Mass/Vol] 215 mg/dL High 140-200 [facility] Comment on above: Chol less than 200 m g/dl low riskChol 201-239 mg/dl borderline riskChol 240 mg/dl and greater high risk Order Comment: FASTI NG N Result Comment: Chol less than 200 mg/dl low risk Chol 201-239 mg/dl borderline risk Chol 240 mg/dl and greater high risk Performed By: #### G LULS #### Point of Care testing , Cholesterol in LDL Calc [Mas s/Vol]Ordered By: Richard Kim on 04-14-2023 Cholesterol in LDL [Mass/Vol] 140 mg/dL 0-100 [facility] Comment on above: LDL ATP III CLASSIFI CATIONLDL less than 100 mg/dL OptimalLDL 100-129 mg/dL Near or above optimalLDL 130-159 mg/dL Borderline highLDL 160-189 mg/dL HighLDL greater than 189 mg/dL Very high Cholesterol in VLDL Calc [Ma ss/Vol]Ordered By: Richard Kim on 04-14-2023 Cholesterol in VLDL [Mass/Vol] 36 mg/dL [facility] ECH echo transthoracicon [facility] echo transthoracic [facility] Main [place] [id number] Echocardiogram Signed Patient: Marisela Hsieh MR#: [id number] : 1955 Acct:[id number] Age/Sex: 67 / F ADM Date: 04/13/23 Loc: Room: [address] [place] [address] Type: ADM INOo Attending Dr: Gema Fay MD Ordering Provider: Indira Jones, HARDBOARD COATING MACHINE OPERATOR Date of Service: 04/14/23 [facility] echo transthoracic: TIA r/o CVA, bubble study for PFO please Copies to: Ck Reynoso MD Indira Unger Robert, HARDBOARD COATING MACHINE OPERATOR BSA: 1.6 m2 BP: 169/92 mmHg HR: 51 Reason For Study: TIA r/o CVA, bubble study for PFO please History: Asthma. DM. HTN. HLD. Interpretation Summary Mild concentric left ventricular hypertrophy. Ejection Fraction = 50-55%. Severe hypokinesis of distal anteroseptal wall and apex The left atrium appears mildly dilated. There is mild mitral regurgitation. There is mild tricuspid regurgitation. Right ventricular systolic pressure is elevated at 30-40mmHg. Right ventricular systolic pressure is consistent with mild pulmonary hypertension. Atrial septum appears to be intact and there is no evidence of flow across the atrial septum either by colorflow Doppler or by agitated saline. Procedure/Quality: A two-dimensional transthoracic echocardiogram with color flow, Doppler and injection of aggitated saline was performed. A two- dimensional transthoracic echocardiogram with color flow, Doppler and injection of contrast agent Definity was performed. A two-dimensional transthoracic echocardiogram with color flow and Doppler was performed. The study was technically good in quality. Left Ventricle: The left ventricular size is normal. Mild concentric left ventricular hypertrophy. Ejection Fraction = 50-55%. Severe hypokinesis of distal anteroseptal wall and apex. Left Atrium: The left atrium appears mildly dilated. Atrial septum appears to be intact and there is no evidence of flow across the atrial septum either by colorflow Doppler or by agitated saline. Right Atrium: The right atrium appears normal in size. Right Ventricle: The right ventricular size, thickness and function are normal. Aortic Valve: The aortic valve is normal in structure and function. No aortic regurgitation is present. Mitral Valve: The mitral valve is normal in structure and function. There is mild mitral regurgitation. Tricuspid Valve: The tricuspid valve is normal in structure and function. There is mild tricuspid regurgitation. Right ventricular systolic pressure is elevated at 30-40mmHg. Right ventricular systolic pressure is consistent with mild pulmonary hypertension. Pulmonic Valve: The pulmonic valve is normal in structure and function. Arteries: The aortic root is normal size. Pericardium/Pleura: No pericardial effusion seen. There is no pleural effusion. IVC/Hepatic Viens: The inferior vena cava is normal in size, with a normal collapsibility index. Measurements with Normals IVSd: 1.1 cm (0.7-1.1 cm)LVIDd: 4.4 cm (3.7-5.4 cm) LVPWd: 1.1 cm (0.7-1.1 cm)LVIDs: 3.0 cm (2.3-3.6 cm) LA dimension: 4.5 cm (2.3-4.0 cm)Ao root diam: 2.7 cm(2.0-3.6 cm) asc Aorta Diam: 3.4 cm(2.1-3.4cm) Doppler with Normals RVSP(TR): 39.5 mmHg (18-35mmHg) LV V1 max: 93.8 cm/sec (0.7-1.7m/s)MV E max louise: 62.4 cm/sec(0.8-1.3m/s) MV A max louise: 110.0 cm/sec(0.0-0.0m/s) MV E/A: 0.57 (<1.5) MMode/2D Measurements Calculations TAPSE: 2.4 cm FS: 31.8 % Ao root area: LVOT diam: 2.0 cm RV S Louise: EDV(Teich): 5.7 cm2 LVOT area: 3.1 cm2 15.9 cm/sec 87.7 ml ESV(Teich): 35.0 ml EF(Teich): 60.1 % __ LVLd ap4: 8.6 cm SV(MOD-sp4): LAV(MOD-sp4): LA A2 area: 17.3 cm2 EDV(MOD-sp4): 73.0 ml 50.8 ml 128.0 ml LAV(MOD-sp2): LA A4 area: 18.6 cm2 LVLs ap4: 7.9 cm 52.0 ml LA length (vol): ESV(MOD-sp4): 5.3 cm 55.0 ml LA vol: 51.1 ml EF(MOD-sp4): 57.0 % LA vol index: 32.7 ml/m2 Doppler Measurements Calculations MV dec time: MV max PG: E/E' lat: 13.9 MV dec slope: 0.47 sec 59.0 mmHg E/E' med: 16.3 134.0 cm/sec2 __ Ao V2 max: LV V1 max PG: MR max louise: TV max P.0 mmHg 183.0 cm/sec 3.5 mmHg 385.0 cm/sec Ao max PG: LV V1 mean PG: MR max P.4 mmHg 2.0 mmHg 59.3 mmHg Ao mean PG: LV V1 mean: 7.0 mmHg 68.4 cm/sec Ao V2 mean: LV V1 VTI: 22.2 cm 119.0 cm/sec Ao V2 VTI: 40.1 cm EMMANUEL(I,D): 1.7 cm2 EMMANUEL(V,D): 1.6 cm2 __ TR max louise: 302.0 cm/sec TR max P.5 mmHg RAP systole: 3.0 mmHg Transcribed By: MARLEY Performed At: 04/14/23 1031 Signed By: Ck Reynoso MD 04/14/23 1320 Normal [facility] Glucose Poct Glucometerson 0 04-14-2023 Glucose [Mass/Vol] 208 mg/dL Normal [facility] Comment on above: Result Comment: [place] Glucose Reference Range is dependent on time and content of last meal. Glucose of more than 200 mg/dL in a nonstressed, ambulatory subject supports the diagnosis of Diabetes Mellitus. PERFORMED BY: [facility] [place] [address] PATHOLOGIST ADVERTISING INSERTER BERT CAN M.D. Performed By: #### G LULS #### Point of Care testing , Glucose [Mass/Vol] 216 mg/dL Normal [facility] Comment on above: Result Comment: [facility] Glucose Reference Range is dependent on time and content of last meal. Glucose of more than 200 mg/dL in a nonstressed, ambulatory subject supports the diagnosis of Diabetes Mellitus. PERFORMED BY: [address] [place] [address] PATHOLOGIST ADVERTISING INSERTER BERT CAN M.D. Performed By: #### G LULS #### Point of Care testing , Glucose [Mass/Vol] 225 mg/dL Normal [facility] Comment on above: Result Comment: [facility] Glucose Reference Range is dependent on time and content of last meal. Glucose of more than 200 mg/dL in a nonstressed, ambulatory subject supports the diagnosis of Diabetes Mellitus. PERFORMED BY: [address] [place] [address] PATHOLOGIST ADVERTISING INSERTER BERT CAN M.D. Performed By: #### G LULS #### Point of Care testing , Glucose [Mass/Vol] 207 mg/dL Normal [facility] Comment on above: Result Comment: [facility] Glucose Reference Range is dependent on time and content of last meal. Glucose of more than 200 mg/dL in a nonstressed, ambulatory subject supports the diagnosis of Diabetes Mellitus. PERFORMED BY: [address] [place] [address] PATHOLOGIST ADVERTISING INSERTER BERT CAN M.D. Performed By: #### G LULS #### Point of Care testing , Glucose mean value [Mass/vol ume] in Blood Estimated from glycated hemoglobinOrdered By: Indira Jones on 04-14-2023 Average glucose Estimated from glycated hemoglobin (Bld) [Mass/Vol] 186 mg/dL [facility] Hemoglobin A1c percentageOrd ered By: Indira Jones on 04-14-2023 HbA1c (Bld) [Mass fraction] 8.1 % High 4.3-5.6 [facility] Comment on above: Increased risk for d iabetes: 5.7 - 6.4diabetes: >6.4glycemic control for adults with diabetes: <7.0 Result Comment: Incr eased risk for diabetes: 5.7 - 6.4 diabetes: >6.4 glycemic control for adults with diabetes: <7.0 Performed By: #### G LULS #### Point of Care testing , Lipid Panelon 04-14-2023 LDL Cholesterol,Calculated 140 mg/dL High 0-100 [facility] Comment on above: Order Comment: FASTI NG N Result Comment: LDL ATP III CLASSIFICATION LDL less than 100 mg/dL Optimal LDL 100-129 mg/dL Near or above optimal LDL 130-159 mg/dL Borderline high LDL 160-189 mg/dL High LDL greater than 189 mg/dL Very high Performed By: #### G LULS #### Point of Care testing , Triglyceride w/Reflex 181 mg/dL High 0-149 [facility] Comment on above: Order Comment: FASTI NG N Result Comment: TRIG ATP III CLASSIFICATION TRIG less than 150 mg/dL Normal TRIG 150-199 mg/dL Borderline high TRIG 200-500 mg/dL High TRIG greater than 500 mg/dL Very high Standard traceable to the Center for Disease Conrtrol and Prevention (CDC) test method. Performed By: #### G LULS #### Point of Care testing , VLDL CHOLESTEROL 36 mg/dL Normal [facility] Comment on above: Order Comment: FASTI NG N Performed By: #### G LULS #### Point of Care testing , MR head/brain wo conon 04-14 MR head/brain wo con [facility] [place] [address] MRI Report Signed Patient: Marisela Hsieh MR#: [id number] : 1955 Acct:[id number] Age/Sex: 67 / F ADM Date: 04/13/23 Loc: 3T Room: [address] [place] [address] Type: ADM INOo Attending Dr: Gema Fay MD Copies to: MD Indira Garcia APRN Ordering Provider: Indira Jones APRN Date of Service: 04/14/23 MR/MR head/brain wo con: TIA r/o CVA MR head/brain wo con 04/14/2023 12:17 AM SIGN AND SYMPTOMS: Right-sided upper extremity weakness, slurred speech PROTOCOL: Multiplanar multisequence MR images of the brain were obtained without IV contrast COMPARISON: CT and CT angiography 04/13/2023 FINDINGS: Extra axial spaces: There is mild diffuse age-related cortical atrophy. Hemorrhage: None. Ventricular system: Within normal limits. Basal cisterns: Within normal limits and not effaced. Cerebral parenchyma: There is diffusion restriction in the posterior aspect of the right insular cortex and in the subcortical white matter of the right occipital lobe consistent with acute to subacute ischemia. Periventricular and subcortical white matter T2 and FLAIR hyperintense signal is noted consistent with chronic microvascular ischemic change. Midline shift: None.. Cerebellum: Within normal limits. Brainstem: Within normal limits. OTHER: Calvarium: Normal marrow signal. Vascular system: Satisfactory flow voids within the anterior and posterior circulation. Visualized Paranasal sinuses: Within normal limits. Visualized Orbits: Within normal limits. Visualized upper cervical spine: Within normal limits. Sella and skull base: Within normal limits. MR/MR head/brain wo con IMPRESSION: Findings consistent with acute to subacute ischemia in the right insular cortex and subcortical white matter of the right occipital lobe. Additional chronic age-related degenerative changes are noted, as above. Impression dictated by: Jorge L Ceballos M.D.04/14/2023 9:07 AM Dictation Location: [place] [address] Transcribed By: [facility] 04/14/23906 Dictated By: Jorge L Ceballos II, MD 04/14/2350 Signed By: 04/14/23906 Normal [facility] Serum or plasma high density lipoprotein (HDL) cholesterol measurementOrdered By: Richard Kim on 04-14-2023 Cholesterol in HDL [Mass/Vol] 39 mg/dL Normal 23 [facility] Comment on above: HDL CHOL ATP-III CLA SSIFICATION Cardiovascular RiskHDL > or equal to 60 mg/dL LOWHDL < 40 mg/dL HIGH Order Comment: TONYA Kelly Result Comment: HDL CHOL ATP-III CLASSIFICATION Cardiovascular Risk HDL > or equal to 60 mg/dL LOW HDL < 40 mg/dL HIGH Performed By: #### G LULS #### Point of Care testing , Serum or plasma total choles terol/high density lipoprotein (HDL) cholesterol mass ratOrdered By: Richard Kmi on 09-29-2023 Cholesterol.total/Chol esterol in HDL [Mass ratio] 5.5 {ratio} Normal <5.0 [facility] Comment on above: Order Comment: FASTI NG N Result Comment: PERF ORMED BY: [facility] [address] [place] [address] PATHOLOGIST ADVERTISING INSERTER BERT CAN M.D. Performed By: #### G LULS #### Point of Care testing , Thyrotropin [Units/volume] i n Serum or PlasmaOrdered By: Indira Jones on 04-14-2023 TSH Qn 1.16 m[IU]/L Normal 0.45-5.33 [facility] Comment on above: Result Comment: PERF ORMED BY: [facility] [address] [address] PATHOLOGIST ADVERTISING INSERTER BERT CAN M.D. Performed By: #### G LULS #### Point of Care testing , Triglyceride [Mass/volume] i n Serum or PlasmaOrdered By: Richard Kim on 04-14-2023 Triglyceride [Mass/Vol] 181 mg/dL 0-149 [facility] Comment on above: TRIG ATP III CLASSIF ICATIONTRIG less than 150 mg/dL NormalTRIG 150-199 mg/dL Borderline highTRIG 200-500 mg/dL High TRIG greater than 500 mg/dL Very highStandard traceable to the Center for Disease Conrtrol and Prevention (CDC) test method. Activated partial thrombopla stin time (aPTT) in platelet poor plasma by coagulation aOrdered By: Tee Godfrey on 04-13-2023 aPTT Coag (PPP) [Time] 33.9 s 25.1-36.5 [facility] Comment on above: A hematocrit value g reater than 55% may lead to inaccurate results in coagulation testing. Patients having hematocrit values >55% require a special collection tube for coagulation studies. Please contact the laboratory at [phone] for redraw instructions. Basic Metabolic Panelon 03-18 Creatinine Clr Calc Pharmacy 46.64 Normal [facility] Comment on above: Result Comment: PERF ORMED BY: [facility] [address] [place] [address] PATHOLOGIST ADVERTISING INSERTER BERT CAN M.D. Performed By: #### B MP, HS TROP, DIFF CBC, CK #### [facility] [address] GFR/1.73 sq M.predicted MDRD (S/P/Bld) [Vol rate/Area] mL/min/{1.73_m2} Normal [facility] Comment on above: Performed By: #### B MP, HS TROP, DIFF CBC, CK #### [facility] [address] Basophils Auto (Bld) [#/Vol] Ordered By: Tee Godfrey on 04-13-2023 Basophils (Bld) [#/Vol] N/A [facility] Basophils/100 WBC Auto (Bld) Ordered By: Tee Godfrey on 04-13-2023 Basophils/100 WBC (Bld) N/A [facility] Calcium [Mass/volume] in Ser um or PlasmaOrdered By: Tee Godfrey on 04-13-2023 Calcium [Mass/Vol] 9.6 mg/dL Normal 8.6-10.3 [facility] Comment on above: Performed By: #### B MP, HS TROP, DIFF CBC, CK #### [address] Capillary blood glucose mimi urement by glucometer (mass/volume)Ordered By: Tee Godfrey on 04-13-2023 Glucose [Mass/Vol] 164 mg/dL Normal [facility] Comment on above: Random Glucose Refer ence Range is dependent on time and content of last meal. Glucose of more than 200 mg/dL in a nonstressed, ambulatory subject supports the diagnosis of Diabetes Mellitus. Result Comment: [place] [facility] Glucose Reference Range is dependent on time and content of last meal. Glucose of more than 200 mg/dL in a nonstressed, ambulatory subject supports the diagnosis of Diabetes Mellitus. PERFORMED BY: [place] [address] PATHOLOGIST ADVERTISING INSERTER BERT CAN M.D. Performed By: #### G LUANDIE #### Point of Care testing , Carbon dioxide, total [Moles /volume] in Serum or PlasmaOrdered By: Tee Godfrey on 04-13-2023 CO2 [Moles/Vol] 24.2 mmol/L Normal 21.0-31.0 [facility] Comment on above: Performed By: #### B MP, HS TROP, DIFF CBC, CK #### [address] Chloride [Moles/volume] in S angel or PlasmaOrdered By: Tee Godfrey on 04-13-2023 Chloride [Moles/Vol] 105 mmol/L Normal 98-107 [facility] Comment on above: Performed By: #### B MP, HS TROP, DIFF CBC, CK #### [address] Coagulation Profileon 2022 aPTT Coag (Bld) [Time] 33.9 s Normal 25.1-36.5 [facility] Comment on above: Order Comment: Unacc eptable specimen due to QNS. Redraw reordered. Result Comment: A he matocrit value greater than 55% may lead to inaccurate results in coagulation testing. Patients having hematocrit values >55% require a special collection tube for coagulation studies. Please contact the laboratory at [phone] for redraw instructions. PERFORMED BY: [place] [id number] PATHOLOGIST ADVERTISING INSERTER BERT CAN M.D. Performed By: #### G CRESCENCIO #### Point of Care testing , Creatine kinase [Enzymatic a ctivity/volume] in Serum or PlasmaOrdered By: Tee Godfrey on 04-13-2023 CK [Catalytic activity/Vol] 78 U/L Normal 30-223 [facility] Comment on above: Performed By: #### B MP, HS TROP, DIFF CBC, CK #### [address] Creatinine [Mass/volume] in Serum or PlasmaOrdered By: Tee Godfrey on 04-13-2023 Creatinine [Mass/Vol] 1.01 mg/dL Normal 0.60-1.20 [facility] Comment on above: Performed By: #### B MP, HS TROP, DIFF CBC, CK #### [address] Diff and CBCon 04-13-2023 Giant Platelet Tally 2 /100{WBC} Normal [facility] Comment on above: Performed By: #### B MP, HS TROP, DIFF CBC, CK #### [address] Mean Corpuscular HGB Conc 34.5 g/dL Normal 32.0-35.0 [facility] Comment on above: Performed By: #### B MP, HS TROP, DIFF CBC, CK #### [address] Monocytes/100 WBC (Bld) 18.26 % Normal 0.00-20.00 [facility] Comment on above: Performed By: #### B MP, HS TROP, DIFF CBC, CK #### [address] Platelet Estimate Normal Normal Normal [facility] Comment on above: Performed By: #### B MP, HS TROP, DIFF CBC, CK #### [address] Platelet Morphology Normal Normal Normal [facility] Comment on above: Result Comment: PERF ORMED BY: [place] [id number] PATHOLOGIST ADVERTISING [employer]ERTER [employer]ERT CAN M.D. Performed By: #### B MP, HS TROP, DIFF CBC, CK #### [place] [address] [place] ECG 12 lead ECGon 04-13-2023 ECG 12 lead ECG [facility] [place] [address] Electrocardiograph Report Signed Patient: Marisela Hsieh MR#: [id number] : 1955 Acct:[id number] Age/Sex: 67 / F ADM Date: 04/13/23 Loc: Room: [address] [place] [address] Type: ADM INOo Attending Dr: Jax Seay MD Ordering Provider: Tee Godfrey DO Date of Service: 04/13/23 ECG/ECG 12 lead ECG: Neuro Symptoms/Deficit Copies to: Test Reason : Blood Pressure : / mmHG Vent. Rate : 053 BPM Atrial Rate : 053 BPM P-R Int : 088 ms QRS Dur : 082 ms QT Int : 482 ms P-R-T Axes : 016 031 148 degrees QTc Int : 452 ms Sinus bradycardia with short MD Abnormal ECG When compared with ECG of 18-NOV-2010 16:47, MD interval has decreased ST now depressed in Lateral leads T wave inversion now evident in Lateral leads Confirmed by OCTAVIANO CHRISTENSEN DO ([id number]) on 04/14/2023 1:59:36 AM Referred By: Electronically Signed By:OCTAVIANO CHRISTENSEN DO Transcribed By: MUS Signed By Octaviano Christensen DO 04/14 0159 Normal [facility] Eosinophils Auto (Bld) [#/Vo l]Ordered By: Tee Godfrey on 04-13-2023 Eosinophils (Bld) [#/Vol] N/A [facility] Eosinophils/100 WBC Auto (Bl d)Ordered By: Tee Godfrey on 04-13-2023 Eosinophils/100 WBC (Bld) N/A [facility] Eosinophils/100 leukocytes i n Blood by Manual countOrdered By: Tee Godfrey on 04-13-2023 Eosinophils/100 WBC (Bld) 2 % Normal 1-3 [facility] Comment on above: Performed By: #### B MP, HS TROP, DIFF CBC, CK #### [facility] [address] Erythrocyte distribution wid th [Ratio] by Automated countOrdered By: Tee Godfrey on 04-13-2023 Erythrocyte distribution width (RBC) [Ratio] 13.3 % Normal 11.9-15.3 [facility] Comment on above: Performed By: #### B MP, HS TROP, DIFF CBC, CK #### [facility] [address] [place] [address] [place] Erythrocytes [#/volume] in B lood by Automated countOrdered By: Tee Godfrey on 04-13-2023 RBC (Bld) [#/Vol] 4.08 10*6/uL Normal 3.60-5.00 [facility] Comment on above: Performed By: #### B MP, HS TROP, DIFF CBC, CK #### [facility] [address] Giant platelets/100 leukocyt es [Ratio] in Blood by Manual countOrdered By: Tee Godfrey on 04-13-2023 Giant platelets/100 WBC Manual cnt (Bld) [Ratio] 2 /100{WBC} [facility] Glucose Poct Glucometerson 0 04-13-2023 Glucose [Mass/Vol] 188 mg/dL Normal [facility] Comment on above: Result Comment: Nutrioso om Glucose Reference Range is dependent on time and content of last meal. Glucose of more than 200 mg/dL in a nonstressed, ambulatory subject supports the diagnosis of Diabetes Mellitus. PERFORMED BY: [place] [id number] PATHOLOGIST ADVERTISING [employer]ERTER [employer]ERT CAN M.D. Performed By: #### G CRESCENCIO #### Point of Care testing , Glucose [Mass/volume] in Ser um or PlasmaOrdered By: Tee Godfrey on 04-13-2023 Glucose [Mass/Vol] 160 mg/dL High 70-100 [facility] Comment on above: ADA recommended refe rence rangeRandom Glucose Reference Range is dependent on time and content of last meal. Glucose of more than 200 mg/dL in a nonstressed, ambulatory subject supports the diagnosis of Diabetes Mellitus. Result Comment: [place] om Glucose Reference Range is dependent on time and content of last meal. Glucose of more than 200 mg/dL in a nonstressed, ambulatory subject supports the diagnosis of Diabetes Mellitus. ADA recommended reference range Performed By: #### B MP, HS TROP, DIFF CBC, CK #### [facility] [address] [place] [address] [place] Hematocrit [Volume Fraction] of Blood by Automated countOrdered By: Tee Godfrey on 04-13-2023 Hematocrit (Bld) [Volume fraction] 36.0 % Normal 34.0-46.4 [facility] Comment on above: Performed By: #### B MP, HS TROP, DIFF CBC, CK #### [facility] [address] Hemoglobin [Mass/volume] in BloodOrdered By: Teesultana Godfrey on 04-13-2023 Hemoglobin (Bld) [Mass/Vol] 12.4 g/dL Normal 11.8-15.4 [facility] Comment on above: Performed By: #### B MP, HS TROP, DIFF CBC, CK #### [facility] [address] INR in Platelet poor plasma by Coagulation assayOrdered By: Tee Godfrey on 04-13-2023 INR Coag (PPP) [Relative time] 1.0 {INR} Normal [facility] Comment on above: INR Therapeutic Rang e A) Pre- and Peroperative OAT started two weeks before surgery. NOT HIP SURGERY: 1.5 - 2.5 HIP SURGERY: 2 - 3B) Primary and secondary prevention of venous THROMBOSIS: 2 - 3C) Active venous thrombosis, pulmonary embolismand prevention of recurrent venous thrombosis: 2 - 3D) Prevention of arterial thromboembolismincluding patients with mechanical heart valves: 3 - 4.5 Order Comment: Unacc eptable specimen due to QNS. Redraw reordered. Result Comment: INR Therapeutic Range A) Pre- and Peroperative OAT started two weeks before surgery. NOT HIP SURGERY: 1.5 - 2.5 HIP SURGERY: 2 - 3 B) Primary and secondary prevention of venous THROMBOSIS: 2 - 3 C) Active venous thrombosis, pulmonary embolism and prevention of recurrent venous thrombosis: 2 - 3 D) Prevention of arterial thromboembolism including patients with mechanical heart valves: 3 - 4.5 Performed By: #### G LULS #### Point of Care testing , ISTAT XRay CREon 04-13-2023 ISTAT GFR > 60.0 Normal [facility] Comment on above: Result Comment: PERF ORMED BY: [place] [id number] PATHOLOGIST ADVERTISING INSERTER BERT CAN M.D. Performed By: #### G LULS #### Point of Care testing , Leukocytes [#/volume] correc elton for nucleated erythrocytes in Blood by Automated counOrdered By: Tee Godfrey on 04-13-2023 WBC corrected for nucl RBC Auto (Bld) [#/Vol] 8.8 10*3/uL 3.8-11.6 [facility] Leukocytes [#/volume] in Blo od by Automated countOrdered By: Tee Godfrey on 04-13-2023 WBC (Bld) [#/Vol] 8.8 10*3/uL Normal 3.8-11.6 [facility] Comment on above: Performed By: #### B MP, HS TROP, DIFF CBC, CK #### [facility] [address] Lymphocytes Auto (Bld) [#/Vo l]Ordered By: Tee Godfrey on 04-13-2023 Lymphocytes (Bld) [#/Vol] N/A [facility] Lymphocytes/100 WBC Auto (Bl d)Ordered By: Tee Godfrey on 04-13-2023 Lymphocytes/100 WBC (Bld) N/A [facility] Lymphocytes/100 leukocytes i n Blood by Manual countOrdered By: Tee Godfrey on 04-13-2023 Lymphocytes/100 WBC (Bld) 19 % Normal 18-42 [facility] Comment on above: Performed By: #### B MP, HS TROP, DIFF CBC, CK #### [facility] [address] MCH [Entitic mass] by Automa elton countOrdered By: Tee Godfrey on 04-13-2023 MCH (RBC) [Entitic mass] 30.4 pg Normal 24.7-34.3 [facility] Comment on above: Performed By: #### B MP, HS TROP, DIFF CBC, CK #### [facility] [address] MCHC Auto (RBC) [Mass/Vol]Or dered By: Tee Godfrey on 04-13-2023 MCHC (RBC) [Mass/Vol] 34.5 g/dL 32.0-35.0 [facility] MCV [Entitic volume] by Auto mated countOrdered By: Tee Godfrye on 04-13-2023 MCV (RBC) [Entitic vol] 88.1 fL Normal 80-100 [facility] Comment on above: Performed By: #### B MP, HS TROP, DIFF CBC, CK #### [facility] [address] Manual blood segmented neutr ophils/100 leukocytesOrdered By: Tee Godfrey on 04-13-2023 Segmented neutrophils/100 WBC (Bld) 76 % High 50-70 [facility] Comment on above: Performed By: #### B MP, HS TROP, DIFF CBC, CK #### [facility] [address] Monocyte distribution width [Entitic volume] in Blood by AutomatedOrdered By: Tee Godfrey on 04-13-2023 Monocyte distribution width Auto (Bld) [Entitic vol] 18.26 % 0.00-20.00 [facility] Monocytes Auto (Bld) [#/Vol] Ordered By: Tee Godfrey on 04-13-2023 Monocytes (Bld) [#/Vol] N/A [facility] Monocytes/100 WBC Auto (Bld) Ordered By: Tee Godfrey on 04-13-2023 Monocytes/100 WBC (Bld) N/A [facility] Monocytes/100 leukocytes in Blood by Manual countOrdered By: Tee Godfrey on 04-13-2023 Monocytes/100 WBC (Bld) 2 % Normal 2-11 [facility] Comment on above: Performed By: #### B MP, HS TROP, DIFF CBC, CK #### [facility] [address] [place] [address] [place] Neutrophils Auto (Bld) [#/Vo l]Ordered By: Tee Godfrey on 04-13-2023 Neutrophils (Bld) [#/Vol] N/A [facility] Neutrophils/100 WBC Auto (Bl d)Ordered By: Tee Godfrey on 04-13-2023 Neutrophils/100 WBC (Bld) N/A [facility] No Panel InformationOrdered By: Tee Godfrey on 04-13-2023 Estimated GFR (CKD-EPI) > 60.0 mL/Min [facility] Creatinine Clearance (Chem 46.64 [facility] Nucleated erythrocytes [Pres ence] in Blood by Automated countOrdered By: Tee Godfrey on 04-13-2023 Nucleated RBC Auto Ql (Bld) N/A [facility] Peripheral white blood cell differential % bands, microscopic examOrdered By: Tee Godfrey on 04-13-2023 Band form neutrophils/100 WBC (Bld) 2 % Normal 0-5 [facility] Comment on above: Performed By: #### B MP, HS TROP, DIFF CBC, CK #### [facility] [address] Platelet adequacy [Presence] in Blood by Light microscopyOrdered By: Tee Godfrey on 04-13-2023 Platelets LM Ql (Bld) Normal Normal [facility] Platelet mean volume [Entiti c volume] in Blood by Automated countOrdered By: Tee Godfrey on 04-13-2023 Platelet mean volume (Bld) [Entitic vol] 8.7 fL Normal 6.3-10.7 [facility] Comment on above: Result Comment: PERF ORMED BY: [place] [id number] PATHOLOGIST ADVERTISING [employer]ERTER BERT CAN M.D. Performed By: #### B MP, HS TROP, DIFF CBC, CK #### [facility] [address] Platelet morphology finding [Identifier] in BloodOrdered By: Tee Godfrey on 04-13-2023 Platelet morphology finding Nom (Bld) Normal Normal [facility] Platelets [#/volume] in Bloo d by Automated countOrdered By: Tee Godfrey on 04-13-2023 Platelets (Bld) [#/Vol] 224 10*3/uL Normal 150-450 [facility] Comment on above: Performed By: #### B MP, HS TROP, DIFF CBC, CK #### [facility] [address] [place] [address] [place] Potassium [Moles/volume] in Serum or PlasmaOrdered By: Tee Godfrey on 04-13-2023 Potassium [Moles/Vol] 3.9 mmol/L Normal 3.5-5.1 [facility] Comment on above: Performed By: #### B MP, HS TROP, DIFF CBC, CK #### [facility] [address] Prothrombin time (PT)Ordered By: Tee Godfrey on 04-13-2023 PT Coag (PPP) [Time] 12.3 s Normal 9.0-12.9 [facility] Comment on above: A hematocrit value g reater than 55% may lead to inaccurate results in coagulation testing. Patients having hematocrit values >55% require a special collection tube for coagulation studies. Please contact the laboratory at [phone] for redraw instructions. Order Comment: Unacc eptable specimen due to QNS. Redraw reordered. Result Comment: A he matocrit value greater than 55% may lead to inaccurate results in coagulation testing. Patients having hematocrit values >55% require a special collection tube for coagulation studies. Please contact the laboratory at [phone] for redraw instructions. Performed By: #### G LULS #### Point of Care testing , RBC morphologyOrdered By: Earnestine Godfrey on 04-13-2023 RBC morphology finding Nom (Bld) Normal Normal Normal [facility] Comment on above: Performed By: #### B MP, HS TROP, DIFF CBC, CK #### [facility] [address] Serum or plasma anion gap de terminationOrdered By: Tee Godfrey on 04-13-2023 Anion gap [Moles/Vol] 13.7 mmol/L Normal 6.0-15.0 [facility] Comment on above: Performed By: #### B MP, HS TROP, DIFF CBC, CK #### [facility] [address] Sodium [Moles/volume] in Ser um or PlasmaOrdered By: Tee Godfrey on 04-13-2023 Sodium [Moles/Vol] 139 mmol/L Normal 136-145 [facility] Comment on above: Performed By: #### B MP, HS TROP, DIFF CBC, CK #### [facility] [address] Troponin I High Sensitivityo n 04-13-2023 Troponin I High Sensitivity 33.3 pg/mL High 0.0-15.0 [facility] Comment on above: Result Comment: PERF ORMED BY: [address] [place] [id number] PATHOLOGIST ADVERTISING INSERTER BERT CAN M.D. Performed By: #### B MP, HS TROP, DIFF CBC, CK #### [facility] [address] Troponin I.cardiac [Mass/vol ume] in Serum or Plasma by Detection limit <= 0.01 ng/Ordered By: Tee Godfrey on 04-13-2023 Troponin I.cardiac DL <= 0.01 ng/mL [Mass/Vol] 33.3 pg/mL 0.0-15.0 [facility] Urea nitrogen [Mass/volume] in Serum or PlasmaOrdered By: Tee Godfrey on 04-13-2023 Urea nitrogen [Mass/Vol] 19 mg/dL Normal 7-25 [facility] Comment on above: Performed By: #### B MP, HS TROP, DIFF CBC, CK #### [facility] [address] [place] [address] Whole blood creatinine measu rementOrdered By: Tee Godfrey on 04-13-2023 Creatinine [Mass/Vol] 1.0 mg/dL Normal 0.6-1.3 [facility] Comment on above: ER/ESD physician is notified/shown all ISTAT results.Critical values may be confirmed by laboratory testing ifdeemed necessary by ER attending doctor. Result Comment: ER/E SD physician is notified/shown all ISTAT results. Critical values may be confirmed by laboratory testing if deemed necessary by ER attending doctor. Performed By: #### G LULS #### Point of Care testing , Microalbumin (with Creat)on 09-23-2021 mALB 22.8 mg/dL Normal [facility] Comment on above: Result Comment: mALB reference range not established. Performed By: #### m ALBC #### [facility] [address] [place], [place] [id number] mALB/Creat Ratio 373.8 MCG/MG Normal [facility] Comment on above: Result Comment: The ADA (Diabetes Care 26:S94-S98, 2003) defines abnormalities in Albumin excretion as follows: Category Result (MCG/MG Creatinine) Normal <30 Microalbuminuria 30-299 Clinical Albuminuria > or = 300 Performed By: #### m ALBC #### [facility] [address] [place], [place] [id number] UCREA 61 mg/dL Normal 28-217 [facility] Comment on above: Performed By: #### m ALBC #### [facility] [address] [place], [place] [id number] Covid-19 PCR ([facility])on 06-17 SARS-CoV-2 (COVID-19) RNA ONDINA+probe Ql (Unsp spec) Not detected Normal NOT DETECTED [facility] Comment on above: Result Comment: This test is not yet approved or cleared by the [place] FDA. When there are no FDA-approved or cleared tests available, and other criteria are met, FDA can make tests available under an emergency access mechanism called an Emergency Use Authorization (EUA). The EUA for this test is supported by the [place] of Health and Human Service's (HHS's) declaration that circumstances exist to justify the emergency use of in vitro diagnostics for the detection and/or diagnosis of the virus that causes COVID-19. This EUA will remain in effect (meaning this test can be used) for the duration of the COVID-19 declaration justifying emergency of IVDs, unless it is terminated or revoked by FDA (after which the test may no longer be used). When diagnostic testing is negative, the possibility of a false negative should be considered in the context of a patient's recent exposures and the presence of clinical signs and symptoms consistent with SARS-CoV-2. Performed By: #### C VDTBH #### [facility] [address] [place], [place] [address] Dr. Lizz Watt Vital Signs Date Time Vital Sign Value Performing Clinician Facility 12-04-2024 09:45-0400 Blood Pressure Location [facility] 12-04-2024 09:45-0400 Diastolic blood pressure 66 mm[Hg] [facility] 12-04-2024 09:45-0400 Heart rate 63 /min [facility] 12-04-2024 09:45-0400 Respiratory rate 16 /min [facility] 12-04-2024 09:45-0400 Systolic blood pressure 110 mm[Hg] [facility] 11-21-2024 10:06-0400 Body height 149.9 cm Elvira Bartlett PA Work Phone: [facility] 11-21-2024 10:06-0400 Body mass index (BMI) [Ratio] 31.35 kg/m2 Elvira Bartlett PA Work Phone: [facility] 11-21-2024 10:06-0400 Body weight 70.4 kg Elvira Bartlett PA Work Phone: [facility] 11-21-2024 10:06-0400 Diastolic blood pressure 72 mm[Hg] Elvira Bartlett PA Work Phone: [facility] Comment on above: has not taken her BP pills yet today 11-21-2024 10:06-0400 Heart rate 52 /min Elvira Bartlett PA Work Phone: [facility] 11-21-2024 10:06-0400 SaO2% (BldA) [Mass fraction] 99 % Elvira Bartlett PA Work Phone: [facility] 11-21-2024 10:06-0400 Systolic blood pressure 148 mm[Hg] Elvira Bartlett PA Work Phone: [facility] Comment on above: has not taken her BP pills yet today 10-21-2024 09:23-0400 Body height 144.8 cm Jason Wyatt MD Work Phone: [facility] 10-21-2024 09:23-0400 Body mass index (BMI) [Ratio] 34.41 kg/m2 Jason Wyatt MD Work Phone: [facility] 10-21-2024 09:23-0400 Body weight 72.12 kg Jason Wyatt MD Work Phone: [facility] 10-21-2024 09:23-0400 Diastolic blood pressure 72 mm[Hg] Jason Wyatt MD Work Phone: [facility] 10-21-2024 09:23-0400 Heart rate 60 /min Jason Wyatt MD Work Phone: [facility] 10-21-2024 09:23-0400 SaO2% (BldA) [Mass fraction] 99 % Jason Wyatt MD Work Phone: [facility] 10-21-2024 09:23-0400 Systolic blood pressure 126 mm[Hg] Jason Wyatt MD Work Phone: [facility] 10-17-2024 09:41-0400 Body temperature 97.88 [degF] [facility] 10-17-2024 09:41-0400 Diastolic blood pressure 63 mm[Hg] [facility] 10-17-2024 09:41-0400 Heart rate 63 /min [facility] 10-17-2024 09:41-0400 Mean blood pressure 77 mm[Hg] [facility] 10-17-2024 09:41-0400 Respiratory rate 16 /min [facility] 10-17-2024 09:41-0400 SaO2% (BldA) [Mass fraction] 99 % [facility] 10-17-2024 09:41-0400 Systolic blood pressure 106 mm[Hg] [facility] 09-10-2024 09:01-0500 Body height 144.8 cm Elvira COLBY Work Phone: [facility] 09-10-2024 09:01-0500 Body mass index (BMI) [Ratio] 33.67 kg/m2 Elvira Nerimer PA Work Phone: [facility] 09-10-2024 09:01-0500 Body weight 70.58 kg Elvira Hemmer PA Work Phone: [facility] 09-10-2024 09:01-0500 Diastolic blood pressure 74 mm[Hg] Elvira Hemmer PA Work Phone: [facility] 09-10-2024 09:01-0500 Heart rate 70 /min Elvira Hemmer PA Work Phone: [facility] 09-10-2024 09:01-0500 Respiratory rate 16 /min Elvira Hemmer PA Work Phone: [facility] 09-10-2024 09:01-0500 SaO2% (BldA) [Mass fraction] 99 % Elvira Hemmer PA Work Phone: [facility] 09-10-2024 09:01-0500 Systolic blood pressure 126 mm[Hg] Elvira Hemmer PA Work Phone: [facility] 08-21-2024 10:52-0500 Body height 144.8 cm Jason Wyatt MD Work Phone: [facility] 08-21-2024 10:52-0500 Body mass index (BMI) [Ratio] 33.54 kg/m2 Jason Wyatt MD Work Phone: [facility] 08-21-2024 10:52-0500 Body weight 70.31 kg Jason Wyatt MD Work Phone: [facility] 08-21-2024 10:52-0500 Diastolic blood pressure 66 mm[Hg] Jason Wyatt MD Work Phone: [facility] 08-21-2024 10:52-0500 Heart rate 53 /min Jason Wyatt MD Work Phone: [facility] 08-21-2024 10:52-0500 SaO2% (BldA) [Mass fraction] 100 % Jason Wyatt MD Work Phone: [facility] 08-21-2024 10:52-0500 Systolic blood pressure 124 mm[Hg] Jason Wyatt MD Work Phone: [facility] 06-06-2024 09:10-0500 Body height 144.8 cm Jason Wyatt MD Work Phone: [facility] 06-06-2024 09:10-0500 Body mass index (BMI) [Ratio] 34.62 kg/m2 Jason Wyatt MD Work Phone: [facility] 06-06-2024 09:10-0500 Body weight 72.58 kg Jason Wyatt MD Work Phone: [facility] 06-06-2024 09:10-0500 Diastolic blood pressure 66 mm[Hg] Jason Wyatt MD Work Phone: [facility] 06-06-2024 09:10-0500 Heart rate 64 /min Jason Wyatt MD Work Phone: [facility] 06-06-2024 09:10-0500 SaO2% (BldA) [Mass fraction] 100 % Jason Wyatt MD Work Phone: [facility] 06-06-2024 09:10-0500 Systolic blood pressure 128 mm[Hg] Jason Wyatt MD Work Phone: [facility] 05-29-2024 15:31-0500 Blood Pressure Location [facility] 05-29-2024 15:31-0500 Diastolic blood pressure 72 mm[Hg] [facility] 05-29-2024 15:31-0500 Heart rate 60 /min [facility] 05-29-2024 15:31-0500 Respiratory rate 16 /min [facility] 05-29-2024 15:31-0500 SaO2% (BldA) [Mass fraction] 99 % [facility] 05-29-2024 15:31-0500 Systolic blood pressure 124 mm[Hg] [facility] 04-30-2024 12:55-0400 SaO2% (BldA) [Mass fraction] 100 % Carmelina Willams MD Work Phone: [facility] 04-30-2024 12:08-0400 Body height 144.8 cm Carmelina Willams MD Work Phone: [facility] 04-30-2024 12:08-0400 Body mass index (BMI) [Ratio] 35.26 kg/m2 Carmelina Willams MD Work Phone: [facility] 04-30-2024 12:08-0400 Body temperature 97.7 [degF] Carmelina Willams MD Work Phone: [facility] 04-30-2024 12:08-0400 Body weight 73.9 kg Carmelina Willams MD Work Phone: [facility] [facility]24 12:08-0400 Diastolic blood pressure 67 mm[Hg] Carmelina Willams MD Work Phone: [facility] 04-30-2024 12:08-0400 Heart rate 47 /min Carmelina Willams MD Work Phone: [facility] 04-30-2024 12:08-0400 Respiratory rate 18 /min Carmelina Willams MD Work Phone: [facility] 04-30-2024 12:08-0400 Systolic blood pressure 141 mm[Hg] Carmelina Willams MD Work Phone: [facility] 04-25-2024 10:05-0400 Blood Pressure Location Hemant Espana [facility] 04-25-2024 10:05-0400 Diastolic blood pressure 78 mm[Hg] Hemant Espana [facility] 04-25-2024 10:05-0400 Heart rate 53 /min Hemant Espana [facility] 04-25-2024 10:05-0400 Respiratory rate 16 /min Hemant Espana [facility] 04-25-2024 10:05-0400 SaO2% (BldA) [Mass fraction] 100 % Hemant Espana [facility] 04-25-2024 10:05-0400 Systolic blood pressure 132 mm[Hg] Hemant Espana [facility] 04-17-2024 13:50-0400 Body height 144.8 cm Carmelina Willams MD Work Phone: [facility] 04-17-2024 13:50-0400 Body mass index (BMI) [Ratio] 35.49 kg/m2 Carmelina Willams MD Work Phone: [facility] 04-17-2024 13:50-0400 Body temperature 97.3 [degF] Carmelina Willams MD Work Phone: [facility] 04-17-2024 13:50-0400 Body weight 74.39 kg Carmelina Willams MD Work Phone: [facility] 04-17-2024 13:50-0400 Diastolic blood pressure 48 mm[Hg] Carmelina Willams MD Work Phone: [facility] 04-17-2024 13:50-0400 Heart rate 54 /min Carmelina Willams MD Work Phone: [facility] 04-17-2024 13:50-0400 Respiratory rate 16 /min Carmelina Willams MD Work Phone: [facility] 04-17-2024 13:50-0400 SaO2% (BldA) [Mass fraction] 98 % Carmelina Willams MD Work Phone: [facility] 04-17-2024 13:50-0400 Systolic blood pressure 111 mm[Hg] Carmelina Willams MD Work Phone: [facility] 04-02-2024 12:59-0400 Diastolic blood pressure 70 mm[Hg] Hemant Espana [facility] 04-02-2024 12:59-0400 Heart rate 53 /min Hemant Espana [facility] 04-02-2024 12:59-0400 Respiratory rate 16 /min Hemant Espana [facility] 04-02-2024 12:59-0400 SaO2% (BldA) [Mass fraction] 99 % Hemant Espana [facility] 04-02-2024 12:59-0400 Systolic blood pressure 140 mm[Hg] Hemant Espana [facility] 03-21-2024 09:10-0400 Blood Pressure Location eHmant Espana [facility] 03-21-2024 09:10-0400 Diastolic blood pressure 62 mm[Hg] Hemant Espana [facility] 03-21-2024 09:10-0400 Heart rate 46 /min Hemant Espana [facility] 03-21-2024 09:10-0400 Respiratory rate 18 /min Hemant Espana [facility] 03-21-2024 09:10-0400 SaO2% (BldA) [Mass fraction] 100 % Hemant Espana [facility] 03-21-2024 09:10-0400 Systolic blood pressure 140 mm[Hg] Hemant Espana [facility] 03-19-2024 14:37-0400 Body height 144.8 cm Izabel Collins [employer] Work Phone: [facility] 03-19-2024 14:37-0400 Body mass index (BMI) [Ratio] 35.27 kg/m2 Izabel Collins [employer] Work Phone: [facility] 03-19-2024 14:37-0400 Body weight 73.94 kg Izabel Collins [employer] Work Phone: [facility] 03-19-2024 14:37-0400 Diastolic blood pressure 72 mm[Hg] Izabel Collins [employer] Work Phone: [facility] 03-19-2024 14:37-0400 Systolic blood pressure 118 mm[Hg] Izabel Collins [employer] Work Phone: [facility] 03-06-2024 08:49-0400 Body height 144.8 cm Jason Wyatt MD Work Phone: [facility] 03-06-2024 08:49-0400 Body mass index (BMI) [Ratio] 34.84 kg/m2 Jason Wyatt MD Work Phone: [facility] 03-06-2024 08:49-0400 Body weight 73.03 kg Jason Wyatt MD Work Phone: [facility] 03-06-2024 08:49-0400 Diastolic blood pressure 66 mm[Hg] Jason Wyatt MD Work Phone: [facility] 03-06-2024 08:49-0400 Heart rate 43 /min Jason Wyatt MD Work Phone: [facility] 03-06-2024 08:49-0400 SaO2% (BldA) [Mass fraction] 99 % Jason Wyatt MD Work Phone: [facility] 03-06-2024 08:49-0400 Systolic blood pressure 126 mm[Hg] Jason Wyatt MD Work Phone: [facility] 01-24-2024 14:34-0400 Diastolic blood pressure 68 mm[Hg] Dom Kirnus [facility] 01-24-2024 14:34-0400 Heart rate 67 /min Dom Kirnus [facility] 01-24-2024 14:34-0400 Respiratory rate 16 /min Dom Kirnus [facility] 01-24-2024 14:34-0400 SaO2% (BldA) [Mass fraction] 100 % Dom Kirnus [facility] 01-24-2024 14:34-0400 Systolic blood pressure 136 mm[Hg] Dom Kirnus [facility] 12-18-2023 11:17-0400 Diastolic blood pressure 75 mm[Hg] Dom Kirnus [facility] 12-18-2023 11:17-0400 Heart rate 46 /min Dom Kirnus [facility] 12-18-2023 11:17-0400 SaO2% (BldA) [Mass fraction] 99 % Dom Kirnus [facility] 12-18-2023 11:17-0400 Systolic blood pressure 167 mm[Hg] Dom Kirnus [facility] 11-16-2023 11:31-0400 Body height 144.78 cm II Jason Wyatt Work Phone: [facility] 11-16-2023 11:31-0400 Body mass index (BMI) [Ratio] 34.8 kg/m2 II Jason Wyatt Work Phone: [facility] 11-16-2023 11:31-0400 Body weight 73.02 kg II Jason Wyatt Work Phone: [facility] 11-16-2023 11:31-0400 Diastolic blood pressure 62 mm[Hg] II Jason Wyatt Work Phone: [facility] 11-16-2023 11:31-0400 Heart rate 44 /min II Jason Wyatt Work Phone: [facility] 11-16-2023 11:31-0400 Respiratory rate 18 /min II Jason Wyatt Work Phone: [facility] 11-16-2023 11:31-0400 SaO2% (BldA) [Mass fraction] 99 % II Jason Wyatt Work Phone: [facility] 11-16-2023 11:31-0400 Systolic blood pressure 117 mm[Hg] II Jason Wyatt Work Phone: [facility] 11-03-2023 11:36-0400 Body height 144.78 cm II Jason Wyatt Work Phone: [facility] 11-03-2023 11:36-0400 Body mass index (BMI) [Ratio] 34.8 kg/m2 II Jason Wyatt Work Phone: [facility] 11-03-2023 11:36-0400 Body weight 73.02 kg II Jason Wyatt Work Phone: [facility] 11-03-2023 11:36-0400 Diastolic blood pressure 64 mm[Hg] II Jason Wyatt Work Phone: [facility] 11-03-2023 11:36-0400 Heart rate 47 /min II Jason Wyatt Work Phone: [facility] 11-03-2023 11:36-0400 Respiratory rate 18 /min II Jason Wyatt Work Phone: [facility] 11-03-2023 11:36-0400 SaO2% (BldA) [Mass fraction] 99 % II Jason Wyatt Work Phone: [facility] 11-03-2023 11:36-0400 Systolic blood pressure 146 mm[Hg] II Jason Wyatt Work Phone: [facility] 10-02-2023 10:53-0400 Body height 144.78 cm II Jason Wyatt Work Phone: [facility] 10-02-2023 10:53-0400 Body mass index (BMI) [Ratio] 35 kg/m2 II Jason Wyatt Work Phone: [facility] 10-02-2023 10:53-0400 Body weight 73.48 kg II Jason Wyatt Work Phone: [facility] 10-02-2023 10:53-0400 Diastolic blood pressure 60 mm[Hg] II Jason Wyatt Work Phone: [facility] 10-02-2023 10:53-0400 Heart rate 50 /min II Jason Wyatt Work Phone: [facility] 10-02-2023 10:53-0400 Respiratory rate 18 /min II Jason Wyatt Work Phone: [facility] 10-02-2023 10:53-0400 SaO2% (BldA) [Mass fraction] 99 % II Jason Wyatt Work Phone: [facility] 10-02-2023 10:53-0400 Systolic blood pressure 130 mm[Hg] II Jason Wyatt Work Phone: [facility] 09-01-2023 15:05-0500 Diastolic blood pressure 61 mm[Hg] II Jason Wyatt Work Phone: [facility] 09-01-2023 15:05-0500 Heart rate 48 /min II Jason Wyatt Work Phone: [facility] 09-01-2023 15:05-0500 Respiratory rate 16 /min II Jason Wyatt Work Phone: [facility] 09-01-2023 15:05-0500 SaO2% (BldA) [Mass fraction] 99 % II Jason Wyatt Work Phone: [facility] 09-01-2023 15:05-0500 Systolic blood pressure 138 mm[Hg] II Jason Wyatt Work Phone: [facility] 09-01-2023 08:15-0500 Body height 144.78 cm II Jason Wyatt Work Phone: [facility] 09-01-2023 08:15-0500 Body temperature 98.1 [degF] II Jason Wyatt Work Phone: [facility] 09-01-2023 08:15-0500 Body weight 70 kg II Jason Wyatt Work Phone: [facility] 08-21-2023 10:40-0500 Body height 139.7 cm Martina Saad Other [employer] Other 08-21-2023 10:40-0500 Body mass index (BMI) [Ratio] 36.72 kg/m2 Martina Saad Other [employer] Other 08-21-2023 10:40-0500 Body weight 71.67 kg Martina Saad Other [employer] Other 08-21-2023 10:40-0500 Diastolic blood pressure 62 mm[Hg] Martina Saad Other [employer] Other 08-21-2023 10:40-0500 Respiratory rate 18 /min Martina Saad Other [employer] Other 08-21-2023 10:40-0500 SaO2% (BldA) [Mass fraction] 99 % Martina Saad Other [employer] Other 08-21-2023 10:40-0500 Systolic blood pressure 134 mm[Hg] Martina Saad Other [employer] Other 08-01-2023 09:58-0500 Diastolic blood pressure 70 mm[Hg] II Jason Wyatt Work Phone: [facility] 08-01-2023 09:58-0500 Heart rate 48 /min II Jason Wyatt Work Phone: [facility] 08-01-2023 09:58-0500 Systolic blood pressure 169 mm[Hg] II Jason Wyatt Work Phone: [facility] 08-01-2023 09:34-0500 Body height 139.7 cm II Jason Wyatt Work Phone: [facility] 08-01-2023 09:34-0500 Body weight 68.49 kg II Jason Wyatt Work Phone: [facility] 05-30-2023 10:40-0500 Body height 139.7 cm Martina Saad Other [employer] Other 05-30-2023 10:40-0500 Body mass index (BMI) [Ratio] 36.02 kg/m2 Martina Saad Other [employer] Other 05-30-2023 10:40-0500 Body weight 70.31 kg Martina Saad Other [employer] Other 05-30-2023 10:40-0500 Diastolic blood pressure 68 mm[Hg] Martina Saad Other [employer] Other 05-30-2023 10:40-0500 Respiratory rate 18 /min Martina Saad Other [employer] Other 05-30-2023 10:40-0500 SaO2% (BldA) [Mass fraction] 97 % Martina Saad Other [employer] Other 05-30-2023 10:40-0500 Systolic blood pressure 134 mm[Hg] Martina Saad Other [employer] Other 04-17-2023 12:00-0400 Body temperature 97.9 [degF] II Jason Wyatt Work Phone: [facility] 04-17-2023 12:00-0400 Diastolic blood pressure 75 mm[Hg] II Jason Wyatt Work Phone: [facility] 04-17-2023 12:00-0400 Heart rate 55 /min II Jason Wyatt Work Phone: [facility] 04-17-2023 12:00-0400 Respiratory rate 16 /min II Jason Wyatt Work Phone: [facility] 04-17-2023 12:00-0400 SaO2% (BldA) [Mass fraction] 98 % II Jason Wyatt Work Phone: [facility] 04-17-2023 12:00-0400 Systolic blood pressure 158 mm[Hg] II Jason Wyatt Work Phone: [facility] 04-17-2023 05:32-0400 Body weight 71.4 kg II Jason Wyatt Work Phone: [facility] 04-14-2023 15:19-0400 Body height 139.7 cm II Jason Wyatt Work Phone: [facility] 04-13-2023 23:41-0400 Diastolic blood pressure 90 mm[Hg] II Jason Wyatt Work Phone: [facility] 04-13-2023 23:41-0400 Heart rate 54 /min II Jason Wyatt Work Phone: [facility] 04-13-2023 23:41-0400 Respiratory rate 18 /min II Jason Wyatt Work Phone: [facility] 04-13-2023 23:41-0400 SaO2% (BldA) [Mass fraction] 95 % II Jason Wyatt Work Phone: [facility] 04-13-2023 23:41-0400 Systolic blood pressure 182 mm[Hg] II Jason Wyatt Work Phone: [facility] 04-13-2023 22:15-0400 Body temperature 98 [degF] II Jason Wyatt Work Phone: [facility] 04-13-2023 18:32-0400 Body height 139.7 cm II Jason Wyatt Work Phone: [facility] 04-13-2023 18:32-0400 Body weight 70.3 kg II Jason Wyatt Work Phone: [facility] Encounters Encounter Date Encounter Type Care Provider Facility Start: 01-06-2025 End: 01-10-2025 Telephone encounter Delma Villarreal [employer] Work Phone: [facility] Start: 01-02-2025 End: 01-02-2025 ambulatory SECTION HAND MARNIE MCKEON Facility:[facility] Start: 01-02-2025 End: 01-02-2025 Patient encounter procedure MARNIE MCKEON [facility] Start: 12-28-2024 End: 12-30-2024 Refill Jason Wyatt MD Work Phone: [facility] Comment on above: Primary osteoarthrit is involving multiple joints Start: 12-26-2024 End: 12-27-2024 Pre-admission assessment Jarred Aguillon [facility] Start: 12-23-2024 End: 12-23-2024 Lab Drop off Jarred Pal [facility] Start: 12-23-2024 End: 12-23-2024 ambulatory Jarred Aguillon Facility:[facility] Start: 12-23-2024 End: 12-23-2024 Patient encounter procedure Jarred Aguillon [facility] Start: 12-04-2024 End: 12-04-2024 ambulatory Hemant Espana Facility:[facility] Start: 12-04-2024 End: 12-04-2024 Patient encounter procedure Hemant Espana [facility] Start: 11-21-2024 End: 11-21-2024 Bamboo flowsheet Elvira Bartlett PA Work Phone: [facility] Start: 11-21-2024 End: 11-21-2024 Bamboo flowsheet Elvira Bartlett PA Work Phone: [facility] Start: 11-21-2024 End: 11-21-2024 Office outpatient visit 25 minutes Elvira Bartlett PA Work Phone: [facility] Comment on above: Foot sprain, left, s equela (Primary Dx); Hyperuricemia; Grief reaction Start: 11-21-2024 End: 11-21-2024 ambulatory ELVIRA BARTLETT Not Available Start: 11-07-2024 End: 11-07-2024 ambulatory [facility] Start: 11-07-2024 End: 11-07-2024 Subsequent hospital visit by physician Ashleigh Segal [facility] Comment on above: Cardiac pacemaker in situ; Sinoatrial node dysfunction (Multi) Start: 10-21-2024 End: 10-21-2024 Office outpatient visit 25 minutes Jason Wyatt MD Work Phone: [facility] Comment on above: Type 2 diabetes bipin itus with other diabetic kidney complication (Primary Dx); CKD (chronic kidney disease) stage 4, GFR 15-29 ml/min (CMS/HCC); Essential hypertension ([facility]); Systolic dysfunction, left ventricle Start: 10-21-2024 End: 10-21-2024 ambulatory JASON WYATT Not Available Start: 10-17-2024 End: 10-18-2024 ambulatory Jarred Aguillon Facility:[facility] Start: 10-17-2024 End: 10-18-2024 Patient encounter procedure Jarred Aguillon [facility] Start: 10-17-2024 End: 10-18-2024 ambulatory JASON WYATT Facility:[facility] Start: 10-17-2024 End: 10-18-2024 Patient encounter procedure Jarred Aguillon [facility] Start: 10-01-2024 ambulatory Hemant Espana Facility:[facility] Start: 09-25-2024 End: 09-25-2024 Orders Only Elvira COLBY Work Phone: [facility] Comment on above: CKD (chronic kidney disease) stage 4, GFR 15-29 ml/min ([facility]) (Primary Dx); Essential hypertension ([facility]); Anemia of chronic disease Start: 09-17-2024 End: 09-18-2024 Telephone encounter Luna Venegas DIETARY SERVICES MANAGER Work Phone: [facility] Start: 09-10-2024 End: 09-10-2024 Bamboo flowsheet Elvira Bartlett PA Work Phone: [facility] Start: 09-10-2024 End: 09-10-2024 Bamboo flowsheet Elvira Bartlett PA Work Phone: [facility] Start: 09-10-2024 End: 09-10-2024 Office outpatient visit 25 minutes Elvira Bartlett PA Work Phone: [facility] Comment on above: Acute gout involving toe of right foot, unspecified cause (Primary Dx); MORRIS (acute kidney injury) ([facility]); Anemia, unspecified type; Systolic dysfunction, left ventricle Start: 09-10-2024 End: 09-10-2024 ambulatory ELVIRA BARTLETT Not Available Start: 08-21-2024 End: 08-21-2024 Bamboo flowsheet Jason Wyatt MD Work Phone: [facility] Start: 08-21-2024 End: 08-21-2024 Bamboo flowsheet Jason Wyatt MD Work Phone: [facility] Start: 08-21-2024 End: 08-21-2024 Office outpatient visit 25 minutes Jason Wyatt MD Work Phone: [facility] Comment on above: Coronary artery dise ase involving [place] coronary artery of [place] heart without angina pectoris (CMS/HCC) (Primary Dx); Hemiplegia and hemiparesis following cerebral infarction affecting right dominant side (CMS/HCC); Other secondary pulmonary hypertension (CMS/HCC); Morbid (severe) obesity due to excess calories (CMS/HCC); Major depressive disorder, recurrent, moderate (CMS/HCC); Type 2 diabetes mellitus with diabetic chronic kidney disease (CMS/HCC); Chronic kidney disease, stage 3b (HCC) (CMS/HCC); Type 2 diabetes mellitus with other specified complication (CMS/HCC); Hyperlipidemia, unspecified (CMS/HCC); Inflammatory polyarthropathy (CMS/HCC); Primary osteoarthritis involving multiple joints Start: 08-21-2024 End: 08-21-2024 ambulatory JASON WYATT Not Available Start: 07-29-2024 End: 07-29-2024 ambulatory [facility] Start: 07-29-2024 End: 07-29-2024 Subsequent hospital visit by physician Ashleigh Segal [facility] Comment on above: Cardiac pacemaker in situ; Sinoatrial node dysfunction (Multi) Start: 2024 End: 07-26-2024 Pre-admission assessment Dom Garcia [facility] Start: 07-12-2024 End: 07-12-2024 Refadwoa Wyatt MD Work Phone: [facility] Comment on above: Mixed hyperlipidemia (CMS/HCC) Start: 06-08-2024 End: 06-10-2024 Refadwoa COLBY Work Phone: [facility] Comment on above: 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 (CMS/HCC); Mixed hyperlipidemia (CMS/HCC) Start: 06-07-2024 End: 06-07-2024 Refadwoa Wyatt MD Work Phone: [facility] Comment on above: 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 (CMS/HCC) Start: 06-07-2024 End: 06-12-2024 Telephone encounter Kim Monday DIETARY SERVICES MANAGER Work Phone: [facility] Start: 06-06-2024 End: 06-06-2024 Bamboo flowsheet Jason Wyatt MD Work Phone: [facility] Start: 06-06-2024 End: 06-06-2024 Bamboo flowsheet Jason Wyatt MD Work Phone: [facility] Start: 06-06-2024 End: 06-06-2024 Office outpatient visit 25 minutes Jason Wyatt MD Work Phone: [facility] Comment on above: 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 (CMS/HCC) (Primary Dx); Chronic kidney disease, stage 3b (HCC) (CMS/HCC); Morbid (severe) obesity due to excess calories (CMS/HCC); Essential (primary) hypertension (CMS/HCC); Body mass index (BMI) 35.0-35.9, adult; Major depressive disorder, recurrent, moderate (CMS/HCC); Chronic pruritus Start: 06-06-2024 End: 06-06-2024 ambulatory JASON WYATT Not Available Start: 05-29-2024 End: 05-29-2024 ambulatory Hemant Espana Facility:[facility] Start: 05-29-2024 End: 05-29-2024 Patient encounter procedure Hemant Espana [facility] Start: 05-07-2024 End: 05-07-2024 ambulatory JASON Ana [facility] Start: 04-30-2024 End: 04-30-2024 Subsequent hospital visit by physician Carmelina Willams MD Work Phone: [facility] Comment on above: Abnormal EKG (Primar y Dx); Sinus node dysfunction (Multi); Pacemaker Start: 04-25-2024 End: 04-25-2024 ambulatory Hemant Espana Facility:[facility] Start: 04-25-2024 End: 04-25-2024 Patient encounter procedure Hemant Espana [facility] Start: 04-24-2024 End: 04-24-2024 ambulatory Hemant Espana Facility:[facility] Start: 04-24-2024 End: 04-24-2024 Patient encounter procedure Deangelo Schaeffer [facility] Start: 04-24-2024 End: 04-24-2024 Telephone encounter Izabel Collins [employer]ER [employer]ER Work Phone: [facility] Comment on above: HST FYI Start: 04-17-2024 End: 04-17-2024 ambulatory JASON Perez [facility] Start: 04-17-2024 End: 04-17-2024 Office outpatient new 60 minutes Carmelina Willams MD Work Phone: [facility] Comment on above: Abnormal EKG (Primar y Dx) Start: 04-17-2024 End: 04-17-2024 [facility] Start: 04-02-2024 End: 04-02-2024 ambulatory Hemant Espana Facility:[facility] Start: 04-02-2024 End: 04-02-2024 Patient encounter procedure Hemant Espana [facility] Start: 03-21-2024 End: 03-21-2024 ambulatory MONIKA Espana Facility:[facility] Start: 03-21-2024 End: 03-21-2024 Patient encounter procedure Hemant Espana [facility] Start: 03-19-2024 End: 03-19-2024 Office outpatient visit 25 minutes Izabel Collins [employer] Work Phone: [facility] Comment on above: 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 (CMS/HCC) (Primary Dx); Hypersomnia; Nocturnal dyspnea Start: 03-19-2024 End: 03-19-2024 ambulatory IZABEL COLLINS Not Available Start: 03-19-2024 End: 03-19-2024 Bamboo flowsheet Izabel Collins [employer] [facility] Start: 03-19-2024 End: 03-19-2024 Bamboo flowsheet Izabel Collins [employer]ER [employer]ER Work Phone: [facility] Start: 03-06-2024 End: 03-06-2024 Bamboo flowsheet Jason Wyatt MD Work Phone: [facility] Start: 03-06-2024 End: 03-06-2024 Bamboo flowsheet Jason Wyatt MD Work Phone: [facility] Start: 03-06-2024 End: 03-06-2024 Assay of hemosiderin, quant Jason Wyatt MD Work Phone: [facility] Start: 03-06-2024 End: 03-06-2024 Patient encounter procedure Jason Wyatt MD Work Phone: [facility] Comment on above: Routine general medi liban examination at health care facility (Primary Dx); ACP (advance care planning); 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); Cerebrovascular accident (CVA) due to thrombosis of cerebral artery (CMS/HCC); Hemiparesis affecting right side as late effect of cerebrovascular accident (CMS/HCC); Coronary artery disease involving [place] coronary artery of [place] heart without angina pectoris (CMS/HCC); 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); Chronic kidney disease, stage 3a (HCC) (CMS/HCC); Type 2 diabetes mellitus with other specified complication (CMS/HCC); Hyperlipidemia, unspecified (CMS/HCC); Inflammatory polyarthropathy (CMS/HCC); Other secondary pulmonary hypertension (CMS/HCC); Acute non-recurrent pansinusitis Start: 03-06-2024 End: 03-06-2024 ambulatory JASON WYATT Not Available Start: 01-24-2024 End: 01-24-2024 ambulatory XXXX NONE Facility:[facility] Start: 01-24-2024 End: 01-24-2024 Patient encounter procedure Dom Garcia [facility] Start: 01-12-2024 End: 01-12-2024 ambulatory Jason Wyatt Facility:[facility] Start: 12-20-2023 End: 12-20-2023 ambulatory JASON WYATT Not Available Start: 12-18-2023 End: 12-18-2023 ambulatory Dom D Negralori Facility:[facility] Start: 12-18-2023 End: 12-18-2023 Patient encounter procedure Dom D Kirnus [facility] Start: 12-18-2023 End: 12-18-2023 ambulatory JASON WYATT Facility:[facility] Start: 12-18-2023 End: 12-18-2023 Patient encounter procedure Dom Abdifatah Negranus [facility] Start: 11-16-2023 End: 11-16-2023 Patient encounter procedure II Jason Wyatt Work Phone: [facility] Work Phone: Start: 11-16-2023 End: 11-16-2023 Patient encounter procedure II Jason Wyatt Work Phone: [facility] [place] Work Phone: Start: 11-16-2023 End: 11-16-2023 ambulatory II Jason Wyatt Work Phone: [facility] Work Phone: Start: 11-03-2023 End: 11-03-2023 ambulatory II Jason Wyatt Work Phone: [facility] Work Phone: Start: 11-03-2023 End: 11-03-2023 Patient encounter procedure II Jason Wyatt Work Phone: [facility] [facility] Work Phone: Start: 10-02-2023 End: 10-02-2023 ambulatory II Jason Wyatt Work Phone: [facility] Work Phone: Start: 10-02-2023 End: 10-02-2023 Patient encounter procedure II Jason Wyatt Work Phone: [facility] Work Phone: Start: 09-01-2023 Non-patient / Non-visit II Ken Wyatt Work Phone: [facility] Work Phone: Start: 09-01-2023 End: 09-01-2023 Admission to same day surgery center II Jason Wyatt Work Phone: [facility]Dietitian Therapeutic Work Phone: Start: 09-01-2023 End: 09-01-2023 ambulatory II Jason Wyatt Work Phone: [facility] Work Phone: Start: 08-30-2023 End: 08-30-2023 Patient encounter procedure II Jason Wyatt Work Phone: [facility] Work Phone: Start: 08-30-2023 End: 08-30-2023 ambulatory II Jason Wyatt Work Phone: [facility] Work Phone: Start: 08-21-2023 End: 08-21-2023 ambulatory Martina Nash Other [facility] [employer] Other Start: 08-21-2023 Office outpatient vi sit 25 minutes Martina Nash [facility] Start: 08-21-2023 End: 08-21-2023 Patient encounter procedure II Jason Wyatt Work Phone: [facility]- Start: 08-01-2023 End: 08-01-2023 Patient encounter procedure II Jason Wyatt Work Phone: [facility]Nuc Med [place] Work Phone: Start: 08-01-2023 End: 08-01-2023 ambulatory Jason Wyatt Facility:[facility] Start: 07-18-2023 End: 07-18-2023 ambulatory Martina Paoroge Other [facility] [employer] Other Start: 07-18-2023 Telephone encounter Martina Saad [facility] Start: 05-30-2023 End: 05-30-2023 ambulatory Martina Saad Other [employer] Other Start: 05-30-2023 Office outpatient vi sit 25 minutes Martina Nash [facility] Start: 04-17-2023 End: 04-17-2023 ambulatory II Jason Wyatt Work Phone: [facility] Work Phone: Start: 04-17-2023 End: 04-17-2023 Patient encounter procedure II Jasonwil Wyatt Work Phone: [facility]-Electrodiagnostics Work Phone: Start: 04-14-2023 End: 04-17-2023 Evaluation and management of inpatient II Jason Wyatt Work Phone: [facility] [place] [facility] Work Phone: Start: 04-13-2023 Evaluation and manag ement of inpatient II Jasonwil Wyatt Work Phone: [facility] [place] [facility] Work Phone: Start: 04-13-2023 observation encounter II Edin Wyatt Work Phone: [facility] Work Phone: Start: 06-01-2022 End: 06-02-[address] JASON WYATT Facility: Start: 12-08-2021 End: 12-08-2021 Patient encounter procedure II Jason Wyatt Work Phone: [facility] Start: 11-30-2021 End: 11-30-2021 Patient encounter procedure II Jasonwil Wyatt Work Phone: [facility] Start: 07-13-2021 End: 07-13-[address] JASON WYATT Facility:H1 Procedures Date Procedure Procedure Detail Performing Clinician Start: 11-07-2024 Rem interrog pm/ldls pm/ids <90 d tech review Carmelina Willams MD Work Phone: Start: 10-21-2024 Hemoglobin glycosylated a1c Jason Wyatt MD Work Phone: Start: 08-21-2024 Hemoglobin glycosylated a1c Jason Wyatt MD Work Phone: Start: 06-06-2024 Hemoglobin glycosylated a1c Jason Wyatt MD Work Phone: Start: 04-30-2024 Ecg routine ecg w/le ast 12 lds trcg only w/o i&r Lizbet Madhu Morel [employer] Work Phone: Start: 04-30-2024 Basic metabolic pane l calcium total Lizbet M Kovalskfrandy [employer] Work Phone: Start: 04-30-2024 Ecg routine ecg w/le ast 12 lds trcg only w/o i&r Lizbet Madhu Morel [employer] 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[employer] Work Phone: Start: 04-17-2024 Ecg routine ecg w/le ast 12 lds i&r only Carmelina Willams MD Work Phone: Start: 04-16-2024 Cardiac pacemaker, d evice (physical object) [facility] Start: 03-06-2024 Hemoglobin glycosylated a1c Jason Wyatt MD Work Phone: Start: 01-12-2024 Mammography Jason camp MD Work Phone: Start: 09-01-2023 CL LHC & COR Angio II D jarek Wyatt Work Phone: Start: 09-01-2023 Cardiac catheterization Dom Garcia Start: 08-01-2023 Radionuclide myocard ial perfusion stress study II Jason Wyatt Work Phone: Start: 04-14-2023 Doppler ultrasonogra phy of bilateral carotid arteries II Jason Wyatt Work Phone: Start: 04-14-2023 MRI of head II Jason Wyatt Work Phone: Start: 04-13-2023 CT angiography of head II Jason Wyatt Work Phone: Start: 04-13-2023 CT angiography of ne ck vessels II Jason Wyatt Work Phone: Start: 04-13-2023 CT of head without contrast II Jason Wyatt Work Phone: Start: 12-08-2021 Mammography of left breast II Jason Wyatt Work Phone: Start: 12-08-2021 Ultrasonography of l eft breast II Jason Wyatt Work Phone: Start: 11-30-2021 Screening mammograph y of bilateral breasts II Jason Wyatt Work Phone: H/O: hysterectomy Martina Njor bridget Other Plan of Treatment Date Care Activity Detail Author Start: 11-21-2025 Screening for malignant neoplasm of colon Colorectal Cancer Screening [facility] Comment on above: Postponed from 1955 (Patient Refus ed) Start: 03-17-2025 Influenza vaccination Influenza Vaccine (Season Ended) [facility] Start: 03-06-2025 Medicare Annual Wellness (AWV) Medicare Annual Wellness (AWV) [facility] Start: 03-06-2025 Urine screening for protein Diabetes: Urine Protein Screening [facility] Start: 01-20-2025 Hemoglobin A1c measurement Diabetes: Hemoglobin A1C [facility] Start: 01-20-2025 End: 01-20-2025 Patient encounter procedure 01/20/2025 9:00 AM EDT Office Visit [facility] [address] [facility] [address] [place] [phone] Jason Wyatt MD [address] [facility] [address] [place] [address] [facility] Start: 01-11-2025 Screening for malignant neoplasm of breast Mammogram [facility] Start: 11-21-2024 End: 11-21-2024 Patient encounter procedure 11/21/2024 10:00 AM EDT Office Visit [facility] [address] [place] [address] [place] [phone] Elvira Bartlett PA [address] [place] [address] [place] [address] Arrived [facility] Comment on above: Arrived Start: 11-18-2024 Hemoglobin A1c measurement Diabetes: Hemoglobin A1C [facility] Start: 10-21-2024 End: 10-21-2024 Patient encounter procedure 10/21/2024 9:15 AM EDT Office Visit [facility] [address] [place] [address] [place] [address] Jason Wyatt MD [address] [place] [address] [place] [address] [facility] Start: 09-25-2024 End: 09-25-2025 Basic metabolic 1998 panel - Serum or Plasma Basic metabolic panel Lab Routine CKD (chronic kidney disease) stage 4, GFR 15-29 ml/min (CMS/HCC) Essential hypertension (CMS/HCC) Expected: 09/25/2024 (Approximate), Expires: 09/25/2025 [facility] Comment on above: Expected: 09/25/2024 (Approximate), Expi res: 09/25/2025 Start: 09-25-2024 End: 09-25-2025 CBC panel - Blood by Automated count CBC Lab Routine CKD (chronic kidney disease) stage 4, GFR 15-29 ml/min (CMS/HCC) Essential hypertension (CMS/HCC) Anemia of chronic disease Expected: 09/25/2024 (Approximate), Expires: 09/25/2025 [facility] Work Phone: Comment on above: Expected: 09/25/2024 (Approximate), Expi res: 09/25/2025 Start: 09-25-2024 End: 09-25-2025 Iron + transferrin + TIBC Iron + transferrin + TIBC Lab Routine CKD (chronic kidney disease) stage 4, GFR 15-29 ml/min ([facility] Anemia of chronic disease Expected: 09/25/2024 (Approximate), Expires: 09/25/2025 [facility] Comment on above: Expected: 09/25/2024 (Approximate), Expi res: 09/25/2025 Start: 09-17-2024 End: 09-10-2025 Basic metabolic 1998 panel - Serum or Plasma Basic metabolic panel Lab Routine MORRIS (acute kidney injury) ([facility]) Systolic dysfunction, left ventricle Expected: 09/17/2024 (Approximate), Expires: 09/10/2025 [facility] Comment on above: Expected: 09/17/2024 (Approximate), Expi res: 09/10/2025 Start: 09-17-2024 End: 09-10-2025 CBC panel - Blood by Automated count CBC Lab Routine MORRIS (acute kidney injury) ([facility]) Anemia, unspecified type Expected: 09/17/2024 (Approximate), Expires: 09/10/2025 [facility] Work Phone: Comment on above: Expected: 09/17/2024 (Approximate), Expi res: 09/10/2025 Start: 09-17-2024 End: 09-10-2025 Natriuretic peptide B [Mass/volume] in Blood B-type natriuretic peptide Lab Routine Systolic dysfunction, left ventricle Expected: 09/17/2024 (Approximate), Expires: 09/10/2025 [facility] Comment on above: Expected: 09/17/2024 (Approximate), Expi res: 09/10/2025 Start: 09-17-2024 End: 09-10-2025 Urate [Mass/volume] in Serum or Plasma Uric acid Lab Routine Acute gout involving toe of right foot, unspecified cause Expected: 09/17/2024 (Approximate), Expires: 09/10/2025 [facility] Comment on above: Expected: 09/17/2024 (Approximate), Expi res: 09/10/2025 Start: 09-10-2024 End: 09-10-2024 Patient encounter procedure 09/10/2024 9:00 AM EST Office Visit [facility] [address] [place] [address] Elvira Bartlett PA [address] [place] [address] Arrived [facility] Comment on above: Arrived Start: 09-06-2024 Hemoglobin A1c measurement Diabetes: Hemoglobin A1C [facility] Start: 08-21-2024 End: 08-21-2024 Patient encounter procedure 08/21/2024 11:00 AM EST Office Visit [facility] [address] [place] [address] Jason Wyatt MD [address] [place] [address] Arrived [facility] Comment on above: Arrived Start: 08-07-2024 End: 08-07-2024 Patient encounter procedure 08/07/2024 10:00 AM EST Office Visit [facility] [address] [place] [address] Jason Wyatt MD [address] [place] [address] [place] [address] [facility] Start: 08-06-2024 End: 08-06-2024 Patient encounter procedure [facility] Start: 08-05-2024 End: 04-30-2025 Cardiac Device Check - In Clinic Cardiac Device Check - In Clinic Implantable Cardiac Device Routine Sinus node dysfunction (Multi) Expected: 08/05/2024 (Approximate), Expires: 04/30/2025 [facility] Service Area Work Phone: Comment on above: Expected: 08/05/2024 (Approximate), Expi res: 04/30/2025 Start: 06-12-2024 End: 06-12-2024 Patient encounter procedure 06/12/2024 1:40 PM EST Office Visit [facility] [place] [facility] [address] [place] [address] Sara Brewer PA [address] [place] [address] [facility] Start: 06-11-2024 End: 06-11-2024 Patient encounter procedure 06/11/2024 10:40 AM EST Office Visit [facility] [place] [address] [place] [id number] Izabel Collins, RUBBER GRINDER [address] [place] [address] [facility] [facility] Start: 06-06-2024 Hemoglobin A1c measurement Diabetes: Hemoglobin A1C [facility] Start: 06-06-2024 End: 06-06-2024 Patient encounter procedure [facility] Comment on above: Arrived Start: 05-17-2024 Urine screening for protein Diabetes: Urine Protein Screening [facility] Start: 05-13-2024 End: 05-13-2024 Clinical Support 05/13/2024 9:45 AM EDT Clinical Support [facility] [address] [facility] [address] [place] [address] [facility] Start: 05-11-2024 Glaucoma screening Diabetes: Retinopathy Screening [facility] Start: 05-07-2024 End: 05-07-2024 Clinical Support 05/07/2024 10:00 AM EDT Clinical Support [facility] [address] [phone] [facility] Start: 04-30-2024 Subsequent hospital visit by physician 04/30/2024 Hospital Encounter [facility] [address] [place] [phone] Carmelina Willams MD [address] [place] [address] [facility] Start: 04-17-2024 End: 04-17-2025 Blood type and Indirect antibody screen panel - Blood Type And Screen Lab Routine Abnormal EKG Expected: 04/17/2024 (Approximate), Expires: 04/17/2025 [facility] Service Area Work Phone: Comment on above: Expected: 04/17/2024 (Approximate), Expi res: 04/17/2025 Start: 03-21-2024 Hemoglobin A1c measurement Diabetes: Hemoglobin A1C [facility] Start: 03-19-2024 End: 03-19-2024 Patient encounter procedure [facility] [place] [facility] Comment on above: Arrived Start: 03-19-2024 End: 03-19-2025 Home sleep test Home sleep test [facility] Center Routine Cerebrovascular accident (CVA) due to thrombosis of cerebral artery (CMS/HCC) Hypersomnia Nocturnal dyspnea Expected: 03/19/2024 (Approximate), Expires: 03/19/2025 [facility] Work Phone: Comment on above: Expected: 03/19/2024 (Approximate), Expi res: 03/19/2025 Start: 03-17-2024 COVID-19 Vaccine ( season) COVID-19 Vaccine ( season) [facility] Start: 03-17-2024 COVID-19 Vaccine ( season) COVID-19 Vaccine ( season) [facility] Start: 03-17-2024 COVID-19 Vaccine ( season) COVID-19 Vaccine ( season) [facility] Start: 03-17-2024 Influenza vaccination Influenza Vaccine (#1) [facility] Start: 03-09-2024 Medicare Annual Wellness (AWV) Medicare Annual Wellness (AWV) [facility] Start: 03-06-2024 End: 03-06-2025 Comprehensive metabolic 2000 panel - Serum or Plasma Comprehensive metabolic panel Lab Routine 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) Coronary artery disease involving [place] coronary artery of [place] heart without angina pectoris (CMS/HCC) Expected: 03/06/2024 (Approximate), Expires: 03/06/2025 [facility] Work Phone: Comment on above: Expected: 03/06/2024 (Approximate), Expi res: 03/06/2025 Start: 03-06-2024 End: 03-06-2024 Patient encounter procedure 03/06/2024 9:00 AM EDT Office Visit [facility] [address] [facility] [address] [place] [phone] Jason Wyatt MD [address] [facility] [address] [place] [address] Arrived [facility] Comment on above: Arrived Start: 10-02-2023 Patient referral [facility] Work Phone: Start: 09-01-2023 [facility] Start: 04-17-2023 [facility] Start: 04-14-2023 MRI of head MR head/brain wo [facility] Start: 04-14-2023 End: 04-14-2023 [facility] Start: 04-14-2023 Hospital admission [facility] Start: 04-14-2023 Referral to neurologist [facility] Start: 04-14-2023 Referral to speech and language therapy service [facility] Start: 04-14-2023 [facility] Start: 04-13-2023 CT angiography of head [facility] Start: 04-13-2023 CT angiography of neck vessels [facility] Start: 04-13-2023 CT Head WO contrast [facility] Start: 04-13-2023 CT of head without contrast CT head stroke alert wo con [facility] Start: 07-17-2015 Pneumococcal vaccination Pneumococcal Vaccine (2 of 2 - PCV) [facility] Start: 07-17-2015 Pneumococcal Vaccine: 65+ Years (2 of 2 - PCV) Pneumococcal Vaccine: 65+ Years (2 of 2 - PCV) [facility] Start: 2014 RSV High Risk: (Elderly (60+) or Population) (1 - Risk 60-74 years 1-dose series) RSV High Risk: (Elderly (60+) or Population) (1 - Risk 60-74 years 1-dose series) [facility] Start: 2014 RSV patients and/or patients aged 60+ years (1 - 1-dose 60+ series) RSV patients and/or patients aged 60+ years (1 - 1-dose 60+ series) [facility] Start: 2004 Zoster Vaccines (1 of 2) Zoster Vaccines (1 of 2) [facility] Start: 1976 DTaP/Tdap/Td Vaccines (1 - Tdap) DTaP/Tdap/Td Vaccines (1 - Tdap) [facility] Start: 1972 Diabetes mellitus screening Diabetes Screening [facility] Start: 1972 Hepatitis C screening Hepatitis C Screening [facility] Start: 1954 Lipid panel Lipid Panel [facility] Start: 1954 Medicare Annual Wellness Visit Medicare Annual Wellness Visit (AWV) [facility] Start: 1955 Screening for malignant neoplasm of colon [facility] Calculated LDL kristyn sterol level [facility] End: 07-29-2024 Cardiac Device Check - Remote [facility] Work Phone: Comment on above: Once for 1 Occurrences starting 07/29/19 until 07/29/2024 Cardiac Device Check - Remote Cardiac Device Check - Remote Implantable Cardiac Device Routine Cardiac pacemaker in situ Sinoatrial node dysfunction (Multi) 11/07/2024 8:22 AM [facility] Work Phone: Cholesterol.total/Ch oleste rol in HDL [Mass Ratio] in Serum or Plasma [facility] ECG 12 lead STAT ECG 12 lead STA T ECG STAT 04/30/2024 11:42 AM [facility] Work Phone: ECG 12 lead STAT ECG 12 lead STA T ECG STAT 04/30/2024 3:50 PM [facility] Work Phone: End: 04-17-2024 Electrophysiology study [facility] Work Phone: Comment on above: Once for 1 Occurrences starting 04/17/20 24 until 04/17/2024 Glucose measurement estimated from glycated hemoglobin [facility] Microalbumin/Creatin ine panel in random Urine Microalbumin / creatinine urine ratio Lab Routine 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) Ordered: 03/06/2024 [facility] Comment on above: Ordered: 03/06/2024 Patient referral [facility] Work Phone: PPM IMPLANT DC PPM IMPLANT DC A bnormal EKG [facility] Work Phone: US Heart Transthoracic [facility] VLDL cholesterol measurement [facility] End: 04-30-2024 XR Chest 2 Views [facility] Service Area Work Phone: Comment on above: Once for 1 Occurrences starting 04/30/20 until 04/30/2024 [facility] Immunizations Immunization Date Immunization Notes Care Provider Fa cility 06-16-2022 influenza, high dose seasonal, preservative-free Jason Wyatt MD Work Phone: [facility] 06-16-2022 influenza virus vacc ine, unspecified formulation Jason Wyatt MD Work Phone: [facility] 06-09-2021 COVID-19 mRNA, Comir bhavani (Pfizer) II Jason Wyatt Work Phone: [facility] 06-09-2021 influenza, high dose seasonal, preservative-free Jason Wyatt MD Work Phone: [facility] 10-08-2020 COVID-19 mRNA, Comir bhavani (Pfizer) II Jason Wyatt Work Phone: [facility] 09-17-2020 COVID-19 mRNA, Comir bhavani (Pfizer) II Jason Wyatt Work Phone: [facility] 07-19-2017 seasonal influenza, intradermal, preservative free Jason Wyatt MD Work Phone: [facility] 07-17-2014 pneumococcal polysaccharide vaccine, 23 valent Martina Nash Other [facility] Payers Date Payer Category Payer Medicare [id number] [facility] 04-13-2023 Medicare [id number] 04-13-2023 Self-pay [id number] 07-17-2022 Medicare (Managed Care) 1.2. [id number] 07-17-2022 Unknown [id number] [id number] 07-17-2022 Medicare [id number] 07-17-1960 Medicare [id number] 07-17-1960 Private Health Insurance [id number] 1954 Unknown [id number] 2.16.840.1.876524.3.579.2.593 1954 Unknown [id number] 2.16.840.1.536654.3.579.2.593 1954 Unknown [id number] 2.16.840.1.040550.3.579.2.727 1954 Unknown [id number] 2.16.840.1.696966.3.579.2.727 1954 Unknown [id number] 2.16.840.1.600948.3.579.2.727 1954 Unknown [id number] 2.16.840.1.150072.3.579.2.727 1954 Unknown [id number] 2.16.840.1.190400.3.579.2.727 1954 Unknown [id number] 2.16.840.1.016773.3.579.2.1244 1954 Unknown [id number] 2.16.840.1.628901.3.579.2.124 1954 Unknown [id number] 2.16.840.1.676018.3.579.2.1245 1954 Unknown [id number] 2.16.840.1.895146.3.579.2.1245 1954 Unknown [id number] 2.16.840.1.839258.3.579.2.1245 1954 Unknown [id number] 2.16.840.1.644416.3.579.2.124 1954 Unknown [id number] 2.16.840.1.517368.3.579.2.1258 1954 Unknown [id number] 2.16.840.1.666643.3.579.2.1258 1954 Unknown [id number] 2.16.840.1.763387.3.579.2.1258 1954 Unknown [id number] 2.16.840.1.117951.3.579.2.1258 1954 Unknown [id number] 2.16.840.1.420775.3.579.2.1258 1954 Unknown [id number] 2.16.840.1.074462.3.579.2.1258 1954 Unknown [id number] 2.16.840.1.929816.3.579.2.1258 1954 Unknown [id number] 2.16.840.1.677879.3.579.2.1258 1954 Unknown [id number] 2.16.840.1.046136.3.579.2. 1954 Unknown [id number] 2.16.840.1.715053.3.579.2.72 1954 Unknown [id number] 2.16.840.1.605453.3.579.2.727 1954 Unknown [id number] 2.16.840.1.630048.3.579.2.727 1954 Unknown [id number] 2.16.840.1.501637.3.579.2.727 1954 Unknown [id number] 2.16.840.1.936283.3.579.2. 1954 Unknown [id number] 2.16.840.1.819294.3.579.2. 1954 Unknown [id number] 2.16.840.1.443754.3.579.2. 1954 Unknown [id number] 2.16.840.1.347675.3.579.2. 1954 Unknown [id number] 2.16.840.1.890932.3.579.2. Medicare Medicare [id number] Medicare [place] MCR PFFS [id number] Private Health Insurance [employer] MCR PFFS M [id number] Unknown [id number] 2.16.840.1.896747.3.579.2.531 Unknown [id number] 2.16.840.1.795645.3.579.2.531 Unknown [id number] 2.16.840.1.448340.3.579.2.531 Unknown [id number] 2.16.840.1.666087.3.579.2.531 Unknown [id number] 2.16.840.1.089337.3.579.2.531 Unknown [id number] 2.16.840.1.915294.3.579.2.531 Unknown [id number] 2.16.840.1.916419.3.579.2.531 Social History Date Type Detail Facility Tobacco smoking stat us OKIS Unknown if ever smoked [facility] Work Phone: Start: 1955 Sex Assigned At Female F [facility] Start: 12-27-2022 End: 04-13-2023 Tobacco smoking status NHIS Never smoked tobacco (finding) [facility] Start: 03-02-2023 End: 04-17-2024 Sex Assigned At [facility] Tobacco smoking status [facility] Tobacco smoking status Never [facility] Start: 12-27-2022 End: 04-17-2024 Tobacco use and exposure Smokeless tobacco non-user [facility] Start: 04-17-2024 End: 05-01-2024 Alcoholic beverage intake Ex-drinker (finding) [facility] Work Phone: Start: 03-02-2023 End: 04-17-2024 History of Social function [facility] Work Phone: Start: 03-21-2024 Gender identity Identifies as female gender (finding) [facility] Work Phone: Start: 03-21-2024 Sexual orientation Choose not to dis close [facility] Work Phone: Start: 04-07-2024 End: 04-30-2024 Exposure to SARS-CoV-2 (event) Not sure [facility] Start: 03-06-2024 End: 11-21-2024 Alcoholic beverage intake Lifetime non-drinker (finding) [facility] Within the last year , have you been afraid of your partner or ex-partner? No [facility] Are you now , , , , never or living with a partner? [facility] How often to you hav e a drink containing alcohol? Never [facility] Do you feel stress - tense, restless, nervous, or anxious, or unable to sleep at night because your mind is troubled all the time - these days [OSQ] To some extent [facility] (I/We) worried wheth er (my/our) food would run out before (I/we) got money to buy more. Never true [facility] Start: 1955 Sex assigned at Not on file [facility] Start: 01-15-2020 Sex Female (finding) [facility] Medical Equipment Procedure Code Equipment Code Equipment Origin al Text Equipment Identifier Dates Start: 10-12-2018 Lead, Pacemaker, Ultipace 58cm - [id number] - [id number] Start: 04-30-2024 Lead, Pacemaker, Ultipace 52cm - [id number] - [id number] Start: 04-30-2024 Pacemaker, Generator, Dual Assurity Mri - [id number] - [id number] Start: 04-30-2024 Goals Date Patient Goal Desired Activity /State Functional Status Date Assessment Result Facility 12-04-2024 Functional Status N/A [facility] 11-21-2024 Patient Health Quest ionnaire 2 item (PHQ-2) [Reported] [facility] 05-29-2024 Functional Status N/A [facility] 04-25-2024 Functional Status N/A [facility] 04-02-2024 Functional Status N/A [facility] 03-21-2024 Functional Status N/A [facility] 01-24-2024 Functional Status N/A [facility] 12-18-2023 Functional Status N/A [facility] 04-17-2023 Functional status Patient at Baseline [facility] Work Phone: Mental Status Date Assessment Result Facility 04-17-2023 Cognitive function Cognitive Sta tus Patient at Baseline [facility] Work Phone: Clinical Notes 06-02-2022 to 01-10-2025 Telephone Encounter - Delma Villarreal NP - 01/10/2025 2:04 PM EDTTelephone Encounter - Delma Villarreal NP - 01/10/2025 2:04 PM EDTTelephone Encounter - Delma Villarreal NP - 01/06/2025 4:00 PM EDT Note Date & Type Note Facility 01-10-2025 Telephone encounter Note No call back received. Forwarding as FYI [facility] Work Phone: 01-10-2025 Miscellaneous Notes No call back received. Forwarding as FYI Call placed to pt d/t insurance identifying possible issue with glimepiride adherence. Last fill per chart review was 12/28/24 for 30 tabs, however, prior to that was 10/12/24 for 30 tabs, and 08/21/24 for 30 tabs. No answer, VM received, msg left with call back info documented in this encounter [facility] 01-06-2025 Telephone encounter Note Call placed to pt d/t insurance identifying possible issue with glimepiride adherence. Last fill per chart review was 12/28/24 for 30 tabs, however, prior to that was 10/12/24 for 30 tabs, and 08/21/24 for 30 tabs. No answer, VM received, msg left with call back info [facility] 01-02-2025 Note Oncology Progress No te Chief Complaint Follow up on anemia, pt states that she is tired all the time and cold all the time, pt is here with her friend, Shirley. Diagnoses Anemia in chronic kidney disease (D63.1: Anemia in chronic kidney disease) Anemia in CKD (chronic kidney disease) (N18.9: Chronic kidney disease, unspecified) Oncological History/ROS/PE/Assessment and Plan 69-year-old female referred for anemia. Primary patient of Dr. Jason Santos. Outpatient medications include Tylenol, albuterol, Norvasc, aspirin 81, Plavix 75, Lasix 40, glimepiride, hydroxyzine, Tresiba, Avapro, Imdur, Protonix, Crestor, Ultram, triamterene, hydrochlorothiazide. She is a never smoker. She has past medical history which includes a stroke in March 2023, arthritis, asthma, diabetes, depression, gastroesophageal reflux disease, hyperlipidemia, osteoarthritis. Also history of gout and depression and history of acute renal injury. She is referred to us for anemia. Labs from recently although the data is not directly listed on the labs show hemoglobin of 10.5 with a white blood cell count of 8.0, MCV of 91.6 and a platelet count of 326 her creatinine was listed at 2.03. Her uric acid was elevated at 10.6. Her BNP was just above an upper limit of normal. Labs from September 26, 2024 show normal white blood cell count and platelet count, a hemoglobin of 9.5 with an MCV of 92.3. We do have a set of iron studies from September 25, 2024 which showed total iron of 66 with an iron saturation of 26 and a ferritin of 191. Previous labs from April 2024 showed a total iron of 79 with an iron saturation of 26 and a ferritin of 123. 01/02/2025 EPO inappropriately normal Iron profile okay, SPep and light chains WNL Physical Examination ECOG PS:0 General: Alert and oriented, no acute distress. Eye: Extraocular movements are intact, normal conjunctiva. HENT: Normocephalic, normal hearing. Neck: Supple, non-tender, no jugular venous distention. Cardiovascular: Normal rate, regular rhythm, no murmur, no edema. Gastrointestinal: Soft, non-tender, non-distended, normal bowel sounds, no organomegaly. Respiratory: Clear to auscultation bilaterally, no wheezes, rhonchi or rales. Integumentary: Warm, dry, pink, no pallor, no rash. Psychiatric: Cooperative, appropriate mood & affect. Assessment/Plan Anemia of CKD inappropriately normal EPO. negative spep, free light chains in 01/08, slight elevation in ESR at 39. May be an inflammatory component. if hemoglobin persistently below 10, consider Aranesp injections Follow-up No qualifying data available CBC, CMP in 3 month and 6 months Follow up with [facility] in 6 month Please give her a print out of her bloodwork Medications acetaminophen albuterol allopurinol amLODIPine 10 mg Tab aspirin 81 mg Oral EC Tab Avapro 300 mg Tab, 300 mg= 1 tab(s), Oral, Daily Crestor 40 mg Tab furosemide 40 mg Tab, 40 mg= 1 tab(s), Oral, Daily glimepiride 2 mg Tab hydrochlorothiazide-triamterene 25 mg-37.5 mg Tab isosorbide mononitrate 30 mg ER Tab, 30 mg= 1 tab(s), Oral, qAM, 3 refills nitroglycerin 0.4 mg sublingual Tab, 0.4 mg= 1 tab(s), SubLingual, q5min, PRN Pantoprazole [address] Tab, 20 mg= 1 tab(s), Oral, Daily, 5 refills Plavix 75 mg Tab tramadol Tresiba Staging Information No information available Labs Common Labs Event Name Event Result Date/Time WBC 6 E9/L 12/23/24 WBC 6.4 E9/L 10/17/24 RBC 3.6 E12/L Low 12/23/24 RBC 3.1 E12/L Low 10/17/24 HGB 11.1 gm/dL Low 12/23/24 HGB 9.6 gm/dL Low 10/17/24 Hct 32.1 % Low 12/23/24 Hct 27.5 % Low 10/17/24 MCV 90.4 fL 12/23/24 MCV 89.2 fL 10/17/24 MCH 31.4 pg 12/23/24 MCH 31.1 pg 10/17/24 MCHC 34.7 gm/dL 12/23/24 MCHC 34.8 gm/dL 10/17/24 RDW 14.9 % High 12/23/24 RDW 13.9 % 10/17/24 Platelet 241 E9/L 12/23/24 Platelet 224 E9/L 10/17/24 MPV 8.8 fL 12/23/24 MPV 8 fL 10/17/24 Neutro Auto 59.1 % 12/23/24 Neutro Auto 66.1 % 10/17/24 Lymph Auto 27.9 % 12/23/24 Lymph Auto 21.7 % 10/17/24 [place] Auto 6.9 % 12/23/24 [place] Auto 6.7 % 10/17/24 Eos Auto 5.5 % 12/23/24 Eos Auto 4.9 % 10/17/24 Basophil Auto 0.6 % 12/23/24 Basophil Auto 0.6 % 10/17/24 Neutro Absolute 3.5 E9/L 12/23/24 Neutro Absolute 4.2 E9/L 10/17/24 Lymph Absolute 1.7 E9/L 12/23/24 Lymph Absolute 1.4 E9/L 10/17/24 [place] Absolute 0.4 E9/L 12/23/24 [place] Absolute 0.4 E9/L 10/17/24 Eos Absolute 0.3 E9/L 12/23/24 Eos Absolute 0.3 E9/L 10/17/24 Basophil Absolute 0 E9/L 12/23/24 Basophil Absolute 0 E9/L 10/17/24 Reticulocyte 1 % 10/17/24 Sed Rate Automated 39 mm/hr High 10/17/24 Glucose Lvl 185 mg/dL 10/17/24 BUN 35 mg/dL High 10/17/24 Creatinine 1.6 mg/dL High 10/17/24 Potassium Lvl 4.4 mmol/L 10/17/24 Chloride 106 mmol/L 10/17/24 CO2 23 mmol/L 10/17/24 Calcium Lvl 9.1 mg/dL 10/17/24 Total (more content not included)... [facility] 11-21-2024 History of Present illness Narrative Images from the original note were not included. HPI Med Refill Additional comments: Allopurinol and would like to discuss increasing it d/t she is only doing it once a week. Last edited by Luna Venegas LPN on 11/21/2024 10:04 AM. Subjective Patient ID: Marisela Hsieh is a 69 y.o. female who presents for [facility] ER follow up. Flowsheet Row Patient Outreach from 11/18/2024 in [facility] with Melissa Sloan LPN Hospital Information ED, Hospital or Senior Care Facility Discharge? ED Patient has been contacted within 2 days of being seen in the ED Yes Diagnosis Sprain of foot, left Discharge Date 11/14/24 Discharged To: Home Setting Discharge Hospital [facility] Engagement Call Start Time 1225 Admission Date 11/14/24 Medications Discharge medications reviewed and reconciled from hospital? Yes Is the patient having any side effects they believe may be caused by any medication additions or changes? No Does the patient have all medications ordered at discharge? Yes Is the patient taking all medications as directed (includes completed medication regime)? Yes Medication Comments no changes to medications. Appointments Does the patient have a primary care provider? Yes [11/21] Nursing Interventions Verified appointment date/time/provider Does the patient have any upcoming specialty appointments? No [to schedule appt with Dr. Ho] Nursing Interventions Advised to schedule with specialist Self Management Does patient have home health? no Patient Teaching Does the patient have access to their discharge instructions? Yes Nursing Interventions Reviewed instructions with patient What is the patient's perception of their health status since discharge? Improving Is the patient/caregiver able to teach back the hierarchy of who to call/visit for symptoms/problems? PCP, Specialist, Home Health nurse, Urgent Care, ED, 911 Yes Wrap Up Wrap Up Additional Comments xray left foot and ankle Call End Time 1245 DX. Lower Left Extremitiy Injury, rx'd ortho boot. She has not contacted Dr. Ho and wants to know if she really does need to see him for this. has been trying to walk without the boot. Pain is 5-6/10. Pain is worse if she walks without her boot. Feels a pulling sensation along the arch of her foot. will be moving into a one bedroom apartment soon at a [facility] building. Does have family helping her pack and get ready for her move. 5 months ago after 26 years of marriage. She states she still cries at times and is having trouble with his passing. [id number] has been very helpful. Current Outpatient Medications on File Prior to Visit Medication Sig Dispense Refill acetaminophen (Tylenol Extra Strength) 500 MG tablet Take 500 mg by mouth every 6 (six) hours. albuterol (2.5 MG/3ML) 0.083% nebulizer solution Take 2.5 mg by nebulization every 6 (six) hours if needed. albuterol HFA 90 mcg/act inhaler Inhale 2 puffs every 4 (four) hours if needed for wheezing or shortness of breath 18 g 3 amLODIPine (Norvasc) 10 MG tablet Take 1 tablet (10 mg) by mouth Daily 90 tablet 3 aspirin 81 MG EC tablet Take 81 mg by mouth in the morning. clopidogrel (Plavix) 75 MG tablet Take 1 tablet (75 mg) by mouth Daily 100 tablet 3 Continuous Glucose Sensor (FreeStyle Kwasi 2 Sensor) [facility] [place], [place] USE 1 SENSOR EVERY 14 (FOURTEEN) DAYS 6 each 3 furosemide (Lasix) 40 MG tablet Take 1 tablet (40 mg) by mouth Daily 90 tablet 2 glimepiride (Amaryl) 2 MG tablet Take 1 tablet (2 mg) by mouth Daily Take before supper 30 tablet 11 glucose blood test strip 1 each by Other route in the morning. hydrOXYzine HCl (Atarax) 25 MG tablet Take 1 tablet (25 mg) by mouth 3 (three) times a day as needed for itching 90 tablet 3 insulin degludec (Tresiba FlexTouch) 200 UNIT/ML injection Inject 20 Units under the skin at bedtime (Patient taking differently: Inject 45 Units under the skin at bedtime) 9 mL 3 irbesartan (Avapro) 300 MG tablet Take 1 tablet (300 mg) by mouth at bedtime 90 tablet 3 isosorbide mononitrate ER (Imdur) 30 MG 24 hr tablet Take 30 mg by mouth in the morning. pantoprazole (ProtoNix) 20 MG EC tablet Take 1 tablet (20 mg) by mouth Daily 90 tablet 3 rosuvastatin (Crestor) 40 MG tablet TAKE 1 TABLET BY MOUTH IN THE MORNING 90 tablet 3 traMADol (Ultram) 50 MG tablet Take 1 tablet (50 mg) by mouth every 8 (eight) hours if needed for severe pain (For osteoarthritis pain) 120 tablet 1 triamterene-hydrochlorothiazide (Maxzide-25) 37.5-25 MG tablet Take 1 tablet by mouth Daily [DISCONTINUED] allopurinol (Zyloprim) 100 MG tablet Take 0.5 tablets (50 mg) by mouth 1 (one) time per week 6 tablet 3 No current facility-administered medications on file prior to visit. I have reviewed and reconciled the history and medication list with the patient today. Allergies Allergen Reactions Atorvastatin GI intolerance Heartburn Dulaglutide Other Reaction(s): Vision Changes Lisinopril Cough Oxycodone-Acetaminophen GI intolerance Sulfa Antibiotics GI intolerance Social History Tobacco Use Smoking status: Never Smokeless tobacco: Never Vaping Use Vaping status: Never Used Substance Use Topics Alcohol use: Never Drug use: Never Family History Problem Relation Name Age of Onset Stroke Mother Heart disease Mother Diabetes Mother Heart disease Father Past Medical History: Diagnosis Date Abnormal stress test 08/01/2023 Arthritis Asthma Constipation CVA (cerebral vascular accident) ([facility]) 04/11/2023 Ischemic Depression ([facility]) Diabetes mellitus ([facility]) GERD (gastroesophageal reflux disease) Hyperlipemia ([facility]) Insomnia Major depressive disorder with single episode, in full remission ([facility]) Primary osteoarthritis involving multiple joints Past Surgical History: Procedure Laterality Date CARDIAC CATHETERIZATION 2012 CARDIAC CATHETERIZATION Left 09/01/2023 CARPAL TUNNEL RELEASE Bilateral SPINE SURGERY 2011 cervical disc TOTAL ABDOMINAL HYSTERECTOMY W/ BILATERAL SALPINGOOPHORECTOMY 1985 Visit Vitals BP 148/72 Comment: has not taken her BP pills yet today Pulse 52 Ht 4' 11 Wt 155 lb 3.2 oz SpO2 99% BMI 31.35 kg/m Smoking Status Never BSA 1.71 m Review of Systems Constitutional: Negative for chills, fatigue and fever. Respiratory: Negative for cough, shortness of breath and wheezing. Cardiovascular: Negative for chest pain, palpitations and leg swelling. Gastrointestinal: Negative for abdominal pain, constipation, diarrhea, nausea and vomiting. Musculoskeletal: Positive for arthralgias and gait problem. Skin: Negative for rash. Psychiatric/Behavioral: Grief Objective Physical Exam Constitutional: General: She is not in acute distress. Appearance: Normal appearance. She is well-developed. HENT: Head: Normocephalic and atraumatic. Eyes: General: No scleral icterus. Conjunctiva/sclera: Conjunctivae normal. Cardiovascular: Rate and Rhythm: Regular rhythm. Bradycardia present. Heart sounds: Normal heart sounds. No murmur heard. Pulmonary: Effort: Pulmonary effort is normal. No respiratory distress. Breath sounds: Normal breath sounds. No wheezing, rhonchi or rales. Musculoskeletal: Left foot: Decreased range of motion. Tenderness (Along arch and lateral edge of foot) present. No swelling or deformity. Normal pulse. Skin: General: Skin is warm and dry. Neurological: General: No focal deficit present. Mental Status: She is alert and oriented to person, place, and time. Sensory: Sensation is intact. Psychiatric: Mood and Affect: Mood is depressed (Mildly). Mood is not anxious. Behavior: Behavior normal. Comments: Spoke extensively of her grief, losing her Assessment/Plan Diagnoses and all orders for this visit: Foot sprain, left, sequela X-rays of left foot and ankle were negative in the ER. Encouraged her to schedule an appointment with Dr. Ho due to persistent, significant pain. She agrees to do so. Hyperuricemia - allopurinol (Zyloprim) 100 MG tablet; Take 0.5 tablets (50 mg) by mouth every other day Will increase the Allopurinol to every other day. She can let me know if her symptoms do not improve. Grief reaction Encouraged pt to allow herself to grieve at her own pace. Encourage her to pursue grief counseling, it would likely be very beneficial for the patient. Encouraged her to focus on her happy memories with her . The patient was seen today in follow up of recent hospital ER visit. All available hospital records/labs/diagnostics were reviewed and discussed with the patient. ER discharge meds were reviewed. Any changes to plan are as noted. Follow up for Appointment As Scheduled. documented in this encounter [facility] 10-21-2024 History of Present illness Narrative Images from the original note were not included. HPI Follow-up Additional comments: OA-- tramadol Last edited by Cesilia Gonzalez LPN on 10/21/2024 9:23 AM. Subjective Patient ID: Marisela Hsieh is a 69 y.o. female who presents for Diabetes and Follow-up (OA-- tramadol ). Diabetes Mellitus Patient presents for follow up of diabetes. Current symptoms include: hyperglycemia. Patient denies foot ulcerations, nausea, paresthesia of the feet, polydipsia, polyuria, visual disturbances, and vomiting. Evaluation to date has included: fasting blood sugar, fasting lipid panel, and hemoglobin A1C. Home sugars: BGs range between 160 and 185 on average Pt using CGM recent results: 329,181,310,306,1174,159,,226,200 ,185 Diabetes DepressionPatient is not experiencing: palpitations and shortness of breath. Current Outpatient Medications on File Prior to Visit Medication Sig Dispense Refill acetaminophen (Tylenol Extra Strength) 500 MG tablet Take 500 mg by mouth every 6 (six) hours. albuterol (2.5 MG/3ML) 0.083% nebulizer solution Take 2.5 mg by nebulization every 6 (six) hours if needed. allopurinol (Zyloprim) 100 MG tablet Take 0.5 tablets (50 mg) by mouth 1 (one) time per week 6 tablet 3 amLODIPine (Norvasc) 10 MG tablet Take 1 tablet (10 mg) by mouth Daily 90 tablet 3 aspirin 81 MG EC tablet Take 81 mg by mouth in the morning. clopidogrel (Plavix) 75 MG tablet Take 1 tablet (75 mg) by mouth Daily 100 tablet 3 Continuous Glucose Sensor (FreeStyle Kwasi 2 Sensor) [facility] [place], [place] USE 1 SENSOR EVERY 14 (FOURTEEN) DAYS 6 each 3 furosemide (Lasix) 40 MG tablet Take 1 tablet (40 mg) by mouth Daily 90 tablet 2 glimepiride (Amaryl) 2 MG tablet Take 1 tablet (2 mg) by mouth Daily Take before supper 30 tablet 11 glucose blood test strip 1 each by Other route in the morning. insulin degludec (Tresiba FlexTouch) 200 UNIT/ML injection Inject 20 Units under the skin at bedtime (Patient taking differently: Inject 45 Units under the skin at bedtime) 9 mL 3 irbesartan (Avapro) 300 MG tablet Take 1 tablet (300 mg) by mouth at bedtime 90 tablet 3 isosorbide mononitrate ER (Imdur) 30 MG 24 hr tablet Take 30 mg by mouth in the morning. pantoprazole (ProtoNix) 20 MG EC tablet Take 1 tablet (20 mg) by mouth Daily 90 tablet 3 rosuvastatin (Crestor) 40 MG tablet TAKE 1 TABLET BY MOUTH IN THE MORNING 90 tablet 3 traMADol (Ultram) 50 MG tablet Take 1 tablet (50 mg) by mouth every 8 (eight) hours if needed for severe pain (For osteoarthritis pain) 120 tablet 1 triamterene-hydrochlorothiazide (Maxzide-25) 37.5-25 MG tablet Take 1 tablet by mouth Daily albuterol HFA 90 mcg/act inhaler Inhale 2 puffs every 4 (four) hours if needed for wheezing or shortness of breath 18 g 3 hydrOXYzine HCl (Atarax) 25 MG tablet Take 1 tablet (25 mg) by mouth 3 (three) times a day as needed for itching 90 tablet 3 No current facility-administered medications on file prior to visit. I have reviewed and reconciled the history and medication list with the patient today. Allergies Allergen Reactions Atorvastatin GI intolerance Heartburn Dulaglutide Other Reaction(s): Vision Changes Lisinopril Cough Oxycodone-Acetaminophen GI intolerance Sulfa Antibiotics GI intolerance Social History Tobacco Use Smoking status: Never Smokeless tobacco: Never Substance Use Topics Alcohol use: Never Drug use: Never Family History Problem Relation Name Age of Onset Stroke Mother Heart disease Mother Diabetes Mother Heart disease Father Past Medical History: Diagnosis Date Abnormal stress test 08/01/2023 Arthritis Asthma Constipation CVA (cerebral vascular accident) ([facility]) 04/11/2023 Ischemic Depression ([facility]) Diabetes mellitus ([facility]) GERD (gastroesophageal reflux disease) Hyperlipemia ([facility]) Insomnia Major depressive disorder with single episode, in full remission ([facility]) Primary osteoarthritis involving multiple joints Past Surgical History: Procedure Laterality Date CARDIAC CATHETERIZATION 2012 CARDIAC CATHETERIZATION Left 09/01/2023 CARPAL TUNNEL RELEASE Bilateral SPINE SURGERY 2011 cervical disc TOTAL ABDOMINAL HYSTERECTOMY W/ BILATERAL SALPINGOOPHORECTOMY 1985 Visit Vitals BP 126/72 Pulse 60 Ht 4' 9 Wt 159 lb SpO2 99% BMI 34.41 kg/m Smoking Status Never BSA 1.7 m Review of Systems Respiratory: Negative for shortness of breath. Cardiovascular: Negative for palpitations. Psychiatric/Behavioral: Positive for depression. Objective Physical Exam Constitutional: General: She is not in acute distress. Appearance: Normal appearance. She is well-developed. HENT: Head: Normocephalic and atraumatic. Right Ear: Tympanic membrane and ear canal normal. Left Ear: Tympanic membrane and ear canal normal. Mouth/Throat: Mouth: Mucous membranes are moist. Eyes: General: No scleral icterus. Conjunctiva/sclera: Conjunctivae normal. Neck: Thyroid: No thyromegaly. Cardiovascular: Rate and Rhythm: Regular rhythm. Bradycardia present. Heart sounds: Normal heart sounds. No murmur heard. Pulmonary: Effort: Pulmonary effort is normal. No respiratory distress. Breath sounds: Normal breath sounds. No wheezing, rhonchi or rales. Lymphadenopathy: Cervical: No cervical adenopathy. Skin: General: Skin is warm and dry. Neurological: General: No focal deficit present. Mental Status: She is alert and oriented to person, place, and time. Psychiatric: Mood and Affect: Mood normal. Behavior: Behavior normal. Office Visit on 10/21/2024 Component Date Value Ref Range Status Hemoglobin A1C 10/21/2024 7.6 Final Orders Only on 09/25/2024 Component Date Value Ref Range Status WHITE BLOOD CELL COUNT 09/25/2024 7.6 3.8 - 10.8 Thousand/uL Final RED BLOOD CELL COUNT 09/25/2024 3.13 (L) 3.80 - 5.10 Million/uL Final HEMOGLOBIN 09/25/2024 9.5 (L) 11.7 - 15.5 g/dL Final HEMATOCRIT 09/25/2024 28.9 (L) 35.0 - 45.0 % Final MCV 09/25/2024 92.3 80.0 - 100.0 fL Final MCH 09/25/2024 30.4 27.0 - 33.0 pg Final MCHC 09/25/2024 32.9 32.0 - 36.0 g/dL Final Comment: For adults, a slight decrease in the calculated MCHC value (in the range of 30 to 32 g/dL) is most likely not clinically significant; however, it should be interpreted with caution in correlation with other red cell parameters and the patient's clinical condition. RDW 09/25/2024 11.8 11.0 - 15.0 % Final PLATELET COUNT 09/25/2024 228 140 - 400 Thousand/uL Final MPV 09/25/2024 11.0 7.5 - 12.5 fL Final Glucose 09/25/2024 223 (H) 65 - 99 mg/dL Final Comment: Fasting reference interval For someone without known diabetes, a glucose value >125 mg/dL indicates that they may have diabetes and this should be confirmed with a follow-up test. BUN 09/25/2024 42 (H) 7 - 25 mg/dL Final Creatinine 09/25/2024 1.67 (H) 0.60 - 1.00 mg/dL Final EGFR 09/25/2024 33 (L) > OR = 60 mL/min/1.73m2 Final BUN/CREATININE RATIO 09/25/2024 25 (H) 6 - 22 (calc) Final Sodium 09/25/2024 138 135 - 146 mmol/L Final Potassium, Bld 09/25/2024 4.3 3.5 - 5.3 mmol/L Final Chloride 09/25/2024 101 98 - 110 mmol/L Final Carbon Dioxide 09/25/2024 25 20 - 32 mmol/L Final Calcium 09/25/2024 9.2 8.6 - 10.4 mg/dL Final IRON, TOTAL 09/25/2024 66 45 - 160 mcg/dL Final IRON BINDING CAPACITY 09/25/2024 254 250 - 450 mcg/dL (calc) Final % SATURATION 09/25/2024 26 16 - 45 % (calc) Final FERRITIN 09/25/2024 191 16 - 288 ng/mL Final Assessment/Plan Diagnoses and all orders for this visit: Type 2 diabetes mellitus with other diabetic kidney complication - POCT Glycated hemoglobin, total - FSBS log shows good control, most recent A1C is at or near goal. Continue current treatment plan as previously outlined without changes. CKD (chronic kidney disease) stage 4, GFR 15-29 ml/min (CMS/HCC) - Ambulatory referral to Nephrology; Future Essential hypertension ([facility]) - This is a chronic medical condition that is stable since last assessment. No changes in treatment are suggested at this time. Systolic dysfunction, left ventricle - No current active congestive heart failure. Dyspnea at exertion, but not at rest. No evidence of pulmonary edema. Medications unchanged. Follow up in about 3 months (around 01/20/2025) for DM- A1C, Routine F/U. documented in this encounter [facility] 10-17-2024 Hospital Discharge instructions Patient Education 10/17/2024 10:06:40 Anemia Anemia Anemia is a condition in which there are not enough red blood cells or hemoglobin in the blood. Hemoglobin is a substance in red blood cells that carries oxygen. When you do not have enough red blood cells or hemoglobin (are anemic), your body cannot get enough oxygen, and your organs may not work properly. As a result, you may feel very tired or have other problems. What are the causes? Common causes of anemia include: Excessive bleeding. Anemia can be caused by excessive bleeding inside or outside the body, including bleeding from the intestines or from heavy menstrual periods in females. Poor nutrition. Long-lasting (chronic) kidney, thyroid, and liver disease. Bone marrow disorders, spleen problems, and blood disorders. Cancer and treatments for cancer. Human immunodeficiency virus (HIV) and acquired immunodeficiency syndrome (AIDS). Infections, medicines, and autoimmune disorders that destroy red blood cells. What are the signs or symptoms? Symptoms of this condition include: Minor weakness. Dizziness. Headache, or difficulties concentrating and sleeping. Heartbeats that feel irregular or faster than normal (palpitations). Shortness of breath, especially with exercise. Pale skin, lips, and nails, or cold hands and feet. Upset stomach (indigestion) and nausea. Symptoms may occur suddenly or develop slowly. If your anemia is mild, you may not have symptoms. How is this diagnosed? This condition is diagnosed based on blood tests, your medical history, and a physical exam. In some cases, a test may be needed in which cells are removed from the soft tissue inside of a bone and looked at under a microscope (bone marrow biopsy). Your health care provider may also check your stool (feces) for blood and may do more testing to look for the cause of your bleeding. Other tests may include: Imaging tests, such as a CT scan or MRI. A procedure to see inside your esophagus and stomach (endoscopy). The esophagus is the part of the body that moves food from your mouth to your stomach. A procedure to see inside your colon and rectum (colonoscopy). How is this treated? Treatment for this condition depends on the cause. If you continue to lose a lot of blood, you may need to be treated at a hospital. Treatment may include: Taking supplements of iron, vitamin B12, or folic acid. Taking a hormone medicine (erythropoietin) that can help to stimulate red blood cell growth. Receiving donated blood through an IV (blood transfusion). This may be needed if you lose a lot of blood. Making changes to your diet. Having surgery to remove your spleen. Follow these instructions at home: Take [id number] and prescription medicines only as told by your health care provider. Take supplements only as told by your health care provider. Follow any diet instructions that you were given by your health care provider. Keep all follow-up visits. Your health care provider will want to recheck your blood tests. Contact a health care provider if: You develop new bleeding anywhere in the body. You are very weak. Get help right away if: You are short of breath. You have pain in your abdomen or chest. You are dizzy or feel faint. You have trouble concentrating. You have bloody stools, black stools, or tarry stools. You vomit repeatedly or you vomit up blood. These symptoms may be an emergency. Get help right away. Call 911. Do not wait to see if the symptoms will go away. Do not drive yourself to the hospital. Summary Anemia is a condition in which you do not have enough red blood cells or enough of a substance in your red blood cells that carries oxygen. Symptoms may occur suddenly or develop slowly. If your anemia is mild, you may not have symptoms. This condition is diagnosed with blood tests, a medical history, and a physical exam. Other tests may be needed. Treatment for this condition depends on the cause of the anemia. This information is not intended to replace advice given to you by your health care provider. Make sure you discuss any questions you have with your health care provider. Document Revised: 09/26/2022 Document Reviewed: 09/26/2022 [employer] [employer] [facility] Patient Education 2023 [email or web address] [facility] 10-17-2024 Note Oncology Progress No te Chief Complaint New here for anemia pt is here with her sister in law Rodriguez. Pt would just like to know what is going on, no specific questions or concerns. Oncological History/ROS/PE/Assessment and Plan 69-year-old female referred for anemia. Primary patient of Dr. Jason Santos. Outpatient medications include Tylenol, albuterol, Norvasc, aspirin 81, Plavix 75, Lasix 40, glimepiride, hydroxyzine, Tresiba, Avapro, Imdur, Protonix, Crestor, Ultram, triamterene, hydrochlorothiazide. She is a never smoker. She has past medical history which includes a stroke in March 2023, arthritis, asthma, diabetes, depression, gastroesophageal reflux disease, hyperlipidemia, osteoarthritis. Also history of gout and depression and history of acute renal injury. She is referred to us for anemia. Labs from recently although the data is not directly listed on the labs show hemoglobin of 10.5 with a white blood cell count of 8.0, MCV of 91.6 and a platelet count of 326 her creatinine was listed at 2.03. Her uric acid was elevated at 10.6. Her BNP was just above an upper limit of normal. Labs from September 26, 2024 show normal white blood cell count and platelet count, a hemoglobin of 9.5 with an MCV of 92.3. We do have a set of iron studies from September 25, 2024 which showed total iron of 66 with an iron saturation of 26 and a ferritin of 191. Previous labs from April 2024 showed a total iron of 79 with an iron saturation of 26 and a ferritin of 123. Physical Examination ECOG PS:0 General: Alert and oriented, no acute distress. Eye: Extraocular movements are intact, normal conjunctiva. HENT: Normocephalic, normal hearing. Neck: Supple, non-tender, no jugular venous distention. Cardiovascular: Normal rate, regular rhythm, no murmur, no edema. Gastrointestinal: Soft, non-tender, non-distended, normal bowel sounds, no organomegaly. Respiratory: Clear to auscultation bilaterally, no wheezes, rhonchi or rales. Integumentary: Warm, dry, pink, no pallor, no rash. Psychiatric: Cooperative, appropriate mood & affect. Assessment/Plan anemia multifactorial. normocytic. she does not seem to be iron deficient enough for her degree of anemia. may be related to CKD, will check her EPO. if hb below 10 persistently would consider aranesp injections. also maybe chornic inflammatory condition gout or arthhritis or other. will check esr. will check b12, folate. encouraged iron fortified foods for now. Follow-up No qualifying data available cbc, cmp, iron studies, ferritin, b12, folate, spep sflc simmunofixation, epo, retic count. ESR. f/u in 2 months with cbc first. Medications acetaminophen albuterol allopurinol amLODIPine 10 mg Tab aspirin 81 mg Oral EC Tab Avapro 300 mg Tab, 300 mg= 1 tab(s), Oral, Daily Crestor 40 mg Tab furosemide 40 mg Tab, 40 mg= 1 tab(s), Oral, Daily glimepiride 2 mg Tab hydrochlorothiazide-triamterene 25 mg-37.5 mg Tab isosorbide mononitrate 30 mg ER Tab, 30 mg= 1 tab(s), Oral, qAM, 3 refills nitroglycerin 0.4 mg sublingual Tab, 0.4 mg= 1 tab(s), SubLingual, q5min, PRN Pantoprazole [address] Tab, 20 mg= 1 tab(s), Oral, Daily, 5 refills Plavix 75 mg Tab tramadol Tresiba Vital Signs and Measurements Vital Signs and Measurements This Visit - Last 24 Hours T: 36.6 ???C (Oral) HR: 63 (Peripheral) RR: 16 BP: 106/63 SpO2: 99% HT: 139.0 cm HT: 139.0 cm WT: 72.8 kg (Dosing) WT: 72.8 kg BMI: 37.68 BSA: 1.68 Staging Information No information available Labs No Qualifying Data Available [facility] 09-25-2024 History of Present illness Narrative Lab order documented in this encounter [facility] 09-18-2024 Telephone encounter Note Called and spoke with patient. Advised her that her BNP for her heart, kidney function, and anemia were all mildly improved from when she was in the ER, but remain abnormal. Reviewed the numbers with her. Her Uric Acid level was higher. Uric acid levels can increase with impaired kidney function. -She did start a multivitamin daily. Encouraged her to continue. -Will have her stop the Maxide at this time to help alleviate some stress on her kidneys. She is to watch her BP at home, she does have a BP cuff, and is to contact the office if her BP starts to increase. It was within normal range at her last visit. -She states she is still having right great toe pain, is improved, but still throbs. Try to limit red meat and seafood, foods high in purine. Also will have her start a very low dosage of Allopurinol once a week, could consider increasing to every other day if kidney function improves, and she is still symptomatic. -Otherwise will recheck her CBC and BMP in one to two weeks, then she is to follow up with Dr. Wyatt as scheduled. Patient voiced understanding of the plan of care and is in agreement. (21 mL/min Creatinine clearance modified for overweight patient, using adjusted body weight of 51 kg (113 lbs)) [facility] 03-05-2025 Miscellaneous Notes Called and spoke with patient. Advised her that her BNP for her heart, kidney function, and anemia were all mildly improved from when she was in the ER, but remain abnormal. Reviewed the numbers with her. Her Uric Acid level was higher. Uric acid levels can increase with impaired kidney function. -She did start a multivitamin daily. Encouraged her to continue. -Will have her stop the Maxide at this time to help alleviate some stress on her kidneys. She is to watch her BP at home, she does have a BP cuff, and is to contact the office if her BP starts to increase. It was within normal range at her last visit. -She states she is still having right great toe pain, is improved, but still throbs. Try to limit red meat and seafood, foods high in purine. Also will have her start a very low dosage of Allopurinol once a week, could consider increasing to every other day if kidney function improves, and she is still symptomatic. -Otherwise will recheck her CBC and BMP in one to two weeks, then she is to follow up with Dr. Wyatt as scheduled. Patient voiced understanding of the plan of care and is in agreement. (21 mL/min Creatinine clearance modified for overweight patient, using adjusted body weight of 51 kg (113 lbs)) Pt LM on asking for results of her bloodwork. CB #[phone]. documented in this encounter [facility] 09-17-2024 Telephone encounter Note Pt LM on asking for results of her bloodwork. CB #[phone]. [facility] 09-10-2024 History of Present illness Narrative Images from the original note were not included. Subjective Patient ID: Marisela Hsieh is a 69 y.o. female who presents for [facility] ER follow up. Flowsheet Row Patient Outreach from 09/03/2024 in [facility] with Alida Telles RN Hospital Information ED, Hospital or Senior Care Facility Discharge? ED Patient has been contacted within 1 week of being seen in the ED Yes Diagnosis right food pain, pain in right lower leg, Acute kidney injury Discharge Date 08/30/24 Discharged To: Home Setting Discharge Hospital [facility] Engagement Admission Date 08/30/24 Medications Discharge medications reviewed and reconciled from hospital? Yes Is the patient having any side effects they believe may be caused by any medication additions or changes? No Does the patient have all medications ordered at discharge? Yes Nursing Interventions Nurse provided patient education Prescription Comments rx: norco Is the patient taking all medications as directed (includes completed medication regime)? Yes Nursing Interventions Nurse provided patient education Appointments Does the patient have a primary care provider? Yes [pt did not schedule follow up appt as she states she has no ride.] Nursing Interventions Advised patient to make appointment, Patient declined follow up appointment w/PCP Does the patient have any upcoming specialty appointments? No Self Management Does patient have home health? no What Durable Medical Equipment (DME) was ordered? patient has rollator that she is using Patient Teaching Does the patient have access to their discharge instructions? Yes Nursing Interventions Reviewed instructions with patient What is the patient's perception of their health status since discharge? Same [Patient states she is the same and some days worse. pt crying on phone stating her right foot hurts and she is not able to walk on it. pt has tried tramadol and norco and neither is effective for pain relief.] Wrap Up Wrap Up Additional Comments Patient states she is the same and some days worse. pt crying on phone stating her right foot hurts and she is not able to walk on it. pt has tried tramadol and norco and neither is effective for pain relief. pt states her right foot is swollen and was light red yesterday. she has been icing and keeping foot elevated. She states foot is tender to the touch. pt did have EKG, CXR, US Venous doppler Right lower extremity (Neg for DVT), Right foot xray (neg for fx) completed at ER. Pt's foot was wrapped with LUMA bandage and Aircast applied in ER. Pt was given rx for [place] but pt states it is not helping with pain. Attempted to schedule pt for follow up appt for pain and MORRIS and pt states she has no one to bring her in for appt. Pt states there is nothing wrong with my kidneys. I just need to know what is wrong with my foot b/c I can't live like this pt states she is using rollator to try to get around house but this is difficult and feels crutches may help more. Attempt again to schedule follow up appt and pt states she has no ride. States her in Jun, her son works long hours and her friend is a pain. Advise pt that provider will be updated. 09/10/2024 States they told her she did not have gout but her uric acid level was elevated at 10.1, they only gave her hydrocodone for extreme pain, right great toe is swollen, red and painful. State the [place] doesn't seem to help much with the pain. Using the Rolator to get around the house. Drinks about 40 ounces of water a day. Current Outpatient Medications on File Prior to Visit Medication Sig Dispense Refill acetaminophen (Tylenol Extra Strength) 500 MG tablet Take 500 mg by mouth every 6 (six) hours. albuterol (2.5 MG/3ML) 0.083% nebulizer solution Take 2.5 mg by nebulization every 6 (six) hours if needed. albuterol HFA 90 mcg/act inhaler Inhale 2 puffs every 4 (four) hours if needed for wheezing or shortness of breath 18 g 3 amLODIPine (Norvasc) 10 MG tablet Take 1 tablet (10 mg) by mouth Daily 90 tablet 3 aspirin 81 MG EC tablet Take 81 mg by mouth in the morning. clopidogrel (Plavix) 75 MG tablet Take 1 tablet (75 mg) by mouth Daily 100 tablet 3 [] Continuous Blood Gluc Computer Education Professor (FreeStyle Kwasi 2 Dundas) device 1 Device in the morning and 1 Device at noon and 1 Device in the evening and 1 Device before bedtime. 1 each 0 Continuous Glucose Sensor (FreeStyle Kwasi 2 Sensor) [facility] [place], [place] USE 1 SENSOR EVERY 14 (FOURTEEN) DAYS 6 each 3 furosemide (Lasix) 40 MG tablet Take 1 tablet (40 mg) by mouth Daily 90 tablet 2 glimepiride (Amaryl) 2 MG tablet Take 1 tablet (2 mg) by mouth Daily Take before supper 30 tablet 11 glucose blood test strip 1 each by Other route in the morning. hydrOXYzine HCl (Atarax) 25 MG tablet Take 1 tablet (25 mg) by mouth 3 (three) times a day as needed for itching 90 tablet 3 insulin degludec (Tresiba FlexTouch) 200 UNIT/ML injection Inject 20 Units under the skin at bedtime (Patient taking differently: Inject 45 Units under the skin at bedtime) 9 mL 3 irbesartan (Avapro) 300 MG tablet Take 1 tablet (300 mg) by mouth at bedtime 90 tablet 3 isosorbide mononitrate ER (Imdur) 30 MG 24 hr tablet Take 30 mg by mouth in the morning. pantoprazole (ProtoNix) 20 MG EC tablet Take 1 tablet (20 mg) by mouth Daily 90 tablet 3 rosuvastatin (Crestor) 40 MG tablet TAKE 1 TABLET BY MOUTH IN THE MORNING 90 tablet 3 traMADol (Ultram) 50 MG tablet Take 1 tablet (50 mg) by mouth every 8 (eight) hours if needed for severe pain (For osteoarthritis pain) 120 tablet 1 triamterene-hydrochlorothiazide (Maxzide-25) 37.5-25 MG tablet Take 1 tablet by mouth Daily 100 tablet 3 [DISCONTINUED] HYDROcodone-acetaminophen ([place]) 5-325 MG tablet Take 1 tablet by mouth every 4 (four) hours if needed No current facility-administered medications on file prior to visit. I have reviewed and reconciled the history and medication list with the patient today. Allergies Allergen Reactions Atorvastatin GI intolerance Heartburn Dulaglutide Other Reaction(s): Vision Changes Lisinopril Cough Oxycodone-Acetaminophen GI intolerance Sulfa Antibiotics GI intolerance Social History Tobacco Use Smoking status: Never Smokeless tobacco: Never Substance Use Topics Alcohol use: Never Drug use: Never Family History Problem Relation Name Age of Onset Stroke Mother Heart disease Mother Diabetes Mother Heart disease Father Past Medical History: Diagnosis Date Abnormal stress test 08/01/2023 Arthritis Asthma (CMS/HCC) Constipation CVA (cerebral vascular accident) (CMS/HCC) 04/11/2023 Ischemic Depression (CMS/HCC) Diabetes mellitus (CMS/HCC) GERD (gastroesophageal reflux disease) Hyperlipemia (CMS/HCC) Insomnia Major depressive disorder with single episode, in full remission (CMS/HCC) Primary osteoarthritis involving multiple joints Past Surgical History: Procedure Laterality Date CARDIAC CATHETERIZATION 2012 CARDIAC CATHETERIZATION Left 09/01/2023 CARPAL TUNNEL RELEASE Bilateral SPINE SURGERY 2011 cervical disc TOTAL ABDOMINAL HYSTERECTOMY W/ BILATERAL SALPINGOOPHORECTOMY 1985 Visit Vitals BP 126/74 Pulse 70 Resp 16 Ht 4' 9 Wt 155 lb 9.6 oz SpO2 99% BMI 33.67 kg/m Smoking Status Never BSA 1.69 m Review of Systems Constitutional: Negative for chills, fatigue and fever. Respiratory: Negative for cough, shortness of breath and wheezing. Cardiovascular: Negative for chest pain, palpitations and leg swelling. Gastrointestinal: Negative for abdominal pain, constipation, diarrhea, nausea and vomiting. Musculoskeletal: Positive for arthralgias, gait problem and joint swelling. Skin: Negative for rash. Objective Physical Exam Assessment/Plan Diagnoses and all orders for this visit: Acute gout involving toe of right foot, unspecified cause - colchicine 0.6 MG tablet; Take 2 tablets (1.2 mg) by mouth Daily for 1 day, THEN 1 tablet (0.6 mg) Daily for 1 day. Take second dosage 1 hour after first dosage.. - Uric acid; Future Due to MORRIS, will avoid anti-inflammatories at this time. Start Colchicine as prescribed. Reviewed dosing instructions. Rest, can apply ice to the area 20 min on 20 min off as needed - not directly on the skin, elevate as often as possible. First episode, consider Allopurinol in the future if recurs. MORRIS (acute kidney injury) (CMS/[facility]) - CBC; Future - Basic metabolic panel; Future Encouraged pt to continue to make sure she stays hydrated. Needs good fluid balance with heart and kidney issues. May need to hold the Triamterene/hydrochlorothiazide if kidney function not improved on recheck. Anemia, unspecified type - CBC; Future Encouraged MV with iron daily. Will recheck anemia, that was worsened in ER recently, with labs in one week. Systolic dysfunction, left ventricle - Basic metabolic panel; Future - B-type natriuretic peptide; Future BNP was 1381 in the ER. Will recheck in one week. No current active congestive heart failure. Denies SOB. No evidence of pulmonary edema. Patient does follow with Cardiology and states she is scheduled to see them next in November. The patient was seen today in follow up of recent hospital ER visit. All available hospital records/labs/diagnostics were reviewed and discussed with the patient. ER discharge meds were reviewed. Any changes to plan are as noted. Follow up for Appointment As Scheduled. documented in this encounter [facility] 08-21-2024 History of Present illness Narrative Images from the original note were not included. Subjective Patient ID: Marisela Hsieh is a 69 y.o. female who presents for Diabetes. Diabetes Mellitus Patient presents for follow up of diabetes. Current symptoms include: hyperglycemia. Patient denies foot ulcerations, nausea, paresthesia of the feet, polydipsia, polyuria, visual disturbances, and vomiting. Evaluation to date has included: fasting blood sugar, fasting lipid panel, and hemoglobin A1C. Home sugars: BGs range between 180 and 190 on average Pt using CGM recent results: [id number] Pt was unable to switch to lantus due to cost she is taking tresiba 45 units daily Diabetes DepressionPatient is not experiencing: palpitations and shortness of breath. Current Outpatient Medications on File Prior to Visit Medication Sig Dispense Refill acetaminophen (Tylenol Extra Strength) 500 MG tablet Take 500 mg by mouth every 6 (six) hours. albuterol (2.5 MG/3ML) 0.083% nebulizer solution Take 2.5 mg by nebulization every 6 (six) hours if needed. albuterol HFA 90 mcg/act inhaler Inhale 2 puffs every 4 (four) hours if needed for wheezing or shortness of breath 18 g 3 amLODIPine (Norvasc) 10 MG tablet Take 1 tablet (10 mg) by mouth Daily 90 tablet 3 aspirin 81 MG EC tablet Take 81 mg by mouth in the morning. clopidogrel (Plavix) 75 MG tablet Take 1 tablet (75 mg) by mouth Daily 100 tablet 3 Continuous Blood Gluc Computer Education Professor (FreeStyle Kwasi 2 [place]) device 1 Device in the morning and 1 Device at noon and 1 Device in the evening and 1 Device before bedtime. 1 each 0 Continuous Glucose Sensor (FreeStyle Kwasi 2 Sensor) [facility] [place] [place] every 14 (fourteen) days furosemide (Lasix) 40 MG tablet Take 1 tablet (40 mg) by mouth Daily 90 tablet 2 glucose blood test strip 1 each by Other route in the morning. hydrOXYzine HCl (Atarax) 25 MG tablet Take 1 tablet (25 mg) by mouth 3 (three) times a day as needed for itching 90 tablet 3 insulin degludec (Tresiba FlexTouch) 200 UNIT/ML injection Inject 20 Units under the skin at bedtime (Patient taking differently: Inject 45 Units under the skin at bedtime) 9 mL 3 irbesartan (Avapro) 300 MG tablet Take 1 tablet (300 mg) by mouth at bedtime 90 tablet 3 isosorbide mononitrate ER (Imdur) 30 MG 24 hr tablet Take 30 mg by mouth in the morning. pantoprazole (ProtoNix) 20 MG EC tablet Take 1 tablet (20 mg) by mouth Daily 90 tablet 3 rosuvastatin (Crestor) 40 MG tablet TAKE 1 TABLET BY MOUTH IN THE MORNING 90 tablet 3 triamterene-hydrochlorothiazide (Maxzide-25) 37.5-25 MG tablet Take 1 tablet by mouth Daily 100 tablet 3 No current facility-administered medications on file prior to visit. I have reviewed and reconciled the history and medication list with the patient today. Allergies Allergen Reactions Atorvastatin GI intolerance Heartburn Dulaglutide Other Reaction(s): Vision Changes Lisinopril Cough Oxycodone-Acetaminophen GI intolerance Sulfa Antibiotics GI intolerance Social History Tobacco Use Smoking status: Never Smokeless tobacco: Never Substance Use Topics Alcohol use: Never Drug use: Never Family History Problem Relation Name Age of Onset Stroke Mother Heart disease Mother Diabetes Mother Heart disease Father Past Medical History: Diagnosis Date Abnormal stress test 08/01/2023 Arthritis Asthma ([facility]) Constipation CVA (cerebral vascular accident) ([facility]) 04/11/2023 Ischemic Depression ([facility]) Diabetes mellitus ([facility]) GERD (gastroesophageal reflux disease) Hyperlipemia ([facility]) Insomnia Major depressive disorder with single episode, in full remission ([facility]) Primary osteoarthritis involving multiple joints Past Surgical History: Procedure Laterality Date CARDIAC CATHETERIZATION 2012 CARDIAC CATHETERIZATION Left 09/01/2023 CARPAL TUNNEL RELEASE Bilateral SPINE SURGERY 2011 cervical disc TOTAL ABDOMINAL HYSTERECTOMY W/ BILATERAL SALPINGOOPHORECTOMY 1985 Visit Vitals BP 124/66 Pulse 53 Ht 4' 9 Wt 155 lb SpO2 100% BMI 33.54 kg/m Smoking Status Never BSA 1.68 m Review of Systems Respiratory: Negative for shortness of breath. Cardiovascular: Negative for palpitations. Psychiatric/Behavioral: Positive for depression. Objective Physical Exam Constitutional: General: She is not in acute distress. Appearance: Normal appearance. She is well-developed. HENT: Head: Normocephalic and atraumatic. Right Ear: Tympanic membrane and ear canal normal. Left Ear: Tympanic membrane and ear canal normal. Mouth/Throat: Mouth: Mucous membranes are moist. Eyes: General: No scleral icterus. Conjunctiva/sclera: Conjunctivae normal. Neck: Thyroid: No thyromegaly. Cardiovascular: Rate and Rhythm: Regular rhythm. Bradycardia present. Heart sounds: Normal heart sounds. No murmur heard. Pulmonary: Effort: Pulmonary effort is normal. No respiratory distress. Breath sounds: Normal breath sounds. No wheezing, rhonchi or rales. Lymphadenopathy: Cervical: No cervical adenopathy. Skin: General: Skin is warm and dry. Neurological: General: No focal deficit present. Mental Status: She is alert and oriented to person, place, and time. Psychiatric: Mood and Affect: Mood normal. Behavior: Behavior normal. No visits with results within 1 Month(s) from this visit. Latest known visit with results is: Office Visit on 06/06/2024 Component Date Value Ref Range Status Hemoglobin A1C 06/06/2024 8.1 Final Assessment/Plan Diagnoses and all orders for this visit: Coronary artery disease involving [place] coronary artery of [place] heart without angina pectoris (CMS/HCC) Hemiplegia and hemiparesis following cerebral infarction affecting right dominant side (CMS/HCC) Other secondary pulmonary hypertension (CMS/HCC) Morbid (severe) obesity due to excess calories (CMS/HCC) Major depressive disorder, recurrent, moderate (CMS/HCC) Type 2 diabetes mellitus with diabetic chronic kidney disease (CMS/HCC) - POCT Glycated hemoglobin, total - glimepiride (Amaryl) 2 MG tablet; Take 1 tablet (2 mg) by mouth Daily Take before supper Chronic kidney disease, stage 3b (HCC) (CMS/HCC) Type 2 diabetes mellitus with other specified complication (CMS/HCC) Hyperlipidemia, unspecified (CMS/HCC) Inflammatory polyarthropathy (CMS/HCC) Primary osteoarthritis involving multiple joints - traMADol (Ultram) 50 MG tablet; Take 1 tablet (50 mg) by mouth every 8 (eight) hours if needed for severe pain (For osteoarthritis pain) Follow up in about 2 months (around 10/19/2024) for DM- A1C. documented in this encounter [facility] 06-12-2024 Telephone encounter Note Tresiba sent. [facility] 06-12-2024 Miscellaneous Notes Tresiba sent. documented in this encounter [facility] 06-10-2024 History of Present illness Narrative Pt had Lantus sent in for her on Monday, she called the pharmacy and it is $70. She states she cannot afford that, so she is not getting it. She is instructed by advocate to call her insurance to see what they will cover at a more affordable roberts and to call back Monday to let the office know. documented in this encounter [facility] 06-10-2024 Telephone encounter Note Rosuvastatin sent. [facility] 06-10-2024 Miscellaneous Notes Rosuvastatin sent. documented in this encounter [facility] 06-07-2024 Telephone encounter Note Sent. [facility] 06-07-2024 Miscellaneous Notes Sent. documented in this encounter [facility] 06-06-2024 History of Present illness Narrative Images from the original note were not included. Subjective Patient ID: Marisela Hsieh is a 68 y.o. female who presents for Diabetes. Diabetes Mellitus Patient presents for follow up of diabetes. Current symptoms include: hyperglycemia. Patient denies foot ulcerations, nausea, paresthesia of the feet, polydipsia, polyuria, visual disturbances, and vomiting. Evaluation to date has included: fasting blood sugar, fasting lipid panel, and hemoglobin A1C. Home sugars: BGs range between 140 and 165 on average Pt using CGM recent results: 93,181,310,306,281,285,190,138,11 4 Diabetes DepressionPatient is not experiencing: palpitations and shortness of breath. Current Outpatient Medications on File Prior to Visit Medication Sig Dispense Refill acetaminophen (Tylenol Extra Strength) 500 MG tablet Take 500 mg by mouth every 6 (six) hours. albuterol (2.5 MG/3ML) 0.083% nebulizer solution Take 2.5 mg by nebulization every 6 (six) hours if needed. albuterol HFA 90 mcg/act inhaler Inhale 2 puffs every 4 (four) hours if needed for wheezing or shortness of breath 18 g 3 amLODIPine (Norvasc) 10 MG tablet Take 1 tablet (10 mg) by mouth in the morning. 90 tablet 3 aspirin 81 MG EC tablet Take 81 mg by mouth in the morning. 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 1 each 0 furosemide (Lasix) 40 MG tablet Take 1 tablet (40 mg) by mouth Daily 90 tablet 2 glucose blood test strip 1 each by Other route in the morning. irbesartan (Avapro) 300 MG tablet Take 1 tablet (300 mg) by mouth at bedtime 90 tablet 3 isosorbide mononitrate ER (Imdur) 30 MG 24 hr tablet Take 30 mg by mouth in the morning. pantoprazole (ProtoNix) 20 MG EC tablet Take 20 mg by mouth Daily rosuvastatin (Crestor) 40 MG tablet Take 1 tablet (40 mg) by mouth in the morning. 90 tablet 3 triamterene-hydrochlorothiazide (Maxzide-25) 37.5-25 MG tablet Take 1 tablet by mouth Daily 100 tablet 3 [DISCONTINUED] insulin degludec (Tresiba FlexTouch) 100 UNIT/ML injection Inject 40 Units under the skin at bedtime 36 mL 3 [DISCONTINUED] albuterol HFA 90 mcg/act inhaler Inhale 2 puffs every 4 (four) hours if needed for wheezing or shortness of breath. 18 g 3 [DISCONTINUED] clopidogrel (Plavix) 75 MG tablet Take 1 tablet (75 mg) by mouth in the morning. 100 tablet 3 [DISCONTINUED] Rimegepant Sulfate (Nurtec) 75 MG tablet dispersible Take 75 mg by mouth every other day if needed (migraine) 15 tablet 11 [DISCONTINUED] triamterene-hydrochlorothiazide (Maxzide-25) 37.5-25 MG tablet Take 1 tablet by mouth Daily 90 tablet 2 No current facility-administered medications on file prior to visit. I have reviewed and reconciled the history and medication list with the patient today. Allergies Allergen Reactions Atorvastatin GI intolerance Heartburn Dulaglutide Other Reaction(s): Vision Changes Lisinopril Cough Oxycodone-Acetaminophen GI intolerance Sulfa Antibiotics GI intolerance Social History Tobacco Use Smoking status: Never Smokeless tobacco: Never Substance Use Topics Alcohol use: Never Drug use: Never Family History Problem Relation Name Age of Onset Stroke Mother Heart disease Mother Diabetes Mother Heart disease Father Past Medical History: Diagnosis Date Abnormal stress test 08/01/2023 Arthritis Asthma ([facility]) Constipation CVA (cerebral vascular accident) ([facility]) 04/11/2023 Ischemic Depression ([facility]) Diabetes mellitus ([facility]) GERD (gastroesophageal reflux disease) Hyperlipemia ([facility]) Insomnia Major depressive disorder with single episode, in full remission ([facility]) Primary osteoarthritis involving multiple joints Past Surgical History: Procedure Laterality Date CARDIAC CATHETERIZATION 2012 CARDIAC CATHETERIZATION Left 09/01/2023 CARPAL TUNNEL RELEASE Bilateral SPINE SURGERY 2011 cervical disc TOTAL ABDOMINAL HYSTERECTOMY W/ BILATERAL SALPINGOOPHORECTOMY 1985 Visit Vitals BP 128/66 Pulse 64 Ht 4' 9 Wt 160 lb SpO2 100% BMI 34.62 kg/m Smoking Status Never BSA 1.71 m Review of Systems Respiratory: Negative for shortness of breath. Cardiovascular: Negative for palpitations. Psychiatric/Behavioral: Positive for depression. Objective Physical Exam Constitutional: General: She is not in acute distress. Appearance: Normal appearance. She is well-developed. HENT: Head: Normocephalic and atraumatic. Right Ear: Tympanic membrane and ear canal normal. Left Ear: Tympanic membrane and ear canal normal. Mouth/Throat: Mouth: Mucous membranes are moist. Eyes: General: No scleral icterus. Conjunctiva/sclera: Conjunctivae normal. Neck: Thyroid: No thyromegaly. Cardiovascular: Rate and Rhythm: Regular rhythm. Bradycardia present. Heart sounds: Normal heart sounds. No murmur heard. Pulmonary: Effort: Pulmonary effort is normal. No respiratory distress. Breath sounds: Normal breath sounds. No wheezing, rhonchi or rales. Lymphadenopathy: Cervical: No cervical adenopathy. Skin: General: Skin is warm and dry. Neurological: General: No focal deficit present. Mental Status: She is alert and oriented to person, place, and time. Psychiatric: Mood and Affect: Mood normal. Behavior: Behavior normal. Office Visit on 06/06/2024 Component Date Value Ref Range Status Hemoglobin A1C 06/06/2024 8.1 Final Assessment/Plan Diagnoses and all orders for this visit: Type 2 diabetes mellitus with diabetic chronic kidney disease (CMS/HCC) - POCT Glycated hemoglobin, total - insulin glargine (Lantus SoloStar) 100 UNIT/ML pen; Inject 20 Units under the skin in the morning and 20 Units before bedtime. - Ambulatory referral to Diabetic Education; Future Chronic kidney disease, stage 3b (HCC) (CMS/HCC) Morbid (severe) obesity due to excess calories (CMS/HCC) Essential (primary) hypertension (CMS/HCC) Body mass index (BMI) 35.0-35.9, adult Major depressive disorder, recurrent, moderate (CMS/HCC) Chronic pruritus - hydrOXYzine HCl (Atarax) 25 MG tablet; Take 1 tablet (25 mg) by mouth 3 (three) times a day as needed for itching Follow up in about 2 months (around 08/06/2024) for F/U med changes. documented in this encounter [facility] 04-30-2024 Nurse Note Printed discharge instructions including but not limited to: L arm restrictions/limitations with sling/immobilizer use strongly reinforced, ice pack it incision site encouraged, follow up appts reviewed, pt's home going meds list including new med Keflex and ultram pt ed with reason for med and possible side effects reviewed with pt use and sister with pt stating understanding of instructions. Pt strongly advised to read completely the written instructions and to call Dr Willams with any questions, pt states understanding. [facility] 04-30-2024 Nurse Note Printed discharge instructions including but not limited to: L arm restrictions/limitations with sling/immobilizer use strongly reinforced, ice pack it incision site encouraged, follow up appts reviewed, pt's home going meds list including new med Keflex and ultram pt ed with reason for med and possible side effects reviewed with pt use and sister with pt stating understanding of instructions. Pt strongly advised to read completely the written instructions and to call Dr Willams with any questions, pt states understanding. Pt assisted OOB, after returning from radiology, ambulated to and from bathroom with slow steady gait with immobilizer maintained. Pt offers no complaints at this time. Pt to xray for ordered CXR via cart, pt denies any c/o pain and L upper chest site soft with drsg D&I and immobilizer maintained. Main radiology called and notified of pt's L arm restrictions and told not to raise or move her L arm above shoulder level and to secure her L arm in immobilizer after CXR done. Pt arrived from [facility] with RN on cart. Pt A&O, tearful, emotional with c/o L upper outer arm discomfort with L arm maintained in immobilizer from [facility]. L arm supported with pillows, ice pack applied to incision site with chest drsg D&I. Telemetry applied. documented in this encounter [facility] Work Phone: 04-30-2024 Attending History and physical note H&P reviewed. The patient was examined and there are no changes to the H&P. Source Note - Carmelina Willams MD - 04/17/2024 2:00 PM EDT Images from the original note were not included. Referring Provider: Dr. Welch Reason for Consult: Bradycardia History of Present Illness: Marisela Hsieh is a 68 y.o. year old female patient with a history significant for type 2 diabetes, multivessel CAD, CKD stage III, hypertension, hyperlipidemia and prior CVA, who is referred by [facility] for bradycardia. Patient has known multivessel CAD with angina, being treated with a variety of antianginals including ranolazine as well as isosorbide. Cardiac catheterization at [facility] showed severe diffuse coronary artery disease of the LAD, long segment of the small caliber mid LAD, diagonal artery, severe stenosis of a small OM 2. RCA was relatively free of significant disease, however PDA and PLV had evidence of severe diffuse disease. Despite her history of multiple vessel CAD, she is not a good candidate for CABG or stenting and is being medically managed. More recently, she has been noted to be bradycardic at her [employer] office down to the 40s, and is complaining of fatigue. She also has had EKGs done at her [employer] office history of some junctional bradycardia. Patient complains of severe, unremitting, fatigue, which has been occurring over the past 2 years but has worsened more recently. She gets short of breath and very fatigued with minimal activity. Focused Cardiovascular Problem List: Multivessel CAD, not amenable to revascularization Type 2 diabetes CKD stage III Hypertension Hyperlipidemia Prior CVA: Decreased motor skills after the stroke but mostly improved Past Medical and Surgical History: Ms. Hsieh has no past medical history on file. has no past surgical history on file. 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 Father: from heart attack at 67 Mother: from stroke at 68 Two sisters with cancer Allergies: Allergies Allergen Reactions Atorvastatin GI intolerance and GI Upset Heartburn Dulaglutide Blurred vision Other Reaction(s): Vision Changes Lisinopril Cough Oxycodone GI Upset Oxycodone-Acetaminophen GI intolerance Sulfa (Sulfonamide Antibiotics) GI intolerance Medications: Current Outpatient Medications Medication Instructions albuterol 90 mcg/actuation inhaler 2 puffs, inhalation, Every 4 hours PRN amLODIPine (NORVASC) 10 mg, oral, Daily before breakfast aspirin 81 mg, oral, Daily atorvastatin (LIPITOR) 40 mg, oral, Daily Avapro 300 mg, oral, Daily citalopram (CELEXA) 10 mg, oral, Daily before breakfast clopidogrel (PLAVIX) 75 mg, oral, Daily before breakfast Crestor 40 mg, oral, Daily FLUoxetine (PROZAC) 10 mg, oral, Daily furosemide (LASIX) 40 mg, oral, Daily insulin degludec (TRESIBA U-100 INSULIN SUBQ) Refills(s) 0 isosorbide mononitrate ER (IMDUR) 30 mg, oral, Daily before breakfast nitroglycerin (NITROSTAT) 0.4 mg, sublingual, Every 5 min PRN ranolazine (Ranexa) 500 mg 12 hr tablet 1 tablet, oral, Every 12 hours scheduled (0630,1830) triamterene-hydrochlorothiazid (Maxzide-25) 37.5-25 mg tablet 1 tablet, oral, Daily Objective Physical Exam: Last Recorded Vitals: 04/17/2024 1:50 PM Vitals Systolic 111 Diastolic 48 Heart Rate 54 Temp 36.3 C (97.3 F) Resp 16 Height (in) 1.448 m (4' 9 ) Weight (lb) 164 BMI 35.49 kg/m2 BSA (m2) 1.73 m2 Visit Report Report Visit Vitals BP (!) 111/48 Pulse 54 Temp 36.3 C (97.3 F) Resp 16 Ht 1.448 m (4' 9 ) Wt 74.4 kg (164 lb) SpO2 98% BMI 35.49 kg/m Smoking Status Never BSA 1.73 m Gen: NAD, sitting comfortably HEENT: NC/AT Card: Bradycardic, regular rhythm, no m/r/g Pulm: Clear to auscultation bilaterally Ext: No LE edema Neuro: No focal deficits Diagnostic Results My Interpretation of Reviewed Study(s): Prior ECGs (reviewed and my interpretation): 04/17/2024: Sinus bradycardia, ST and T wave abnormalities, abnormal EKG, heart rate 51 bpm Echocardiography: 04/14/2023: LVEF 50 to 55%, severe hypokinesis of distal anterior septal wall and apex, mildly dilated left atrium, no significant valvular disease, no PFO on agitated saline study Stress Test: 07/2023: No inducible ischemia on exercise progression. However, perfusion testing showed a moderate to severe size defect involving the mid to distal anteroseptal wall and apex with mild reversibility. LV ejection fraction normal at 51%. Relevant Labs: No results found for: CREATININE , CCL , K , HGBA1C , HGB , INR , AST , ALT Assessment/Plan Assessment and Plan: Marisela Hsieh is a 68 y.o. year old female patient who is referred for management and evaluation of symptomatic bradycardia. She clearly has evidence of sick sinus syndrome with resting bradycardia with heart rates in the 40s to 50s, occasionally junctional bradycardia, and minimal chronotropic response with walking around the office, despite becoming fatigued and short of breath. She also is requiring medications for her severe angina with nonrevascularizable disease which can exacerbate bradycardia. She may also benefit from the addition of beta-blockers for further improvement of her angina, but cannot tolerate beta-blockers due to her resting bradycardia. She has severe fatigue from her bradycardia which is severely impacting her quality of life. For all these reasons, I think that she would feel symptomatically improved with implantation of a pacemaker for sick sinus syndrome and up titration of antianginal medication. A recent echocardiogram showed a normal ejection fraction of 50 to 55%, and a nuclear stress test in July also showed an ejection fraction of 51%. She otherwise has a normal QRS and normal AV conduction, so a dual-chamber pacemaker will be appropriate. The risks of the procedure were discussed in detail, including but not limited to bleeding, infection, lead dislodgement, pneumothorax, cardiac perforation, need for cardiac or vascular surgery, myocardial infarction, stroke, and a small chance of . Additionally, we discussed possible long-term complications including shipping and receiving-initiated device recalls, lead integrity issues, and late infections. The patient understands these risks and wishes to proceed with device implantation. Name: Marisela Hsieh Attending: Carmelina Willams MD Procedure: Permanent pacemaker implantation Date desired: 04/30/2024 Diagnosis: Sick sinus syndrome Vendor if applicable: Kaur Expected anesthesia: RN sedation Isolation/precautions?: None Other comments/med instructions: Hold all medications on the morning of the procedure Return to Clinic: After pacemaker implantation Thank you very much for allowing me to participate in the care of this patient. Please do not hesitate to contact me with any further questions or concerns. Carmelina Willams MD Clinical Cardiac Pug Machine Operator, [facility] [place] Vp Securityoccupational therapy assistant, [facility] [employer] Director of Atrial Fibrillation Ablation, [facility] Center[facility] Seasoner of Ventricular Arrhythmias Research, [facility] Work Phone: 04-30-2024 History and physical note H&P reviewed. The patient was examined and there are no changes to the H&P. Source Note - Caremlina Willams MD - 04/17/2024 2:00 PM EDT Images from the original note were not included. Referring Provider: Dr. Welch Reason for Consult: Bradycardia History of Present Illness: Marisela Hsieh is a 68 y.o. year old female patient with a history significant for type 2 diabetes, multivessel CAD, CKD stage III, hypertension, hyperlipidemia and prior CVA, who is referred by [facility] for bradycardia. Patient has known multivessel CAD with angina, being treated with a variety of antianginals including ranolazine as well as isosorbide. Cardiac catheterization at [facility] showed severe diffuse coronary artery disease of the LAD, long segment of the small caliber mid LAD, diagonal artery, severe stenosis of a small OM 2. RCA was relatively free of significant disease, however PDA and PLV had evidence of severe diffuse disease. Despite her history of multiple vessel CAD, she is not a good candidate for CABG or stenting and is being medically managed. More recently, she has been noted to be bradycardic at her [employer] office down to the 40s, and is complaining of fatigue. She also has had EKGs done at her [employer] office history of some junctional bradycardia. Patient complains of severe, unremitting, fatigue, which has been occurring over the past 2 years but has worsened more recently. She gets short of breath and very fatigued with minimal activity. Focused Cardiovascular Problem List: Multivessel CAD, not amenable to revascularization Type 2 diabetes CKD stage III Hypertension Hyperlipidemia Prior CVA: Decreased motor skills after the stroke but mostly improved Past Medical and Surgical History: Ms. Hsieh has no past medical history on file. has no past surgical history on file. 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 Father: from heart attack at 67 Mother: from stroke at 68 Two sisters with cancer Allergies: Allergies Allergen Reactions Atorvastatin GI intolerance and GI Upset Heartburn Dulaglutide Blurred vision Other Reaction(s): Vision Changes Lisinopril Cough Oxycodone GI Upset Oxycodone-Acetaminophen GI intolerance Sulfa (Sulfonamide Antibiotics) GI intolerance Medications: Current Outpatient Medications Medication Instructions albuterol 90 mcg/actuation inhaler 2 puffs, inhalation, Every 4 hours PRN amLODIPine (NORVASC) 10 mg, oral, Daily before breakfast aspirin 81 mg, oral, Daily atorvastatin (LIPITOR) 40 mg, oral, Daily Avapro 300 mg, oral, Daily citalopram (CELEXA) 10 mg, oral, Daily before breakfast clopidogrel (PLAVIX) 75 mg, oral, Daily before breakfast Crestor 40 mg, oral, Daily FLUoxetine (PROZAC) 10 mg, oral, Daily furosemide (LASIX) 40 mg, oral, Daily insulin degludec (TRESIBA U-100 INSULIN SUBQ) Refills(s) 0 isosorbide mononitrate ER (IMDUR) 30 mg, oral, Daily before breakfast nitroglycerin (NITROSTAT) 0.4 mg, sublingual, Every 5 min PRN ranolazine (Ranexa) 500 mg 12 hr tablet 1 tablet, oral, Every 12 hours scheduled (0630,1830) triamterene-hydrochlorothiazid (Maxzide-25) 37.5-25 mg tablet 1 tablet, oral, Daily Objective Physical Exam: Last Recorded Vitals: 04/17/2024 1:50 PM Vitals Systolic 111 Diastolic 48 Heart Rate 54 Temp 36.3 C (97.3 F) Resp 16 Height (in) 1.448 m (4' 9 ) Weight (lb) 164 BMI 35.49 kg/m2 BSA (m2) 1.73 m2 Visit Report Report Visit Vitals BP (!) 111/48 Pulse 54 Temp 36.3 C (97.3 F) Resp 16 Ht 1.448 m (4' 9 ) Wt 74.4 kg (164 lb) SpO2 98% BMI 35.49 kg/m Smoking Status Never BSA 1.73 m Gen: NAD, sitting comfortably HEENT: NC/AT Card: Bradycardic, regular rhythm, no m/r/g Pulm: Clear to auscultation bilaterally Ext: No LE edema Neuro: No focal deficits Diagnostic Results My Interpretation of Reviewed Study(s): Prior ECGs (reviewed and my interpretation): 04/17/2024: Sinus bradycardia, ST and T wave abnormalities, abnormal EKG, heart rate 51 bpm Echocardiography: 04/14/2023: LVEF 50 to 55%, severe hypokinesis of distal anterior septal wall and apex, mildly dilated left atrium, no significant valvular disease, no PFO on agitated saline study Stress Test: 07/2023: No inducible ischemia on exercise progression. However, perfusion testing showed a moderate to severe size defect involving the mid to distal anteroseptal wall and apex with mild reversibility. LV ejection fraction normal at 51%. Relevant Labs: No results found for: CREATININE , CCL , K , HGBA1C , HGB , INR , AST , ALT Assessment/Plan Assessment and Plan: Marisela Hsieh is a 68 y.o. year old female patient who is referred for management and evaluation of symptomatic bradycardia. She clearly has evidence of sick sinus syndrome with resting bradycardia with heart rates in the 40s to 50s, occasionally junctional bradycardia, and minimal chronotropic response with walking around the office, despite becoming fatigued and short of breath. She also is requiring medications for her severe angina with nonrevascularizable disease which can exacerbate bradycardia. She may also benefit from the addition of beta-blockers for further improvement of her angina, but cannot tolerate beta-blockers due to her resting bradycardia. She has severe fatigue from her bradycardia which is severely impacting her quality of life. For all these reasons, I think that she would feel symptomatically improved with implantation of a pacemaker for sick sinus syndrome and up titration of antianginal medication. A recent echocardiogram showed a normal ejection fraction of 50 to 55%, and a nuclear stress test in July also showed an ejection fraction of 51%. She otherwise has a normal QRS and normal AV conduction, so a dual-chamber pacemaker will be appropriate. The risks of the procedure were discussed in detail, including but not limited to bleeding, infection, lead dislodgement, pneumothorax, cardiac perforation, need for cardiac or vascular surgery, myocardial infarction, stroke, and a small chance of . Additionally, we discussed possible long-term complications including shipping and receiving-initiated device recalls, lead integrity issues, and late infections. The patient understands these risks and wishes to proceed with device implantation. Name: Marisela Hsieh Attending: Carmelina Willams MD Procedure: Permanent pacemaker implantation Date desired: 04/30/2024 Diagnosis: Sick sinus syndrome Vendor if applicable: Kaur Expected anesthesia: RN sedation Isolation/precautions?: None Other comments/med instructions: Hold all medications on the morning of the procedure Return to Clinic: After pacemaker implantation Thank you very much for allowing me to participate in the care of this patient. Please do not hesitate to contact me with any further questions or concerns. Carmelina Willams MD Clinical Cardiac Pug Machine Operator, [facility] [place] Vp Securityoccupational therapy assistant, [facility] [employer] Director of Atrial Fibrillation Ablation, [facility]ricular Arrhythmias Research, [facility] Office documented in this encounter [facility] Work Phone: 04-30-2024 Nurse Note Pt assisted OOB, after returning from radiology, ambulated to and from bathroom with slow steady gait with immobilizer maintained. Pt offers no complaints at this time. [facility] Work Phone: 04-30-2024 Nurse Note Pt to xray for ordered CXR via cart, pt denies any c/o pain and L upper chest site soft with drsg D&I and immobilizer maintained. [facility] Work Phone: 04-30-2024 Nurse Note Main radiology called and notified of pt's L arm restrictions and told not to raise or move her L arm above shoulder level and to secure her L arm in immobilizer after CXR done. [facility] Work Phone: 04-30-2024 Nurse Note Pt arrived from [facility] with RN on cart. Pt A&O, tearful, emotional with c/o L upper outer arm discomfort with L arm maintained in immobilizer from [facility]. L arm supported with pillows, ice pack applied to incision site with chest drsg D&I. Telemetry applied. [facility] Work Phone: 04-30-2024 Note Formatting of this n ote might be different from the original. Sedation Plan ASA 1 Mallampati class: II. Risks, benefits, and alternatives discussed with patient. [facility] Work Phone: 04-30-2024 Miscellaneous Notes Sedation Plan ASA 1 Mallampati class: II. Risks, benefits, and alternatives discussed with patient. documented in this encounter [facility] Work Phone: 04-30-2024 Hospital Discharge instructions Lizbet Morel, HARDBOARD COATING MACHINE OPERATOR-SECTION HAND - 04/30/2024 2:53 PM EDT Images from the original note were not included. Home going instructions after a Pacemaker/ Defibrillator Implant After a procedure using sedation You should return home and rest for the remainder of the day and evening. It is recommended a responsible adult be with you for the first 24 hours after the procedure. Do not make any legal decisions for 24 hours after your procedure. Do not drink alcoholic beverages for 24 hours after your procedure. Wound care Leave the surgical dressing in place for 7 days post implant The dressing will be removed at the 1 week follow up appointment. Please keep your incision dry, the dressing is water resistant. You may shower avoid water directly hitting the dressing. Inspect your incisional site/ dressing each day Apply ice to the site 3-4 times per day in 20 minute intervals for at least 2 days after surgery It is normal for the area around the incision to be tender for a few weeks following surgery. Pain relievers such as Tylenol or Motrin are usually sufficient for pain relief. You may be prescribed Tramadol in addition. Take as prescribed alternating with Tylenol or Motrin. Activity Avoid driving for 1 week. If you have had passing out spells or previously restricted from driving, discuss driving restrictions with your doctor. For the first 4 to 6 weeks after implant avoid excessive/repetitive arm movement on the side of your new implant. Do not raise, push, pull, or stretch your arm above shoulder level. Do not orange picker machine operator items that weigh greater than 10 lbs with the device arm. Wear your binder/sling for the first 48 hours then at night to remind you not to move the arm over your head and during the day as needed. Report to your provider Increased redness, swelling, drainage or gaping of your incisional site. Increased pain at site unrelieved by pain medication. Fever or chills prior to the 1 week appointment. Bright red bleeding from the incisional site or complete saturation of the dressing. Dizziness, lightheadedness, passing out, or defibrillator shocks. Remote monitoring/ Device ID card You have been instructed by the device company equal opportunity representative regarding remote home monitoring. There are multiple types of home monitoring units, please follow the instructions given If you have questions please contact the device clinic for further instruction After implant you will receive a temporary card. Permanent card will come in the mail in the next few weeks. It is important that you carry your pacemaker ID card with you at all times. Inform all doctors and healthcare providers that you have a pacemaker. Electromagnetic Interference: Microwave ovens are safe to use. Please inform any physicians of your pacemaker implant prior to MRI for appropriate scheduling. You should be prepared to show your pacemaker identification card to the security guards at metal detectors. Hand wand detector should be kept away from the pacemaker. Read the patient booklet for more information. Follow up appointments Incision (wound) check in 1 week. Appointment for Chest xray, device check, and provider in 3 months. These appointments will be scheduled and appear on your After Visit Summary. documented in this encounter [facility] Work Phone: 04-24-2024 Telephone encounter Note Will discuss at her appt. DULCE [facility] Work Phone: 04-24-2024 Miscellaneous Notes Will discuss at her appt. TY PATIENT WAS SCHEDULED FOR A HOME SLEEP STUDY ON SUNDAY 05/20. SHE CANCELLED TODAY STATING SHE IS GOING TO BE GETTING A PACEMAKER SOON AND SHE DOES NOT WANT TO GO THROUGH WITH DOING THE HOME SLEEP STUDY AT THIS TIME. SENDING TO YOU AN FYI documented in this encounter [facility] 04-24-2024 Telephone encounter Note PATIENT WAS SCHEDULED FOR A HOME SLEEP STUDY ON SUNDAY 05/20. SHE CANCELLED TODAY STATING SHE IS GOING TO BE GETTING A PACEMAKER SOON AND SHE DOES NOT WANT TO GO THROUGH WITH DOING THE HOME SLEEP STUDY AT THIS TIME. SENDING TO YOU AN FYI [facility] 04-17-2024 History of Present illness Narrative Images from the original note were not included. Referring Provider: Dr. Welch Reason for Consult: Bradycardia History of Present Illness: Marisela Hsieh is a 68 y.o. year old female patient with a history significant for type 2 diabetes, multivessel CAD, CKD stage III, hypertension, hyperlipidemia and prior CVA, who is referred by [facility] for bradycardia. Patient has known multivessel CAD with angina, being treated with a variety of antianginals including ranolazine as well as isosorbide. Cardiac catheterization at [facility] showed severe diffuse coronary artery disease of the LAD, long segment of the small caliber mid LAD, diagonal artery, severe stenosis of a small OM 2. RCA was relatively free of significant disease, however PDA and PLV had evidence of severe diffuse disease. Despite her history of multiple vessel CAD, she is not a good candidate for CABG or stenting and is being medically managed. More recently, she has been noted to be bradycardic at her [employer] consultant office down to the 40s, and is complaining of fatigue. She also has had EKGs done at her [employer] office history of some junctional bradycardia. Patient complains of severe, unremitting, fatigue, which has been occurring over the past 2 years but has worsened more recently. She gets short of breath and very fatigued with minimal activity. Focused Cardiovascular Problem List: Multivessel CAD, not amenable to revascularization Type 2 diabetes CKD stage III Hypertension Hyperlipidemia Prior CVA: Decreased motor skills after the stroke but mostly improved Past Medical and Surgical History: Ms. Hsieh has no past medical history on file. has no past surgical history on file. 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 Father: from heart attack at 67 Mother: from stroke at 68 Two sisters with cancer Allergies: Allergies Allergen Reactions Atorvastatin GI intolerance and GI Upset Heartburn Dulaglutide Blurred vision Other Reaction(s): Vision Changes Lisinopril Cough Oxycodone GI Upset Oxycodone-Acetaminophen GI intolerance Sulfa (Sulfonamide Antibiotics) GI intolerance Medications: Current Outpatient Medications Medication Instructions albuterol 90 mcg/actuation inhaler 2 puffs, inhalation, Every 4 hours PRN amLODIPine (NORVASC) 10 mg, oral, Daily before breakfast aspirin 81 mg, oral, Daily atorvastatin (LIPITOR) 40 mg, oral, Daily Avapro 300 mg, oral, Daily citalopram (CELEXA) 10 mg, oral, Daily before breakfast clopidogrel (PLAVIX) 75 mg, oral, Daily before breakfast Crestor 40 mg, oral, Daily FLUoxetine (PROZAC) 10 mg, oral, Daily furosemide (LASIX) 40 mg, oral, Daily insulin degludec (TRESIBA U-100 INSULIN SUBQ) Refills(s) 0 isosorbide mononitrate ER (IMDUR) 30 mg, oral, Daily before breakfast nitroglycerin (NITROSTAT) 0.4 mg, sublingual, Every 5 min PRN ranolazine (Ranexa) 500 mg 12 hr tablet 1 tablet, oral, Every 12 hours scheduled (0630,1830) triamterene-hydrochlorothiazid (Maxzide-25) 37.5-25 mg tablet 1 tablet, oral, Daily Objective Physical Exam: Last Recorded Vitals: 04/17/2024 1:50 PM Vitals Systolic 111 Diastolic 48 Heart Rate 54 Temp 36.3 C (97.3 F) Resp 16 Height (in) 1.448 m (4' 9 ) Weight (lb) 164 BMI 35.49 kg/m2 BSA (m2) 1.73 m2 Visit Report Report Visit Vitals BP (!) 111/48 Pulse 54 Temp 36.3 C (97.3 F) Resp 16 Ht 1.448 m (4' 9 ) Wt 74.4 kg (164 lb) SpO2 98% BMI 35.49 kg/m Smoking Status Never BSA 1.73 m Gen: NAD, sitting comfortably HEENT: NC/AT Card: Bradycardic, regular rhythm, no m/r/g Pulm: Clear to auscultation bilaterally Ext: No LE edema Neuro: No focal deficits Diagnostic Results My Interpretation of Reviewed Study(s): Prior ECGs (reviewed and my interpretation): 04/17/2024: Sinus bradycardia, ST and T wave abnormalities, abnormal EKG, heart rate 51 bpm Echocardiography: 04/14/2023: LVEF 50 to 55%, severe hypokinesis of distal anterior septal wall and apex, mildly dilated left atrium, no significant valvular disease, no PFO on agitated saline study Stress Test: 07/2023: No inducible ischemia on exercise progression. However, perfusion testing showed a moderate to severe size defect involving the mid to distal anteroseptal wall and apex with mild reversibility. LV ejection fraction normal at 51%. Relevant Labs: No results found for: CREATININE , CCL , K , HGBA1C , HGB , INR , AST , ALT Assessment/Plan Assessment and Plan: Marisela Hsieh is a 68 y.o. year old female patient who is referred for management and evaluation of symptomatic bradycardia. She clearly has evidence of sick sinus syndrome with resting bradycardia with heart rates in the 40s to 50s, occasionally junctional bradycardia, and minimal chronotropic response with walking around the office, despite becoming fatigued and short of breath. She also is requiring medications for her severe angina with nonrevascularizable disease which can exacerbate bradycardia. She may also benefit from the addition of beta-blockers for further improvement of her angina, but cannot tolerate beta-blockers due to her resting bradycardia. She has severe fatigue from her bradycardia which is severely impacting her quality of life. For all these reasons, I think that she would feel symptomatically improved with implantation of a pacemaker for sick sinus syndrome and up titration of antianginal medication. A recent echocardiogram showed a normal ejection fraction of 50 to 55%, and a nuclear stress test in July also showed an ejection fraction of 51%. She otherwise has a normal QRS and normal AV conduction, so a dual-chamber pacemaker will be appropriate. The risks of the procedure were discussed in detail, including but not limited to bleeding, infection, lead dislodgement, pneumothorax, cardiac perforation, need for cardiac or vascular surgery, myocardial infarction, stroke, and a small chance of . Additionally, we discussed possible long-term complications including shipping and receiving-initiated device recalls, lead integrity issues, and late infections. The patient understands these risks and wishes to proceed with device implantation. Name: Marisela Hsieh Attending: Carmelina Willams MD Procedure: Permanent pacemaker implantation Date desired: 04/30/2024 Diagnosis: Sick sinus syndrome Vendor if applicable: Kaur Expected anesthesia: RN sedation Isolation/precautions?: None Other comments/med instructions: Hold all medications on the morning of the procedure Return to Clinic: After pacemaker implantation Thank you very much for allowing me to participate in the care of this patient. Please do not hesitate to contact me with any further questions or concerns. Carmelina Willams MD Clinical Cardiac Pug Machine Operator, [facility] [place] Vp Securityoccupational therapy assistant, [facility] [employer] Director of Atrial Fibrillation Ablation, [facility] of Ventricular Arrhythmias Research, [facility] Office documented in this encounter [facility] Work Phone: 04-02-2024 Evaluation + Plan note Future Scheduled TestsTIBC Calculated 04/02/24Ferritin 04/02/24Iron Level 04/02/24Lipid Panel 01/24/24 [facility] 03-19-2024 History of Present illness Narrative Images from the original note were not included. Patient is here today for follow-up of stroke and new C/O sleep disturbance/fatigue. I am following the plan of care established by the physician who is present in the office today and saw the patient with me. Subjective Marisela Hsieh is a 68 y.o. year old female Chief Complaint Patient presents with Cerebrovascular Accident Past Medical History: Diagnosis Date Abnormal stress test 08/01/2023 Arthritis Asthma ([facility]) Constipation CVA (cerebral vascular accident) ([facility]) 04/11/2023 Ischemic Depression (CMS/HCC) Diabetes mellitus (CMS/HCC) GERD (gastroesophageal reflux disease) Hyperlipemia (CMS/HCC) Insomnia Major depressive disorder with single episode, in full remission (CMS/HCC) Primary osteoarthritis involving multiple joints Past Surgical History: Procedure Laterality Date CARDIAC CATHETERIZATION 2012 CARDIAC CATHETERIZATION Left 09/01/2023 CARPAL TUNNEL RELEASE Bilateral SPINE SURGERY 2011 cervical disc TOTAL ABDOMINAL HYSTERECTOMY W/ BILATERAL SALPINGOOPHORECTOMY 1985 Family History Problem Relation Name Age of Onset Stroke Mother Heart disease Mother Diabetes Mother Heart disease Father Social History Tobacco Use Smoking status: Never Smokeless tobacco: Never Substance Use Topics Alcohol use: Never Medication Documentation Review Audit Reviewed by Isidro Smiley MA ([employer]elding Machine Operator [employer]riction) on 03/19/24 at 1444 Medication Order Taking? Sig Documenting Provider Last Dose Status acetaminophen (Tylenol Extra Strength) 500 MG tablet [id number] Yes Take 500 mg by mouth every 6 (six) hours. Historical Provider, Taking Active albuterol (2.5 MG/3ML) 0.083% nebulizer solution [id number] Yes Take 2.5 mg by nebulization every 6 (six) hours if needed. Historical Provider, Taking Active albuterol HFA 90 mcg/act inhaler [id number] Inhale 2 puffs every 4 (four) hours if needed for wheezing or shortness of breath. Jason Wyatt MD 06/14/23 2359 amLODIPine (Norvasc) 10 MG tablet [id number] Yes Take 1 tablet (10 mg) by mouth in the morning. Jason Wyatt MD Taking Active amoxicillin-clavulanate (Augmentin) 875-125 MG tablet [id number] Take 1 tablet (875 mg) by mouth in the morning and 1 tablet (875 mg) before bedtime. Do all this for 10 days. Jason Wyatt MD 03/16/24 2359 aspirin 81 MG EC tablet [id number] Yes Take 81 mg by mouth in the morning. Historical Provider, Taking Active clopidogrel (Plavix) 75 MG tablet [id number] Yes Take 1 tablet (75 mg) by mouth in the morning. Jason Wyatt MD Taking Active Continuous Blood Gluc Computer Education Professor ([employer] [place] [employer] [place]) device [id number] Yes 1 Device in the morning and 1 Device at noon and 1 Device in the evening and 1 Device before bedtime. Jason Wyatt MD Taking Active glucose blood test strip [id number] Yes 1 each by Other route in the morning. Historical Provider, Taking Active insulin degludec (Tresiba FlexTouch) 100 UNIT/ML injection [id number] Yes Inject 40 Units under the skin at bedtime Jason Wyatt MD Taking Active irbesartan (Avapro) 300 MG tablet [id number] Yes Take 1 tablet (300 mg) by mouth at bedtime Jason Wyatt MD Taking Active isosorbide mononitrate ER (Imdur) 30 MG 24 hr tablet [id number] Yes Take 30 mg by mouth in the morning. Jason Wyatt MD Taking Active Rimegepant Sulfate (Nurtec) 75 MG tablet dispersible [id number] Yes Take 75 mg by mouth every other day if needed (migraine) Jason Wyatt MD Taking Active rosuvastatin (Crestor) 40 MG tablet [id number] Yes Take 1 tablet (40 mg) by mouth in the morning. EARNESTINE Rowe Taking Active triamterene-hydrochlorothiazide (Maxzide-25) 37.5-25 MG tablet [id number] Yes Take 1 tablet by mouth in the morning. Jason Wyatt MD Taking Active HPI HPI CVA -reports persistent fatigue -Taking Plavix and ASA - Denies paresthesia in the jaw on the right has resolved -she feels lightheaded and dizzy (spinning) - She feels that she is walking better no longer using a cane - Balance is ok -denies falls - States that she is having trouble doing simple tasks such as feeding. States that he hands are out of her control at times. This is persistent - She completed PT and OT - Did not complete Cardio Rahab, was unable to afford it. -follows with Dr Garcia. PCP thinks she needs a pacemaker. She did not ask about a pacemaker - Admits lightheadedness/dizziness - Will have to sit down because she becomes SOB -she states her heart rate will be in the 40s and 50s at home. BP is low 100s up to 150s - no other new concern, NEW: FATIGUE -does not sleep well at night -trouble getting to sleep and staying asleep -she is unsure if she snores -she does wake up short of breath -she never wakes up rested -she naps during the day -she had a sleep study years ago and had a CPAP at one time ROS Review of Systems Objective Visit Vitals BP 118/72 Ht 4' 9 Wt 163 lb BMI 35.27 kg/m Smoking Status Never BSA 1.72 m GENERAL Apical RRR, no murmur LS CTA throughout Carotid - no bruit Abdomen soft, BS normal Neurological Exam Mental Status Awake, alert and oriented to person, place and time. Recent and remote memory are intact. Speech is normal. Language is fluent with no aphasia. Attention and concentration are normal. Fund of knowledge is appropriate for level of education. Cranial Nerves CN II: Visual acuity is normal. Visual diaz full to confrontation. CN III, IV, : Extraocular movements intact bilaterally. Normal lids and orbits bilaterally. Pupils equal round and reactive to light bilaterally. CN V: Facial sensation is normal. CN VII: Full and symmetric facial movement. CN VIII: Hearing is normal. CN IX, X: Palate elevates symmetrically. Normal gag reflex. CN XI: Shoulder shrug strength is normal. CN XII: Tongue midline without atrophy or fasciculations. Sensory Light touch is normal in upper and lower extremities. Temperature is normal in upper and lower extremities. Vibration is normal in upper and lower extremities. Coordination Right: [id number] normal. Rapid alternating movement normal.Left: Ofroah-ev-[id number] normal. Rapid alternating movement normal. Slightly slower on the right compared to the left. Gait Casual gait is normal including stance, stride, and arm swing. Motor Examination RUE Strength deltoid, biceps, triceps, wrist extensors, wrist extensors, wrist flexor, program counselor strength 5/5. LUE Strength deltoid, biceps, triceps, wrist extensors, wrist extensors, wrist flexor, program counselor strength 5/5. RLE Strength illopsoas, quadriceps, tibialis anterior, and gastrocnemius strength 5/5. LLE Strength illopsoas, quadriceps, tibialis anterior, and gastrocnemius strength 5/5. Tone Normal tone x4 extremities. Reflexes: RUE biceps reflex 2, brachioradialis reflex 2 LUE biceps reflex 2, brachioradialis reflex 2 RLE knee reflex 2, LLE knee reflex 2, Assessment and Plan 1. Cerebrovascular accident (CVA) due to bilateral embolism of middle cerebral arteries - I63.413 (Primary), Patient is a 68-year-old female with medical history of asthma, diabetes, hypertension, obstructive sleep apnea and hyperlipidemia. She presented to [facility] with right arm numbness and slurred speech and was found to have multiple strokes suggestive of embolic source of ischemia. She states for the most part she is back to her baseline. She continues to have some gait instability but is no longer using assistive devices. We discussed the high morbidity and mortality associated with falls and the fat that she has multiple risk factors that increases her chance of falls. We discussed fall precautions at length including taking up throw rugs, changing position slowly, maintaining hydration, having a light on at night, grab bars in the shower and ensuring pets are not a tripping kathy if applicable. 2. Myocardial infarction, unspecified [place] type, unspecified artery - I21.9, She was found to have evidence of [place] and underwent stress test and heart catheterization. She is following with [facility] cardiology. She reports persistent fatigue and bradycardia with heart rates in the 40s. She states her PCP said she might need a pacemaker. We advised her to call cardiology to make an appt and take her BP and pulse log with her. 3. Insomnia/Fatigue - She reports persistent difficulty sleeping and fatigue which is, to some extent, frome her cardiac pathology I suspect. She has a history of TRACIE and I have recommended she repeat PSG because untreated TRACIE could be contributing to fatigue if present. In addition it is a risk for stroke and NY. I have ordered a HST. She states understanding Evaluation at [facility] on 04/14/[address] scan of the brain nonacute 2. CTA of the head and neck was negative for occlusive disease. Does show prior fusion at C6-7 with intact hardware 3. Echocardiogram showed EF 50-55%, left atrium mildly dilated, no evidence of PFO. 4. BART without evidence of thrombus or mass. No PFO. 5. Hemoglobin A1c 8.1 6. Total cholesterol 215, triglycerides 181, LDL 140, HDL 39 7. TSH 1.16 8. BMP and CBC normal. Diagnoses and all orders for this visit: Cerebrovascular accident (CVA) due to thrombosis of cerebral artery (CMS/HCC) - Home sleep test; Future Hypersomnia - Home sleep test; Future Nocturnal dyspnea - Home sleep test; Future PLAN: 1. Patient did not tolerate atorvastatin. She is now on rosuvastatin. Goal LDL is < 70 for stroke risk prevention 2. Continue aspirin and Plavix for now. 3. Continue to follow with primary care physician to monitor stroke risk factor management 4. Stroke risk factors discussed with the patient and her 5. Conitnue to follow with cardiology. She will call to schedule an appt 6. I counseled the patient on fall precautions at length. I discussed the high risk of trauma and debility associated with falls. The patient states understanding. The patient is at high risk for morbidity and mortality due to frequent falls. 7. I have ordered a HST. 8. I will see her back in 2 months, or sooner if needed documented in this encounter [facility] 03-06-2024 History of Present illness Narrative Images from the original note were not included. Subjective : Chief Complaint: Marisela Hsieh is an 68 y.o. female here for an annual wellness visit. I have reviewed and reconciled the history and medication list with the patient today. Current Outpatient Medications Medication Sig Dispense Refill acetaminophen (Tylenol Extra Strength) 500 MG tablet Take 500 mg by mouth every 6 (six) hours. albuterol (2.5 MG/3ML) 0.083% nebulizer solution Take 2.5 mg by nebulization every 6 (six) hours if needed. amLODIPine (Norvasc) 10 MG tablet Take 1 tablet (10 mg) by mouth in the morning. 90 tablet 3 aspirin 81 MG EC tablet Take 81 mg by mouth in the morning. clopidogrel (Plavix) 75 MG tablet Take 1 tablet (75 mg) by mouth in the morning. 100 tablet 3 Continuous Blood Gluc Computer Education Professor (FreeStyle Kwasi 2 Dundas) device 1 Device in the morning and 1 Device at noon and 1 Device in the evening and 1 Device before bedtime. 1 each 0 glucose blood test strip 1 each by Other route in the morning. insulin degludec (Tresiba FlexTouch) 100 UNIT/ML injection Inject 40 Units under the skin at bedtime 36 mL 3 irbesartan (Avapro) 300 MG tablet Take 1 tablet (300 mg) by mouth at bedtime 90 tablet 3 Rimegepant Sulfate (Nurtec) 75 MG tablet dispersible Take 75 mg by mouth every other day if needed (migraine) 15 tablet 11 rosuvastatin (Crestor) 40 MG tablet Take 1 tablet (40 mg) by mouth in the morning. 90 tablet 3 triamterene-hydrochlorothiazide (Maxzide-25) 37.5-25 MG tablet Take 1 tablet by mouth in the morning. 30 tablet 11 albuterol HFA 90 mcg/act inhaler Inhale 2 puffs every 4 (four) hours if needed for wheezing or shortness of breath. 18 g 3 amoxicillin-clavulanate (Augmentin) 875-125 MG tablet Take 1 tablet (875 mg) by mouth in the morning and 1 tablet (875 mg) before bedtime. Do all this for 10 days. 20 tablet 0 No current facility-administered medications for this visit. Review of Systems List of current healthcare providers: Patient Care Team: Jason Wyatt MD as PCP - General (Internal Medicine) Jason Wyatt MD as PCP - [employer]oted Medicare Annual Visit Over the past 2 weeks, how often have you been bothered by any of the following problems? Little interest or pleasure in doing things: Not at all Feeling down, depressed, or hopeless: Not at all Patient Health Questionnaire-2 Score: 0 [place] Fall Risk History of Falling, Immediate or Within 3 Months: No Secondary Diagnosis: No Ambulatory Aid: Walks without aid/bedrest/nurse assist Health Risk Assessment Form Do you need help eating, bathing, using the toilet, dressing, or getting around your home?: No Can you prepare your own meals?: Yes Can you do your own housework without help?: Yes Can you shop for groceries or clothes without help?: Yes Do you exercise for about 20 minutes 3 or more days a week?: No How confident are you that you can control and manage most of your health problems?: Very confident Can you mange your money, credit cards and accounts, pay bills and taxes?: Yes Cognitive Screening Three Word Registration: Bossman Mclain, Finger Clock Drawing: Normal Clock - 2 Three Word Recall: All 3 words correct - 3 Total Score (0-5 Points): 5 Pain Assessment Pain Score: 7 Advance Care Planning Do you have a living will?: Yes Do you have a medical power of payroll and benefits manager?: Yes Who is your medical power of payroll and benefits manager?: Objective : BP 126/66 Pulse (!) 43 Ht 4' 9 Wt 161 lb SpO2 99% BMI 34.84 kg/m No results found. Physical Exam Constitutional: General: She is not in acute distress. Appearance: Normal appearance. She is well-developed. HENT: Head: Normocephalic and atraumatic. Right Ear: Tympanic membrane and ear canal normal. Left Ear: Tympanic membrane and ear canal normal. Nose: Congestion present. Mouth/Throat: Mouth: Mucous membranes are moist. Pharynx: Posterior oropharyngeal erythema present. Eyes: General: No scleral icterus. Conjunctiva/sclera: Conjunctivae normal. Neck: Thyroid: No thyromegaly. Cardiovascular: Rate and Rhythm: Regular rhythm. Bradycardia present. Heart sounds: Normal heart sounds. No murmur heard. Pulmonary: Effort: Pulmonary effort is normal. No respiratory distress. Breath sounds: Normal breath sounds. No wheezing, rhonchi or rales. Lymphadenopathy: Cervical: No cervical adenopathy. Skin: General: Skin is warm and dry. Neurological: General: No focal deficit present. Mental Status: She is alert and oriented to person, place, and time. Psychiatric: Mood and Affect: Mood normal. Behavior: Behavior normal. Office Visit on 03/06/2024 Component Date Value Ref Range Status Hemoglobin A1C 03/06/2024 7.4 Final Assessment/Plan : The following health maintenance schedule was reviewed with the patient and provided in printed form in the after visit summary: Health Maintenance Topic Date Due Colorectal Cancer Screening Never done Pneumococcal Vaccine: 65+ Years (2 of 2 - PCV) 07/17/2015 Influenza Vaccine (1) 03/17/2024 Diabetes: Retinopathy Screening 05/11/2024 Diabetes: Urine Protein Screening 05/17/2024 Diabetes: Hemoglobin A1C 06/06/2024 Mammogram 01/11/2025 Medicare Annual Wellness (AWV) 03/06/2025 Advance Care Planning Patient agreed to discuss advance care planning at today's wellness visit. We discussed that an advance directive is a legal document that only goes into effect if the patient is incapacitated and unable to speak for himself or herself. This would help healthcare providers to ensure that the patient gets the care that he or she wishes to receive. The goal is to provide a patient with the best possible quality of life. Encouraged patient to obtain a living will and durable power of payroll and benefits manager for healthcare. We discussed telling mckenzie people about their advance directives such as close family members, and requested a copy to scan into the patient's EHR. An advance directive packet was offered to the patient. Assessment/Plan Diagnoses and all orders for this visit: Routine general medical examination at health care facility ACP (advance care planning) 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) - POCT Glycated hemoglobin, total - Comprehensive metabolic panel; Future - Microalbumin / creatinine urine ratio Cerebrovascular accident (CVA) due to thrombosis of cerebral artery (CMS/HCC) Hemiparesis affecting right side as late effect of cerebrovascular accident (CMS/HCC) Coronary artery disease involving [place] coronary artery of [place] heart without angina pectoris (CMS/HCC) - Comprehensive metabolic panel; Future 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) Chronic kidney disease, stage 3a (HCC) (CMS/HCC) Type 2 diabetes mellitus with other specified complication (CMS/HCC) Hyperlipidemia, unspecified (CMS/HCC) Inflammatory polyarthropathy (CMS/HCC) Other secondary pulmonary hypertension (CMS/HCC) Acute non-recurrent pansinusitis - amoxicillin-clavulanate (Augmentin) 875-125 MG tablet; Take 1 tablet (875 mg) by mouth in the morning and 1 tablet (875 mg) before bedtime. Do all this for 10 days. Orders Placed This Encounter Procedures Comprehensive metabolic panel Standing Status: Future Number of Occurrences: 1 Standing Expiration Date: 03/06/2025 Order Specific Question: Print requisition? Answer: No Microalbumin / creatinine urine ratio Order Specific Question: Print requisition? Answer: No POCT Glycated hemoglobin, total Follow up in about 3 months (around 06/06/2024) for DM- A1C. Electronically signed by Jason Wyatt MD on March 06, 2024 documented in this encounter [facility] 09-01-2023 Procedure note [facility] 08-21-2023 Evaluation note Encounter Date Diagnosis Assessment Notes Aug, Abnormal echocardiogram (ICD-10 - R93.1) Ms. Hsieh is a 67 year old female with past medical history significant for hypertension, type 2 diabetes, asthma who presented with right arm numbness and slurred speech. Her symptoms started at around 11 AM on 04/13/2023. On arrival EKG showed sinus bradycardia. CT head showed no acute intracranial findings. Brain MRI completed on 04/14/2023 showed findings consistent with acute to subacute ischemia in the right insular cortex and subcortical white matter of the right occipital lobe concerning for cardioembolic etiology. Echo completed as part of stroke work-up showed EF of 50 to 55% with severe hypokinesis of the distal anteroseptal wall and apex. Atrial septum intact with no evidence of flow across the atrial septum.Definity contrast was used and there was no evidence of LV thrombus. Assessment: -Hx of CVA 03/2023 -Echo with severe hypokinesis of the distal anteroseptal wall and apex. EF 50-55% -Hypertension -Type 2 diabetes -Hyperlipidemia Recommendations : Lexiscan stress test 08/01/23 showed moderate anteroseptal and apical wall myocardial infarction with small area of mid anterior wall ischemia. LVEF 51% with akinesis of distal anteroseptal wall and apex. - Discussed findings at length today. Pt has anginal symptoms with abnromal stress MPI and wma on EKG. Discussed medical therapy as an option vs LHC +/- PCI. Pt weighed the risks and benefits and opts to have LHC. Discussed procedure and potential findings and she is agreeable to proceed. - Will plan for LHC to evaluate coronaries. - Follow up after LHC. Aug, Cerebrovascular accident (CVA), unspecified mechanism (ICD-10 - I63.9) Aug, CHERY (dyspnea on exertion) (ICD-10 - R06.09) Aug, Anginal equivalent (ICD-10 - I20.89) [facility] Other 01-02-2024 Evaluation note* Encounter Date Diagnosis Assessment Notes Treatment Notes Treatment Clinical Notes Jul, Abnormal echocardiogram (ICD-10 - R93.1) Jul, Cerebrovascular accident (CVA), unspecified mechanism (ICD-10 - I63.9) [facility] Other 11-14-2023 Evaluation note* Encounter Date Diagnosis Assessment Notes Treatment Notes Treatment Clinical Notes May, Abnormal echocardiogram (ICD-10 - R93.1) Ms. Hsieh is a 67 year old female with past medical history significant for hypertension, type 2 diabetes, asthma who presented with right arm numbness and slurred speech. Her symptoms started at around 11 AM on 04/13/2023. On arrival EKG showed sinus bradycardia. CT head showed no acute intracranial findings. Brain MRI completed on 04/14/2023 showed findings consistent with acute to subacute ischemia in the right insular cortex and subcortical white matter of the right occipital lobe concerning for cardioembolic etiology. Echo completed as part of stroke work-up showed EF of 50 to 55% with severe hypokinesis of the distal anteroseptal wall and apex. Atrial septum intact with no evidence of flow across the atrial septum.Definity contrast was used and there was no evidence of LV thrombus. Assessment: -Acute CVA with concern for cardioembolic source. -Echo with severe hypokinesis of the distal anteroseptal wall and apex. EF 50-55% -Hypertension -Type 2 diabetes -Hyperlipidemia Recommendations: -4-week monitor was negative for atrial fibrillation. Discussed at length regarding loop recorder implantation. Patient is hesitant but we will think about it further and call the office if she would like it done. -We will plan for stress MPI in July which will be 3 months after CVA to evaluate regional wall motion and atypical chest pain.-Follow-up after stress MPI. May, Cerebrovascular accident (CVA), unspecified mechanism (ICD-10 - I63.9) [facility] Other 10-02-2023 Progress note Author Martina Nsah [facility] April 17, 2023 10:57am Note Date/Time April 17, 2023 10 :56am [facility] [address] [place] [address] Cardiology Progress Note Signed Patient: Marisela Hsieh MR#: [id number] : 1955 Acct:[id number] Age/Sex: 67 / F Adm Date: 3 Loc: 3T Room: [address] [place] [address] Type: ADM IN Attending Dr: Gema Fay MD Copies to: ~ Date of Service: 04/17/2023 Subjective Interval history: -No acute events overnight. No complaints this morning. -BART completed today. No evidence of intracardiac thrombus. Bubble study negative for PFO. Exam Physical Exam Vital Signs: Temp Pulse Resp BP Pulse Ox O2 Del Method 97.8 F 52 L 16 150/59 H 97 Room Air 04/17/23 08:00 04/17/23 08:00 04/17/23 08:00 04/17/23 08:00 04/17/23 08:00 04/17/23 08:00 Narrative: General: AAOx3; no acute distress Neck: No JVD Chest: CTA bilaterally Heart: RRR, no extra sounds or murmurs Abd: soft NT, nontender, nondistended normal bowel sounds Ext: No edema Neuro: A&O x3, mild speech slurring. No focal deficits Objective Labs 04/13/23 21:26 04/13/23 21:26 Labs: Laboratory Results - last 24 hr 04/16/23 04/16/23 04/16/23 11:18 16:26 22:04 POC Glucose 363 174 190 POC Glucose Comment Glu2: cleaned meter 04/17/23 07:40 POC Glucose 155 POC Glucose Comment A&P - Cardiology (1) Acute ischemic stroke: Code(s): I63.9 - Status: Acute (2) Hyperlipidemia: Code(s): E78.5 - Status: Acute (3) HTN (hypertension): Code(s): I10 - Status: Acute (4) T2DM (type 2 diabetes mellitus): Code(s): E11.9 - Status: Acute Plan Ms. Hsieh is a 67 year old female with past medical history significant for hypertension, type 2 diabetes, asthma who presented with right arm numbness and slurred speech. Her symptoms started at around 11 AM on 04/13/2023. On arrival EKG showed sinus bradycardia. CT head showed no acute intracranial findings. Brain MRI completed on 04/14/2023 showed findings consistent with acute to subacute ischemia in the right insular cortex and subcortical white matter of the right occipital lobe concerning for cardioembolic etiology. Echo completed as part of stroke work-up showed EF of 50 to 55% with severe hypokinesis of the distal anteroseptal wall and apex. Atrial septum intact withno evidence of flow across the atrial septum.Definity contrast was used and there was no evidence of LV thrombus. Assessment: -Acute CVA with concern for cardioembolic source. -Echo with severe hypokinesis of the distal anteroseptal wall and apex. EF 50- 55% -Hypertension -Type 2 diabetes -Hyperlipidemia Recommendations: -BART completed today shows no intracardiac thrombus or PFO. -Will arrange for 4-week event monitor to rule out atrial fibrillation -Patient will need ischemic work-up to rule out ischemia as cause of the wall motion abnormality. We will defer this for 3 months given acute stroke. -Okay to discharge from cardiology perspective. Follow-up with [facility] cardiology in 6 weeks. Documented By: Martina Nash MD 04/17/231052 Signed By: <Electronically signed by Martina Nash MD> 04/17/[address] [place] [address] Ctr Work Phone: [phone]) 197-423410-01-2023 Progress note Author Martina Nash [facility] April 16, 2023 3:19pm Note Date/Time April 16, 2023 10 :44am [facility] [address] [place] [address] Cardiology Progress Note Signed Patient: Marisela Hsieh MR#: [id number] : 1955 Acct:[id number] Age/Sex: 67 / F Adm Date: 3 Loc: 3T Room: [address] [place] [address] Type: ADM IN Attending Dr: Gema Fay MD Copies to: ~ Date of Service: 04/16/2023 Subjective Interval history: Ms. Hsieh is a 67 year old female with past medical history significant for hypertension, type 2 diabetes, asthma who presented with right arm numbness and slurred speech. Her symptoms started at around 11 AM on 04/13/2023. On arrival EKG showed sinus bradycardia. CT head showed no acute intracranial findings. Brain MRI completed on 04/14/2023 showed findings consistent with acute to subacute ischemia in the right insular cortex and subcortical white matter of the right occipital lobe concerning for cardioembolic etiology. Echo completed as part of stroke work-up showed EF of 50 to 55% with severe hypokinesis of the distal anteroseptal wall and apex. Atrial septum intact withno evidence of flow across the atrial septum.Definity contrast was used and there was no evidence of LV thrombus. Neurology is concerned for intracardiac thrombus and has ordered a BART. In light of the wall motion abnormality, the patient denies any recent chest pain. She does endorse shortness of breath with exertion for the past few weeks. She has been using an albuterol inhaler with some improvement. She doesreport having been seen by a [employer] consultant in [place] in 2009 and had a left heart catheterization that was normal but she is unable to recall all the details surrounding that. She is unable to state why she had the [facility] in the first place. She has not had a recent echo and has not seen a [employer] consultant since 2010. Interval history 04/16/23: Acute events overnight. No complaints today Exam Physical Exam Vital Signs: Temp Pulse Resp BP Pulse Ox O2 Del Method 97.7 F 52 L 18 154/74 H 100 Room Air 04/16/23 08:00 04/16/23 08:00 04/16/23 08:00 04/16/23 08:00 04/16/23 08:00 04/16/23 08:00 Narrative: General: AAOx3; no acute distress Neck: No JVD Chest: CTA bilaterally Heart: RRR, no extra sounds or murmurs Abd: soft NT, nontender, nondistended normal bowel sounds Ext: No edema Neuro: A&O x3, mild speech slurring. No focal deficits Objective Labs 04/13/23 21:26 04/13/23 21:26 Labs: Laboratory Results - last 24 hr 04/15/23 04/15/23 04/15/23 11:29 16:06 20:40 POC Glucose 255 176 291 POC Glucose Comment Glu2: cleaned meter 04/16/23 06:46 POC Glucose 187 POC Glucose Comment A&P - Cardiology (1) Acute ischemic stroke: Code(s): I63.9 - Cerebral infarction, unspecified Status: Acute (2) Hyperlipidemia: Code(s): E78.5 - Hyperlipidemia, unspecified Status: Acute (3) HTN (hypertension): Code(s): I10 - Essential (primary) hypertension Status: Acute (4) T2DM (type 2 diabetes mellitus): Code(s): E11.9 - Type 2 diabetes mellitus without complications Status: Acute Plan Ms. Hsieh is a 67 year old female with past medical history significant for hypertension, type 2 diabetes, asthma who presented with right arm numbness and slurred speech. Her symptoms started at around 11 AM on 04/13/2023. On arrival EKG showed sinus bradycardia. CT head showed no acute intracranial findings. Brain MRI completed on 04/14/2023 showed findings consistent with acute to subacute ischemia in the right insular cortex and subcortical white matter of the right occipital lobe concerning for cardioembolic etiology. Echo completed as part of stroke work-up showed EF of 50 to 55% with severe hypokinesis of the distal anteroseptal wall and apex. Atrial septum intact withno evidence of flow across the atrial septum.Definity contrast was used and there was no evidence of LV thrombus. Assessment: -Acute CVA with concern for cardioembolic source. -Echo with severe hypokinesis of the distal anteroseptal wall and apex. EF 50- 55% -Hypertension -Type 2 diabetes -Hyperlipidemia Recommendations: -Echo completed with Definity showed no LV thrombus. We will plan on BART tomorrow to definitively rule out intracardiac thrombus and PFO -Patient will need ischemic work-up to rule out ischemia as cause of the wall motion abnormality. We will defer this for 3 months given acute stroke. -If no thrombus identified, will need event monitor on discharge to rule out atrial fib. -BP control -Will follow Documented By: Martina Nash MD 04/16/231042 Signed By: <Electronically signed by Martina Nash MD> 04/16/23 [address] [facility] Ctr Work Phone: [phone]) 779-323410-01-2023 Progress note Author Gema Fay [facility] April 16, 2023 10:12am Note Date/Time April 16, 2023 10 :12am [facility] [address] [place] [address] Hospitalist Progress Note Signed Patient: Marisela Hsieh MR#: [id number] : 1955 Acct:[id number] Age/Sex: 67 / F Adm Date: 3 Loc: 3T Room: [address] [place] [address] Type: ADM IN Attending Dr: Gema Fay MD Copies to: ~ Date of Service: 04/16/2023 Subjective Subjective Narrative: Speech is improved and is back to normal Right-sided weakness and numbness resolved Exam Physical Exam Vital Signs: Temp Pulse Resp BP Pulse Ox O2 Del Method 97.7 F 52 L 18 154/74 H 100 Room Air 04/16/23 08:00 04/16/23 08:00 04/16/23 08:00 04/16/23 08:00 04/16/23 08:00 04/16/23 08:00 Narrative: Patient is awake and alert, oriented to place, time and person HEENT: pink conjunctiva and normal buccal mucosa Neck: supple, no tenderness Endocrine: no thyromegaly Vascular: No JVD or carotid bruit Lymphatic: no cervical lymphadenopathy Chest: CTA bilaterally Heart: RRR, no extra sounds or murmurs Abd: soft NT, no rebound or rigidity, increased abdominal girth, therefore, clinically I could not exclude the possibility of intra-abdominal mass or organomegaly Ext: no cyanosis or clubbing, no varices or edema Neuro: A&O x3, normal speech comprehension and attention, normal and symmetricalmotor and tone examination throughout Objective Lab Results 04/13/23 21:26 04/13/23 21:26 Meds Allergies and Active Meds Allergies No Known Allergies Allergy (Verified 04/13/23 18:32) Active Meds: Active Medications Generic Name Dose Route Start Last Admin Trade Name Barbara PRN Reason Stop Dose Admin Acetaminophen 650 mg 04/14/23 00:09 04/15/23 21:21 Acetaminophen 325 Mg Tablet PO 04/13/24 00:08 650 mg Q6HR PRN Administration Pain Scale 1 - 3 or fever Amlodipine Besylate 10 mg 04/14/23 09:00 04/16/23 09:23 Amlodipine 10 Mg Tablet PO 04/13/24 08:59 10 mg DAILY CIARA Administration Aspirin 81 mg 04/14/23 09:00 04/16/23 09:23 Aspirin 81 Mg Tablet. PO 04/13/24 08:59 81 mg DAILY CIARA Administration Atorvastatin Calcium 40 mg 04/14/23 00:45 04/15/23 21:03 Atorvastatin 40 Mg Tablet PO 04/13/24 00:44 40 mg QPM CIARA Administration Clopidogrel Bisulfate 75 mg 04/14/23 09:00 04/16/23 09:23 Clopidogrel Bisulfate 75 Mg Tablet PO 04/13/24 08:59 75 mg DAILY CIARA Administration Dextrose 0 gm 04/14/23 00:09 Dextrose 50% In Water 25 Gm/50 Ml Syringe IV-PUSH 04/13/24 00:08 PRN PRN Hypoglycemia Enoxaparin Sodium 40 mg 04/14/23 10:00 04/16/23 09:23 Enoxaparin 40 Mg/0.4 Ml Syringe SUBCUT 04/13/24 09:59 40 mg DAILY@10 CIARA Administration Glucose 0 gm 04/14/23 00:09 Dextrose 40% Gel 15 Gm Tube PO 04/13/24 00:08 PRN PRN Hypoglycemia Hydralazine HCl 10 mg 04/14/23 00:09 04/14/23 03:10 Hydralazine 20 Mg/Ml Vial IV-PUSH 04/13/24 00:08 10 mg Q4H PRN Administration Hypertension Insulin Aspart 0 units 04/14/23 08:00 04/16/23 09:24 Insulin Aspart 300 Units/3 Ml Insuln.Pen SUBCUT 04/13/24 07:59 1 units TID.WM.HS CIARA Administration Protocol Irbesartan 150 mg 04/16/23 09:00 04/16/23 09:23 Irbesartan 150 Mg Tablet PO 04/15/24 08:59 150 mg DAILY CIARA Administration Ketorolac Tromethamine 1 drops 04/14/23 09:00 04/16/23 09:24 Ketorolac 0.5% Op Soln 100 Drops/5 Ml Bottle EYE-BOTH 04/13/24 08:59 1 drops QID CIARA Administration Sodium Chloride 0 ml 04/13/23 18:32 04/13/23 21:40 Sodium Chloride 0.9 % 10 Ml Syringe IV-PUSH 04/12/24 18:31 10 ml PRN PRN Administration Flush Sodium Chloride 0 ml 04/14/23 06:00 04/16/23 06:30 Sodium Chloride 0.9 % 10 Ml Syringe IV-PUSH 04/13/24 05:59 10 ml QSHIFT CIARA Administration A&P - Hospitalist Assessment/Plan (1) Transient cerebral ischemia: (2) HTN (hypertension): (3) T2DM (type 2 diabetes mellitus): Plan Acute CVA ? MRI of the brain showed acute to subacute ischemia in the right insular cortexand subcortical white matter of the right occipital lobe. ? Echo showed EF of 50 to 55% with severe hypokinesis of the distal anteroseptal wall and apex. Atrial septum intact with no evidence of flow across the atrial septum.Definity contrast was used and there was no evidence ofLV thrombus. Further recommendations per cardiology, whether the patient needs a BART ? aspirin, Plavix, statin - PT/OT/ST HTN urgency ? Monitor, keep less than 185 mmHg ? BP still high, on amlodipine to 10 mg daily, I will increase Avapro to 150 mg daily ? Hydralazine as needed Chronic conditions T2DM?fingersticks ACHS, SSI C DVT PPx-SCDs, enoxaparin Diet order-NPO, speech therapy evaluation CODE STATUS-full code Plan for BART on Monday Documented By: Gema Fay MD 04/16/23 1005 Signed By: <Electronically signed by Gema Fay MD> 04/16/23 1012 [facility] Work Phone: 1(925) 926-695810-01-2023 Progress note Author Jean-Paul Arrieta [facility] April 16, 2023 8:12am Note Date/Time April 16, 2023 6: 21am [facility] [address] [place] [address] Neurology Progress Note Signed Patient: Marisela Hsieh MR#: [id number] : 1955 Acct:[id number] Age/Sex: 67 / F Adm Date: 3 Loc: Room: [address] [place] [address] Type: ADM IN Attending Dr: Gema Fay MD Copies to: ~ Date of Service: 04/16/2023 Subjective Subjective Narrative: Patient with no acute events overnight. No new neurological concerns today. Awaiting BART monday. Patient is neurologically at baseline. Review of Systems Review of Systems All other systems reviewed & are negative unless noted below or in HPI Exam Physical Exam Vital Signs: Temp Pulse Resp BP Pulse Ox O2 Del Method 97.8 F 58 L 18 103/51 L 99 Room Air 04/16/23 05:28 04/16/23 05:28 04/16/23 05:28 04/16/23 05:28 04/16/23 05:28 04/16/23 05:28 Narrative: Narrative: GENERAL EXAM: Patient is alert and oriented x3. In general the patient is well-appearing. Mild dysarthria with no clear expressive or receptive aphasia NEURO EXAM: Cranial nerve II. Vision is intact. Pupils are equal Cranial nerve III, IV and . Extraocular muscles are intact. No nystagmus is appreciated Cranial nerve V and VII. No facial asymmetry is appreciated. Temperature and pinprick is equal bilaterally Cranial nerve VIII hearing is intact Cranial nerve IX and X speech is clear fluent. Palate elevates symmetrically Cranial nerve XI head turn side to side full range of motion. Shoulder shrug isequal bilaterally Cranial nerve XII tongue is midline full range of motion MOTOR EXAM: Strength is 5/5 throughout. There is some mild drift Muscle tone and bulk are normal SENSORY EXAM: Denies paresthesias CEREBELLAR EXAM: Alternating movements are intact. Finger to nose normal Gait not assessed Objective Vital Signs Vital Signs: Vital Signs - 24 hr 04/15/23 08:00 04/15/23 08:00 04/15/23 11:36 Temperature 97.8 F 98 F Pulse Rate 51 L 50 L Respiratory Rate 18 18 Blood Pressure 163/72 H 168/73 H 02 Sat by Pulse Oximetry 98 99 Oxygen Delivery Method Room Air Room Air Room Air 04/15/23 14:51 04/15/23 20:45 04/15/23 20:15 Temperature 98 F 98 F Pulse Rate 53 L 59 L Respiratory Rate 18 18 Blood Pressure 174/69 H 139/57 L 02 Sat by Pulse Oximetry 99 99 Oxygen Delivery Method Room Air Room Air Room Air 04/16/23 00:45 04/16/23 04:45 04/16/23 05:28 Temperature 98.4 F 97.8 F 97.8 F Pulse Rate 62 58 L 58 L Respiratory Rate 18 18 18 Blood Pressure 157/62 H 103/51 L 103/51 L 02 Sat by Pulse Oximetry 99 99 99 Oxygen Delivery Method Room Air Room Air Room Air Labs 04/13/23 21:26 04/13/23 21:26 Therapy Recommendations Therapy Recommendations: ST Recommendations Level of Supervision Independent Self Feeding Liquid Consistency Thin Liquids Recommendation Solid Consistency Regular Solids Recommendations Meat Consistency Whole Meats Recommendations Medication Administration Give Pills in Applesauce,Give Pills with Water Dysphagia Swallow Precautions/ Sitting Upright (90 deg),Small Bites/Sips,Pacing Strategies /Slow-Rate Assessment/Plan (1) Acute ischemic stroke: Code(s): I63.9 - Cerebral infarction, unspecified Status: Acute (2) HTN (hypertension): Code(s): I10 - Essential (primary) hypertension Status: Acute (3) T2DM (type 2 diabetes mellitus): Code(s): E11.9 - Type 2 diabetes mellitus without complications Status: Acute Plan It is my impression that the patient has suffered acute ischemic stroke with 2 ischemic foci, one in right insular cortex and one in the subcortical white matter of the right occipital lobe. Many of her symptoms that were temporary localized to the left cerebral hemisphere. She initially may have had more widespread ischemic insults, some of which were only temporary (such as would bein TIA). This could be concerning for cardioembolic etiology for the stroke, and she does have severe hypokinesis of the distal anteroseptal wall and apex but with a preserved ejection fraction. stable overnight Work-up: -CT head without on April 13, 2023 showed no acute intracranial pathology -CTA head/neck on April 13, 2023 no intracranial large artery occlusion or significant stenosis, no dissection -MRI brain without contrast on April 14, 2023 findings consistent with acuteto subacute ischemia in the right insular cortex and subcortical white matter ofthe right occipital lobe -HbA1c on April 14, 2023 was 8.1. - close follow up c pcp -Total CK was within normal limits -Echo on April 14, 2023 showed EF 50-55%, severe hypokinesis of distal anteroseptal wall and apex, mildly dilated left atrium, no evidence of flow across the atrial septum either by colorflow Doppler or by agitated saline tsh: normal LDL: 140 - high - pt started on stronger statin medication BART/cardio input: pending - planned for Monday Plan: Primary team to further investigate any thyroid abnormalities. I defer further care to primary team and/or endocrinology/ENT beyond that appreciate cardiology input for BART and workup of echocardiogram abnormality Based on results we will determine course for anticoagulant versus antiplatelet therapy -patient does not appear to have been on any anticoagulant or antiplatelet medication at home and has been started on ASA and plavix We will follow PT OT and speech Documented By: Jean-Paul Arrieta DO 3 0620 Signed By: <Electronically signed by Jean-Paul Arrieta DO> 04/16/23 0812 [facility] Work Phone: 1(865) 255-553109-30-2023 Consult note Author Martina Nash [facility] April 15, 2023 7:12pm Note Date/Time April 15, 2023 12:26pm [facility] [address] [place] [address] Cardiology Consult Note Signed Patient: Marisela Hsieh MR#: [id number] : 1955 Acct:[id number] Age/Sex: 67 / F Adm Date: 3 Loc: 3T Room: [address] [place] [address] Type: ADM IN Attending Dr: Gema Fay MD Copies to: MD Gema Boykin II, MD Linda Njoroge, MD~ Cardiology HPI History of Present Illness Consult Date: 04/15/23 Reason for Consult: Abnormal echo findings HPI: Ms. Hsieh is a 67 year old female with past medical history significant for hypertension, type 2 diabetes, asthma who presented with right arm numbness and slurred speech. Her symptoms started at around 11 AM on 04/13/2023. On arrival EKG showed sinus bradycardia. CT head showed no acute intracranial findings. Brain MRI completed on 04/14/2023 showed findings consistent with acute to subacute ischemia in the right insular cortex and subcortical white matter of the right occipital lobe concerning for cardioembolic etiology. Echo completed as part of stroke work-up showed EF of 50 to 55% with severe hypokinesis of the distal anteroseptal wall and apex. Atrial septum intact withno evidence of flow across the atrial septum.Definity contrast was used and there was no evidence of LV thrombus. Neurology is concerned for intracardiac thrombus and has ordered a BART. In light of the wall motion abnormality, the patient denies any recent chest pain. She does endorse shortness of breath with exertion for the past few weeks. She has been using an albuterol inhaler with some improvement. She doesreport having been seen by a [employer] consultant in [place] in 2009 and had a left heart catheterization that was normal but she is unable to recall all the details surrounding that. She is unable to state why she had the [facility] in the first place. She has not had a recent echo and has not seen a [employer] consultant since 2010. Review of Systems Review of Systems All other systems reviewed & are negative unless noted below or in HPI [facility] Medical History (Updated 04/15/23 @ 08:38 by Jean-Paul Arrieta DO) Asthma Diabetes HTN (hypertension) Hyperlipidemia Surgical History (Updated 04/13/23 @ 18:34 by Deena León RN) H/O neck surgery H/O: section History of knee replacement Social History Smoking Status: Never smoker Substance Use Type: None Meds Medications and Allergies Allergies No Known Allergies Allergy (Verified 04/13/23 18:32) Home Medications irbesartan 75 mg tablet 75 mg PO DAILY 04/13/23 [History Confirmed 04/13/23] ketorolac 0.5 % eye drops 1 drp Eye-Both QID 04/13/23 [History Confirmed 04/13/23] peg 3350-electrolytes 236 gram-22.74 gram-6.74 gram-5.86 gram solution ml 04/13/23 [History] insulin detemir U-100 100 unit/mL (3 mL) subcutaneous pen (Levemir FlexPen) 40 unit subcut QAM 04/15/23 [History Confirmed 04/15/23] Exam Physical Exam Vital Signs: Temp Pulse Resp BP Pulse Ox O2 Del Method 98 F 50 L 18 168/73 H 99 Room Air 04/15/23 11:36 04/15/23 11:36 04/15/23 11:36 04/15/23 11:36 04/15/23 11:36 04/15/23 11:36 Narrative: General: AAOx3; no acute distress Neck: No JVD Chest: CTA bilaterally Heart: RRR, no extra sounds or murmurs Abd: soft NT, nontender, nondistended normal bowel sounds Ext: No edema Neuro: A&O x3, mild speech slurring. No focal deficits Results Labs 04/13/23 21:26 04/13/23 21:26 Lab results: Lipids 04/14/23 Range/Units 15:42 Triglycerides 181 H (0-149) mg/dL Cholesterol 215 H (140-200) mg/dL HDL Cholesterol 39 (23-92) mg/dL Cholesterol/HDL Ratio 5.5 (<5.0) Intake and Output 04/14/23 04/15/23 04/15/23 23:59 07:59 15:59 Intake Total 120 / 390 Output Total 0 / 0 Balance 120 / 390 Intake: Oral 120 / 390 Output: Urine 0 / 0 Other: # Unmeasured Voids 1 Weight 70.3 kg Date of Last Bowel Movement 04/13/23 04/13/23 04/13/23 Patient Weight 04/15/23 23:59 Weight 70.3 kg Lab 04/13/23 04/13/23 21:26 21:36 PT Cancelled 12.3 INR Cancelled 1.0 APTT Cancelled 33.9 A&P - Cardiology (1) Acute ischemic stroke: Code(s): I63.9 - Cerebral infarction, unspecified (2) Hyperlipidemia: Code(s): E78.5 - Hyperlipidemia, unspecified (3) HTN (hypertension): Code(s): I10 - Essential (primary) hypertension (4) T2DM (type 2 diabetes mellitus): Code(s): E11.9 - Type 2 diabetes mellitus without complications Plan Ms. Hsieh is a 67 year old female with past medical history significant for hypertension, type 2 diabetes, asthma who presented with right arm numbness and slurred speech. Her symptoms started at around 11 AM on 04/13/2023. On arrival EKG showed sinus bradycardia. CT head showed no acute intracranial findings. Brain MRI completed on 04/14/2023 showed findings consistent with acute to subacute ischemia in the right insular cortex and subcortical white matter of the right occipital lobe concerning for cardioembolic etiology. Echo completed as part of stroke work-up showed EF of 50 to 55% with severe hypokinesis of the distal anteroseptal wall and apex. Atrial septum intact withno evidence of flow across the atrial septum.Definity contrast was used and there was no evidence of LV thrombus. Assessment: -Acute CVA with concern for cardioembolic source. -Echo with severe hypokinesis of the distal anteroseptal wall and apex. EF 50- 55% -Hypertension -Type 2 diabetes -Hyperlipidemia Recommendations: -Echo completed with Definity showed no LV thrombus. We will plan on BART on Monday, April 17 to definitively rule out intracardiac thrombus and PFO -Patient will need ischemic work-up to rule out ischemia as cause of the wall motion abnormality. We will defer this for 3 months given acute stroke. -BP control -Will follow Documented By: Martina Nash MD 04/15/23 1228 Signed By: <Electronically signed by Martina Nash MD> 04/15/231911 [facility] Work Phone: [phone]) 762-282709-30-2023 Progress note Author Gema Fay [facility] April 15, 2023 1:16pm Note Date/Time April 15, 2023 1:10pm [facility] [address] [place] [address] Hospitalist Progress Note Signed Patient: Marisela Hsieh MR#: [id number] : 1955 Acct:[id number] Age/Sex: 67 / F Adm Date: 3 Loc: 3T Room: [address] [place] [address] Type: ADM IN Attending Dr: Gema Fay MD Copies to: ~ Date of Service: 04/15/2023 Subjective Subjective Narrative: Speech is improved and is back to normal Right-sided weakness and numbness resolved Exam Physical Exam Vital Signs: Temp Pulse Resp BP Pulse Ox O2 Del Method 98 F 50 L 18 168/73 H 99 Room Air 04/15/23 11:36 04/15/23 11:36 04/15/23 11:36 04/15/23 11:36 04/15/23 11:36 04/15/23 11:36 Narrative: Patient is awake and alert, oriented to place, time and person HEENT: pink conjunctiva and normal buccal mucosa Neck: supple, no tenderness Endocrine: no thyromegaly Vascular: No JVD or carotid bruit Lymphatic: no cervical lymphadenopathy Chest: CTA bilaterally Heart: RRR, no extra sounds or murmurs Abd: soft NT, no rebound or rigidity, increased abdominal girth, therefore, clinically I could not exclude the possibility of intra-abdominal mass or organomegaly Ext: no cyanosis or clubbing, no varices or edema Neuro: A&O x3, normal speech comprehension and attention, normal and symmetricalmotor and tone examination throughout Objective Lab Results 04/13/23 21:26 04/13/23 21:26 Meds Allergies and Active Meds Allergies No Known Allergies Allergy (Verified 04/13/23 18:32) Active Meds: Active Medications Generic Name Dose Route Start Last Admin Trade Name Freq PRN Reason Stop Dose Admin Acetaminophen 650 mg 04/14/23 00:09 04/15/23 11:31 Acetaminophen 325 Mg Tablet PO 04/13/24 00:08 650 mg Q6HR PRN Administration Pain Scale 1 - 3 or fever Amlodipine Besylate 10 mg 04/14/23 09:00 04/15/23 09:36 Amlodipine 10 Mg Tablet PO 04/13/24 08:59 10 mg DAILY CIARA Administration Aspirin 81 mg 04/14/23 09:00 04/15/23 09:36 Aspirin 81 Mg Tablet.Dr PO 04/13/24 08:59 81 mg DAILY CIARA Administration Atorvastatin Calcium 40 mg 04/14/23 00:45 04/14/23 21:29 Atorvastatin 40 Mg Tablet PO 04/13/24 00:44 40 mg QPM CIARA Administration Clopidogrel Bisulfate 75 mg 04/14/23 09:00 04/15/23 09:36 Clopidogrel Bisulfate 75 Mg Tablet PO 04/13/24 08:59 75 mg DAILY CIARA Administration Dextrose 0 gm 04/14/23 00:09 Dextrose 50% In Water 25 Gm/50 Ml Syringe IV-PUSH 04/13/24 00:08 PRN PRN Hypoglycemia Enoxaparin Sodium 40 mg 04/14/23 10:00 04/15/23 09:38 Enoxaparin 40 Mg/0.4 Ml Syringe SUBCUT 04/13/24 09:59 40 mg DAILY@10 CIARA Administration Glucose 0 gm 04/14/23 00:09 Dextrose 40% Gel 15 Gm Tube PO 04/13/24 00:08 PRN PRN Hypoglycemia Hydralazine HCl 10 mg 04/14/23 00:09 04/14/23 03:10 Hydralazine 20 Mg/Ml Vial IV-PUSH 04/13/24 00:08 10 mg Q4H PRN Administration Hypertension Insulin Aspart 0 units 04/14/23 08:00 04/15/23 11:32 Insulin Aspart 300 Units/3 Ml Insuln.Pen SUBCUT 04/13/24 07:59 3 units TID.WM.HS CIARA Administration Protocol Irbesartan 75 mg 04/14/23 09:00 04/15/23 09:36 Irbesartan 150 Mg Tablet PO 04/13/24 08:59 75 mg DAILY CIARA Administration Ketorolac Tromethamine 1 drops 04/14/23 09:00 04/15/23 09:38 Ketorolac 0.5% Op Soln 100 Drops/5 Ml Bottle EYE-BOTH 04/13/24 08:59 1 drops QID CIARA Administration Sodium Chloride 0 ml 04/13/23 18:32 04/13/23 21:40 Sodium Chloride 0.9 % 10 Ml Syringe IV-PUSH 04/12/24 18:31 10 ml PRN PRN Administration Flush Sodium Chloride 0 ml 04/14/23 06:00 04/15/23 06:12 Sodium Chloride 0.9 % 10 Ml Syringe IV-PUSH 04/13/24 05:59 10 ml QSHIFT CIARA Administration A&P - Hospitalist Assessment/Plan (1) Transient cerebral ischemia: (2) HTN (hypertension): (3) T2DM (type 2 diabetes mellitus): Plan Acute CVA ? MRI of the brain showed acute to subacute ischemia in the right insular cortexand subcortical white matter of the right occipital lobe. ? Echo showed EF of 50 to 55% with severe hypokinesis of the distal anteroseptal wall and apex. Atrial septum intact with no evidence of flow across the atrial septum.Definity contrast was used and there was no evidence ofLV thrombus. Further recommendations per cardiology, whether the patient needs a BART ? aspirin, Plavix, statin - PT/OT/ST HTN urgency ? Monitor, keep less than 185 mmHg ? BP still high, on amlodipine to 10 mg daily, I will increase Avapro to 150 mg daily ? Hydralazine as needed Chronic conditions T2DM?fingersticks ACHS, SSI C DVT PPx-SCDs, enoxaparin Diet order-NPO, speech therapy evaluation CODE STATUS-full code Documented By: Gema Fay MD 04/15/23 1308 Signed By: <Electronically signed by Gema Fay MD> 04/15/23 1316 [facility] Work Phone: 1(393) 202-360209-30-2023 Progress note Author Jean-Paul Arrieta [facility] April 15, 2023 10:58am Note Date/Time April 15, 2023 8:41am [facility] [address] [place] [address] Neurology Progress Note Signed Patient: Marisela Hsieh MR#: [id number] : 1955 Acct:[id number] Age/Sex: 67 / F Adm Date: 3 Loc: 3T Room: [address] [place] [address] Type: ADM IN Attending Dr: Gema Fay MD Copies to: ~ Date of Service: 04/15/2023 Subjective Subjective Narrative: Patient with no acute events overnight. No new neurological concerns today. Awaiting BART/cardio input Review of Systems Review of Systems All other systems reviewed & are negative unless noted below or in HPI Exam Physical Exam Vital Signs: Temp Pulse Resp BP Pulse Ox O2 Del Method 97.8 F 58 L 18 158/57 H 97 Room Air 04/15/23 00:16 04/15/23 00:16 04/15/23 00:16 04/15/23 00:16 04/15/23 00:16 04/15/23 00:16 Narrative: Narrative: GENERAL EXAM: Patient is alert and oriented x3. In general the patient is well-appearing. Mild dysarthria with no clear expressive or receptive aphasia NEURO EXAM: Cranial nerve II. Vision is intact. Pupils are equal Cranial nerve III, IV and . Extraocular muscles are intact. No nystagmus is appreciated Cranial nerve V and VII. No facial asymmetry is appreciated. Temperature and pinprick is equal bilaterally Cranial nerve VIII hearing is intact Cranial nerve IX and X speech is clear fluent. Palate elevates symmetrically Cranial nerve XI head turn side to side full range of motion. Shoulder shrug isequal bilaterally Cranial nerve XII tongue is midline full range of motion MOTOR EXAM: Strength is 5/5 throughout. There is some mild drift Muscle tone and bulk are normal SENSORY EXAM: Denies paresthesias CEREBELLAR EXAM: Alternating movements are intact. Finger to nose normal Gait not assessed Objective Vital Signs Vital Signs: Vital Signs - 24 hr 04/14/23 09:49 04/14/23 12:13 04/14/23 15:08 Temperature 97.8 F 97.7 F 97.8 F Pulse Rate 52 L 54 L 54 L Respiratory Rate 18 18 18 Blood Pressure 169/62 H 147/68 H 155/70 H 02 Sat by Pulse Oximetry 98 98 99 Oxygen Delivery Method Room Air Room Air Room Air 04/14/23 20:00 04/14/23 20:00 04/15/23 00:16 Temperature 97.9 F 97.8 F Pulse Rate 56 L 58 L Respiratory Rate 18 18 Blood Pressure 154/76 H 158/57 H 02 Sat by Pulse Oximetry 97 97 Oxygen Delivery Method Room Air Room Air Room Air 04/15/23 00:00 Temperature Pulse Rate Respiratory Rate Blood Pressure 02 Sat by Pulse Oximetry Oxygen Delivery Method Room Air Labs 04/13/23 21:26 04/13/23 21:26 Lab Results: 04/14/23 09:06: Hemoglobin A1c 8.1 H Therapy Recommendations Therapy Recommendations: ST Recommendations Level of Supervision Independent Self Feeding Liquid Consistency Thin Liquids Recommendation Solid Consistency Regular Solids Recommendations Meat Consistency Whole Meats Recommendations Medication Administration Give Pills in Applesauce,Give Pills with Water Dysphagia Swallow Precautions/ Sitting Upright (90 deg),Small Bites/Sips,Pacing Strategies /Slow-Rate Assessment/Plan (1) Acute ischemic stroke: Code(s): I63.9 - Cerebral infarction, unspecified Status: Acute (2) HTN (hypertension): Code(s): I10 - Essential (primary) hypertension Status: Acute (3) T2DM (type 2 diabetes mellitus): Code(s): E11.9 - Type 2 diabetes mellitus without complications Status: Acute Plan It is my impression that the patient has suffered acute ischemic stroke with 2 ischemic foci, one in right insular cortex and one in the subcortical white matter of the right occipital lobe. Many of her symptoms that were temporary localized to the left cerebral hemisphere. She initially may have had more widespread ischemic insults, some of which were only temporary (such as would bein TIA). This could be concerning for cardioembolic etiology for the stroke, and she does have severe hypokinesis of the distal anteroseptal wall and apex but with a preserved ejection fraction. Work-up: -CT head without on April 13, 2023 showed no acute intracranial pathology -CTA head/neck on April 13, 2023 no intracranial large artery occlusion or significant stenosis, no dissection -MRI brain without contrast on April 14, 2023 findings consistent with acuteto subacute ischemia in the right insular cortex and subcortical white matter ofthe right occipital lobe -HbA1c on April 14, 2023 was 8.1. - close follow up c pcp -Total CK was within normal limits -Echo on April 14, 2023 showed EF 50-55%, severe hypokinesis of distal anteroseptal wall and apex, mildly dilated left atrium, no evidence of flow across the atrial septum either by colorflow Doppler or by agitated saline tsh: normal LDL: 140 - high - pt started on stronger statin medication BART/cardio input: pending Plan: Primary team to further investigate any thyroid abnormalities. I defer further care to primary team and/or endocrinology/ENT beyond that I will place a cardiology consult for further opinion regarding the echocardiogram abnormality/transesophageal echocardiogram Based on results we will determine course for anticoagulant versus antiplatelet therapy -patient does not appear to have been on any anticoagulant or antiplatelet medication at home and has been started on ASA and plavix We will follow PT OT and speech Documented By: Jean-Paul Arrieta DO 3 0836 Signed By: <Electronically signed by Jean-Paul Arrieta DO> 04/15/23 [id number] [facility] Work Phone: 1(256) 625-224909-29-2023 Consult note Author Richard Kim [facility] April 14, 2023 3:15pm Note Date/Time April 14, 2023 3:16pm [facility] [address] [place] [address] Neurology Consult Note Signed Patient: Marisela Hsieh MR#: [id number] : 1955 Acct:[id number] Age/Sex: 67 / F Adm Date: 3 Loc: 3T Room: [address] [place] [address] Type: ADM INOo Attending Dr: Gema Fay MD Copies to: DO Jason Walter II, MD Firas Seffo, MD~ HPI Consult Date: 04/14/23 Child Study Team Director: Noa Everett [facility] Medical History (Updated 04/14/23 @ 15:15 by Richard Kim DO) Asthma Diabetes HTN (hypertension) Hyperlipidemia Surgical History (Updated 04/13/23 @ 18:34 by Deena León RN) H/O neck surgery H/O: section History of knee replacement Social History Smoking Status: Never smoker Substance Use Type: None Meds Medications and Allergies Allergies No Known Allergies Allergy (Verified 04/13/23 18:32) Home Medications irbesartan 75 mg tablet 75 mg PO DAILY 04/13/23 [History Confirmed 04/13/23] ketorolac 0.5 % eye drops 1 drp Eye-Both QID 04/13/23 [History Confirmed 04/13/23] peg 3350-electrolytes 236 gram-22.74 gram-6.74 gram-5.86 gram solution ml 04/13/23 [History] Exam Physical Exam Vital Signs: Temp Pulse Resp BP Pulse Ox O2 Del Method 97.9 F 55 L 18 187/76 H 98 Room Air 04/14/23 03:35 04/14/23 03:35 04/14/23 03:35 04/14/23 03:35 04/14/23 03:35 04/14/23 03:35 Results Laboratory Findings 04/13/23 21:26 04/13/23 21:26 Diagnostic Findings Imaging/Impressions: ITS Impressions Brain MRI 04/14/23 05:00 IMPRESSION: Findings consistent with acute to subacute ischemia in the right insular cortex and subcortical white matter of the right occipital lobe. Additional chronic age-related degenerative changes are noted, as above. Impression dictated by: Jorge L Ceballos M.D.04/14/2023 9:07 AM Dictation Location: [place] [address] Assessment/Plan (1) Acute ischemic stroke: Code(s): I63.9 - Cerebral infarction, unspecified Status: Acute Plan CONSULT REASON: TIA r/o stroke HPI: 67-year-old female presented to the emergency department with complaints of right arm numbness and slurred speech. Past medical history is significant for T2DM, HTN, hyperlipidemia, and asthma. She reports that symptoms began the morning of April 13, 2023. She also reports a burning sensation of her right arm. She felt like her tongue was really thick in her mouth. Shortly after onset of symptoms, patient describes a soreness from the corner of her right eye to the back of her head. She describes this pain as constant, 4.5 out of 10 in severity. Patient does not endorse any head trauma, hearing changes, vertiginous symptoms. At the time of onset, she denied any visual changes. She states that she had cataract surgery on her right eye 3 weeks ago, and 2 weeks ago on her left eye. Today patient reports that she is seeing floaters in both eyes. CT head and CTA of head/neck was normal in emergency department. MRI brain without contrast on April 14, 2023 findings consistent with acute to subacute ischemia in the right insular cortex and subcortical white matter of the right occipital lobe. She does have stroke risk factors. HbA1c on April 14, 2023 was 8.1. Prior to admission she was not on any antiplatelet or statin therapy. EXAMINATION: Well-kempt. No distress. No deformities or trauma. Normal spinal curvature. Limbs seem well-perfused. No significant edema. Normal work of breathing. Visualized skin intact without lesions. Affect normal. Patient is alert and generally oriented. Attention normal. Speech somewhat dysarthric. Pupils are equal and reactive. Visual diaz are full to finger counting bilaterally. Ocular motility is full. No nystagmus. Right facial and arm sensation is abnormal. Left facial and arm sensation is normal. Hearing is normal. Facial strength is normal. Tongue is midline. Muscle bulk, tone, and strength are normal. No tremors. Reflexes normal throughout. No pathologic reflexes. Normal rapidly alternating movements. Slight difficulty with [id number] testing on the right. Unsure how much of this is related to patient being left handed. DATA REVIEW: -CT head without on April 13, 2023 showed no acute intracranial pathology -CTA head/neck on April 13, 2023 no intracranial large artery occlusion or significant stenosis, no dissection -MRI brain without contrast on April 14, 2023 findings consistent with acute to subacute ischemia in the right insular cortex and subcortical white matter of the right occipital lobe -HbA1c on April 14, 2023 was 8.1. -Total CK was within normal limits -Echo on April 14, 2023 showed EF 50-55%, severe hypokinesis of distal anteroseptal wall and apex, mildly dilated left atrium, no evidence of flow across the atrial septum either by colorflow Doppler or by agitated saline ASSESSMENT: Acute ischemic stroke with 2 ischemic foci, one in right insular cortex and one in the subcortical white matter of the right occipital lobe. Many of her symptoms that were temporary localized to the left cerebral hemisphere. She initially may have had more widespread ischemic insults, some of which were only temporary (such as would be in TIA). This could be concerning for cardioembolic etiology for the stroke, and she does have severe hypokinesis of the distal anteroseptal wall and apex but with a preserved ejection fraction. PLAN: 1. Transesophageal echocardiogram 2. Provided there is no intracardiac thrombus, the plan will be to continue dual antiplatelet therapy with clopidogrel 75mg daily and aspirin 81mg daily for 21 days, then continue with aspirin 81 mg daily monotherapy 3. Checking lipids. Adding atorvastatin 40mg daily for now. 4. Checking TSH due to incidental finding of heterogenous enlargement of left thyroid lobe 5. Suggest 24 hour event monitor as outpatient if no clear-cut etiology for her stroke is found Attestation Statement I endorse the portions of this note created by Noa Everett. I also saw and examined the patient. Documented By: Richard Kim DO 04/14/23920 Signed By: <Electronically signed by Richard Kim DO> 04/14/23 74[address] [facility] Work Phone: 1([phone]) 517-191309-29-2023 Progress note Author Gema Fay [facility] April 14, 2023 10:13am Note Date/Time April 14, 2023 10:13am [facility] [address] [place] [address] Hospitalist Progress Note Signed Patient: Marisela Hsieh MR#: [id number] : 1955 Acct:[id number] Age/Sex: 67 / F Adm Date: 3 Loc: 3T Room: [address] [place] [address] Type: ADM INOo Attending Dr: Gema Fay MD Copies to: ~ Date of Service: 04/14/2023 Subjective Subjective Narrative: Speech is improved but not back to normal Right-sided weakness and numbness resolved Exam Physical Exam Vital Signs: Temp Pulse Resp BP Pulse Ox O2 Del Method 97.8 F 52 L 18 169/62 H 98 Room Air 04/14/23 09:49 04/14/23 09:49 04/14/23 09:49 04/14/23 09:49 04/14/23 09:49 04/14/23 09:49 Narrative: Patient is awake and alert, oriented to place, time and person HEENT: pink conjunctiva and normal buccal mucosa Neck: supple, no tenderness Endocrine: no thyromegaly Vascular: No JVD or carotid bruit Lymphatic: no cervical lymphadenopathy Chest: CTA bilaterally Heart: RRR, no extra sounds or murmurs Abd: soft NT, no rebound or rigidity, increased abdominal girth, therefore, clinically I could not exclude the possibility of intra-abdominal mass or organomegaly Ext: no cyanosis or clubbing, no varices or edema Neuro: A&O x3, normal speech comprehension and attention, normal and symmetricalmotor and tone examination throughout Objective Lab Results 04/13/23 21:26 04/13/23 21:26 Meds Allergies and Active Meds Allergies No Known Allergies Allergy (Verified 04/13/23 18:32) Active Meds: Active Medications Generic Name Dose Route Start Last Admin Trade Name Freq PRN Reason Stop Dose Admin Acetaminophen 650 mg 04/14/23 00:09 04/14/23 10:00 Acetaminophen 325 Mg Tablet PO 04/13/24 00:08 650 mg Q6HR PRN Administration Pain Scale 1 - 3 or fever Amlodipine Besylate 10 mg 04/14/23 09:00 04/14/23 09:50 Amlodipine 10 Mg Tablet PO 04/13/24 08:59 10 mg DAILY CIARA Administration Aspirin 81 mg 04/14/23 09:00 04/14/23 09:50 Aspirin 81 Mg Tablet.Dr PO 04/13/24 08:59 81 mg DAILY CIARA Administration Atorvastatin Calcium 40 mg 04/14/23 00:45 04/14/23 00:58 Atorvastatin 40 Mg Tablet PO 04/13/24 00:44 Not Given QPM CIARA Clopidogrel Bisulfate 75 mg 04/14/23 09:00 04/14/23 09:50 Clopidogrel Bisulfate 75 Mg Tablet PO 04/13/24 08:59 75 mg DAILY CIARA Administration Dextrose 0 gm 04/14/23 00:09 Dextrose 50% In Water 25 Gm/50 Ml Syringe IV-PUSH 04/13/24 00:08 PRN PRN Hypoglycemia Enoxaparin Sodium 40 mg 04/14/23 10:00 04/14/23 09:50 Enoxaparin 40 Mg/0.4 Ml Syringe SUBCUT 04/13/24 09:59 40 mg DAILY@10 CIARA Administration Glucose 0 gm 04/14/23 00:09 Dextrose 40% Gel 15 Gm Tube PO 04/13/24 00:08 PRN PRN Hypoglycemia Hydralazine HCl 10 mg 04/14/23 00:09 04/14/23 03:10 Hydralazine 20 Mg/Ml Vial IV-PUSH 04/13/24 00:08 10 mg Q4H PRN Administration Hypertension Insulin Aspart 0 units 04/14/23 08:00 04/14/23 10:00 Insulin Aspart 300 Units/3 Ml Insuln.Pen SUBCUT 04/13/24 07:59 2 units TID.WM.HS CIARA Administration Protocol Irbesartan 75 mg 04/14/23 09:00 04/14/23 09:50 Irbesartan 150 Mg Tablet PO 04/13/24 08:59 75 mg DAILY CIARA Administration Ketorolac Tromethamine 1 drops 04/14/23 09:00 09/29/23 10:01 Ketorolac 0.5% Op Soln 100 Drops/5 Ml Bottle EYE-BOTH 04/13/24 08:59 1 drops QID CIARA Administration Sodium Chloride 0 ml 04/13/23 18:32 04/13/23 21:40 Sodium Chloride 0.9 % 10 Ml Syringe IV-PUSH 04/12/24 18:31 10 ml PRN PRN Administration Flush Sodium Chloride 0 ml 04/14/23 06:00 04/14/23 05:39 Sodium Chloride 0.9 % 10 Ml Syringe IV-PUSH 04/13/24 05:59 10 ml QSHIFT CIARA Administration A&P - Hospitalist Assessment/Plan (1) Transient cerebral ischemia: (2) HTN (hypertension): (3) T2DM (type 2 diabetes mellitus): Plan Acute CVA ? MRI of the brain showed acute to subacute ischemia in the right insular cortexand subcortical white matter of the right occipital lobe. ? Echo ? Consult neurology ? aspirin, Plavix, statin - PT/OT/ST HTN urgency ? Monitor, keep less than 185 mmHg ? BP still high, will increase amlodipine to 10 mg daily ? Hydralazine as needed Chronic conditions T2DM?fingersticks ACHS, SSI C DVT PPx-SCDs, enoxaparin Diet order-NPO, speech therapy evaluation CODE STATUS-full code Documented By: Gema Fay MD 04/14/23 1011 Signed By: <Electronically signed by Gema Fay MD> 04/14/23 1013 [facility] Work Phone: 1(804) 559-505009-29-2023 History and physical note Author Jax Seay [facility] April 14, 2023 12:34am Note Date/Time April 13, 2023 11:50pm [facility] [address] [place] [address] Hospitalist H&P Signed Patient: Marisela Hsieh MR#: [id number] : 1955 Acct:[id number] Age/Sex: 67 / F Adm Date: 3 Loc: 3T Room: [address] [place] [address] Type: ADM INOo Attending Dr: Jax Seay MD Copies to: MD Jax Boykin II, MD Paula G Smith, [employer] MACHINE OPERATOR~ HPI DATE OF EXAMINATION: 04/13/23 CHIEF COMPLAINT: right arm numbness, slurred speech HISTORY OF PRESENT ILLNESS: Ms. Hsieh is a 67-year-old female with a PMH of HTN, T2DM, asthma the presentsto the emergency tonight with complaints of right arm numbness and slurred speech. Patient seen and evaluated emergency room, resting on the cart quietly, at bedside. Patient reports she woke up at 930 this morning, she never wakes up that late, put on a pot of tea and around 1130 to noon her right arm went numb, she dropped her phone, states she dozed off and on all day, around 5:00 she was getting her 's pills around and she knows she could not handle the pills. She also reported that she could not play on her phone today. states that the patient was slurring her speech, sounded like her tongue was really thick in her mouth. He states that her friend called him and told him that she did not sound very well on the phone. She told her she wanted to go to bed and she would have it checked out tomorrow and he told her to go her going to the emergency room. Patient is very tearful upon arrivalto room, keeps saying what did I do want. She states for the last few days she has not felt like doing anything, feels tired all the time. She reports that her mother of a stroke. She states she just saw her doctor on the eighth, he did not change anything. She states she has never smoked, she does not drinkalcohol. She does report using her rescue inhaler for her asthma 2-3 times a day recently, states she feels like she gets short of breath quickly with walking. EKG shows sinus bradycardia. CT of the brain showed no acute intracranial findings, diffuse cortical volume loss and nonspecific white matter hypodensities, most commonly associated with chronic micro angiopathic changes. CTA of the head and neck shows no intracranial large artery occlusion or significant stenosis, no dissection, cardiomegaly, degenerative changes in the spine, hardware intact to C6 and 7. BMP with a glucose of 160, otherwise unremarkable. Troponin 33.3. CBC unremarkable. Coags also unremarkable. Patient was medicated with labetalol, Toradol, aspirin. She will be admitted asobservation under the care of the hospitalist team for further evaluation and treatment. Review of Systems Review of Systems Review of systems: A 10 point review of systems was obtained, negative unless noted in the HPI or below. [facility] Medical History (Updated 04/14/23 @ 00:02 by Indira Jones APRN) Asthma Diabetes HTN (hypertension) Hyperlipidemia Surgical History (Updated 04/13/23 @ 18:34 by Deena León RN) H/O neck surgery H/O: section History of knee replacement Social History Marital Status: Household Members: spouse Housing: house Smoking Status: Never smoker Substance Use Type: None Meds Medications and Allergies Allergies No Known Allergies Allergy (Verified 04/13/23 18:32) Home Medications irbesartan 75 mg tablet 75 mg PO DAILY 04/13/23 [History Confirmed 04/13/23] ketorolac 0.5 % eye drops 1 drp Eye-Both QID 04/13/23 [History Confirmed 04/13/23] peg 3350-electrolytes 236 gram-22.74 gram-6.74 gram-5.86 gram solution ml 04/13/23 [History] Exam Physical Exam Vital Signs: Temp Pulse Resp BP Pulse Ox O2 Del Method 98.0 F 54 L 18 182/90 H 95 Room Air 04/13/23 22:15 04/13/23 23:41 04/13/23 23:41 04/13/23 23:41 04/13/23 23:41 04/13/23 23:41 Narrative: CONST- Appears well -developed and well nourished. Morbidly obese HEAD - Normocephalic and atraumatic EENT-Sclera nonicteric, conjunctive are non-erythemic, dry oral mucosa, pharynx clear NECK-Supple, no cervical lymphadenopathy CARDIAC- bradycardia, regular rhythm, S1 & S2. PULM-diminished without wheeze or rhonchi, RA, no accessory muscle use or cough noted ABD - Soft. Bowel sounds are normal. No distention. No tenderness EXTREM-no edema BLE calves, nontender SKIN- W/D good turgor MS- MAEX4 spontaneously with equal with equal strength NEURO- A&Ox3 speech slurred and tongue midline, equal facial symmetry, no focal motor deficits, denies numbness and tingling PSYCH- Tearful Results Lab Results Labs: Laboratory Last Values Corrected WBC 8.8 X10E3/uL (3.8-11.6) 04/13/23 21:26 Uncorrected WBC Count 8.8 x10E3/uL (3.8-11.6) 04/13/23 21:26 RBC 4.08 X10E6/uL (3.60-5.00) 04/13/23 21:26 Hgb 12.4 g/dL (11.8-15.4) 04/13/23 21:26 Hct 36.0 % (34.0-46.4) 04/13/23 21:26 MCV 88.1 fl (80-100) 04/13/23 21:26 MCH 30.4 pg (24.7-34.3) 04/13/23 21:26 MCHC 34.5 g/dL (32.0-35.0) 04/13/23 21:26 RDW 13.3 % (11.9-15.3) 04/13/23 21:26 Plt Count 224 x10E3/uL (150-450) 04/13/23 21:26 MPV 8.7 fl (6.3-10.7) 04/13/23 21:26 Neut % (Auto) N/A 04/13/23 21:26 Lymph % (Auto) N/A 04/13/23 21:26 [place] % (Auto) N/A 04/13/23 21:26 Eos % (Auto) N/A 04/13/23 21:26 Baso % (Auto) N/A 04/13/23 21:26 Nucleat RBC Rel Count N/A 04/13/23 21:26 Neut # (Auto) N/A 04/13/23 21:26 Lymph # (Auto) N/A 04/13/23 21:26 [place] # (Auto) N/A 04/13/23 21:26 Eos # (Auto) N/A 04/13/23 21:26 Baso # (Auto) N/A 04/13/23 21:26 Band Neutrophils % 2 % (0-5) 04/13/23 21:26 Lymphocytes % 19 % (18-42) 04/13/23 21:26 Monocytes % 2 % (2-11) 04/13/23 21:26 Eosinophils % 2 % (1-3) 04/13/23 21:26 Segmented Neutrophils 76 % (50-70) H 04/13/23 21:26 Monocyte Dist Width 18.26 % (0.00-20.00) 04/13/23 21:26 Platelet Estimate Normal (Normal) 04/13/23 21:26 Giant Platelets 2 /100 WBC 04/13/23 21:26 Plt Morphology Comment Normal (Normal) 04/13/23 21:26 RBC Morphology Normal (Normal) 04/13/23 21:26 PT 12.3 Seconds (9.0-12.9) 04/13/23 21:36 INR 1.0 04/13/23 21:36 APTT 33.9 Seconds (25.1-36.5) 04/13/23 21:36 PHA Creatinine Clear 46.64 04/13/23 21:26 Sodium 139 mmol/L (136-145) 04/13/23 21:26 Potassium 3.9 mmol/L (3.5-5.1) 04/13/23 21:26 Chloride 105 mmol/L (98-107) 04/13/23 21:26 Carbon Dioxide 24.2 mmol/L (21.0-31.0) 04/13/23 21:26 Anion Gap 13.7 mEq/L (6.0-15.0) 04/13/23 21:26 BUN 19 mg/dL (7-25) 04/13/23 21:26 Creatinine 1.01 mg/dL (0.60-1.20) 04/13/23 21:26 POC Creatinine 1.0 mg/dl (0.6-1.3) 04/13/23 21:28 Est GFR (CKD-EPI) > 60.0 mL/Min 04/13/23 21:26 Glucose 160 mg/dL (70-100) H 04/13/23 21:26 POC Glucose 164 mg/dl 04/13/23 21:24 Calcium 9.6 mg/dL (8.6-10.3) 04/13/23 21:26 Total Creatine Kinase 78 U/L (30-223) 04/13/23 21:26 Troponin I High Sens 33.3 pg/mL (0.0-15.0) H 04/13/23 21:26 Assessment & Plan Assessment/Plan (1) Transient cerebral ischemia: (2) HTN (hypertension): (3) T2DM (type 2 diabetes mellitus): Plan TIA r/o CVA ? MRI of the brain in am ? Echo in a.m., bubble study please ? Consult neurology ? Start aspirin, Plavix, statin tonight, then daily - PT/OT/ST HTN urgency ? Monitor, keep less than 185 mmHg ? Start amlodipine ? Hydralazine as needed Chronic conditions T2DM?fingersticks ACHS, SSI C DVT PPx-SCDs, enoxaparin Diet order-NPO, speech therapy evaluation CODE STATUS-full code Attending Physician Attestation: I personally reviewed the history, performed the mckenzie elements of the exam, formulated the plan of care and confirmed the written note. I agree with the findings and plan as documented in this note and have edited it if needed to reflect my findings and plan. Jax Fitch MD IP vs OBS Justification Based on differential dx, clinical care plan, and risk of adverse events, if untreated, in my clinical judgement this patient requires an acute care setting as: OBSERVATION because of an expectation of an under 2 midnight stay. Estimated length of stay (# of days): 2 Documented By: Indira Jones APRN 04/13/23 2350 Signed By: <Electronically signed by MYESHA Jones> 04/14/23 0019 <Electronically signed by Jax Seay MD> 04/14/23 0034 [facility] Work Phone: 1(892) 416-511211-17-2022 NotePROCEDURE: XR ANKLE RT MIN 3 VIEWS HISTORY: Idiopathic osteoarthritis ; lateral right ankle pain for 2 months COMPARISON: None. FINDINGS: BONES:No fracture, dislocation, bone lesion. Mild degenerative changes. Small separate ossification/heterotopic bone formation dorsal to the talonavicular joint. Small calcaneal plantar spur and mild degenerative enthesopathic spurring at Achilles tendon insertion. SOFT TISSUES:Mild soft tissue swelling surrounding the ankle. EFFUSION:None visible. OTHER: Negative. IMPRESSION: 1. No acute bone abnormality. 2. Mild degenerative changes. Electronically authenticated by: CEE PRIETO Date: 2022-06-02 08:48[facility] Author Gema Fay [facility] April 17, 2023 1:07pm Note Date/Time April 17, 2023 1: 04pm [facility] [address] [place] [address] Discharge Summary Signed Patient: Marisela Hsieh MR#: [id number] : 1955 Acct:[id number] Age/Sex: 67 / F Adm Date: 3 Loc: Room: [address] [place] [address]: Gema Fay MD Copies to: MD Gema Boykin II, MD~ Providers Date of Discharge: 04/17/23 Discharging Provider: Gema Fay Primary Care Provider: Jason Wyatt Consults: 04/14/23 00:09 Consult to Neurology Routine Consult to Speech Therapy Routine 04/15/23 08:49 Consult to Cardiology Routine Discharge Diagnosis (1) Transient cerebral ischemia: (2) Acute ischemic stroke: Final Diagnosis Final Discharge Diagnosis: acute CVA Summary Hospital Course Hospital course: Ms. Hsieh is a 67-year-old female with a PMH of HTN, T2DM, asthma the presentsto the emergency tonight with complaints of right arm numbness and slurred speech. Patient seen and evaluated emergency room, resting on the cart quietly, at bedside. Patient reports she woke up at 930 this morning, she never wakes up that late, put on a pot of tea and around 1130 to noon her right arm went numb, she dropped her phone, states she dozed off and on all day, around 5:00 she was getting her 's pills around and she knows she could not handle the pills. She also reported that she could not play on her phone today. states that the patient was slurring her speech, sounded like her tongue was really thick in her mouth. He states that her friend called him and told him that she did not sound very well on the phone. She told her she wanted to go to bed and she would have it checked out tomorrow and he told her to go her going to the emergency room. Patient is very tearful upon arrivalto room, keeps saying what did I do want. She states for the last few days she has not felt like doing anything, feels tired all the time. She reports that her mother of a stroke. She states she just saw her doctor on the eighth, he did not change anything. She states she has never smoked, she does not drinkalcohol. She does report using her rescue inhaler for her asthma 2-3 times a day recently, states she feels like she gets short of breath quickly with walking. EKG shows sinus bradycardia. CT of the brain showed no acute intracranial findings, diffuse cortical volume loss and nonspecific white matter hypodensities, most commonly associated with chronic micro angiopathic changes. CTA of the head and neck shows no intracranial large artery occlusion or significant stenosis, no dissection, cardiomegaly, degenerative changes in the spine, hardware intact to C6 and 7. BMP with a glucose of 160, otherwise unremarkable. Troponin 33.3. CBC unremarkable. Coags also unremarkable. Patient was medicated with labetalol, Toradol, aspirin. She will be admitted asobservation under the care of the hospitalist team for further evaluation and treatment. MRI of the brain showed multiple strokes that are suggestive of embolic source. US of the carotids was unremarkable. 2D echocardiogram was negative. BART showed no evidence of intracardiac thrombus. The patient was discharged home on high intensity statin, 21 days of Plavix, andindefinite daily aspirin. She will follow-up with cardiology for CPAP for 1 event monitor to check for atrial fibrillation Time Spent with Patient Time spent providing/coordinating discharge services (# min): 35 Diagnostic Studies Completed and Pending Studies Labs on day of discharge: 04/17/23 11:45: POC Glucose 160 04/17/23 07:40: POC Glucose 155 04/16/23 22:04: POC Glucose 190 04/16/23 16:26: POC Glucose 174 Exam Physical Exam Vital Signs: Temp Pulse Resp BP Pulse Ox O2 Del Method 97.9 F 55 L 16 158/75 H 98 Room Air 04/17/23 12:00 04/17/23 12:00 04/17/23 12:00 04/17/23 12:00 04/17/23 12:00 04/17/23 12:00 Narrative: Patient is awake and alert, oriented to place, time and person HEENT: pink conjunctiva and normal buccal mucosa Neck: supple, no tenderness Endocrine: no thyromegaly Vascular: No JVD or carotid bruit Lymphatic: no cervical lymphadenopathy Chest: CTA bilaterally Heart: RRR, no extra sounds or murmurs Abd: soft NT, no rebound or rigidity, increased abdominal girth, therefore, clinically I could not exclude the possibility of intra-abdominal mass or organomegaly Ext: no cyanosis or clubbing, no varices or edema Neuro: A&O x3, normal speech comprehension and attention, normal and symmetricalmotor and tone examination throughout Discharge Plan Discharge Plan Patient Disposition: Home Health [facility] Activity: No Activity Restriction Diet: Regular and Other Comment: Please follow Speech Therapy recommendations as listed below: Additional Instructions: Speech Therapy recommendations: *Sit upright at 90 degrees for all oral intake *Take small bites and sips *Pace yourself and eat slowly Continue to monitor glucose levels as before HOME HEALTH TO MANAGE: Nursing to eval and treat Monitor VS per protocol--HTN Monitor Neuro. assessment--CVA Assist with medication management and provide medication education Provide education on Speech Therapy recommendations Prescriptions: New atorvastatin 40 mg Tablet 40 mg PO QPM Qty: 90 0RF clopidogrel 75 mg Tablet 75 mg PO DAILY Qty: 20 0RF aspirin 81 mg Tablet,Delayed Release (Dr/Ec) 81 mg PO DAILY Qty: 90 0RF amlodipine 10 mg Tablet 10 mg PO DAILY Qty: 90 0RF irbesartan 150 mg Tablet 150 mg PO DAILY Qty: 90 0RF Continued ketorolac 0.5 % drops 1 drp Eye-Both QID Patient Comments: instill 1 (ONE) DROP IN BOTH EYES FOUR TIMES DAILY peg 3350-electrolytes 236-22.74-6.74 -5.86 gram recon soln Levemir FlexPen 100 unit/mL (3 mL) Insulin Pen 40 unit SUBCUT QAM Discontinued irbesartan 75 mg tablet 75 mg PO DAILY Patient Comments: TAKE 1 TABLET BY MOUTH ONCE DAILY Other Ambulatory Orders: [place] cardiac event monitor (Routine) Timeframe: [id number] Facility: [facility] - Location: Electrodiagnostics Ordered By: Martina Nash Follow Up: [facility] [Outside] (Their office is currently closed. Please call to schedule a post hospital appointment.) Jason Wyatt II, MD [Primary Care Provider] - (The office is aware of your hospital stay and need for follow up in 7-10 days, the office will call you to schedule. Please call the office if you have not heard from them by the next business day.) Martina Nash MD [Active Staff] - (we will call with a 6 week follow up) Documented By: Gema Fay MD 04/17/23 1304 Signed By: <Electronically signed by Gema Fay MD> 04/17/23 1307 [facility] Work Phone: Evaluation + Plan note Future Appointments Appointment Date:01/23/2024 10:45:00 AM Scheduled Provider:Dom Garcia MD Location:[facility] Appointment Date:2024 11:00:00 AM Scheduled Provider:Dom Garcia MD Location:[facility]Cardiology Clinic Appointment Type:Cardiology Follow Up (FT) Future Scheduled Tests Laboratory* [facility] Appointment Date:04/25/2024 10:15:00 AM Scheduled Provider:Hemant Espana PA-C Location:[facility]Cardiology Clinic Appointment Type:Cardiology Follow Up (FT) Appointment Date:2024 11:00:00 AM Scheduled Provider:Dom Garcia MD Location:[facility]Cardiology Clinic Appointment Type:Cardiology Follow Up (FT) Future Scheduled Tests Laboratory* TIBC Calculated 04/02/24 * Ferritin 04/02/24 * Iron Level 04/02/24 * Lipid Panel 01/24/24 [facility] Evaluation + Plan note Future Appointments Appointment Date:06/06/2024 02:30:00 PM Scheduled Provider:Hemant Espana PA-C Location:[facility]Cardiology Clinic Appointment Type:Cardiology Follow Up (FT) Appointment Date:2024 11:00:00 AM Scheduled Provider:Dom Garcia MD Location:[facility]Cardiology Clinic Appointment Type:Cardiology Follow Up (FT) Future Scheduled Tests Laboratory* TIBC Calculated 04/02/24 * Ferritin 04/02/24 * Iron Level 04/02/24 * Lipid Panel 01/24/24 [facility] Evaluation + Plan note Future Appointments Appointment Date:06/10/2024 09:15:00 AM Scheduled Provider: Location:FT.Sleep Clinic Appointment Type:SAFETY MANAGER Sleep Study Clinic Follow Up (FT) Future Scheduled Tests Laboratory* TIBC Calculated 04/02/24 * Ferritin 04/02/24 * Iron Level 04/02/24 * Lipid Panel 01/24/24 [facility] evaluation + Plan note Future Appointments Appointment Date:12/04/2024 09:45:00 AM Scheduled Provider:Hemant Espana PA-C Location:[facility]Cardiology Clinic Appointment Type:Cardiology Follow Up (FT) Appointment Date:12/19/2024 11:40:00 AM Scheduled Provider:Jarred Aguillon DO Location:.ONCOLOGY Appointment Type:ONC Office Visit 20 (FT) Future Scheduled Tests Laboratory* TIBC Calculated 04/02/24 * CBC w/ Auto Diff 12/19/24 * Ferritin 04/02/24 * Iron Level 04/02/24 * Lipid Panel 01/24/24 [facility] evaluation + Plan note Future Appointments Appointment Date:12/04/2024 09:45:00 AM Scheduled Provider:Hemant Espana PA-C Location:FT[facility]Cardiology Clinic Appointment Type:Cardiology Follow Up (FT) Appointment Date:12/19/2024 11:40:00 AM Scheduled Provider:Jarred Aguillon DO Location:.ONCOLOGY Appointment Type:ONC Office Visit 20 (FT) Diagnostic Tests Pending * Free K+L Lt Chains,Qn,S 10/17/24 * HERBERTH and PE, Serum 10/17/24 * Erythropoietin Level 10/17/24 Future Scheduled Tests Laboratory* TIBC Calculated 04/02/24 * CBC w/ Auto Diff 12/19/24 * Ferritin 04/02/24 * Iron Level 04/02/24 * Lipid Panel 01/24/24 [facility] evaluation + Plan note Future Appointments Appointment Date:12/19/2024 11:40:00 AM Scheduled Provider:Jarred Aguillon DO Location:FT.ONCOLOGY Appointment Type:ONC Office Visit 20 (FT) Appointment Date:03/06/2025 09:45:00 AM Scheduled Provider:Hemant Espana PA-C Location:FT[facility]Cardiology Clinic Appointment Type:Cardiology Follow Up (FT) Future Scheduled Tests Laboratory* TIBC Calculated 04/02/24 * CBC w/ Auto Diff 12/19/24 * Ferritin 04/02/24 * Iron Level 04/02/24 * Lipid Panel 01/24/24 [facility] evaluation + Plan note Future Appointments Appointment Date:12/26/2024 02:20:00 PM Scheduled Provider:Jarred Aguillon DO Location:FT.ONCOLOGY Appointment Type:ONC Office Visit 20 (FT) Appointment Date:03/06/2025 09:45:00 AM Scheduled Provider:Hemant Espana PA-C Location:FT.Cardiology Clinic Appointment Type:Cardiology Follow Up (FT) Future Scheduled Tests Laboratory* TIBC Calculated 04/02/24 * Ferritin 04/02/24 * Iron Level 04/02/24 * Lipid Panel 01/24/24 [facility] evaluation + Plan note Future Appointments Appointment Date:01/02/2025 10:20:00 AM Scheduled Provider:Jarred Aguillon DO Location:FT.ONCOLOGY Appointment Type:ONC Office Visit 20 (FT) Appointment Date:03/06/2025 09:45:00 AM Scheduled Provider:Hemant Espana PA-C Location:FT.Cardiology Clinic Appointment Type:Cardiology Follow Up (FT) Future Scheduled Tests Laboratory* TIBC Calculated 04/02/24 * Ferritin 04/02/24 * Iron Level 04/02/24 * Lipid Panel 01/24/24 [facility] Evaluation + Plan note Future Appointments Appointment Date:03/06/2025 09:45:00 AM Scheduled Provider:Hemant Espana PA-C Location:[facility]Cardiology Clinic Appointment Type:Cardiology Follow Up (FT) Appointment Date:07/03/2025 10:00:00 AM Scheduled Provider:MARNIE MCKEON CNP Location:FT.ONCOLOGY Appointment Type:ONC Office Visit 20 (FT) Future Scheduled Tests Laboratory* TIBC Calculated 04/02/24 * CBC w/ Auto Diff 04/04/25 * CBC w/ Auto Diff 07/04/25 * Comprehensive Metabolic Panel 04/04/25 * Comprehensive Metabolic Panel 07/04/25 * Ferritin 04/02/24 * Iron Level 04/02/24 * Lipid Panel 01/24/24 [facility] evaluation noteNo assessment information available [facility] Work Phone: evaluation note* Diagnosis Onset Date Resolution Status HTN (hypertension) acute T2DM (type 2 diabetes mellitus) acute Transient cerebral ischemia acute [facility] Work Phone: evaluation note* Diagnosis Onset Date Resolution Status Acute ischemic stroke acute HTN (hypertension) acute Hyperlipidemia acute T2DM (type 2 diabetes mellitus) acute Transient cerebral ischemia acute [facility] Work Phone: evaluation note* Diagnosis Onset Date Resolution Status Coronary artery disease acut e Diabetes mellitus type 2 with complications acute Essential hypertension acute Hyperlipidemia acute Mixed hyperlipidemia acute CAD (coronary artery disease ), [place] coronary artery noneactive Coronary artery disease acut e Diabetes mellitus type 2 with complications acute Essential hypertension acute Hyperlipidemia acute Mixed hyperlipidemia acute CAD (coronary artery disease ), [place] coronary artery noneactive [facility] Work Phone: evaluation note* Diagnosis Onset Date Resolution Status Coronary artery disease acut e Diabetes mellitus type 2 with complications acute Essential hypertension acute Hyperlipidemia acute Mixed hyperlipidemia acute CAD (coronary artery disease ), [place] coronary artery noneactive Coronary artery disease acut e Diabetes mellitus type 2 with complications acute Essential hypertension acute Hyperlipidemia acute Mixed hyperlipidemia acute Symptomatic bradycardia acut e CAD (coronary artery disease ), [place] coronary artery noneactive Coronary artery disease acut e Diabetes mellitus type 2 with complications acute Essential hypertension acute Hyperlipidemia acute Mixed hyperlipidemia acute Symptomatic bradycardia acut e [facility] Work Phone: evaluation note* Diagnosis Abnormal EKG- Primary Nonspecific abnormal electrocardiogram (ECG) (EKG) Abnormal EKG- Primary Nonspecific abnormal electrocardiogram (ECG) (EKG) documented in this encounter [facility] Work Phone: Evaluation note* Diagnosis Abnormal EKG- Primary Nonspecific abnormal electrocardiogram (ECG) (EKG) Abnormal EKG Nonspecific abnormal electrocardiogram (ECG) (EKG) Sinus node dysfunction (Multi) Pacemaker Cardiac pacemaker in situ documented in this encounter [facility] Work Phone: Evaluation note* Diagnosis Type 2 diabetes mellitus with diabetic chronic kidney disease (CMS/HCC)- Primary Chronic kidney disease, stage 3b (HCC) (CMS/HCC) Morbid (severe) obesity due to excess calories (CMS/HCC) Essential (primary) hypertension (CMS/HCC) Unspecified essential hypertension Body mass index (BMI) 35.0-35.9, adult Major depressive disorder, recurrent, moderate (CMS/HCC) Major depressive disorder, recurrent episode, moderate Chronic pruritus documented in this encounter [facility]* Diagnosis Type 2 diabetes mellitus with diabetic chronic kidney disease (CMS/HCC) documented in this encounter [facility]* Diagnosis Cerebrovascular accident (CVA) due to thrombosis of cerebral artery (CMS/HCC) Mixed hyperlipidemia (CMS/HCC) Mixed hyperlipidemia documented in this encounter [facility]* Diagnosis 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)- Primary Essential hypertension (CMS/HCC) Unspecified essential hypertension documented in this encounter [facility]* Diagnosis Routine general medical examination at health care facility- Primary Routine general medical examination at a health care facility ACP (advance care planning) Other specified counseling 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) Cerebrovascular accident (CVA) due to thrombosis of cerebral artery (CMS/HCC) Hemiparesis affecting right side as late effect of cerebrovascular accident (CMS/HCC) Coronary artery disease involving [place] coronary artery of [place] heart without angina pectoris (CMS/HCC) 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) Chronic kidney disease, stage 3a (HCC) (CMS/HCC) Type 2 diabetes mellitus with other specified complication (CMS/HCC) Hyperlipidemia, unspecified (CMS/HCC) Inflammatory polyarthropathy (CMS/HCC) Unspecified inflammatory polyarthropathy Other secondary pulmonary hypertension (CMS/HCC) Acute non-recurrent pansinusitis [facility]* Diagnosis Cerebrovascular accident (CVA) due to thrombosis of cerebral artery (CMS/HCC)- Primary Hypersomnia Hypersomnia, unspecified Nocturnal dyspnea Orthopnea [facility]* Diagnosis Mixed hyperlipidemia (CMS/HCC) Mixed hyperlipidemia [facility]* Diagnosis Cardiac pacemaker in situ Sinoatrial node dysfunction (Multi) Sinoatrial node dysfunction documented in this encounter [facility] Work Phone: Evaluation note* Diagnosis Coronary artery disease involving [place] coronary artery of [place] heart without angina pectoris ([facility])- Primary Hemiplegia and hemiparesis following cerebral infarction affecting right dominant side ([facility]) Other secondary pulmonary hypertension ([facility]) Morbid (severe) obesity due to excess calories ([facility]) Major depressive disorder, recurrent, moderate ([facility]) Major depressive disorder, recurrent episode, moderate Type 2 diabetes mellitus with diabetic chronic kidney disease ([facility]) Chronic kidney disease, stage 3b (HCC) ([facility]) Type 2 diabetes mellitus with other specified complication ([facility]) Hyperlipidemia, unspecified ([facility]) Inflammatory polyarthropathy [place] Unspecified inflammatory polyarthropathy Primary osteoarthritis involving multiple joints documented in this encounter [facility]* Diagnosis Acute gout involving toe of right foot, unspecified cause- Primary MORRIS (acute kidney injury) ([facility]) Anemia, unspecified type Systolic dysfunction, left ventricle documented in this encounter [facility]Evaluation note* Diagnosis Hyperuricemia- Primary Other abnormal blood chemistry CKD (chronic kidney disease) stage 4, GFR 15-29 ml/min ([facility]) Chronic kidney disease, Stage IV (severe) Anemia of chronic disease Anemia of other chronic disease Essential hypertension ([facility]) Unspecified essential hypertension documented in this encounter [facility]* Diagnosis CKD (chronic kidney disease) stage 4, GFR 15-29 ml/min ([facility])- Primary Chronic kidney disease, Stage IV (severe) Essential hypertension ([facility]) Unspecified essential hypertension Anemia of chronic disease Anemia of other chronic disease documented in this encounter [facility]* Diagnosis Type 2 diabetes mellitus with other diabetic kidney complication- Primary CKD (chronic kidney disease) stage 4, GFR 15-29 ml/min ([facility]) Chronic kidney disease, Stage IV (severe) Essential hypertension ([facility]) Unspecified essential hypertension Systolic dysfunction, left ventricle documented in this encounter [facility]* Diagnosis Cardiac pacemaker in situ Sinoatrial node dysfunction (Multi) Sinoatrial node dysfunction documented in this encounter [facility] Work Phone: Evaluation note* Diagnosis Foot sprain, left, sequela- Primary Hyperuricemia Other abnormal blood chemistry Grief reaction Adjustment disorder with depressed mood [facility]* Diagnosis Primary osteoarthritis involving multiple joints documented [facility] this encounter [facility] and [facility] Author Jax Seay [facility] April 14, 2023 12:34am Note Date/Time April 13, 2023 11:50pm [facility] [address] [place] [address] Hospitalist H&P Signed Patient: Marisela Hsieh MR#: [id number] : 1955 Acct:[id number] Age/Sex: 67 / F Adm Date: 3 Loc: Room: [address] [place] [address] Type: ADM INOo Attending Dr: Jax Seay MD Copies to: MD Jax Boykin II, MD Paula G Smith, [employer] MACHINE OPERATOR~ HPI DATE OF EXAMINATION: 04/13/23 CHIEF COMPLAINT: right arm numbness, slurred speech HISTORY OF PRESENT ILLNESS: Ms. Hsieh is a 67-year-old female with a PMH of HTN, T2DM, asthma the presentsto the emergency tonight with complaints of right arm numbness and slurred speech. Patient seen and evaluated emergency room, resting on the cart quietly, at bedside. Patient reports she woke up at 930 this morning, she never wakes up that late, put on a pot of tea and around 1130 to noon her right arm went numb, she dropped her phone, states she dozed off and on all day, around 5:00 she was getting her 's pills around and she knows she could not handle the pills. She also reported that she could not play on her phone today. states that the patient was slurring her speech, sounded like her tongue was really thick in her mouth. He states that her friend called him and told him that she did not sound very well on the phone. She told her she wanted to go to bed and she would have it checked out tomorrow and he told her to go her going to the emergency room. Patient is very tearful upon arrivalto room, keeps saying what did I do want. She states for the last few days she has not felt like doing anything, feels tired all the time. She reports that her mother of a stroke. She states she just saw her doctor on the eighth, he did not change anything. She states she has never smoked, she does not drinkalcohol. She does report using her rescue inhaler for her asthma 2-3 times a day recently, states she feels like she gets short of breath quickly with walking. EKG shows sinus bradycardia. CT of the brain showed no acute intracranial findings, diffuse cortical volume loss and nonspecific white matter hypodensities, most commonly associated with chronic micro angiopathic changes. CTA of the head and neck shows no intracranial large artery occlusion or significant stenosis, no dissection, cardiomegaly, degenerative changes in the spine, hardware intact to C6 and 7. BMP with a glucose of 160, otherwise unremarkable. Troponin 33.3. CBC unremarkable. Coags also unremarkable. Patient was medicated with labetalol, Toradol, aspirin. She will be admitted asobservation under the care of the hospitalist team for further evaluation and treatment. Review of Systems Review of Systems Review of systems: A 10 point review of systems was obtained, negative unless noted in the HPI or below. [facility] Medical History (Updated 04/14/23 @ 00:02 by Indira Jones APRN) Asthma Diabetes HTN (hypertension) Hyperlipidemia Surgical History (Updated 04/13/23 @ 18:34 by Deena León RN) H/O neck surgery H/O: section History of knee replacement Social History Marital Status: Household Members: spouse Housing: house Smoking Status: Never smoker Substance Use Type: None Meds Medications and Allergies Allergies No Known Allergies Allergy (Verified 04/13/23 18:32) Home Medications irbesartan 75 mg tablet 75 mg PO DAILY 04/13/23 [History Confirmed 04/13/23] ketorolac 0.5 % eye drops 1 drp Eye-Both QID 04/13/23 [History Confirmed 04/13/23] peg 3350-electrolytes 236 gram-22.74 gram-6.74 gram-5.86 gram solution ml 04/13/23 [History] Exam Physical Exam Vital Signs: Temp Pulse Resp BP Pulse Ox O2 Del Method 98.0 F 54 L 18 182/90 H 95 Room Air 04/13/23 22:15 04/13/23 23:41 04/13/23 23:41 04/13/23 23:41 04/13/23 23:41 04/13/23 23:41 Narrative: CONST- Appears well -developed and well nourished. Morbidly obese HEAD - Normocephalic and atraumatic EENT-Sclera nonicteric, conjunctive are non-erythemic, dry oral mucosa, pharynx clear NECK-Supple, no cervical lymphadenopathy CARDIAC- bradycardia, regular rhythm, S1 & S2. PULM-diminished without wheeze or rhonchi, RA, no accessory muscle use or cough noted ABD - Soft. Bowel sounds are normal. No distention. No tenderness EXTREM-no edema BLE calves, nontender SKIN- W/D good turgor MS- MAEX4 spontaneously with equal with equal strength NEURO- A&Ox3 speech slurred and tongue midline, equal facial symmetry, no focal motor deficits, denies numbness and tingling PSYCH- Tearful Results Lab Results Labs: Laboratory Last Values Corrected WBC 8.8 X10E3/uL (3.8-11.6) 04/13/23 21:26 Uncorrected WBC Count 8.8 x10E3/uL (3.8-11.6) 04/13/23 21: RBC 4.08 X10E6/uL (3.60-5.00) 04/13/23 21:26 Hgb 12.4 g/dL (11.8-15.4) 04/13/23 21:26 Hct 36.0 % (34.0-46.4) 04/13/23 21: MCV 88.1 fl (80-100) 04/13/23 21:26 MCH 30.4 pg (24.7-34.3) 04/13/23 21:26 MCHC 34.5 g/dL (32.0-35.0) 04/13/23 21: RDW 13.3 % (11.9-15.3) 04/13/23 21:26 Plt Count 224 x10E3/uL (150-450) 04/13/23 21:26 MPV 8.7 fl (6.3-10.7) 04/13/23 21:26 Neut % (Auto) N/A 04/13/23 21:26 Lymph % (Auto) N/A 04/13/23 21:26 [place] % (Auto) N/A 04/13/23 21:26 Eos % (Auto) N/A 04/13/23 21:26 Baso % (Auto) N/A 04/13/23 21:26 Nucleat RBC Rel Count N/A 04/13/23 21:26 Neut # (Auto) N/A 04/13/23 21:26 Lymph # (Auto) N/A 04/13/23 21:26 [place] # (Auto) N/A 04/13/23 21:26 Eos # (Auto) N/A 04/13/23 21:26 Baso # (Auto) N/A 04/13/23 21:26 Band Neutrophils % 2 % (0-5) 04/13/23 21:26 Lymphocytes % 19 % (18-42) 04/13/23 21:26 Monocytes % 2 % (2-11) 04/13/23 21:26 Eosinophils % 2 % (1-3) 04/13/23 21:26 Segmented Neutrophils 76 % (50-70) H 04/13/23 21:26 Monocyte Dist Width 18.26 % (0.00-20.00) 04/13/23 21:26 Platelet Estimate Normal (Normal) 04/13/23 21:26 Giant Platelets 2 /100 WBC 04/13/23 21:26 Plt Morphology Comment Normal (Normal) 04/13/23 21:26 RBC Morphology Normal (Normal) 04/13/23 21:26 PT 12.3 Seconds (9.0-12.9) 04/13/23 21:36 INR 1.0 04/13/23 21:36 APTT 33.9 Seconds (25.1-36.5) 04/13/23 21:36 PHA Creatinine Clear 46.64 04/13/23 21:26 Sodium 139 mmol/L (136-145) 04/13/23 21:26 Potassium 3.9 mmol/L (3.5-5.1) 04/13/23 21:26 Chloride 105 mmol/L (98-107) 04/13/23 21:26 Carbon Dioxide 24.2 mmol/L (21.0-31.0) 04/13/23 21:26 Anion Gap 13.7 mEq/L (6.0-15.0) 04/13/23 21:26 BUN 19 mg/dL (7-25) 04/13/23 21:26 Creatinine 1.01 mg/dL (0.60-1.20) 04/13/23 21:26 POC Creatinine 1.0 mg/dl (0.6-1.3) 04/13/23 21:28 Est GFR (CKD-EPI) > 60.0 mL/Min 04/13/23 21:26 Glucose 160 mg/dL (70-100) H 04/13/23 21:26 POC Glucose 164 mg/dl 04/13/23 21:24 Calcium 9.6 mg/dL (8.6-10.3) 04/13/23 21:26 Total Creatine Kinase 78 U/L (30-223) 04/13/23 21:26 Troponin I High Sens 33.3 pg/mL (0.0-15.0) H 04/13/23 21:26 Assessment & Plan Assessment/Plan (1) Transient cerebral ischemia: (2) HTN (hypertension): (3) T2DM (type 2 diabetes mellitus): Plan TIA r/o CVA ? MRI of the brain in am ? Echo in a.m., bubble study please ? Consult neurology ? Start aspirin, Plavix, statin tonight, then daily - PT/OT/ST HTN urgency ? Monitor, keep less than 185 mmHg ? Start amlodipine ? Hydralazine as needed Chronic conditions T2DM?fingersticks ACHS, SSI C DVT PPx-SCDs, enoxaparin Diet order-NPO, speech therapy evaluation CODE STATUS-full code Attending Physician Attestation: I personally reviewed the history, performed the mckenzie elements of the exam, formulated the plan of care and confirmed the written note. I agree with the findings and plan as documented in this note and have edited it if needed to reflect my findings and plan. Jax Fitch MD IP vs OBS Justification Based on differential dx, clinical care plan, and risk of adverse events, if untreated, in my clinical judgement this patient requires an acute care setting as: OBSERVATION because of an expectation of an under 2 midnight stay. Estimated length of stay (# of days): 2 Documented By: Indira Jones APRN 04/13/23 3040 Signed By: <Electronically signed by MYESHA Jones> 04/14/23 0019 <Electronically signed by Jax Seay MD> 04/14/23 0034 [facility] Work Phone: History general Narrative - Reported* Type Description Date Medical History Hyperlipidemia, unspecified hype rlipidemia type Medical History Type 2 diabetes mellitus with hy perglycemia Medical History Moderate persistent asthma witho ut complication Medical History Primary osteoarthritis involving multiple joints Medical History Gastroesophageal reflux disease without esophagitis Medical History Chronic insomnia Medical History Chronic constipation Medical History Major depressive dis order with single episode, in full remission Surgical History BILATERAL KNEE REPLACEMENTS Surgical History ROB with BSO 1984 Surgical History BILATERAL KNEE ARTHROSCOPY Surgical History CERVICAL DISC SURGERY 09/2010 Surgical History CARDIAC CATH 01/2012 Surgical History RIGHT FOOT Surgical History BILATERAL CTS Surgical History NECK Surgical History CHOLECYSTECTOMY Surgical History BILATERAL CARPAL TUNNEL Surgical History TOTAL HYSTERECTOMY Surgical History 3 C-SECTIONS Hospitalization History ABOVE Hospitalization History [facility] for CVA 03/2023 [facility] Other Hospital course Narrative No data available for this section [facility] Additional Instructions Speech Therapy recommendations: *Sit upright at 90 degrees for all oral intake *Take small bites and sips *Pace yourself and eat slowly Continue to monitor glucose levels as before HOME HEALTH TO MANAGE: Nursing to eval and treat Monitor VS per protocol--HTN Monitor Neuro. assessment--CVA Assist with medication management and provide medication education Provide education on [facility] Work Phone: Hospital Discharge instructions No data available for this section [facility] No data available for this section [facility] (narrative) Referred by: Jovi FRANK, Hemant Sharif [facility] Reason for visit Narrative* Auth/Cert Specialty Diagnoses / Procedures Referred By Kemal t Referred To Contact Diagnoses Abnormal EKG Abnormal EKG [R94.31] Procedures MD INS NEW/RPLCMT PRM PM W/TRANSV ELTRD ATRIAL&VENT PPM IMPLANT DUAL Carmelina Willams MD [facility] [place] [address] Ashleigh C[facility] [address] [place] [address] Referral ID Status Reason Start Date Expiration Date Visits Re quested Visits Authorized [id number] 1 1 [facility] Work Phone: Reason for visit Narrative* Imaging (Routine) - Pending Review Specialty Diagnoses / Procedures Referred By Contac t Referred To Contact Cardiology Diagnoses Cardiac pacemaker in situ Sinoatrial node dysfunction (Multi) Procedures Cardiac Device Check - Remote Carmelina Willams MD [address] [place] [address] Phone: tel: fax: Referral ID Status Reason Start Date Expiration Date Visits Requested Visits Authorized [id number] Pending Review Perform Procedure 07/29/2024 07/29/2025 52 52 [facility] Work Phone: Summary Purpose Family History Relationship Condition Age at Onset Recorded Date/T mayda father Heart disease Unknown Unknown Not Specified Diabetes mellitus Unknown Heart disease Unknown History of stroke Unknown sister Malignant neoplasm of breast Unknown Diabetes mellitus Unknown brother Diabetes mellitus Unknown Advance Directives Advance Directive Response Recorded Date/ Time Advance Directives Yes August 17, 2017 1:12pm Advance Directive Response Recorded Date/ Time Advance Directives Yes August 17, 2017 12:12pm Date Activated Date Inactivated Comments 04/30/2024 11:15 AM Question Answer Comments Plan of Care: Code Status Discussion Not Compl eted Decision Maker: Provider Rationale: Patient condition does not warra nt discussion Chief Complaint and Reason for Visit Chief Complaint Screening r92.8 Chief Complaint No strength in R [place] d Reason for Visit HTN (hypertension) T2DM (type 2 diabetes mellitus) Transient cerebral ischemia Chief Complaint No strength in R [place] d Reason for Visit Acute ischemic strok e HTN (hypertension) Hyperlipidemia T2DM (type 2 diabetes mellitus) Transient cerebral ischemia Chief Complaint No strength in R [place] d G45.9 Reason for Visit Acute ischemic strok e HTN (hypertension) Hyperlipidemia T2DM (type 2 diabetes mellitus) Transient cerebral ischemia Chief Complaint R93.1 I63.9 2 Month Follow Up Angina, Dyspnea on Exertion Chief Complaint R93.1 I63.9 2 Month Follow Up Angina, Dyspnea on Exertion Angina, Dyspnea on Exertion Angina, Dyspnea on Exertion Chief Complaint R93.1 I63.9 2 Month Follow Up Angina, Dyspnea on Exertion Angina, Dyspnea on Exertion Angina, Dyspnea on Exertion 6 weeks Chief Complaint 2 Month Follow Up Angina, Dyspnea on Exertion Angina, Dyspnea on Exertion Angina, Dyspnea on Exertion 6 weeks 4 weeks Reason for Visit Coronary artery dise ase Diabetes mellitus type 2 with complications Essential hypertension Hyperlipidemia Mixed hyperlipidemia CAD (coronary artery disease), [place] coronary artery Coronary artery disease Diabetes mellitus type 2 with complications Essential hypertension Hyperlipidemia Mixed hyperlipidemia CAD (coronary artery disease), [place] coronary artery Chief Complaint Angina, Dyspnea on E xertion Angina, Dyspnea on Exertion Angina, Dyspnea on Exertion 6 weeks 4 weeks Shortness of Breath 2 weeks Reason for Visit Coronary artery dise ase Diabetes mellitus type 2 with complications Essential hypertension Hyperlipidemia Mixed hyperlipidemia CAD (coronary artery disease), [place] coronary artery Coronary artery disease Diabetes mellitus type 2 with complications Essential hypertension Hyperlipidemia Mixed hyperlipidemia Symptomatic bradycardia CAD (coronary artery disease), [place] coronary artery Coronary artery disease Diabetes mellitus type 2 with complications Essential hypertension Hyperlipidemia Mixed hyperlipidemia Symptomatic bradycardia Reason for Referral Specialty Diagnoses / Procedures Referred By Kemal t Referred To Contact Neurology Diagnoses Cerebrovascular accident (CVA) due to thrombosis of cerebral artery (CMS/HCC) Hypersomnia Nocturnal dyspnea Procedures Home sleep test Izabel Collins, RUBBER GRINDER [address] [place] [address] [facility] [address] [place] [address] Referral ID Status Reason Start Date Expiration Date V isits Requested Visits Authorized [id number] Pending Review 03/19/2024 09/15/2024 1 1 Specialty Diagnoses / Procedures Referred By Kemal t Referred To Contact Cardiology Diagnoses Sinus node dysfunction (Multi) Procedures Cardiac Device Check - In Clinic Lizbet Arredondo, HARDBOARD COATING MACHINE OPERATOR-SECTION HAND [address] [facility] Office [facility], [place] [address] Referral ID Status Reason Start Date Expiration Date Visits Requested Visits Authorized [id number] Pending Review Perform Procedure 4 04/30/2025 1 1 Specialty Diagnoses / Procedures Referred By Kemal t Referred To Contact Diagnoses Abnormal EKG Procedures ECG 12 Lead Carmelina Willams MD [address] [place] [address] Referral ID Status Reason Start Date Expiration Date V isits Requested Visits Authorized [id number] Authorized 04/17/2024 04/17/2025 1 1 Additional Source Comments INFORMATION SOURCE (unrecogn ized section and content) DATE CREATED AUTHOR 09/26/2021 [facility] dical Specialist DATE CREATED AUTHOR AUTHOR'S ORGANIZ ATION 06/04/2022 [facility] [facility] DATE CREATED AUTHOR AUTHOR'S ORGANIZ ATION 12/19/2023 [facility] DATE CREATED AUTHOR AUTHOR'S ORGANIZ ATION 01/16/2024 [facility] DATE CREATED AUTHOR AUTHOR'S ORGANIZ ATION 03/02/2024 [facility] [facility] DATE CREATED AUTHOR AUTHOR'S ORGANIZ ATION 03/22/2024 [facility] [place] [facility] DATE CREATED AUTHOR AUTHOR'S ORGANIZ ATION 03/23/2024 [facility] DATE CREATED AUTHOR AUTHOR'S ORGANIZ ATION 05/02/2024 [facility] DATE CREATED AUTHOR AUTHOR'S ORGANIZ ATION 05/09/2024 [facility] DATE CREATED AUTHOR AUTHOR'S ORGANIZ ATION 09/28/2024 [facility] DATE CREATED AUTHOR AUTHOR'S ORGANIZ ATION 10/20/2024 [facility] DATE CREATED AUTHOR AUTHOR'S ORGANIZ ATION 10/22/2024 [facility] DATE CREATED AUTHOR AUTHOR'S ORGANIZ ATION 11/13/2024 [facility] DATE CREATED AUTHOR AUTHOR'S ORGANIZ ATION 11/23/2024 [facility] d[facility] Special[facility] DATE CREATED AUTHOR AUTHOR'S ORGANIZ ATION 12/11/2024 [facility] DATE CREATED AUTHOR AUTHOR'S ORGANIZ ATION 12/24/2024 [facility] [place] [facility] DATE CREATED AUTHOR AUTHOR'S ORGANIZ ATION 01/08/2025 [facility] Care Teams (unrecognized sec tion and content) Team Status: Active Member Role Status Dates Jason Wyatt II MD Primary Care Provider Active Team Status: Inactive Member Role Status Dates Jason Wyatt II MD Primary Care Provider Active Tee M Tupa , DO Emergency Provider Active Jax Seay MD Admit Provider Active Gema Fay MD Attending Provider Active Richard Kim , Other Provider Active Team Status: Inactive Member Role Status Tati Wyatt II MD Primary Care Provider, Attending Provider Active Team Status: Inactive Member Role Status Tati Wyatt II MD Primary Care Provider Active Marlen Riley , RUBBER GRINDER-C Attending Provider Active Team Status: Active Member Role Status Tati Wyatt II MD Primary Care Provider Active Tee Godfrey , DO Emergency Provider Active Jax Seay MD Admit Provider, Attending Provi caitlyn Active Team Status: Inactive Member Role Status Tati Wyatt II MD Primary Care Provider Active Martina Nash MD Attending Provider Active Team Status: Inactive Member Role Status Tati Wyatt II MD Primary Care Provider Active Start: August 01, 2023 End: August 01, 2023 Martina Nash MD Attending Provider, Referring Provider Active Start: August 01, 2023 End: August 01, 2023 Team Status: Inactive Member Role Status Tati Nash MD Attending Provider Active Sta rt: August 21, 2023 End: August 21, 2023 Team Status: Inactive Member Role Status Tati Wyatt II MD Primary Care Provider Active Start: August 30, 2023 End: August 30, 2023 Martina Nash MD Attending Provider Active Sta rt: August 30, 2023 End: August 30, 2023 Team Status: Inactive Member Role Status Tati Wyatt II MD Primary Care Provider Active Start: September 01, 2023 End: September 01, 2023 Martina Nash MD Attending Provider Active Sta rt: September 01, 2023 End: September 01, 2023 Team Status: Active Member Role Status Tati Wyatt II MD Primary Care Provider Active Start: September 01, 2023 Martina Nash MD Attending Provider, Other Provider Active Start: September 01, 2023 Team Status: Inactive Member Role Status Tati Wyatt II MD Primary Care Provider Active Start: October 02, 2023 End: October 02, 2023 Martina Nash MD Attending Provider Active Sta rt: October 02, 2023 End: October 02, 2023 Team Status: Inactive Member Role Status Dates Jason Wyatt II MD Primary Care Provider Active Start: November 03, 2023 End: November 03, 2023 Martina Nash MD Attending Provider Active Sta rt: November 03, 2023 End: November 03, 2023 Team Status: Inactive Member Role Status Dates Jason Wyatt II MD Primary Care Provider Active Start: November 16, 2023 End: November 16, 2023 Martina Nash MD Attending Provider Active Sta rt: November 16, 2023 End: November 16, 2023 Commercial Reporter Relationship Specialty Start Date End Date Generic Provider, No [place] [address] PCP - General Media Marketing Director 04/11/24 Commercial Reporter Relationship Specialty Start Date End Date Jason Wyatt MD [address] [place] [address] PCP - Devoted 07/17/22 Jason Wyatt MD [address] [facility] [address] [place] [address] PCP - General Internal Medicine 01/02/23 Commercial Reporter Relationship Specialty Start Date End Date Jason Wyatt MD [address] [facility] [address] [place] [address] PCP - General Internal Medicine 04/17/24 Commercial Reporter Relationship Specialty Start Date End Date Jason Wyatt MD [address] [place] [address] PCP - Devoted 07/17/22 Jason Wyatt MD [address] [place] [address] PCP - General Internal Medicine 01/02/23 Commercial Reporter Relationship Specialty Start Date End Date Jason Wyatt MD [address] [facility] [address] [place] [address] PCP - Devoted 07/17/22 Jason Wyatt MD [address] [place] [address] PCP - General Internal Medicine 01/02/23 Cee Pruitt MD [address] [place] [address] Referring Physician Neurology 06/06/24 Sara Brewer PA [address] [place] [address] Physician Rig Manager Neurology 06/06/24 Commercial Reporter Relationship Specialty Start Date End Date Jason Wyatt MD [address] [place] [address] PCP - Devoted 07/17/22 Jason Wyatt MD [address] [place] [address] PCP - General Internal Medicine 01/02/23 Cee Pruitt MD [address] [place] [address] Referring Physician Neurology 06/06/24 Sara Brewer PA [address] [place] [address] Physician Rig Manager Neurology 06/06/24 Commercial Reporter Relationship Specialty Start Date End Date Jason Wyatt MD [address] [place] [address] PCP - Devoted 07/17/22 Jason Wyatt MD [address] [place] [address] PCP - General Internal Medicine 01/02/23 Cee Pruitt MD [address] [place] [address] Referring Physician Neurology 06/06/24 Sara Brewer PA [address] [place] [address] Physician Rig Manager Neurology 06/06/24 Commercial Reporter Relationship Specialty Start Date End Date Jason Wyatt MD [address] [place] [address] PCP - Devoted 07/17/22 Jason Wyatt MD [address] [place] [address] PCP - General Internal Medicine 01/02/23 Cee Pruitt MD [address] [place] [address] Referring Physician Neurology 06/06/24 Sara Brewer PA [address] [place] [address] Physician Rig Manager Neurology 06/06/24 Commercial Reporter Relationship Specialty Start Date End Date Jason Wyatt MD [address] [place] [address] PCP - Devoted 07/17/22 Jason Wyatt MD [address] [place] [address] PCP - General Internal Medicine 01/02/23 Commercial Reporter Relationship Specialty Start Date End Date Jason Wyatt MD [address] [place] [address] PCP - Devoted 07/17/22 Jason Wyatt MD [address] [place] [address] PCP - General Internal Medicine 01/02/23 Commercial Reporter Relationship Specialty Start Date End Date Jason Wyatt MD [address] [place] [address] PCP - Devoted 07/17/22 Jason Wyatt MD [address] [place] [address] PCP - General Internal Medicine 01/02/23 Commercial Reporter Relationship Specialty Start Date End Date Jason Wyatt MD [address] [place] [address] PCP - Devoted 07/17/22 Jason Wyatt MD [address] [facility] [address] [place] [address] PCP - General Internal Medicine 01/02/23 Cee Pruitt MD [address] [place], [place] [address] Referring Physician Neurology 06/06/24 Sara Brewer PA [address] [place] [address] Physician Rig Manager Neurology 06/06/24 Commercial Reporter Relationship Specialty Start Date End Date Jason Wyatt MD [address] [facility] [address] [place] [address] PCP - General Internal Medicine 04/17/24 Commercial Reporter Relationship Specialty Start Date End Date Jason Wyatt MD [address] [place] [address] PCP - Devoted 07/17/22 Jason Wyatt MD [address] [place] [address] PCP - General Internal Medicine 01/02/23 Cee Pruitt MD [address] [place] [address] Referring Physician Neurology 06/06/24 Sara Brewer PA [address] [place] [address] Physician Rig Manager Neurology 06/06/24 Commercial Reporter Relationship Specialty Start Date End Date Jason Wyatt MD [address] [place] [address] PCP - Devoted 07/17/22 Jason Wyatt MD [address] [place] [address] PCP - General Internal Medicine 01/02/23 Cee Pruitt MD [address] [place] [address] Referring Physician Neurology 06/06/24 Sara Brewer PA [address] [place] [address] Physician Rig Manager Neurology 06/06/24 Commercial Reporter Relationship Specialty Start Date End Date Jason Wyatt MD [address] [place] [address] PCP - Devoted 07/17/22 Jason Wyatt MD [address] [place] [address] PCP - General Internal Medicine 01/02/23 Cee Pruitt MD [address] [place] [address] Referring Physician Neurology 06/06/24 Sara Brewer PA [address] [place] [address] Physician Rig Manager Neurology 06/06/24 Alida Telles, ZE Clinical Advocate Family [facility] 08/23/24 Commercial Reporter Relationship Specialty Start Date End Date Jason Wyatt MD [address] [place] [address] PCP - Devoted 07/17/22 Jason Wyatt MD [address] [place] [address] PCP - General Internal Medicine 01/02/23 Cee Pruitt MD [address] [place] [address] Referring Physician Neurology 06/06/24 Sara Brewer PA [address] [place] [address] Physician Rig Manager Neurology 06/06/24 Alida Telles, ZE Clinical Advocate Family Medicine 08/23/24 Commercial Reporter Relationship Specialty Start Date End Date Jason Wyatt MD [address] [place] [address] PCP - Devoted 07/17/22 Jason Wyatt MD [address] [place] [address] PCP - General Internal Medicine 01/02/23 Cee Pruitt MD [address] [place] [address] Referring Physician Neurology 06/06/24 Sara Brewer PA [address] [place] [address] Physician Rig Manager Neurology 06/06/24 Aldia Telles, ZE Clinical Advocate Family [facility] 08/23/24 Commercial Reporter Relationship Specialty Start Date End Date Jason Wyatt MD [address] [place] [address] PCP - Devoted 07/17/22 Jason Wyatt MD [address] [place] [address] PCP - General Internal Medicine 01/02/23 Cee Pruitt MD [address] [place] [address] Referring Physician Neurology 06/06/24 Sara Brewer PA [address] [place] [address] Physician Rig Manager Neurology 06/06/24 Alida Telles, ZE Clinical Advocate Family Medicine 08/23/24 Commercial Reporter Relationship Specialty Start Date End Date Jason Wyatt MD [address] [place] [address] PCP - Devoted 07/17/22 Jason Wyatt MD [address] [place] [address] PCP - General Internal Medicine 01/02/23 Cee Pruitt MD [address] [place] [address] Referring Physician Neurology 06/06/24 Sara Brewer PA [address] [place] [address] Physician Rig Manager Neurology 06/06/24 Melissa Sloan LPN 10/02/24 Commercial Reporter Relationship Specialty Start Date End Date Jason Wyatt MD [address] [place] [address] PCP - General Internal Medicine 04/17/24 Commercial Reporter Relationship Specialty Start Date End Date Jason Wyatt MD [address] [place] [address] PCP - Devoted 07/17/22 Jason Wyatt MD [address] [place] [address] PCP - General Internal Medicine 01/02/23 Cee Pruitt MD [address] [place] [address] Referring Physician Neurology 06/06/24 Sara Brewer PA [address] [place] [address] Physician Rig Manager Neurology 06/06/24 Melissa Sloan LPN 10/02/24 Commercial Reporter Relationship Specialty Start Date End Date Jason Wyatt MD [address] [place] [address] PCP - Devoted 07/17/22 Jason Wyatt MD [address] [place] [address] PCP - General Internal Medicine 01/02/23 Cee Pruitt MD [address] [place] [address] Referring Physician Neurology 06/06/24 Sara Brewer PA [address] [place] [address] Physician Rig Manager Neurology 06/06/24 Melissa Sloan LPN 10/02/24 Commercial Reporter Relationship Specialty Start Date End Date Jason Wyatt MD [address] [place] [address] PCP - Devoted 07/17/22 Jason Wyatt MD [address] [place] [address] PCP - General Internal Medicine 01/02/23 Cee Pruitt MD [address] [place] [address] Referring Physician Neurology 06/06/24 Sara Brewer PA [address] [place] [address] Physician Rig Manager Neurology 06/06/24 Melissa Sloan LPN [address] [place] [address] 10/02/24 Commercial Reporter Relationship Specialty Start Date End Date Jason Wyatt MD [address] [place] [address] PCP - Devoted 07/17/22 Jason Wyatt MD [address] [address] PCP - General Internal Medicine 01/02/23 Cee Pruitt MD [address] [address] Referring Physician Neurology 06/06/24 Sara Brewer PA [address] [address] Physician Rig Manager Neurology 06/06/24 Melissa Sloan LPN [address] [address] 10/02/24 Goals (unrecognized section and content) Goals may be documented in a n alternate sectionGoals may be documented in an alternate sectionNo InformationNo InformationNo InformationGoals may be documented in an alternate section No data available for this section No data available for this section No data available for this section No data available for this section No data available for this section No data available for this section No data available for this section No data available for this section No data available for this section No data available for this section No data available for this section No data available for this section No data available for this section No data available for this section No data available for this section No data available for this section No data available for this section REASON FOR VISIT (unrecogniz ed section and content) Reason Comments Bradycardia Specialty Diagnoses / Procedures Referred By Contac t Referred To Contact Diagnoses Abnormal EKG Procedures ECG 12 Lead Carmelina Willams MD [facility] [place] [address] Referral ID Status Reason Start Date Expiration Date V isits Requested Visits Authorized [id number] Authorized 04/17/2024 04/17/2025 1 1 Reason Onset Date Comments HST FYI 04/24/2024 Reason Comments Diabetes Reason Comments Med Change Request Reason Comments Med Refill Reason Comments Medicare Annual Wellness Visit Subsequ t Reason Comments Cerebrovascular Accident Reason Comments Diabetes Reason Comments Diabetes Follow-up OA-- tramadol Reason Comments Med Refill Allopurinol and woul d like to discuss increasing it d/t she is only doing it once a week. Scheduled Active and Recently Administ ered Medications (unrecognized section and content) Medication Order 04/28/2024 04/29/2024 04/30/2024 ceFAZolin (Ancef) 1 g in dextrose (iso) IV 50 mL (COMPLETED) 1 g, intravenous, at 100 mL/hr, Administer over 30 Minutes, Once, On Mon04/30/24 at 1145, For 1 dose, Preprocedure, Administer within 60 minutes prior to incision. premix bag, Dosing of this medication varies based on severity of illness. Does this patient have sepsis or concern for sepsis (probable or documented infection plus systemic manifestations of infection)? No, Suspected Indication (Select all that apply): Surgical Prophylaxis, Indications: Surgical Prophylaxis 1145 (Due)1259 (New Bag - Provider: Ellen Meyer, RN)1318 (Stopped - Provider: Fidelia rOtiz RN) chlorhexidine (Hibiclens) 4 % liquid (COMPLETED) Topical, Once, On Mon04/30/24 at 1145, For 1 dose, Preprocedure, For pre-op skin preparation 1142 (Given - Provid er: Lachelle Vitale RN) mupirocin (Bactroban) 2 % ointment 1 Application (COMPLETED) 1 Application, Topical, Once, On Mon04/30/24 at 1145, For 1 dose, Preprocedure, Apply topically to both nares prior to procedure. Do not initiate until staph screening obtained first. 1142 (Given - Provid er: Lachelle Vitale RN) PRN Medication Order 04/28/2024 04/29/2024 04/30/2024 acetaminophen (Tylenol) tablet 650 mg 650 mg, oral, Every 4 hours PRN, pain mild (1-3), first line, Starting on Mon04/30/24 at 1449, If ordered PRN for pain, nurse is permitted to administer this medication for higher pain scores based on patient preference? Yes 1800 (Given - Provid er: Wanda Negron RN) fentaNYL PF (Sublimaze) injection (CANCELED) As needed, Starting on Mon04/30/24 at 1329, Intraprocedure 1329 (Given - Provid er: Ellen Meyer RN - Comment: sedation)1339 (Given - Provider: Ellen Meyer RN - Comment: sedation)1340 (Given - Provider: Ellen Meyer RN - Comment: sedation)1352 (Given - Provider: Ellen Meyer RN - Comment: sedation) iodixanol (VISIPaque) 320 mg iodine/mL injection (CANCELED) As needed, Starting on 04/30/24 at 1329, Intraprocedure 1329 (Given - Provid er: Ellen Meyer RN) lidocaine PF (Xylocaine) 10 mg/mL (1 %) injection (CANCELED) As needed, Starting on e 04/30/24 at 1337, Intraprocedure 1337 (Given - Provid er: Carmelina Willams MD)1340 (Given - Provider: Carmelina Willams MD) midazolam (Versed) injection (CANCELED) As needed, Starting on 04/30/24 at 1329, Intraprocedure 1329 (Given - Provid er: Ellen Meyer RN - Comment: sedation)1339 (Given - Provider: Ellen Meyer RN - Comment: sedation)1356 (Given - Provider: Ellen Meyer RN - Comment: sedation)1412 (Given - Provider: Ellen Meyer RN - Comment: sedation)1432 (Given - Provider: Ellen Meyer RN - Comment: sedation)1441 (Given - Provider: Ellen Meyer RN - Comment: sedation) ondansetron (Zofran) injection 4 mg(Linked Group 1) 4 mg, intravenous, Every 6 hours PRN, nausea/vomiting, first line, Starting on Mon04/30/24 at 1449, 1st Line. Give IV if patient is unable to take orally. If inadequate response within 60 minutes, proceed to next-line agent for same PRN reason or contact provider if no further options ordered. When administering via IV Push, administer over 3-5 minutes. ondansetron (Zofran) tablet 4 mg(Linked Group 1) 4 mg, oral, Every 8 hours PRN, nausea/vomiting, first line, Starting on 04/30/24 at 1449, 1st Line. Use oral route first, if possible. If inadequate response within 60 minutes, proceed to next-line agent for same PRN reason or contact provider if no further options ordered. traMADol (Ultram) tablet 50 mg 50 mg, oral, Every 8 hours PRN, pain moderate (4-6), first line, Starting on Mon04/30/24 at 1451, If ordered PRN for pain, nurse is permitted to administer this medication for higher pain scores based on patient preference? Yes Linked Groups Order Group 1: ondansetron (Zofran) tablet 4 mgJump to med 4 mg, oral, Every 8 hours PRN, nausea/vomiting, first line, Starting on Mon04/30/24 at 1449, 1st Line. Use oral route first, if possible. If inadequate response within 60 minutes, proceed to next-line agent for same PRN reason or contact provider if no further options ordered. Or ondansetron (Zofran) injection 4 mgJump to med 4 mg, intravenous, Every 6 hours PRN, nausea/vomiting, first line, Starting on Mon04/30/24 at 1449, 1st Line. Give IV if patient is unable to take orally. If inadequate response within 60 minutes, proceed to next-line agent for same PRN reason or contact provider if no further options ordered. When administering via IV Push, administer over 3-5 minutes. FOR RECORDS PERTAINING TO PATIENTS WHO ARE OR HAVE BEEN ENROLLED IN A CHEMICAL DEPENDENCY/SUBSTANCEABUSE PROGRAM, SOME INFORMATION MAY BE OMITTED. This clinical summary was aggregated from multiple sources. Caution should be exercised in using it in the provision of clinical care. This summary normalizes information from multiple sources, and as a consequence, information in this document may materially change the coding, format and clinical context of patient data. In addition, data may be omitted in some cases. CLINICAL DECISIONS SHOULD BE BASED ON THE PRIMARY CLINICAL RECORDS. [facility]. provides no warranty or guarantee of the accuracy or completeness of information in this document.
--- OUTSIDE RECORDS SUMMARY | 2025-01-12 10:50 | XMS_ITS | Encounter Summary ---
Author Organization [facility] Address [address] [facility] [place] [address] Care Team Providers Care Social And Human Services Assistant Name Role Phone Jason Wyatt MD Unavailable [phone] Jason Wyatt MD Primary Care Provider [phone] Jason Wyatt MD Unavailable [phone] Bryon Pruitt MD Unavailable [phone] Saar Brewer Unavailable Alida Telles RN Unavailable [phone] Melissa Sloan LPN Unavailable Encounter Details Date Type Department Care Team (Late st Contact Info) Description 04/18/2023 Abstract [facility] 112 [facility] 110 [place] [address] Jason Wyatt MD [address] [facility] 110 [place], [place] [id number] Social History Tobacco Use Types Packs/Day Years [...] week 03/02/2023 How often do you attend rastafari or oriental orthodox serv ices? Never 03/02/2023 Do you belong to any clubs o r organizations such as rastafari groups, unions, fraternal or athletic groups, or [...] Recorded Patient Health Questionnaire-2 Score 0 03/09/2023 [facility] of Occupat ional Health - [...] place to sleep or slept in a mcc (including now)? No 03/02/2023 Comments Unknown Sex [...] [address] [facility] 110 [place] [address] Jason Wyatt MD [address] [facility] 110 [place] [address] documented as of this encounter Visit Diagnoses Not on filedocumented in this encounter Care Teams Social And Human Services Assistant Relationship Specialty Start Date End Date Jason Wyatt MD [address] [facility] 110 [place] [address] PCP - Devoted 07/17/22 Jason Wyatt MD [address] [facility] 110 [place] [address] PCP - General Internal Medicine 01/02/23 Jason Wyatt MD [address] [place] [address] [place] [address] PCP - Humana 07/17/21 01/14/24 Bryon Pruitt MD [address] [place] [address] Referring Physician Neurology 06/06/24 Sara Brewer PA [address] [place] [address] [place] [address] Physician Sports Umpire Neurology 06/06/24 Alida Telles, ZE [address] [place] [address] Clinical Advocate Family Medicine 08/23/24 10/02/24 Melissa Sloan LPN [address] [place] [address] [place] [address] 10/02/24 documented as of this encounter
--- OUTSIDE RECORDS SUMMARY | 2025-01-12 10:50 | XMS_ITS | Encounter Summary ---
Author Organization [facility] Address [address] [facility] [place] [address] Care Team Providers Care Inside Sales Trainer Name Role Phone Jason Wyatt MD Unavailable [phone] Jason Wyatt MD Primary Care Provider [phone] Bryon Pruitt MD Unavailable [phone] Sara Brewer Unavailable Melissa Sloan LPN Unavailable Encounter Details Date Type Department Care Team (Late st Contact Info) Description 10/21/2024 Abstract [facility] 112 [address] [facility] 110 [place] [address] Jason Wyatt MD 112 [facility] 110 [place] [address] Social History Tobacco Use Types [...] week 03/02/2023 How often do you attend buddhism or yarsani serv ices? Never 03/02/2023 Do you belong to any clubs o r organizations such as buddhism groups, unions, fraternal or athletic groups, or [...] Date Recorded Patient Health Questionnaire-2 Score 0 10/21/2024 [facility] of Occupat ional Health - [...] on file documented as of this encounter Functional Status * Over the past 2 weeks, how often have you been bothered by any of the following problems? Question Answer Date of Assessment Author Little interest or pleasure in doing things Not at all 10/21/2024 9:24 AM EDT Cesilia Gonzalez LP N Feeling down, depressed, or hopeless Not at all 10/21/2024 9:24 AM EDT Cesilia Gonzalez LP N Patient Health Questionnaire -2 Score 0 10/21/2024 9:24 AM EDT Cesilia Gonzalez LP N documented as of this encounter Plan of Treatment Upcoming Encounters Date Type Department Care Team (Late st Contact Info) Description 01/20/2025 9:00 AM EDT Office Visit [facility] 112 [facility] 110 [place] [address] Jason Wyatt MD 112 [facility] 110 [place], [place] [id number] documented as of this encounter Visit Diagnoses Not on filedocumented in this encounter Care Teams Inside Sales Trainer Relationship Specialty Start Date End Date Jason Wyatt MD [address] [facility] 110 [place] [address] PCP - Devoted 07/17/22 Jason Wyatt MD [address] [facility] [address] [place] [address] PCP - General Internal Medicine 01/02/23 Bryon Pruitt MD [address] [facility] [address] [place] [address] Referring Physician Neurology 06/06/24 Sara Brewer PA [address] [facility] 110 [place] [address] Physician Wheelman Neurology 06/06/24 Melissa Sloan LPN [address] [facility] 110 [place] [address] 10/02/24 documented as of this encounter
--- OUTSIDE RECORDS SUMMARY | 2025-01-12 10:50 | XMS_ITS | Encounter Summary ---
Author Organization [facility] Address [address] [facility] [place] [address] Care Team Providers Care Internet Sales Representative Name Role Phone Jason Wyatt MD Unavailable [phone] Jason Wyatt MD Primary Care Provider [phone] Bryon Pruitt MD Unavailable [phone] Sara Brewer Unavailable Alida Telles RN Unavailable [phone] Melissa Sloan LPN Unavailable Encounter Details Date Type Department Care Team (Late st Contact Info) Description 06/12/2024 Abstract [facility] 112 [address] [facility] 110 [place] [id number] Jason Wyatt MD 112 [facility] 110 [place], [place] [address] Social History Tobacco Use Types Packs/Day Years [...] week 03/02/2023 How often do you attend druze or yazidi serv ices? Never 03/02/2023 Do you belong to any clubs o r organizations such as druze groups, unions, fraternal or athletic groups, or [...] Recorded Patient Health Questionnaire-2 Score 0 03/06/2024 [facility] of Occupat ional [...] [address] [facility] 110 [place] [address] Jason Wyatt MD [address] [place] [address] [place] [address] documented as of this encounter Visit Diagnoses Not on filedocumented in this encounter Care Teams Internet Sales Representative Relationship Specialty Start Date End Date Jason Wyatt MD [address] [place] 110 [place] [address] PCP - Devoted 07/17/22 Jason Wyatt MD [address] [place] 110 [place] [address] PCP - General Internal Medicine 01/02/23 Bryon Pruitt MD [address] [place] [address] Referring Physician Neurology 06/06/24 Sara Brewer PA [address] [place] [address] Physician Linux Administrator Neurology 06/06/24 Alida Telles, RN [address] [place] [address] Clinical Advocate Family Medicine 08/23/24 10/02/24 Melissa Sloan LPN [address] [place] [address] 10/02/24 documented as of this encounter
--- OUTSIDE RECORDS SUMMARY | 2025-01-12 10:50 | XMS_ITS | Encounter Summary ---
Author Organization [facility] Address [address] [facility] [place] [address] Care Team Providers Care Director Records Management Name Role Phone Jason Wyatt MD Unavailable [phone] Jason Wyatt MD Primary Care Provider [phone] Jason Wyatt MD Unavailable [phone] Bryon Pruitt MD Unavailable [phone] Sara Brewer Unavailable Alida Telles RN Unavailable [phone] Melissa Sloan LPN Unavailable Encounter Details Date Type Department Care Team (Late st Contact Info) Description 06/13/2023 Abstract [facility] 112 [facility] 110 [place] [address] Jason Wyatt MD [address] [facility] 110 [place], [place] [id number] Social History Tobacco Use Types Packs/Day Years [...] week 03/02/2023 How often do you attend mosque or yazdanism serv ices? Never 03/02/2023 Do you belong to any clubs o r organizations such as mosque groups, unions, fraternal or athletic groups, or [...] Recorded Patient Health Questionnaire-2 Score 0 03/09/2023 [facility] of Occupat ional Health - [...] Visit [facility] [address] [facility] 110 [place] [address] Jason Wyatt MD [address] [facility] [address] [place] [address] documented as of this encounter Visit Diagnoses Not on filedocumented in this encounter Care Teams Director Records Management Relationship Specialty Start Date End Date Jason Wyatt MD [address] [facility] 110 [place] [address] PCP - Devoted 07/17/22 Jason Wyatt MD [address] [facility] 110 [place] [address] PCP - General Internal Medicine 01/02/23 Jason Wyatt MD [address] [place] [address] [place] [address] PCP - Humana 07/17/21 01/14/24 Bryon Pruitt MD [address] [place] [address] Referring Physician Neurology 06/06/24 Sara Brewer PA [address] [place] [address] [place] [address] Physician Firer Locomotive Crane Neurology 06/06/24 Alida Telles, ZE [address] [place] [address] Clinical Advocate Family Medicine 08/23/24 10/02/24 Melissa Sloan LPN [address] [place] [address] [place] [address] 10/02/24 documented as of this encounter
--- OUTSIDE RECORDS SUMMARY | 2025-01-12 10:50 | XMS_ITS | Encounter Summary ---
Author Organization [facility] Address [address] [facility] [place] [address] Care Team Providers Care Geological Manager Name Role Phone Jason Wyatt MD Unavailable [phone] Jason Wyatt MD Primary Care Provider [phone] Bryon Pruitt MD Unavailable [phone] Sara Brewer Unavailable Melissa Sloan LPN Unavailable Encounter Details Date Type Department Care Team (Late st Contact Info) Description 10/17/2024 Abstract [facility] 112 [address] [facility] 110 [place] [address] Jason Wyatt MD 112 [facility] 110 [place] [address] Social History Tobacco Use Types [...] week 03/02/2023 How often do you attend christian or buddhism serv ices? Never 03/02/2023 Do you belong to any clubs o r organizations such as christian groups, unions, fraternal or athletic groups, or [...] Recorded Patient Health Questionnaire-2 Score 0 10/21/2024 [facility] of Occupat ional Health - [...] 01/20/2025 9:00 AM EDT Office Visit [facility] [address] [facility] 110 [place] [address] Jason Wyatt MD [address] [facility] 110 [place] [address] documented as of this encounter Visit Diagnoses Not on filedocumented in this encounter Care Teams Geological Manager Relationship Specialty Start Date End Date Jason Wyatt MD [address] [facility] 110 [place] [address] PCP - Devoted 07/17/22 Jason Wyatt MD [address] [facility] [address] [place] [address] PCP - General Internal Medicine 01/02/23 Bryon Pruitt MD [address] [address] Referring Physician Neurology 06/06/24 Sara Brewer PA [address] [address] Physician Ambulance Driver Neurology 06/06/24 Melissa Sloan LPN [address] [address] 10/02/24 documented as of this encounter
--- OUTSIDE RECORDS SUMMARY | 2025-01-12 10:50 | XMS_ITS | Encounter Summary ---
Author Organization [facility] Address [address] [facility] [place] [address] Care Team Providers Care Manager Center Name Role Phone Jason Wyatt MD Unavailable [phone] Jason Wyatt MD Primary Care Provider [phone] Bryon Pruitt MD Unavailable [phone] Sara Brewer Unavailable Alida Telles RN Unavailable [phone] Melissa Sloan LPN Unavailable Encounter Details Date Type Department Care Team (Late st Contact Info) Description 06/12/2024 Abstract [facility] 112 [address] [facility] 110 [place] [address] Jason Wyatt MD 112 [facility] 110 [place], [place] [address] Social History Tobacco Use Types Packs/Day Years [...] week 03/02/2023 How often do you attend worship or church serv ices? Never 03/02/2023 Do you belong to any clubs o r organizations such as worship groups, unions, fraternal or athletic groups, or [...] Recorded Patient Health Questionnaire-2 Score 0 03/06/2024 [facility] of Occupat ional Health - Occupational [...] [facility] [address] [facility] 110 [place] [address] Jason Wyatt MD [address] [place] [address] [place] [address] documented as of this encounter Visit Diagnoses Not on filedocumented in this encounter Care Teams Manager Center Relationship Specialty Start Date End Date Jason Wyatt MD [address] [place] [address] [place] [address] PCP - Devoted 07/17/22 Jason Wyatt MD [address] [place] [address] [place] [address] PCP - General Internal Medicine 01/02/23 Bryon Pruitt MD [address] [place] [address] Referring Physician Neurology 06/06/24 Sara Brewer PA [address] [place] [address] Physician Power Press Tender Neurology 06/06/24 Alida Telles, RN [address] [place] [address] Clinical Advocate Family Medicine 08/23/24 10/02/24 Melissa Sloan LPN [address] [place] [address] 10/02/24 documented as of this encounter
--- OUTSIDE RECORDS SUMMARY | 2025-01-12 10:50 | XMS_ITS | Encounter Summary ---
Author Organization [facility] Address [address] [facility] [place] [address] Care Team Providers Care Assembly Supervisor Name Role Phone Jason Wyatt MD Unavailable [phone] Jason Wyatt MD Primary Care Provider [phone] Bryon Pruitt MD Unavailable [phone] Sara Brewer Unavailable Alida Telles RN Unavailable [phone] Melissa Sloan LPN Unavailable Encounter Details Date Type Department Care Team (Late st Contact Info) Description 06/18/2024 Abstract [facility] 112 [address] [facility] 110 [place] [address] Jason Wyatt MD 112 [facility] 110 [place], [place] [id number] Social History Tobacco Use Types Packs/Day Years [...] week 03/02/2023 How often do you attend oriental orthodox or islam serv ices? Never 03/02/2023 Do you belong to any clubs o r organizations such as oriental orthodox groups, unions, fraternal or athletic groups, or [...] Recorded Patient Health Questionnaire-2 Score 0 03/06/2024 [facility] of Occupat ional Health [...] place to sleep or slept in a skilled nursing (including now)? No 03/02/2023 Comments Unknown Sex [...] Visit [facility] [address] [facility] 110 [place] [address] Jason Wyatt MD [address] [place] [address] [place] [address] documented as of this encounter Visit Diagnoses Not on filedocumented in this encounter Care Teams Assembly Supervisor Relationship Specialty Start Date End Date Jason Wyatt MD [address] [place] [address] [place] [address] PCP - Devoted 07/17/22 Jason Wyatt MD [address] [place] [address] [place] [address] PCP - General Internal Medicine 01/02/23 Bryon Pruitt MD [address] [place] [address] Referring Physician Neurology 06/06/24 Sara Brewer PA [address] [place] [address] Physician Usability Strategist Neurology 06/06/24 Alida Telles, RN [address] [place] [address] Clinical Advocate Family Medicine 08/23/24 10/02/24 Melissa Sloan LPN [address] [place] [address] 10/02/24 documented as of this encounter
--- OUTSIDE RECORDS SUMMARY | 2025-01-12 10:50 | XMS_ITS | Encounter Summary ---
Author Organization [facility] Address [address] [facility] [place] [address] Care Team Providers Care Supervisor Opening And Picking Name Role Phone Jason Wyatt MD Unavailable [phone] Jason Wyatt MD Primary Care Provider [phone] Bryon Pruitt MD Unavailable [phone] Sara Brewer Unavailable Alida Telles RN Unavailable [phone] Melissa Sloan LPN Unavailable Encounter Details Date Type Department Care Team (Late st Contact Info) Description 06/20/2024 Abstract [facility] 112 [address] [facility] 110 [place] [address] Jason Wyatt MD 112 [facility] 110 [place], [place] [address] Social History Tobacco Use Types Packs/Day Years [...] How often do you attend anabaptist or lutheran serv ices? Never 03/02/2023 Do [...] Recorded Patient Health Questionnaire-2 Score 0 03/06/2024 [facility] of Occupat ional Health [...] Visit [facility] [address] [facility] 110 [place] [address] Jason Wyatt MD [address] [place] [address] [place] [address] documented as of this encounter Visit Diagnoses Not on filedocumented in this encounter Care Teams Supervisor Opening And Picking Relationship Specialty Start Date End Date Jason Wyatt MD [address] [place] [address] [place] [address] PCP - Devoted 07/17/22 Jason Wyatt MD [address] [place] [address] [place] [address] PCP - General Internal Medicine 01/02/23 Bryon Pruitt MD [address] [place] [address] Referring Physician Neurology 06/06/24 Sara Brewer PA [address] [place] [address] Physician Psychiatric Clinician Neurology 06/06/24 Alida Telles, RN [address] [place] [address] Clinical Advocate Family Medicine 08/23/24 10/02/24 Melissa Sloan LPN [address] [place] [address] 10/02/24 documented as of this encounter
--- OUTSIDE RECORDS SUMMARY | 2025-01-12 10:50 | XMS_ITS | Encounter Summary ---
Author Organization [facility] Address [address] [facility] [place] [address] Care Team Providers Care Precision Assembler Name Role Phone Jason Wyatt MD Unavailable [phone] Jason Wyatt MD Primary Care Provider [phone] Bryon Pruitt MD Unavailable [phone] Sara Brewer Unavailable Alida Telles RN Unavailable [phone] Melissa Sloan LPN Unavailable Encounter Details Date Type Department Care Team (Late st Contact Info) Description 03/13/2024 Abstract [facility] 112 [address] [facility] 110 [place] [address] Jason Wyatt MD 112 [facility] 110 [place], [place] [address] Social History Tobacco Use Types Packs/Day Years [...] week 03/02/2023 How often do you attend congregational or jew serv ices? Never 03/02/2023 Do you belong to any clubs o r organizations such as congregational groups, unions, fraternal or athletic groups, or [...] Recorded Patient Health Questionnaire-2 Score 0 03/06/2024 [facility] of Occupat ional Health - [...] [facility] [address] [facility] 110 [place] [address] Jason Wyatt MD [address] [place] [address] [place] [address] documented as of this encounter Visit Diagnoses Not on filedocumented in this encounter Care Teams Precision Assembler Relationship Specialty Start Date End Date Jason Wyatt MD [address] [place] [address] [place] [address] PCP - Devoted 07/17/22 Jason Wyatt MD [address] [place] [address] [place] [address] PCP - General Internal Medicine 01/02/23 Bryon Pruitt MD [address] [place] [address] Referring Physician Neurology 06/06/24 Sara Brewer PA [address] [place] [address] Physician Tile Sprayer Neurology 06/06/24 Alida Telles, RN [address] [place] [address] Clinical Advocate Family Medicine 08/23/24 10/02/24 Melissa Sloan LPN [address] [place] [address] 10/02/24 documented as of this encounter
--- OUTSIDE RECORDS SUMMARY | 2025-01-12 10:50 | XMS_ITS | Encounter Summary ---
Author Organization [facility] Address [address] [facility] [place] [address] Care Team Providers Care Compressor House Operator Name Role Phone Jason Wyatt MD Unavailable [phone] Jason Wyatt MD Primary Care Provider [phone] Jason Wyatt MD Unavailable [phone] Bryon Pruitt MD Unavailable [phone] Sara Brewer Unavailable Alida Telles RN Unavailable [phone] Melissa Sloan LPN Unavailable Encounter Details Date Type Department Care Team (Late st Contact Info) Description 05/12/2023 Abstract [facility] 112 [facility] 110 [place] [address] Jason Wyatt MD [address] [facility] 110 [place], [place] [id number] Social History Tobacco Use Types Packs/Day Years [...] week 03/02/2023 How often do you attend latter day or restoration serv ices? Never 03/02/2023 Do you belong to any clubs o r organizations such as latter day groups, unions, fraternal or athletic groups, or [...] place to sleep or slept in a detention (including now)? No 03/02/2023 Comments Unknown Sex [...] WAY [facility] 110 [place] [address] Jason Wyatt MD [address] [facility] 110 [place] [address] documented as of this encounter Visit Diagnoses Not on filedocumented in this encounter Care Teams Compressor House Operator Relationship Specialty Start Date End Date Jason Wyatt MD [address] [facility] 110 [place] [address] PCP - Devoted 07/17/22 Jason Wyatt MD [address] [facility] 110 [place] [address] PCP - General Internal Medicine 01/02/23 Jason Wyatt MD [address] [place] [address] [place] [address] PCP - Humana 07/17/21 01/14/24 Bryon Pruitt MD [address] [place] [address] Referring Physician Neurology 06/06/24 Sara Brewer PA [address] [place] [address] [place] [address] Physician Director Of Content Marketing Neurology 06/06/24 Alida Telles, ZE [address] [place] [address] Clinical Advocate Family Medicine 08/23/24 10/02/24 Melissa Sloan LPN [address] [place] [address] [place] [address] 10/02/24 documented as of this encounter
--- OUTSIDE RECORDS SUMMARY | 2025-01-12 10:50 | XMS_ITS | Encounter Summary ---
Author Organization [facility] Address [address] [facility] [place] [address] Care Team Providers Care Exercise Instructor Name Role Phone Jason Wyatt MD Unavailable [phone] Jason Wyatt MD Primary Care Provider [phone] Jason Wyatt MD Unavailable [phone] Bryon Pruitt MD Unavailable [phone] Sara Brewer Unavailable Alida Telles RN Unavailable [phone] Melissa Sloan LPN Unavailable Encounter Details Date Type Department Care Team (Late st Contact Info) Description 04/18/2023 Abstract [facility] 112 [facility] 110 [place] [address] Jason Wyatt MD [address] [facility] 110 [place], [place] [id number] Social History Tobacco Use Types Packs/Day Years [...] How often do you attend amish or adventist serv ices? Never 03/02/2023 Do [...] Recorded Patient Health Questionnaire-2 Score 0 03/09/2023 [facility] Occupat ional [facility] - Occupational [...] Visit [facility] [address] [facility] 110 [place] [address] Jason Wyatt MD [address] [facility] 110 [place] [address] documented as of this encounter Visit Diagnoses Not on filedocumented in this encounter Care Teams Exercise Instructor Relationship Specialty Start Date End Date Jason Wyatt MD [address] [facility] 110 [place] [address] PCP - Devoted 07/17/22 Jason Wyatt MD [address] [facility] 110 [place] [address] PCP - General Internal Medicine 01/02/23 Jason Wyatt MD [address] [place] [address] [place] [address] PCP - Humana 07/17/21 01/14/24 Bryon Pruitt MD [address] [place] [address] Referring Physician Neurology 06/06/24 Sara Brewer PA [address] [place] [address] [place] [address] Physician Tomahawk Weapon System Operator Neurology 06/06/24 Alida Telles, ZE [address] [place] [address] Clinical Advocate Family Medicine 08/23/24 10/02/24 Melissa Sloan LPN [address] [place] [address] [place] [address] 10/02/24 documented as of this encounter
--- OUTSIDE RECORDS SUMMARY | 2025-01-12 10:50 | XMS_ITS | Encounter Summary ---
Author Organization [facility] Address [address] [facility] [place] [address] Care Team Providers Care Police Academy Instructor Name Role Phone Jason Wyatt MD Unavailable [phone] Jason Wyatt MD Primary Care Provider [phone] Bryon Pruitt MD Unavailable [phone] Sara Brewer Unavailable Melissa Sloan LPN Unavailable Encounter Details Date Type Department Care Team (Late st Contact Info) Description 10/22/2024 Abstract [facility] [address] [facility] 110 [place] [address] Jason Wyatt MD 112 [facility] 110 [place] [address] Social History Tobacco Use Types [...] How often do you attend sabianism or yazdanism serv ices? Never 03/02/2023 Do [...] 01/20/2025 9:00 AM EDT Office Visit [facility] [address] [facility] 110 [place] [address] Jason Wyatt MD [address] [facility] 110 [place] [address] documented as of this encounter Visit Diagnoses Not on filedocumented in this encounter Care Teams Police Academy Instructor Relationship Specialty Start Date End Date Jason Wyatt MD [address] [facility] 110 [place] [address] PCP - Devoted 07/17/22 Jason Wyatt MD [address] [facility] 110 [place] [address] PCP - General Internal Medicine 01/02/23 Bryon Pruitt MD [address] [address] Referring Physician Neurology 06/06/24 Sara Brewer PA [address] [address] Physician Manager Deli Neurology 06/06/24 Melissa Sloan LPN [address] [address] 10/02/24 documented as of this encounter
--- OUTSIDE RECORDS SUMMARY | 2025-01-12 10:50 | XMS_ITS | Encounter Summary ---
Author Organization [facility] Address [address] [facility] [place] [address] Care Team Providers Care Vending Enterprises Supervisor Name Role Phone Jason Wyatt MD Unavailable [phone] Jason Wyatt MD Primary Care Provider [phone] Bryon Pruitt MD Unavailable [phone] Sara Brewer Unavailable Alida Telles RN Unavailable [phone] Melissa Sloan LPN Unavailable Encounter Details Date Type Department Care Team (Late st Contact Info) Description 06/11/2024 Abstract [facility] 112 [address] [facility] 110 [place] [address] Jason Wyatt MD 112 [facility] 110 [place], [place] [address] Social History Tobacco Use Types Packs/Day Years [...] How often do you attend anabaptist or methodist serv ices? Never 03/02/2023 Do you belong [...] Patient Health Questionnaire-2 Score 0 03/06/2024 [facility] of Occupat ional Health - Occupational [...] [address] [facility] 110 [place] [address] Jason Wyatt MD [address] [place] [address] [place] [address] documented as of this encounter Visit Diagnoses Not on filedocumented in this encounter Care Teams Vending Enterprises Supervisor Relationship Specialty Start Date End Date Jason Wyatt MD [address] [place] [address] [place] [address] PCP - Devoted 07/17/22 Jason Wyatt MD [address] [place] [address] [place] [address] PCP - General Internal Medicine 01/02/23 Bryon Pruitt MD [address] [place] [address] Referring Physician Neurology 06/06/24 Sara Brewer PA [address] [place] [address] Physician Memorial Counselor Neurology 06/06/24 Alida Telles, RN [address] [place] [address] Clinical Advocate Family Medicine 08/23/24 10/02/24 Melissa Sloan LPN [address] [place] [address] 10/02/24 documented as of this encounter
--- OUTSIDE RECORDS SUMMARY | 2025-01-12 10:50 | XMS_ITS | Encounter Summary ---
Author Organization [facility] Address [address] [facility] [place] [address] Care Team Providers Care Molding Engineer Name Role Phone Jason Wyatt MD Unavailable [phone] Jason Wyatt MD Primary Care Provider [phone] Jason Wyatt MD Unavailable [phone] Bryon Pruitt MD Unavailable [phone] Sara Brewer Unavailable Alida Telles RN Unavailable [phone] Melissa Sloan LPN Unavailable Encounter Details Date Type Department Care Team (Late st Contact Info) Description 04/25/2023 Abstract [facility] 112 [facility] 110 [place] [address] Jason Wyatt MD [address] [facility] 110 [place], [place] [id number] Social History Tobacco Use Types Packs/Day Years [...] How often do you attend yazidi or islam serv ices? Never 03/02/2023 Do [...] Recorded Patient Health Questionnaire-2 Score 0 03/09/2023 [facility] of Occupat ional Health - Occupational [...] Visit [facility] [address] [facility] 110 [place] [address] Jason Wyatt MD [address] [email or web address] 110 [place] [address] documented as of this encounter Visit Diagnoses Not on filedocumented in this encounter Care Teams Molding Engineer Relationship Specialty Start Date End Date Jason Wyatt MD [address] [email or web address] 110 [place] [address] PCP - Devoted 07/17/22 Jason Wyatt MD [address] [email or web address] 110 [place] [address] PCP - General Internal Medicine 01/02/23 Jason Wyatt MD [address] [place] [address] [place] [address] PCP - Humana 07/17/21 01/14/24 Bryon Pruitt MD [address] [place] [address] Referring Physician Neurology 06/06/24 Sara Brewer PA [address] [place] [address] [place] [address] Physician Protection Consultant Neurology 06/06/24 Alida Telles, ZE [address] [place] [address] Clinical Advocate Family Medicine 08/23/24 10/02/24 Melissa Sloan LPN [address] [place] [address] [place] [address] 10/02/24 documented as of this encounter
--- OUTSIDE RECORDS SUMMARY | 2025-01-12 10:50 | XMS_ITS | Encounter Summary ---
Author Organization [facility] Address [address] [facility] [place] [address] Care Team Providers Care Construction Superintendent Name Role Phone Jason Wyatt MD Unavailable [phone] Jason Wyatt MD Primary Care Provider [phone] Bryon Pruitt MD Unavailable [phone] Sara Brewer Unavailable Melissa Sloan LPN Unavailable Encounter Details Date Type Department Care Team (Late st Contact Info) Description 01/06/2025 Telephone [facility] [address] [facility] 320 [place] [address] Delma Villarreal, CAREER AND TECHNOLOGY EDUCATION TEACHER [address] [place] [address] Social History Tobacco Use Types Packs/Day Years [...] How often do you attend rastafari or anglican serv ices? Never 03/02/2023 Do you belong [...] Recorded Patient Health Questionnaire-2 Score 0 11/21/2024 [facility] of Occupat ional Health - [...] on file documented as of this encounter Miscellaneous Notes * Telephone Encounter - EARNESTINE Rowe - 01/11/2025 12:57 PM EDT Acknowledged. * Telephone Encounter - Delma Villarreal NP - 01/10/2025 2:04 PM EDT No call back received. Forwarding as FYI * Telephone Encounter - Delma Villarreal NP - 01/06/2025 4:00 PM EDT Call placed to pt d/t insurance identifying possible issue with glimepiride adherence. Last fill per chart review was 12/28/24 for 30 tabs, however, prior to that was 10/12/24 for 30 tabs, and 08/21/24 for 30 tabs. No answer, VM received, msg left with call back info documented in this encounter Plan of Treatment Upcoming Encounters Date Type Department Care Team (Late st Contact Info) Description 01/20/2025 9:00 AM EDT Office Visit [facility] [address] [place] 110 [place] [address] Jason Wyatt MD [address] [place] [address] [place] [address] documented as of this encounter Visit Diagnoses Not on filedocumented in this encounter Care Teams Construction Superintendent Relationship Specialty Start Date End Date Jason Wyatt MD [address] [facility] 110 [place] [address] PCP - Devoted 07/17/22 Jason Wyatt MD [address] [place] [address] [place] [address] PCP - General Internal Medicine 01/02/23 Bryon Pruitt MD [address] [place] [address] [place] [address] Referring Physician Neurology 06/06/24 Sara Brewer PA [address] [place] [address] [place] [address] Physician Transportation Officer Neurology 06/06/24 Melissa Sloan LPN [address] [place] [address] [place] [address] 10/02/24 documented as of this encounter
--- OUTSIDE RECORDS SUMMARY | 2025-01-12 10:50 | XMS_ITS | Encounter Summary ---
Author Organization [facility] Address [address] [place] [address] Care Team Providers Care Numerical Control Tool Programmer Name Role Phone Jason Wyatt MD Unavailable [phone] Jason Wyatt MD Primary Care Provider [phone] Bryon Pruitt MD Unavailable [phone] Sara Brewer Unavailable Melissa Sloan LPN Unavailable Encounter Details Date Type Department Care Team (Late st Contact Info) Description 11/15/2024 Abstract [facility] [address] [place] [address] Melissa Sloan LPN [address] [facility] 110 [place] [address] Social History Tobacco Use Types Packs/Day Years [...] How often do you attend worship or islam serv ices? Never 03/02/2023 Do [...] Recorded Patient Health Questionnaire-2 Score 0 10/21/2024 [facility] Occupat ional Health - Occupational [...] 01/20/2025 9:00 AM EDT Office Visit [facility] [address] [facility] 110 [place] [address] Jason Wyatt MD [address] [facility] 110 [place] [address] documented as of this encounter Visit Diagnoses Not on filedocumented in this encounter Care Teams Numerical Control Tool Programmer Relationship Specialty Start Date End Date Jason Wyatt MD [address] [facility] 110 [place] [address] PCP - Devoted 07/17/22 Jason Wyatt MD [address] [facility] 110 [place] [address] PCP - General Internal Medicine 01/02/23 Bryon Pruitt MD [address] [address] Referring Physician Neurology 06/06/24 Sara Brewer PA [address] [address] Physician Underwear Welter Neurology 06/06/24 Melissa Sloan LPN [address] [address] 10/02/24 documented as of this encounter
--- OUTSIDE RECORDS SUMMARY | 2025-01-12 10:50 | XMS_ITS | Encounter Summary ---
Author Organization [facility] Address [address] [facility] [place] [address] Care Team Providers Care Home Energy Auditor Name Role Phone Jason Wyatt MD Unavailable [phone] Jason Wyatt MD Primary Care Provider [phone] Bryon Pruitt MD Unavailable [phone] Sara Brewer Unavailable Alida Telles RN Unavailable [phone] Melissa Sloan LPN Unavailable Encounter Details Date Type Department Care Team (Late st Contact Info) Description 06/10/2024 Abstract [facility] 112 [address] [facility] 110 [place] [address] Jason Wyatt MD 112 [facility] 110 [place], [place] [address] Social History Tobacco Use Types Packs/Day Years [...] week 03/02/2023 How often do you attend scientology or latter-day serv ices? Never 03/02/2023 Do you belong to any clubs o r organizations such as scientology groups, unions, fraternal or athletic groups, or [...] Patient Health Questionnaire-2 Score 0 03/06/2024 [facility] of Occupat ional Health [...] FM [address] [facility] 110 [place] [address] Jason Wyatt MD [address] [place] 110 [place] [address] documented as of this encounter Visit Diagnoses Not on filedocumented in this encounter Care Teams Home Energy Auditor Relationship Specialty Start Date End Date Jason Wyatt MD [address] [place] [address] [place] [address] PCP - Devoted 07/17/22 Jason Wyatt MD [address] [place] 110 [place] [address] PCP - General Internal Medicine 01/02/23 Bryon Pruitt MD [address] [place] [address] Referring Physician Neurology 06/06/24 Sara Brewer PA [address] [place] [address] Physician Finisher Brush Neurology 06/06/24 Alida Telles, RN [address] [place] [address] Clinical Advocate Family Medicine 08/23/24 10/02/24 Melissa Sloan LPN [address] [place] [address] 10/02/24 documented as of this encounter
--- OUTSIDE RECORDS SUMMARY | 2025-01-12 10:50 | XMS_ITS | Encounter Summary ---
Author Organization [facility] Address [address] [facility] [place] [address] Care Team Providers Care Latex Dipper Name Role Phone Jason Wyatt MD Unavailable Jason Wyatt MD Primary Care Provider [phone] Bryon Pruitt MD Unavailable [phone] Sara Brewer Unavailable Alida Telles RN Unavailable [phone] Melissa Sloan LPN Unavailable Encounter Details Date Type Department Care Team (Late st Contact Info) Description 03/21/2024 Abstract [facility] [address] [facility] 110 [place] [address] Jason Wyatt MD 112 [facility] 110 [place], [place] [address] Social History Tobacco Use Types Packs/Day Years [...] week 03/02/2023 How often do you attend voodoo or judaism serv ices? Never 03/02/2023 Do you belong to any clubs o r organizations such as voodoo groups, unions, fraternal or athletic groups, or [...] Recorded Patient Health Questionnaire-2 Score 0 03/06/2024 [facility] of Occupat ional Health - Occupational [...] [facility] [address] [facility] 110 [place] [address] Jason Wyatt MD [address] [place] 110 [place] [address] documented as of this encounter Visit Diagnoses Not on filedocumented in this encounter Care Teams Latex Dipper Relationship Specialty Start Date End Date Jason Wyatt MD [address] [place] [address] [place] [address] PCP - Devoted 07/17/22 Jason Wyatt MD [address] [place] [address] [place] [address] PCP - General Internal Medicine 01/02/23 Bryon Pruitt MD [address] [place] [address] Referring Physician Neurology 06/06/24 Sara Brewer PA [address] [place] [address] Physician Kier Drier Neurology 06/06/24 Alida Telles, RN [address] [place] [address] Clinical Advocate Family Medicine 08/23/24 10/02/24 Melissa Sloan LPN [address] [place] [address] 10/02/24 documented as of this encounter
--- OUTSIDE RECORDS SUMMARY | 2025-01-12 10:50 | XMS_ITS | Encounter Summary ---
Author Organization [facility] Address [address] [place] [address] Care Team Providers Care Acid Conditioner Name Role Phone Jason Wyatt MD Unavailable [phone] Jason Wyatt MD Primary Care Provider [phone] Bryon Pruitt MD Unavailable [phone] Sara Brewer Unavailable Melissa Sloan LPN Unavailable Encounter Details Date Type Department Care Team (Late st Contact Info) Description 10/22/2024 Abstract [facility] [address] [facility] 110 [place] [address] Jason Wyatt MD 112 [facility] 110 [place] [address] Social History Tobacco Use Types [...] How often do you attend pentecostalism or nondenominational serv ices? Never 03/02/2023 Do [...] Recorded Patient Health Questionnaire-2 Score 0 10/21/2024 [facility] of Occupat ional Health [...] 01/20/2025 9:00 AM EDT Office Visit [facility] [address] [facility] 110 [place] [address] Jason Wyatt MD [address] [facility] 110 [place] [address] documented as of this encounter Visit Diagnoses Not on filedocumented in this encounter Care Teams Acid Conditioner Relationship Specialty Start Date End Date Jason Wyatt MD [address] [facility] 110 [place] [address] PCP - Devoted 07/17/22 Jason Wyatt MD [address] [facility] 110 [place] [address] PCP - General Internal Medicine 01/02/23 Bryon Pruitt MD [address] [address] Referring Physician Neurology 06/06/24 Sara Brewer PA [address] [address] Physician Residence Leasing Agent Neurology 06/06/24 Meilssa Sloan LPN [address] [address] 10/02/24 documented as of this encounter
--- OUTSIDE RECORDS SUMMARY | 2025-01-12 10:50 | XMS_ITS | Encounter Summary ---
Author Organization [facility] Address [address] [facility] [place] [address] Care Team Providers Care Rod Tape Operator Name Role Phone Jason Wyatt MD Unavailable [phone] Jason Wyatt MD Primary Care Provider [phone] Jason Wyatt MD Unavailable [phone] Bryon Pruitt MD Unavailable [phone] Sara Brewer Unavailable Alida Telles RN Unavailable [phone] Melissa Sloan LPN Unavailable Encounter Details Date Type Department Care Team (Late st Contact Info) Description 06/02/2023 Abstract [facility] 112 [facility] 110 [place] [address] Jason Wyatt MD [address] [facility] 110 [place], [place] [address] Social History Tobacco Use Types Packs/Day Years [...] How often do you attend spiritism or jain serv ices? Never 03/02/2023 Do you belong [...] Visit [facility] FM [address] [facility] 110 [place] [address] Jason Wyatt MD [address] [facility] 110 [place] [address] documented as of this encounter Visit Diagnoses Not on filedocumented in this encounter Care Teams Rod Tape Operator Relationship Specialty Start Date End Date Jason Wyatt MD [address] [facility] 110 [place] [address] PCP - Devoted 07/17/22 Jason Wyatt MD [address] [facility] 110 [place] [address] PCP - General Internal Medicine 01/02/23 Jason Wyatt MD [address] [place] [address] [place] [address] PCP - Humana 07/17/21 01/14/24 Bryon Pruitt MD [address] [place] [address] Referring Physician Neurology 06/06/24 Sara Brewer PA [address] [place] [address] [place] [address] Physician Laser Print Operator Neurology 06/06/24 Alida Telles, ZE [address] [place] [address] Clinical Advocate Family Medicine 08/23/24 10/02/24 Melissa Sloan LPN [address] [place] [address] [place] [address] 10/02/24 documented as of this encounter
--- OUTSIDE RECORDS SUMMARY | 2025-01-12 10:50 | XMS_ITS | Encounter Summary ---
Author Organization [facility] Address [address] [facility] [place] [address] Care Team Providers Care Artillery Or Naval Gunfire Observer Name Role Phone Jason Wyatt MD Unavailable [phone] Jason Wyatt MD Primary Care Provider [phone] Jason Wyatt MD Unavailable [phone] Bryon Pruitt MD Unavailable [phone] Sara Brewer Unavailable Alida Telles RN Unavailable [phone] Melissa Sloan LPN Unavailable Encounter Details Date Type Department Care Team (Late st Contact Info) Description 04/18/2023 Abstract [facility] 112 [facility] 110 [place] [address] Jason Wyatt MD [address] [place] [facility] 110 [place], [place] [id number] Social History Tobacco Use Types Packs/Day Years [...] week 03/02/2023 How often do you attend restoration or yazdanism serv ices? Never 03/02/2023 Do you belong to any clubs o r organizations such as restoration groups, unions, fraternal or athletic groups, or [...] Recorded Patient Health Questionnaire-2 Score 0 03/09/2023 [facility] of Occupat ional [...] WAY [facility] 110 [place] [address] Jason Wyatt MD [address] [facility] 110 [place] [address] documented as of this encounter Visit Diagnoses Not on filedocumented in this encounter Care Teams Artillery Or Naval Gunfire Observer Relationship Specialty Start Date End Date Jason Wyatt MD [address] [facility] 110 [place] [address] PCP - Devoted 07/17/22 Jason Wyatt MD [address] [facility] 110 [place] [address] PCP - General Internal Medicine 01/02/23 Jason Wyatt MD [address] [place] [address] [place] [address] PCP - Humana 07/17/21 01/14/24 Bryon Pruitt MD [address] [place] [address] Referring Physician Neurology 06/06/24 Sara Brewer PA [address] [place] [address] [place] [address] Physician Manager Integrity Neurology 06/06/24 Alida Telles, ZE [address] [place] [address] Clinical Advocate Family Medicine 08/23/24 10/02/24 Melissa Sloan LPN [address] [place] [address] [place] [address] 10/02/24 documented as of this encounter
--- OUTSIDE RECORDS SUMMARY | 2025-01-12 10:50 | XMS_ITS | Encounter Summary ---
Author Organization [facility] Address [address] [facility] [place] [address] Care Team Providers Care Drum Printer Name Role Phone Jason Wyatt MD Unavailable [phone] Jason Wyatt MD Primary Care Provider [phone] Bryon Pruitt MD Unavailable [phone] Sraa Brewer Unavailable Alida Telles RN Unavailable [phone] Melissa Sloan LPN Unavailable Encounter Details Date Type Department Care Team (Late st Contact Info) Description 09/27/2024 Abstract [facility] 112 [address] [facility] 110 [place] [id number] Jason Wyatt MD 112 [facility] 110 [place], [place] [address] Social History Tobacco Use Types Packs/Day Years [...] week 03/02/2023 How often do you attend mormon or rastafarian serv ices? Never 03/02/2023 Do you belong to any clubs o r organizations such as mormon groups, unions, fraternal or athletic groups, or [...] Date Recorded Patient Health Questionnaire-2 Score 0 08/21/2024 [facility] of Occupat ional Health [...] CI FM [address] [facility] 110 [place] [address] Jason Wyatt MD [address] [place] 110 [place] [address] documented as of this encounter Visit Diagnoses Not on filedocumented in this encounter Care Teams Drum Printer Relationship Specialty Start Date End Date Jason Wyatt MD [address] [place] [address] [place] [address] PCP - Devoted 07/17/22 Jason Wyatt MD [address] [facility] 110 [place] [address] PCP - General Internal Medicine 01/02/23 Bryon Pruitt MD [address] [place] [address] Referring Physician Neurology 06/06/24 Sara Brewer PA [address] [place] [address] Physician Executive Steward Neurology 06/06/24 Alida Telles, RN [address] [place] [address] Clinical Advocate Family Medicine 08/23/24 10/02/24 Melissa Sloan LPN [address] [place] [address] 10/02/24 documented as of this encounter
--- OUTSIDE RECORDS SUMMARY | 2025-01-12 10:50 | XMS_ITS | Encounter Summary ---
Author Organization [facility] Address [address] [facility] [place] [address] Care Team Providers Care Color Maker Formulator Name Role Phone Jason Wyatt MD Unavailable [phone] Jason Wyatt MD Primary Care Provider [phone] Bryon Pruitt MD Unavailable [phone] Sara Brewer Unavailable Alida Telles RN Unavailable [phone] Melissa Sloan LPN Unavailable Encounter Details Date Type Department Care Team (Late st Contact Info) Description 03/22/2024 Abstract [facility] 112 [address] [facility] 110 [place] [id number] Jason Wyatt MD 112 [facility] 110 [place], [place] [address] Social History Tobacco Use Types Packs/Day Years [...] How often do you attend yazidism or pentecostalism serv ices? Never 03/02/2023 Do [...] Recorded Patient Health Questionnaire-2 Score 0 03/06/2024 [facility] of Occupat ional Health - Occupational Stress [...] [address] [facility] 110 [place] [address] Jason Wyatt MD [address] [place] 110 [place] [address] documented as of this encounter Visit Diagnoses Not on filedocumented in this encounter Care Teams Color Maker Formulator Relationship Specialty Start Date End Date Jason Wyatt MD [address] [place] [address] [place] [address] PCP - Devoted 07/17/22 Jason Wyatt MD [address] [place] 110 [place] [address] PCP - General Internal Medicine 01/02/23 Bryon Pruitt MD [address] [place] [address] Referring Physician Neurology 06/06/24 Sara Brewer PA [address] [place] [address] Physician Sap Basis Administrator Neurology 06/06/24 Alida Telles, RN [address] [place] [address] Clinical Advocate Family Medicine 08/23/24 10/02/24 Melissa Sloan LPN [address] [place] [address] 10/02/24 documented as of this encounter
--- OUTSIDE RECORDS SUMMARY | 2025-01-12 10:50 | XMS_ITS | Encounter Summary ---
Author Organization [facility] Address [address] [facility] [place] [address] Care Team Providers Care Encephalographer Name Role Phone Jason Wyatt MD Unavailable [phone] Jason Wyatt MD Primary Care Provider [phone] Jason Wyatt MD Unavailable [phone] Bryon Pruitt MD Unavailable [phone] Sara Brewer Unavailable Alida Telles RN Unavailable [phone] Melissa Sloan LPN Unavailable Encounter Details Date Type Department Care Team (Late st Contact Info) Description 06/13/2023 Abstract [facility] 112 [facility] 110 [place] [address] Jason Wyatt MD [address] [place] [facility] 110 [place], [place] [id number] Social History Tobacco Use Types Packs/Day Years [...] How often do you attend christianity or mu-ism serv ices? Never 03/02/2023 Do [...] Recorded Patient Health Questionnaire-2 Score 0 03/09/2023 [facility] of Occupat ional Health - Occupational [...] Visit [facility] [address] [facility] 110 [place] [address] Jason Wyatt MD [address] [facility] 110 [place] [address] documented as of this encounter Visit Diagnoses Not on filedocumented in this encounter Care Teams Encephalographer Relationship Specialty Start Date End Date Jason Wyatt MD [address] [facility] 110 [place] [address] PCP - Devoted 07/17/22 Jason Wyatt MD [address] [facility] 110 [place] [address] PCP - General Internal Medicine 01/02/23 Jason Wyatt MD [address] [place] [address] [place] [address] PCP - Humana 07/17/21 01/14/24 Bryon Pruitt MD [address] [place] [address] Referring Physician Neurology 06/06/24 Sara Brewer PA [address] [place] [address] [place] [address] Physician Greige Goods Marker Neurology 06/06/24 Alida Telles, ZE [address] [place] [address] Clinical Advocate Family Medicine 08/23/24 10/02/24 Melissa Sloan LPN [address] [place] [address] [place] [address] 10/02/24 documented as of this encounter
--- OUTSIDE RECORDS SUMMARY | 2025-01-12 10:50 | XMS_ITS | Encounter Summary ---
Author Organization [facility] Address [address] [facility] [place] [address] Care Team Providers Care Farm Loan Representative Name Role Phone Jason Wyatt MD Unavailable Jason Wyatt MD Primary Care Provider [phone] Bryon Pruitt MD Unavailable [phone] Sara Brewer Unavailable Alida Telles RN Unavailable [phone] Melissa Sloan LPN Unavailable Encounter Details Date Type Department Care Team (Late st Contact Info) Description 03/11/2024 Abstract [facility] 112 [address] [facility] 110 [place] [address] Jason Wyatt MD 112 [facility] 110 [place], [place] [address] Social History Tobacco Use Types Packs/Day Years [...] How often do you attend cheondoism or spiritism serv ices? Never 03/02/2023 Do you belong [...] Recorded Patient Health Questionnaire-2 Score 0 03/06/2024 [facility] of Occupat ional Health - [...] Visit [facility] FM [address] [facility] 110 [place] [address] Jason Wyatt MD [address] [place] 110 [place] [address] documented as of this encounter Visit Diagnoses Not on filedocumented in this encounter Care Teams Farm Loan Representative Relationship Specialty Start Date End Date Jason Wyatt MD [address] [place] 110 [place] [address] PCP - Devoted 07/17/22 Jason Wyatt MD [address] [facility] 110 [place] [address] PCP - General Internal Medicine 01/02/23 Bryon Pruitt MD [address] [place] [address] Referring Physician Neurology 06/06/24 Sara Brewer PA [address] [place] [address] Physician Panel Fitter Neurology 06/06/24 Alida Telles, RN [address] [place] [address] Clinical Advocate Family Medicine 08/23/24 10/02/24 Melissa Sloan LPN [address] [place] [address] [place] [address] 10/02/24 documented as of this encounter
--- OUTSIDE RECORDS SUMMARY | 2025-01-12 10:51 | XMS_ITS | Encounter Summary ---
Author Organization [facility] Address [address] [facility] [place] [address] Care Team Providers Care Regional Director Of Admissions Name Role Phone Jason Wyatt MD Unavailable Jason Wyatt MD Primary Care Provider [phone] Bryon Pruitt MD Unavailable [phone] Sara Brewer Unavailable Alida Telles RN Unavailable [phone] Melissa Sloan LPN Unavailable Encounter Details Date Type Department Care Team (Late st Contact Info) Description 09/02/2024 Abstract [facility] FM 112 [facility] 110 [place] [address] Jason Wyatt MD 112 [facility] 110 [place], [place] [address] Social History Tobacco Use Types Packs/Day Years [...] week 03/02/2023 How often do you attend baptist or sikh serv ices? Never 03/02/2023 Do you belong to any clubs o r organizations such as baptist groups, unions, fraternal or athletic groups, or [...] Recorded Patient Health Questionnaire-2 Score 0 08/21/2024 [facility] of Occupat ional Health - Occupational Stress [...] [address] [facility] 110 [place] [address] Jason Wyatt MD [address] [place] 110 [place] [address] documented as of this encounter Visit Diagnoses Not on filedocumented in this encounter Care Teams Regional Director Of Admissions Relationship Specialty Start Date End Date Jason Wyatt MD [address] [place] [address] [place] [address] PCP - Devoted 07/17/22 Jason Wyatt MD [address] [place] 110 [place] [address] PCP - General Internal Medicine 01/02/23 Bryon Pruitt MD [address] [place] [address] Referring Physician Neurology 06/06/24 Sara Brewer PA [address] [place] [address] Physician Net Trainer Neurology 06/06/24 Alida Telles, RN [address] [place] [address] Clinical Advocate Family Medicine 08/23/24 10/02/24 Melissa Sloan LPN [address] [place] [address] 10/02/24 documented as of this encounter
--- OUTSIDE RECORDS SUMMARY | 2025-01-12 10:51 | XMS_ITS | Encounter Summary ---
Author Organization [facility] Address [address] [facility] [place] [address] Care Team Providers Care Dredge Engineer Name Role Phone Jason Wyatt MD Unavailable [phone] Jason Wyatt MD Primary Care Provider [phone] Jason Wyatt MD Unavailable [phone] Bryon Pruitt MD Unavailable [phone] Sara Brewer Unavailable Alida Telles RN Unavailable [phone] Melissa Sloan LPN Unavailable Encounter Details Date Type Department Care Team (Late st Contact Info) Description 07/19/2023 Abstract [facility] FM 112 [facility] 110 [place] [address] Jason Wyatt MD [address] [facility] 110 [place], [place] [address] Social History Tobacco Use Types Packs/Day Years [...] week 03/02/2023 How often do you attend bahai or adventist serv ices? Never 03/02/2023 Do you belong to any clubs o r organizations such as bahai groups, unions, fraternal or athletic groups, or [...] Patient Health Questionnaire-2 Score 0 03/09/2023 [facility] of Occupat ional Health - [...] [facility] 110 [place] [address] Jason Wyatt MD [address] [facility] 110 [place] [address] documented as of this encounter Visit Diagnoses Not on filedocumented in this encounter Care Teams Dredge Engineer Relationship Specialty Start Date End Date Jason Wyatt MD [address] [facility] 110 [place] [address] PCP - Devoted 07/17/22 Jason Wyatt MD [address] [facility] 110 [place] [address] PCP - General Internal Medicine 01/02/23 Jason Wyatt MD [address] [place] [address] [place] [address] PCP - Humana 07/17/21 01/14/24 Bryon Pruitt MD [address] [place] [address] Referring Physician Neurology 06/06/24 Sara Brewer PA [address] [place] [address] [place] [address] Physician Technician'S Helper Neurology 06/06/24 Alida Telles, ZE [address] [place] [address] Clinical Advocate Family Medicine 08/23/24 10/02/24 Melissa Sloan LPN [address] [place] [address] [place] [address] 10/02/24 documented as of this encounter
--- OUTSIDE RECORDS SUMMARY | 2025-01-12 10:51 | XMS_ITS | Encounter Summary ---
Author Organization [facility] Address [address] [facility] [place] [address] Care Team Providers Care Heavy Line Technician Name Role Phone Jason Wyatt MD Unavailable [phone] Jason Wyatt MD Primary Care Provider [phone] Jason Wyatt MD Unavailable [phone] Bryon Pruitt MD Unavailable [phone] Sara Brewer Unavailable Alida Telles RN Unavailable [phone] Melissa Sloan LPN Unavailable Encounter Details Date Type Department Care Team (Late st Contact Info) Description 07/05/2023 Abstract [facility] FM 112 [facility] 110 [place] [address] Jason Wyatt MD 112 [facility] 110 [place], [place] [address] Social History Tobacco Use Types Packs/Day Years [...] week 03/02/2023 How often do you attend sikh or faith serv ices? Never 03/02/2023 Do you belong to any clubs o r organizations such as sikh groups, unions, fraternal or athletic groups, or [...] [address] [facility] 110 [place] [address] Jason Wyatt MD [address] [facility] 110 [place] [address] documented as of this encounter Visit Diagnoses Not on filedocumented in this encounter Care Teams Heavy Line Technician Relationship Specialty Start Date End Date Jason Wyatt MD [address] [facility] 110 [place] [address] PCP - Devoted 07/17/22 Jason Wyatt MD [address] [facility] 110 [place] [address] PCP - General Internal Medicine 01/02/23 Jason Wyatt MD [address] [place] [address] [place] [address] PCP - Humana 07/17/21 01/14/24 Bryon Pruitt MD [address] [place] [address] Referring Physician Neurology 06/06/24 Sara Brewer PA [address] [place] [address] [place] [address] Physician Topper Press Operator Automatic Neurology 06/06/24 Alida Telles, ZE [address] [place] [address] Clinical Advocate Family Medicine 08/23/24 10/02/24 Melissa Sloan LPN [address] [place] [address] [place] [address] 10/02/24 documented as of this encounter
--- OUTSIDE RECORDS SUMMARY | 2025-01-12 10:51 | XMS_ITS | Encounter Summary ---
Author Organization [facility] Address [address] [facility] [place] [address] Care Team Providers Care Diet Technician Registered Name Role Phone Jason Wyatt MD Unavailable [phone] Jason Wyatt MD Primary Care Provider [phone] Jason Wyatt MD Unavailable [phone] Bryon Pruitt MD Unavailable [phone] Sara Brewer Unavailable Alida Tellse RN Unavailable [phone] Melissa Sloan LPN Unavailable Encounter Details Date Type Department Care Team (Late st Contact Info) Description 06/30/2023 Abstract [facility] FM 112 [facility] 110 [place] [address] Jason Wyatt MD [address] [facility] 110 [place], [place] [id number] Social History Tobacco Use Types Packs/Day Years [...] How often do you attend taoism or episcopalian serv ices? Never 03/02/2023 Do you belong [...] Recorded Patient Health Questionnaire-2 Score 0 03/09/2023 [facility] of Occupat ional Health [...] FM [address] [facility] 110 [place] [address] Jason Wyatt MD [address] [facility] 110 [place] [address] documented as of this encounter Visit Diagnoses Not on filedocumented in this encounter Care Teams Diet Technician Registered Relationship Specialty Start Date End Date Jason Wyatt MD [address] [facility] 110 [place] [address] PCP - Devoted 07/17/22 Jason Wyatt MD [address] [facility] 110 [place] [address] PCP - General Internal Medicine 01/02/23 Jason Wyatt MD [address] [place] [address] [place] [address] PCP - Humana 07/17/21 01/14/24 Bryon Pruitt MD [address] [place] [address] Referring Physician Neurology 06/06/24 Sara Brewer PA [address] [place] [address] [place] [address] Physician Terminal Block Assembler Neurology 06/06/24 Alida Telles, ZE [address] [place] [address] Clinical Advocate Family Medicine 08/23/24 10/02/24 Melissa Sloan LPN [address] [place] [address] [place] [address] 10/02/24 documented as of this encounter
--- OUTSIDE RECORDS SUMMARY | 2025-01-12 10:51 | XMS_ITS | Encounter Summary ---
Author Organization [facility] Address [address] [facility] [place] [address] Care Team Providers Care Certified Optician Name Role Phone Jason Wyatt MD Unavailable [phone] Jason Wyatt MD Primary Care Provider [phone] Jason Wyatt MD Unavailable [phone] Bryon Pruitt MD Unavailable [phone] Sara Brewer Unavailable Alida Telles RN Unavailable [phone] Melissa Sloan LPN Unavailable Encounter Details Date Type Department Care Team (Late st Contact Info) Description 07/26/2023 Abstract [facility] FM 112 [facility] 110 [place] [address] Jason Wyatt MD [address] [facility] 110 [place], [place] [address] Social History Tobacco Use Types Packs/Day Years [...] week 03/02/2023 How often do you attend rastafarian or protestant serv ices? Never 03/02/2023 Do you belong to any clubs o r organizations such as rastafarian groups, unions, fraternal or athletic groups, or [...] Recorded Patient Health Questionnaire-2 Score 0 03/09/2023 [facility] of Occupat ional [...] [address] [facility] 110 [place] [address] Jason Wyatt MD [address] [facility] 110 [place] [address] documented as of this encounter Visit Diagnoses Not on filedocumented in this encounter Care Teams Certified Optician Relationship Specialty Start Date End Date Jason Wyatt MD [address] [facility] 110 [place] [address] PCP - Devoted 07/17/22 Jason Wyatt MD [address] [facility] 110 [place] [address] PCP - General Internal Medicine 01/02/23 Jason Wyatt MD [address] [place] [address] [place] [address] PCP - Humana 07/17/21 01/14/24 Bryon Pruitt MD [address] [place] [address] Referring Physician Neurology 06/06/24 Sara Brewer PA [address] [place] [address] [place] [address] Physician Storeroom Clerk Neurology 06/06/24 Alida Telles, ZE [address] [place] [place] [address] Clinical Advocate Family Medicine 08/23/24 10/02/24 Melissa Sloan LPN [address] [place] [address] [place] [address] 10/02/24 documented as of this encounter
--- OUTSIDE RECORDS SUMMARY | 2025-01-12 10:51 | XMS_ITS | Encounter Summary ---
Author Organization [facility] Address [address] [facility] [place] [address] Care Team Providers Care Special Education Administrator Name Role Phone Jason Wyatt MD Unavailable [phone] Jason Wyatt MD Primary Care Provider [phone] Jason Wyatt MD Unavailable [phone] Bryon Pruitt MD Unavailable [phone] Sara Brewer Unavailable Alida Telles RN Unavailable [phone] Melissa Sloan LPN Unavailable Encounter Details Date Type Department Care Team (Late st Contact Info) Description 07/26/2023 Abstract [facility] FM 112 [facility] 110 [place] [address] Jason Wyatt MD [address] [facility] 110 [place], [place] [address] Social History Tobacco Use Types Packs/Day Years [...] How often do you attend caodaism or advent serv ices? Never 03/02/2023 Do you belong [...] Recorded Patient Health Questionnaire-2 Score 0 03/09/2023 [facility] of Occupat ional Health - Occupational Stress [...] [facility]S CI FM [address] [facility] 110 [place] [address] Jason Wyatt MD [address] [facility] 110 [place] [address] documented as of this encounter Visit Diagnoses Not on filedocumented in this encounter Care Teams Special Education Administrator Relationship Specialty Start Date End Date Jason Wyatt MD [address] [facility] 110 [place] [address] PCP - Devoted 07/17/22 Jason Wyatt MD [address] [facility] 110 [place] [address] PCP - General Internal Medicine 01/02/23 Jason Wyatt MD [address] [place] [address] [place] [address] PCP - Humana 07/17/21 01/14/24 Bryon Pruitt MD [address] [place] [address] Referring Physician Neurology 06/06/24 Sara Brewer PA [address] [place] [address] [place] [address] Physician Diagnostic Tech Neurology 06/06/24 Alida Telles, ZE [address] [place] [address] Clinical Advocate Family Medicine 08/23/24 10/02/24 Melissa Sloan LPN [address] [place] [address] [place] [address] 10/02/24 documented as of this encounter
--- OUTSIDE RECORDS SUMMARY | 2025-01-12 10:51 | XMS_ITS | Encounter Summary ---
Author Organization [facility] Address [address] [facility] [place] [address] Care Team Providers Care Weaving Supervisor Name Role Phone Jason Wyatt MD Unavailable [phone] Jason Wyatt MD Primary Care Provider [phone] Jason Wyatt MD Unavailable [phone] Bryon Pruitt MD Unavailable [phone] Sara Brewer Unavailable Alida Telles RN Unavailable [phone] Melissa Sloan LPN Unavailable Encounter Details Date Type Department Care Team (Late st Contact Info) Description 05/15/2023 Abstract [facility] 112 [facility] 110 [place] [address] Jason Wyatt MD [address] [facility] 110 [place], [place] [id number] Social History Tobacco Use Types Packs/Day Years [...] How often do you attend yarsanism or druze serv ices? Never 03/02/2023 Do you belong [...] Recorded Patient Health Questionnaire-2 Score 0 03/09/2023 [facility] - [...] Visit [facility] [address] [facility] 110 [place] [address] Jason Wyatt MD [address] [facility] 110 [place] [address] documented as of this encounter Visit Diagnoses Not on filedocumented in this encounter Care Teams Weaving Supervisor Relationship Specialty Start Date End Date Jason Wyatt MD [address] [facility] 110 [place] [address] PCP - Devoted 07/17/22 Jason Wyatt MD [address] [facility] 110 [place] [address] PCP - General Internal Medicine 01/02/23 Jason Wyatt MD [address] [place] [address] [place] [address] PCP - Humana 07/17/21 01/14/24 Bryon Pruitt MD [address] [place] [address] Referring Physician Neurology 06/06/24 Sara Brewer PA [address] [place] [address] [place] [address] Physician Supervisor Looping Neurology 06/06/24 Alida Telles, ZE [address] [place] [address] Clinical Advocate Family Medicine 08/23/24 10/02/24 Melissa Sloan LPN [address] [place] [address] [place] [address] 10/02/24 documented as of this encounter
--- OUTSIDE RECORDS SUMMARY | 2025-01-12 10:51 | XMS_ITS | Encounter Summary ---
Author Organization [facility] Address [address] [facility] [place] [place] [address] Care Team Providers Care Oracle Obiee Developer Name Role Phone Jason Wyatt MD Unavailable [phone] Jason Wyatt MD Primary Care Provider [phone] Jason Wyatt MD Unavailable [phone] Bryon Pruitt MD Unavailable [phone] Sara Brewer Unavailable Alida Telles RN Unavailable [phone] Melissa Sloan LPN Unavailable Encounter Details Date Type Department Care Team (Late st Contact Info) Description 08/09/2023 Abstract [facility] 112 [facility] 110 [place] [address] Jason Wyatt MD [address] [facility] 110 [place] [address] Social History Tobacco Use Types [...] week 03/02/2023 How often do you attend faith or holiness serv ices? Never 03/02/2023 Do you belong to any clubs o r organizations such as faith groups, unions, fraternal or athletic groups, or [...] Recorded Patient Health Questionnaire-2 Score 0 03/09/2023 [facility] [...] [address] [facility] 110 [place] [address] Jason Wyatt MD [address] [facility] 110 [place] [address] documented as of this encounter Visit Diagnoses Not on filedocumented in this encounter Care Teams Oracle Obiee Developer Relationship Specialty Start Date End Date Jason Wyatt MD [address] [facility] 110 [place] [address] PCP - Devoted 07/17/22 Jason Wyatt MD [address] [facility] 110 [place] [address] PCP - General Internal Medicine 01/02/23 Jason Wyatt MD [address] [place] [address] [place] [address] PCP - Humana 07/17/21 01/14/24 Bryon Pruitt MD [address] [place] [address] Referring Physician Neurology 06/06/24 Sara Brewer PA [address] [place] [address] [place] [address] Physician Associate Director Of Nursing Neurology 06/06/24 Alida Telles, ZE [address] [place] [address] Clinical Advocate Family Medicine 08/23/24 10/02/24 Melissa Sloan LPN [address] [place] [address] [place] [address] 10/02/24 documented as of this encounter
--- OUTSIDE RECORDS SUMMARY | 2025-01-12 10:51 | XMS_ITS | Encounter Summary ---
Author Organization [facility] Address [address] [facility] [place] [address] Care Team Providers Care Rehab Services Aide Name Role Phone Jason Wyatt MD Unavailable [phone] Jason Wyatt MD Primary Care Provider [phone] Jason Wyatt MD Unavailable [phone] Bryon Pruitt MD Unavailable [phone] Sara Brewer Unavailable Alida Telles RN Unavailable [phone] Melissa Sloan LPN Unavailable Encounter Details Date Type Department Care Team (Late st Contact Info) Description 05/09/2023 Abstract [facility] 112 [facility] 110 [place] [address] Jason Wyatt MD [address] [facility] 110 [place], [place] [id number] Social History Tobacco Use Types Packs/Day Years [...] week 03/02/2023 How often do you attend gnosticist or latter day serv ices? Never 03/02/2023 Do you belong to any clubs o r organizations such as gnosticist groups, unions, fraternal or athletic groups, or [...] Recorded Patient Health Questionnaire-2 Score 0 03/09/2023 [facility] ional [facility] [...] Visit [facility] [address] [facility] 110 [place] [address] Jason Wyatt MD [address] [facility] 110 [place] [address] documented as of this encounter Visit Diagnoses Not on filedocumented in this encounter Care Teams Rehab Services Aide Relationship Specialty Start Date End Date Jason Wyatt MD [address] [facility] 110 [place] [address] PCP - Devoted 07/17/22 Jason Wyatt MD [address] [facility] 110 [place] [address] PCP - General Internal Medicine 01/02/23 Jason Wyatt MD [address] [place] [address] [place] [address] PCP - Humana 07/17/21 01/14/24 Bryon Pruitt MD [address] [place] [address] Referring Physician Neurology 06/06/24 Sara Brewer PA [address] [place] [address] [place] [address] Physician Blasting Entry Specialist Neurology 06/06/24 Alida Telles, ZE [address] [place] [address] Clinical Advocate Family Medicine 08/23/24 10/02/24 Melissa Sloan LPN [address] [place] [address] [place] [address] 10/02/24 documented as of this encounter
--- OUTSIDE RECORDS SUMMARY | 2025-01-12 10:51 | XMS_ITS | Encounter Summary ---
Author Organization [facility] Address [address] [facility] [place] [address] Care Team Providers Care Gaming Investigator Name Role Phone Jason Wyatt MD Unavailable [phone] Jason Wyatt MD Primary Care Provider [phone] Jason Wyatt MD Unavailable [phone] Bryon Pruitt MD Unavailable [phone] Sara Brewer Unavailable Alida Telles RN Unavailable [phone] Melissa Sloan LPN Unavailable Encounter Details Date Type Department Care Team (Late st Contact Info) Description 07/31/2023 Abstract [facility] 112 [facility] 110 [place] [address] Jason Wyatt MD [address] [facility] 110 [place], [place] [id number] Social History Tobacco Use Types Packs/Day Years [...] week 03/02/2023 How often do you attend uatsdin or methodist serv ices? Never 03/02/2023 Do you belong to any clubs o r organizations such as uatsdin groups, unions, fraternal or athletic groups, or [...] [address] [facility] 110 [place] [address] Jason Wyatt MD [address] [facility] 110 [place] [address] documented as of this encounter Visit Diagnoses Not on filedocumented in this encounter Care Teams Gaming Investigator Relationship Specialty Start Date End Date Jason Wyatt MD [address] [facility] 110 [place] [address] PCP - Devoted 07/17/22 Jason Wyatt MD [address] [facility] 110 [place] [address] PCP - General Internal Medicine 01/02/23 Jason Wyatt MD [address] [place] [address] [place] [address] PCP - Humana 07/17/21 01/14/24 Bryon Pruitt MD [address] [place] [address] Referring Physician Neurology 06/06/24 Sara Brewer PA [address] [place] [address] [place] [address] Physician Indoor Sports Centre Manager Neurology 06/06/24 Alida Telles, ZE [address] [place] [place] [address] Clinical Advocate Family Medicine 08/23/24 10/02/24 Melissa Sloan LPN [address] [place] [address] [place] [address] 10/02/24 documented as of this encounter
--- OUTSIDE RECORDS SUMMARY | 2025-01-12 10:51 | XMS_ITS | Clinical Summary ---
Author Organization [facility] Address [address] [place] [address] Phone Care Team Providers Care It Consultant Name Role Phone Jason Wyatt MD Primary Care Provider [phone] Allergies Active Allergy Reactions Criticality Noted Date Comments Atorvastatin GI intolerance,GI Upset 06/23/2023 Heartburn Dulaglutide Blurred vision 12/27/2022 Other Reaction(s): Vision Changes Lisinopril Cough 12/27/2022 Oxycodone GI Upset 04/17/2024 Oxycodone-Acetaminophen GI intolerance 12/28/19 23 Sulfa (Sulfonamide Antibiotics) GI intolerance 12/27/2022 Medications aspirin 81 mg capsule Take 81 mg by mouth once daily. Active insulin degludec (TRESIBA U-100 INSULIN SUBQ) Inject 40 Units as directed once daily in the evening. Last dose 1800 on 04-28-24. 4 Active clopidogrel (Plavix) 75 mg tablet Take 1 tablet (75 mg) by mouth once daily in the morning. Take before meals. Active albuterol 90 mcg/actuation inhaler Inhale 2 puffs every 4 hours if needed. 3 Active amLODIPine (Norvasc) 10 mg tablet Take 1 tablet (10 mg) by mouth once daily in the morning. Take before meals. Active atorvastatin (Lipitor) 40 mg tablet Take 1 tablet (40 mg) by mouth once daily. Active citalopram (CeleXA) 10 mg tablet Take 1 tablet (10 mg) by mouth once daily in the morning. Take before meals. 3 Active FLUoxetine (PROzac) 10 mg capsule Take 1 capsule (10 mg) by mouth once daily. 3 Active furosemide (Lasix) 40 mg tablet Take 1 tablet (40 mg) by mouth once daily. 4 Active Avapro 300 mg tablet Take 1 tablet (300 mg) by mouth once daily. 4 Active isosorbide mononitrate ER (Imdur) 30 mg 24 hr tablet Take 1 tablet (30 mg) by mouth once daily in the morning. Take before meals. Active nitroglycerin (Nitrostat) 0.[address] 1 tablet (0.4 mg) under the tongue every 5 minutes if needed. 4 Active ranolazine (Ranexa) 500 mg 12 hr tablet Take 1 tablet (500 mg) by mouth every 12 hours. 4 Active Crestor 40 mg tablet Take 1 tablet (40 mg) by mouth once daily. 3 Active triamterene-hydr ochlorothiazid (Maxzide-25) 37.5-25 mg tablet Take 1 tablet by mouth once daily. 3 Active traMADol (Ultram) 50 mg tabletIndication s:Pacemaker Take 1 tablet (50 mg) by mouth every 8 hours if needed for moderate pain (4 - 6). If Tylenol not effective. 10 tablet 4 Active cephalexin (Keflex) 500 mg capsuleIndicatio ns:Pacemaker Take 1 capsule (500 mg) by mouth 2 times a day. 14 capsule 4 Active Active Problems Problem Noted Date Diagnosed Date Abnormal EKG 04/17/2024 Encounters Date Type Department Care Team Description 11/07/2024 6:55 AM EDT - 11/07/2024 11:59 PM EDT Hospital Encounter [address] [address] Cardiac pacemaker in situ; Sinoatrial node dysfunction (Multi) Discharge Disposition: Home from Last 3 Months Social History Tobacco Use Types Packs/Day Years Used Date Smoking Tobacco: Never Smokeless Tobacco: Never Tobacco Cessation:Counseling Given: Not Answered Alcohol Use Standard Drinks/Week Comments Not Currently 0 (1 standard drink = 0.6 oz pur e alcohol) Comments No Sex and Gender Information Value Date Recorded Sex Assigned at Female 03/21/2024 1:58 PM EDT Legal Sex Female 8:53 AM EST Gender Identity Female 03/21/2024 1:58 PM EDT Sexual Orientation Choose not to disclose 2023 1:58 PM EDT Last Filed Vital Signs Vital Sign Reading Time Taken Comments Blood Pressure 141/67 04/30/2024 12:08 PM EDT Pulse 47 04/30/2024 12:08 PM EDT Temperature 36.5 C (97.7 F) 04/30/2024 12:08 PM EDT Respiratory Rate 18 04/30/2024 12:0 8 PM EDT Oxygen Saturation 100% 04/30/2024 12: 55 PM EDT Inhaled Oxygen Concentration - - Weight 73.9 kg (162 lb 14.7 oz) 024 12:08 PM EDT Height 144.8 cm (4' 9 ) 04/30/2024 12:0 8 PM EDT Body Mass Index 35.26 04/30/2024 12:08 PM EDT Plan of Treatment Health Maintenance Due Date Last Done Comments CT Colonography 1954 Colonoscopy 1954 Colorectal Cancer Screening 1954 FIT-DNA (Cologuard) 1954 FIT 1954 Lipid Panel 1954 Medicare Annual Wellness Visit (AWV) 1954 Sigmoidoscopy 1954 Hepatitis C Screening 1972 DTaP/Tdap/Td Vaccines (1 - Tdap) 1976 Zoster Vaccines (1 of 2) 2004 RSV High Risk: (Elderly (60+) or Population) (1 - Risk 60-74 years 1-dose series) 2014 Pneumococcal Vaccine (2 of 2 - PCV) 07/17/2015 07/17/2014 COVID-19 Vaccine (1 - season) 2024 Mammogram 01/11/2025 01/12/2024, 12/16, 06/06/2022, Additional history exists Influenza Vaccine (Season Ended) 2025 06/16/2022, 06/09/2021, 07/19/2017 Diabetes Screening 04/30/2025 04/30/2024 Bone Density Scan Completed 02/11/2020 HIB Vaccines Aged Out No longer eligi ble based on patient's age to complete this topic HPV Vaccines (No Doses Required) Completed Hepatitis A Vaccines Aged Out No long er eligible based on patient's age to complete this topic Hepatitis B Vaccines Aged Out No long er eligible based on patient's age to complete this topic IPV Vaccines Aged Out No longer eligi ble based on patient's age to complete this topic Meningococcal Vaccine Aged Out No mickie keiko eligible based on patient's age to complete this topic Rotavirus Vaccines Aged Out No longer eligible based on patient's age to complete this topic Medical Devices Implanted Type Area It Consultant Device Identifier Shelf Expiration Date Model / Serial / Lot Lead, Pacemaker, Ultipace 58cm - [id number] - [id number] Implanted:Qt y: 1 on 04/30/2024 by Carmelina Duque MD at [facility] Cardiac Pacemaker Left: Chest [employer] [id number] 02/13/2027 [id number] / [id number] / [id number] Lead, Pacemaker, Ultipace 52cm - [id number] - [id number] Implanted:Qt y: 1 on 04/30/2024 by Carmelina Duque MD at [facility] Cardiac Pacemaker Left: Chest [employer] [id number] 02/13/2027 [id number] / [id number] / [id number] Pacemaker, Generator, Dual Assurity [facility] - [id number] - [id number] Implanted:Qt y: 1 on 04/30/2024 by Carmelina Duque MD at [facility] Cardiac Pacemaker Left: Chest [employer] [id number] 08/16/2025 [id number] / [id number] / [id number] Procedures Procedure Name Priority Date/Time Associated Diagnosis Comments CARDIAC DEVICE CHECK - REMOTE - PACEMAKER Routine 11/07/2024 8:22 AM EDT Cardiac pacemaker in situ Sinoatrial node dysfunction (Multi) BASIC METABOLIC PANEL STAT 04/30/2024 12:05 PM EDT from Last 3 Months or Most Recently Relevant to Health Maintenance Results * CARDIAC DEVICE CHECK - REMOTE - PACEMAKER (11/07/2024 8:22 AM EDT) Anatomical Region Laterality Modality Monitor/Device 11/07/2024 2:00 AM EDT Carmelina Duque MD CV IMPLANTABLE CARDIAC DEVICE P ROCEDURES Final Result * (ABNORMAL) Basic Metabolic Panel (04/30/2024 12:05 PM EDT) [facility] Glucose 162(H) 74 - 99 mg/dL LAB CHEMISTRY METHOD 04/30/2024 1:05 PM EDT [facility] Sodium 135(L) 136 - 145 mmol/L LAB CHEMISTRY METHOD 04/30/2024 1:05 PM [facility] Potassium 5.0 3.5 - 5.3 mmol/L LAB CHEMISTRY METHOD 04/30/2024 1:05 PM [facility] Chloride 107 98 - 107 mmol/L LAB CHEMISTRY METHOD 04/30/2024 1:05 PM [facility] Bicarbonate 17(L) 21 - 32 mmol/L LAB CHEMISTRY METHOD 04/30/2024 1:05 PM [facility] Anion Gap 16 10 - 20 mmol/L LAB CHEMISTRY METHOD 04/30/2024 1:05 PM [facility] Urea Nitrogen 55(H) 6 - 23 mg/dL LAB CHEMISTRY METHOD 04/30/2024 1:05 PM [facility] Creatinine 1.76(H) 0.50 - 1.05 mg/dL LAB CHEMISTRY METHOD 04/30/2024 1:05 PM [facility] eGFR 31(L) >60 mL/min/1. 73m*2 LAB CHEMISTRY METHOD 04/30/2024 1:05 PM [facility] Comment: Calculations of estimated GFR are performed using the 2020 CKD-EPI Study Refit equation without the race variable for the IDMS-Traceable creatinine methods. https://jasn.asnjournals.org/content//ASN.3464733220 Calcium 9.1 8.6 - 10.3 mg/dL LAB CHEMISTRY METHOD 04/30/2024 1:05 PM EDT [facility] Blood Venous blood specimen / Unknown Venipuncture / Unknown 04/30/2024 12:05 PM EDT 04/30/2024 12:20 PM EDT Lizbet Morel ARCHITECT IN TRAINING-STAFF PHYSICAL THERAPIST LAB BLOOD ORDERABLES Fin al Result [facility] [address] [place] [address] from Last 3 Months or Most Recently Relevant to Health Maintenance Insurance Rising RAAD Marie [id number] Rising Advance Directives For more information, please contact: [phone] (Available ) * Full Code (Latest Code Status on File) Date Activated Date Inactivated Comments 04/30/2024 11:15 AM Question Answer Comments Plan of Care: Code Status Discussion Not Compl eted Decision Maker: Provider Rationale: Patient condition does not warra nt discussion Care Teams It Consultant Relationship Specialty Start Date End Date Jason Wyatt MD [address] [facility] 110 [place] [address] PCP - General Internal Medicine 04/17/24
--- OUTSIDE RECORDS SUMMARY | 2025-01-12 10:51 | XMS_ITS | Encounter Summary ---
Author Organization [facility] Address [address] [facility] [place] [address] Care Team Providers Care Python Architect Name Role Phone Jason Wyatt MD Unavailable [phone] Jason Wyatt MD Primary Care Provider [phone] Jason Wyatt MD Unavailable [phone] Bryon Pruitt MD Unavailable [phone] Sara Brewer Unavailable Alida Telles RN Unavailable [phone] Melissa Sloan LPN Unavailable Encounter Details Date Type Department Care Team (Late st Contact Info) Description 06/22/2023 Abstract [facility] 112 [facility] 110 [place] [address] Jason Wyatt MD [address] [facility] 110 [place], [place] [id number] Social History Tobacco Use Types Packs/Day Years [...] How often do you attend faith or evangelical serv ices? Never 03/02/2023 Do you belong [...] Visit [facility] [address] [facility] 110 [place] [address] Jason Wyatt MD [address] [facility] 110 [place] [address] documented as of this encounter Visit Diagnoses Not on filedocumented in this encounter Care Teams Python Architect Relationship Specialty Start Date End Date Jason Wyatt MD [address] [facility] [address] [place] [address] PCP - Devoted 07/17/22 Jason Wyatt MD [address] [facility] [address] [place] [address] PCP - General Internal Medicine 01/02/23 Jason Wyatt MD [address] [place] [address] [place] [address] PCP - Humana 07/17/21 01/14/24 Bryon Pruitt MD [address] [place] [address] Referring Physician Neurology 06/06/24 Sara Brewer PA [address] [place] [address] [place] [address] Physician Indirect Fire Infantryman Neurology 06/06/24 Alida Telles, ZE [address] [place] [address] Clinical Advocate Family Medicine 08/23/24 10/02/24 Melissa Sloan LPN [address] [place] [address] [place] [address] 10/02/24 documented as of this encounter
--- OUTSIDE RECORDS SUMMARY | 2025-01-12 10:51 | XMS_ITS | Clinical Summary ---
Author Organization [facility] Address [facility] [place] [id number] Care Team Providers Care Vitamin Manager Name Role Phone Christopher Vides MD Primary Care Provider [phone] Allergies No known active allergies Medications ALBUTEROL 90 MCG/ACTUATION AEROSOL INHALER Inhale one(1) - two(2) puffs four(4) times a day as needed for wheezing and shortness of breath. 0 0 7 Active omeprazole(PRIL OSEC 20 MG CAP) Take one(1) capsule daily. 0 0 7 Active bupropion hcl(WELLBUTRIN XL 150 MG 24 HR TAB) Take one(1) tablet daily. 0 0 7 Active fluticasone/jose meterol(ADVAIR DISKUS 250 MCG-50 MCG/DOSE FOR INHALATION) ONE PUFF BID 0 0 8 Active HYDROCHLOROTHIA ZIDE 25 MG TAB Take one(1) tablet daily. 0 8 Active celecoxib(CELEB JONATHAN 200 MG CAP) Take one(1) capsule twice daily. 0 8 Active sumatriptan succinate(IMITR EX 100 MG TAB) ONE TAB ON SET OF MIGRAINE 0 8 Active Active Problems Problem Noted Date Diagnosed Date Unspecified hereditary and idiopathic peripheral neuropathy 11/14/2007 Tarsal tunnel syndrome 11/14/2007 Injury to nerves, unspecified site 08/21/2007 Family History Medical History Relation Comments Emphysema Father chf [Other] Mother dm-2 [Other] Mother Breast Cancer Sister Relation Status Comments Father Mother Sister Social History Tobacco Use Types Packs/Day Years Used Date Smoking Tobacco: Never Alcohol Use Standard Drinks/Week Comments No 0 (1 standard drink = 0.6 oz pur e alcohol) Comments No Sex and Gender Information Value Date Recorded Sex Assigned at Not on file Legal Sex Female 8:11 AM EST Gender Identity Not on file Sexual Orientation Not on file Last Filed Vital Signs Vital Sign Reading Time Taken Comments Blood Pressure 107/65 10/19/2007 2:49 PM EDT Pulse 60 10/19/2007 2:49 PM EDT Temperature - - Respiratory Rate - - Oxygen Saturation 98% 10/19/2007 2:49 PM EDT Inhaled Oxygen Concentration - - Weight 80.7 kg (178 lb) 10/19/2007 2:49 PM EDT Height 139.7 cm (4' 7 ) 10/19/2007 2:49 PM EDT Body Mass Index 41.37 10/19/2007 2:49 PM EDT Plan of Treatment Health Maintenance Due Date Last Done Comments Anxiety Screening 1972 Depression Screening 1972 Hepatitis C Screening 1972 DTaP,Tdap,Td Vaccine (1 - Tdap) [address] Colonography 1999 Cologuard (FIT-DNA) 1999 Colonoscopy 1999 Colorectal Cancer Screening 1999 Fecal Occult Blood 1999 Lipid Screening 1999 Sigmoidoscopy 1999 Pneumococcal Vaccine: 50+ (1 of 1 - PCV) 2004 Shingrix Vaccine (1 of 2) 2004 Diabetes Screening 10/18/2010 10/19/2007 Bone Density Screening 2019 Covid-19 Vaccine ( - 2023- season) 2024 Advance Directive Discussion 07/17/2024 Influenza Vaccine (Season Ended) 2025 RSV Vaccine (1 - 1-dose 75+ series) 2029 Procedures Procedure Name Priority Date/Time Associated Diagnosis Comments BASIC METABOLIC PANEL Routine 10/19/2007 11:55 AM EDT Injury To Nerve Nos from Last 3 Months or Most Recently Relevant to Health Maintenance Results * BASIC METABOLIC PNL (10/19/2007 11:55 AM EDT) [facility] Signature Glucose 96 65 - 100 mg/dL [facility] BUN 19 8 - 25 mg/dL [facility] Creatinine 0.8 0.7 - 1.4 mg/dL [facility] Sodium 139 132 - 148 mmol/L [facility] Potassium 3.7 3.5 - 5.0 mmol/L [facility] Chloride 99 98 - 110 mmol/L [facility] CO2 28 23 - 32 mmol/L [facility] Anion Gap 12 0 - 15 mmol/L [facility] Calcium 9.7 8.5 - 10.5 mg/dL [facility] Blood specimen (specimen) BLOOD SPECIMEN / Unknown 10/19/2007 11:55 AM EDT [facility] Final Result [facility] [address] [facility] [place] [address] from Last 3 Months or Most Recently Relevant to Health Maintenance Insurance [employer] Care Teams Vitamin Manager Relationship Specialty Start Date End Date Christopher Vides MD PCP - General 06/04/07
--- OUTSIDE RECORDS SUMMARY | 2025-01-12 10:51 | XMS_ITS | Encounter Summary ---
Author Organization [facility] Address [address] [facility] [place] [address] Care Team Providers Care Coastal/Harbor Defense Officer Name Role Phone Jason Wyatt MD Unavailable [phone] Jason Wyatt MD Primary Care Provider [phone] Jason Wyatt MD Unavailable [phone] Bryon Pruitt MD Unavailable [phone] Sara Brewer Unavailable Alida Telles RN Unavailable [phone] Melissa Sloan LPN Unavailable Encounter Details Date Type Department Care Team (Late st Contact Info) Description 07/19/2023 Abstract [facility] [address] [facility] [address] [place] [address] Jason Wyatt MD [address] [facility] 110 [place], [place] [id number] Social History Tobacco Use Types Packs/Day Years [...] week 03/02/2023 How often do you attend synagogue or christianity serv ices? Never 03/02/2023 Do you belong to any clubs o r organizations such as synagogue groups, unions, fraternal or athletic groups, or [...] Health Questionnaire-2 Score 0 03/09/2023 [facility] of Occupat [...] Visit [facility] [address] [facility] 110 [place] [address] Jason Wyatt MD [address] [facility] 110 [place] [address] documented as of this encounter Visit Diagnoses Not on filedocumented in this encounter Care Teams Coastal/Harbor Defense Officer Relationship Specialty Start Date End Date Jason Wyatt MD [address] [facility] 110 [place] [address] PCP - Devoted 07/17/22 Jason Wytat MD [address] [facility] 110 [place] [address] PCP - General Internal Medicine 01/02/23 Jason Wyatt MD [address] [place] [address] [place] [address] PCP - Humana 07/17/21 01/14/24 Bryon Pruitt MD [address] [place] [address] Referring Physician Neurology 06/06/24 Sara Brewer PA [address] [place] [address] [place] [address] Physician Radiology Specialist Neurology 06/06/24 Alida Telles, ZE [address] [place] [address] Clinical Advocate Family Medicine 08/23/24 10/02/24 Melissa Sloan LPN [address] [place] [address] [place] [address] 10/02/24 documented as of this encounter
--- OUTSIDE RECORDS SUMMARY | 2025-01-12 10:51 | XMS_ITS | Encounter Summary ---
Author Organization [facility] Address [address] [facility] [place] [address] Care Team Providers Care Public Relations Assistant Name Role Phone Jason Wyatt MD Unavailable [phone] Jason Wyatt MD Primary Care Provider [phone] Jason Wyatt MD Unavailable [phone] Bryon Pruitt MD Unavailable [phone] Saar Brewer Unavailable Alida Telles RN Unavailable [phone] Melissa Sloan LPN Unavailable Encounter Details Date Type Department Care Team (Late st Contact Info) Description 07/26/2023 Abstract [facility] 112 [facility] 110 [place] [address] Jason Wyatt MD [address] [facility] 110 [place], [place] [id number] Social History Tobacco Use Types Packs/Day Years [...] How often do you attend christianity or sabianism serv ices? Never 03/02/2023 Do [...] Recorded Patient Health Questionnaire-2 Score 0 03/09/2023 [facility] of Occupat ional Health - Occupational Stress [...] Visit [facility] [address] [facility] 110 [place] [address] Jason Wyatt MD [address] [facility] 110 [place] [address] documented as of this encounter Visit Diagnoses Not on filedocumented in this encounter Care Teams Public Relations Assistant Relationship Specialty Start Date End Date Jason Wyatt MD [address] [facility] 110 [place] [address] PCP - Devoted 07/17/22 Jason Wyatt MD [address] [facility] 110 [place] [address] PCP - General Internal Medicine 01/02/23 Jason Wyatt MD [address] [place] [address] [place] [address] PCP - Humana 07/17/21 01/14/24 Bryon Pruitt MD [address] [place] [address] Referring Physician Neurology 06/06/24 Sara Brewer PA [address] [place] [address] [place] [address] Physician Fishing Game Warden Neurology 06/06/24 Alida Telles, ZE [address] [place] [address] Clinical Advocate Family Medicine 08/23/24 10/02/24 Melissa Sloan LPN [address] [place] [address] [place] [address] 10/02/24 documented as of this encounter
--- OUTSIDE RECORDS SUMMARY | 2025-01-12 10:51 | XMS_ITS ---
Author Organization [facility] Address [address] [place] [address] Care Team Providers Care Clutch Assembler Name Role Phone Jason Wyatt MD Unavailable [phone] Jason Wyatt MD Primary Care Provider [phone] Bryon Pruitt MD Unavailable [phone] Sara Brewer Unavailable Melissa Sloan LPN Unavailable Chronic Care Management (CCM) Status:Enrolled (Active) Start date:12/01/2022 Enrollment date:12/01/2022 Overview 05/25/23, 10:55 AM - Kim Monday, AUBREE- Patient gives verbal consent to be enrolled in CCM Program and understands there could be a bill for this service. Case Team Name Relationship Phone Melissa Sloan LPN(Responsible Staff) [phone] Continued Care and Services Coordination
--- OUTSIDE RECORDS SUMMARY | 2025-01-12 10:51 | XMS_ITS | Encounter Summary ---
Author Organization [facility] Address [address] [facility] [place] [address] Care Team Providers Care Director Workers Compensation Name Role Phone Jason Wyatt MD Unavailable [phone] Jason Wyatt MD Primary Care Provider [phone] Jason Wyatt MD Unavailable [phone] Bryon Pruitt MD Unavailable [phone] Sara Brewer Unavailable Alida Telles RN Unavailable [phone] Melissa Sloan LPN Unavailable Encounter Details Date Type Department Care Team (Late st Contact Info) Description 07/19/2023 Abstract [facility] 112 [facility] 110 [place] [address] Jason Wyatt MD [address] [facility] 110 [place], [place] [id number] Social History Tobacco Use Types Packs/Day Years [...] How often do you attend quaker or gnosticist serv ices? Never 03/02/2023 Do you belong [...] Recorded Patient Health Questionnaire-2 Score 0 03/09/2023 [facility] of Occupat ional Health [...] Visit [facility] [address] [facility] 110 [place] [address] Jason Wyatt MD [address] [facility] 110 [place] [address] documented as of this encounter Visit Diagnoses Not on filedocumented in this encounter Care Teams Director Workers Compensation Relationship Specialty Start Date End Date Jason Wyatt MD [address] [facility] 110 [place] [address] PCP - Devoted 07/17/22 Jason Wyatt MD [address] [facility] 110 [place] [address] PCP - General Internal Medicine 01/02/23 Jason Wyatt MD [address] [place] [address] [place] [address] PCP - Humana 07/17/21 01/14/24 Bryon Pruitt MD [address] [place] [address] Referring Physician Neurology 06/06/24 Sara Brewer PA [address] [place] [address] [place] [address] Physician Commercial Lending Assistant Neurology 06/06/24 Alida Telles, ZE [address] [place] [address] Clinical Advocate Family Medicine 08/23/24 10/02/24 Melissa Sloan LPN [address] [place] [address] [place] [address] 10/02/24 documented as of this encounter
--- NOTE | 2025-01-12 10:53 | XR_ITS ---
The [address] [address] Patient Name: OVIDIO AZAR MRN: [id number] date: 1955 Sex: F Assigned Patient Location: ED.MAIN Current Patient Location: ED.MAIN Accession/Order Number: [id number] Exam Date: 01/12/2025 11:22 Report Date: 01/12/2025 11:23 At the request of: ELFEGO LOTT MD Procedure: XR chest 1V PA CHEST: CLINICAL HISTORY: CP COMPARISON: 08/30/2024 Left-sided pacemaker device. Borderline cardiac mediastinal silhouette. Lungs are clear. No effusion or pneumothorax. XR/XR chest 1V IMPRESSION: Negative acute pleural-parenchymal disease. Impression dictated by: Todd Mack M.D. 01/12/2025 11:23 AM Dictation Location: [place] [address] Electronically authenticated by: [id number] Y Date: 01/12/2025 11:23
--- NOTE | 2025-01-12 10:53 | ECG_ITS ---
[facility] Test Date: 2025-01-12 Pat Name: OVIDIO AZAR Department: Room: - Gender: Female Recruiting Intern: : 1955 Requested By: 1030 Order Number: [id number] Reading MD: THOMPSON SHANNON M.D. Measurements Intervals [place] Rate: 61 P: 90 CA: 208 QRS: 19 QRSD: 78 T: 101 QT: 422 QTc: 426 Interpretive Statements 67761 Electronic atrial pacemaker [address] & Twave abnormality 8102 Low QRS voltage in chest leads Abnormal ECG Compared to ECG 08/30/2024 12:00:26 ST (T wave) deviation now present Low QRS voltage now present Electronically Signed On 01-12-2025 14:00:54 EDT by THOMPSON SHANNON M.D.
--- NOTE | 2025-01-12 10:58 | ED.GENADUL1 ---
HPI HPI - General Adult General Chief complaint: Chest Pain Stated complaint: HEAD AND NECK PAIN, CHEST PAIN Time Seen by Provider: 01/12/25 10:52 Source: patient Mode of arrival: walk-in History of Present Illness HPI narrative: 69-year-old female presents for headache and chest pain. It began about 3:00 this morning and its the back of her head that hurts. She did not fall or hit her head. She has had no fever or localized weakness. Her chest is also hurting particularly when she moves her arms. Her symptoms have been continuous. Related Data Home Medications ?Medication ?Instructions ?Recorded ?Confirmed albuterol sulfate 90 mcg/actuation 2 puff inhalation Q6H PRN 08/30/24 01/12/25 aerosol inhaler shortness of breath or wheezing aspirin 81 mg tablet,delayed 81 mg PO DAILY 08/30/24 01/12/25 release (Adult Aspirin Regimen) clopidogrel 75 mg tablet 75 mg PO QDAY 08/30/24 01/12/25 furosemide 40 mg tablet 40 mg PO QDAY 08/30/24 01/12/25 glimepiride 2 mg tablet 2 mg PO QDAY 08/30/24 01/12/25 irbesartan 300 mg tablet 300 mg PO .qhs 08/30/24 08/30/24 isosorbide mononitrate 30 mg 30 mg PO QAM 08/30/24 08/30/24 tablet,extended release 24 hr nitroglycerin 0.4 mg sublingual 0.4 mg sublingual Q5M PRN chest 08/30/24 01/12/25 tablet pain pantoprazole 20 mg tablet,delayed 20 mg PO QDAY 08/30/24 01/12/25 release rosuvastatin 40 mg tablet 40 mg PO QAM 08/30/24 01/12/25 tramadol 50 mg tablet 50 mg PO Q8H PRN pain 08/30/24 01/12/25 triamterene 37.5 1 tab PO QAM 08/30/24 08/30/24 mg-hydrochlorothiazide 25 mg tablet allopurinol 100 mg tablet 50 mg PO .every other day 01/12/25 01/12/25 Previous Rx's ?Medication ?Instructions ?Recorded njjughwjge-ucizjnnwafejb-lonhtldx 1 cap PO Q6H PRN pain 5 days #20 01/12/25 50 mg-300 mg-40 mg capsule caps (Fioricet) Allergies Allergy/AdvReac Type Severity Reaction Status Date / Time No Known Drug Allergies Allergy Verified 08/30/24 11:01 Opioid HPI Opioid Management Most Recent Opioid Data: Last Pain Scale 7 Today, 12:52 Last MAR Pain Assessment Today, 12:52 Review of Systems ROS Narrative A ten point review of systems is negative except as noted above. PFSH PFS Medical History Carpal tunnel syndrome of right wrist ?G56.01 - Carpal tunnel syndrome, right upper limb (ICD-10) Carpal tunnel syndrome of left wrist ?G56.02 - Carpal tunnel syndrome, left upper limb (ICD-10) Arthritis ?M19.90 - Unspecified osteoarthritis, unspecified site (ICD-10) Diabetes 1.5, managed as type 2 ?E13.9 - Other specified diabetes mellitus without complications (ICD-10) HTN (hypertension) ?I10 - Essential (primary) hypertension (ICD-10) History of heart attack ?I25.2 - Old myocardial infarction (ICD-10) CVA (cerebral vascular accident) ?I63.9 - Cerebral infarction, unspecified (ICD-10) Pacemaker ?Z95.0 - Presence of cardiac pacemaker (ICD-10) Surgical History H/O: hysterectomy ?Z90.710 - Acquired absence of both cervix and uterus (ICD-10) History of cataract removal with insertion of prosthetic lens ?Z98.49 - Cataract extraction status, unspecified eye (ICD-10) ?Z96.1 - Presence of intraocular lens (ICD-10) S/P foot surgery, right ?Z98.890 - Other specified postprocedural states (ICD-10) History of cholecystectomy ?Z90.49 - Acquired absence of other specified parts of digestive tract (ICD-10) H/O neck surgery ?Z98.890 - Other specified postprocedural states (ICD-10) Total knee replacement status ?Z96.659 - Presence of unspecified artificial knee joint (ICD-10) Social History Little interest or pleasure in doing things: not at all Feeling down, depressed, or hopeless: not at all Exam Narrative Exam Narrative: Nurses note and vital signs reviewed and patient is not hypoxic. General: The patient appears well and in no apparent distress. Skin: Warm, dry, no pallor noted. There is no rash noted. Head: Normocephalic, atraumatic Eye: Normal conjunctiva, no drainage Ears, Nose, Mouth, and Throat: oral mucosa is moist. Nares patent. Cardiovascular: Regular Rate and Rhythm Respiratory: Patient is in no distress, no accessory muscle use, lungs are clear to auscultation, no wheezing, rales or rhonchi Back: non-tender GI: Soft and nontender Musculoskeletal: The patient has no evidence of calf tenderness, no pitting edema, symmetrical pulses noted bilaterally Neurological: A&O, normal speech Psychiatric: Cooperative Constitutional Vital Signs, click to edit/add: Last Vital Signs Temp 98.0 F 01/12/25 10:36 Pulse 60 01/12/25 10:36 Resp 18 01/12/25 10:36 BP 122/42 L 01/12/25 10:36 Pulse Ox 98 01/12/25 10:48 O2 Del Method Room Air 01/12/25 10:48 Course Vital Signs Vital signs: Vital Signs Temperature 98.0 F 01/12/25 10:36 Pulse Rate 60 01/12/25 10:36 Respiratory Rate 18 01/12/25 10:36 Blood Pressure 122/42 L 01/12/25 10:36 Pulse Oximetry 99 01/12/25 10:36 Oxygen Delivery Method Room Air 01/12/25 10:36 Temperature 98.0 F 01/12/25 10:36 Pulse Rate 60 01/12/25 10:36 Respiratory Rate 18 01/12/25 10:36 Blood Pressure 122/42 L 01/12/25 10:36 Pulse Oximetry 98 01/12/25 10:48 Oxygen Delivery Method Room Air 01/12/25 10:48 Medical Decision Making [facility] Narrative Medical decision making narrative: Her workup including 2 troponin levels is negative. I do not suspect acute coronary syndrome. CT of the brain is negative as well and she is discharged home on Fioricet. Treatment diagnosis and follow-up were discussed with the patient. She reports she has been under a great deal of stress recently and lost her house because of financial issues this month. Differential Diagnosis Differential Diagnosis: Anxiety, NSTEMI, STEMI, chest pain Lab Data Lab results reviewed: Yes I reviewed the patient's lab results Labs: Lab Results 01/12/25 01/12/25 Range/Units 10:50 12:49 WBC 11.0 (4.0-11.0) 10^3/uL RBC 3.13 L (4.20-5.40) 10^6/uL Hgb 9.8 L (12.0-16.0) g/dL Hct 28.0 L (36.0-48.0) % MCV 89.5 (81.0-99.0) fL MCH 31.3 (26.7-34.0) pg MCHC 35.0 (29.9-35.2) g/dL RDW 13.0 (11.0-15.0) % Plt Count 241 (150-450) 10^3/uL MPV 10.5 (9.5-13.5) fL Neut % (Auto) 78.8 H (43.0-75.0) % Lymph % (Auto) 10.8 L (20.5-60.0) % [place]born % (Auto) 9.0 (1.7-12.0) % Eos % (Auto) 0.7 L (0.9-7.0) % Baso % (Auto) 0.2 (0.2-2.0) % Neut # (Auto) 8.7 H (1.4-6.5) 10^3/uL Lymph # (Auto) 1.2 (1.2-3.8) 10^3/uL [place]born # (Auto) 1.0 H (0.3-0.8) 10^3/uL Eos # (Auto) 0.1 (0.0-0.7) 10^3/uL Baso # (Auto) 0.0 (0.0-0.1) 10^3/uL Abs Immat Gran (auto) 0.05 H (0.00-0.03) 10^3/uL Imm/Tot Granulo (auto) 0.5 (0.0-0.5) % Sodium 133 L (136-145) mmol/L Potassium 4.3 (3.5-5.1) mmol/L Chloride 96 L (98-107) mmol/L Carbon Dioxide 21.8 (21.0-32.0) mmol/L Anion Gap 19.5 BUN 40.0 H (7.0-18.0) mg/dL Creatinine 1.92 H (0.55-1.02) mg/dL Est GFR ( Amer) 31 L (>=60 mL/min/1.73m^2) Est GFR (Non-Af Amer) 26 L (>=60 mL/min/1.73m^2) BUN/Creatinine Ratio 20.8 Glucose 209 H (74-106) mg/dL Calcium 9.5 (8.5-10.1) mg/dL Troponin I High Sens 17.7 17.5 (4.0-51.3) pg/mL Imaging Data Chest x-ray: Radiologist's impression: ITS Impressions Chest X-Ray 01/12/25 10:53 IMPRESSION: Negative acute pleural-parenchymal disease. Impression dictated by: Todd Mack M.D. 01/12/2025 11:23 AM Dictation Location: [employer] Electronically authenticated by: [id number] Y Date: 01/12/2025 11:[address] 01/12/25 13:23 IMPRESSION: NO ACUTE INTRACRANIAL ABNORMALITY. MILD CHRONIC SMALL VESSEL CHANGES Impression dictated by: Todd Mack M.D. 01/12/2025 2:04 PM Dictation Location: [employer] Electronically authenticated by: [id number] Y Date: 01/12/2025 14:04 ECG Data Attestation: I personally reviewed and interpreted this ECG as follows: (EKG on my interpretation shows paced rhythm) Discharge Plan Discharge Chief Complaint: Chest Pain Clinical Impression: Chest pain, Headache Patient Disposition: Home, Self-Care Time of Disposition Decision: 14:14 Condition: Good Mode of Transportation: Private Vehicle Prescriptions / Home Meds: New chyixbjajm-pwnyiwvzawdzg-ubwh [Fioricet] 50-300-40 mg capsule 1 cap PO Q6H PRN (Reason: pain) 5 Days Qty: 20 0RF No Action albuterol sulfate 90 mcg/actuation HFA aerosol inhaler 2 puff INHALATION Q6H PRN (Reason: shortness of breath or wheezing) clopidogrel 75 mg tablet 75 mg PO QDAY furosemide 40 mg tablet 40 mg PO QDAY glimepiride 2 mg tablet 2 mg PO QDAY irbesartan 300 mg tablet 300 mg PO .qhs isosorbide mononitrate 30 mg tablet extended release 24 hr 30 mg PO QAM nitroglycerin 0.4 mg tablet, sublingual 0.4 mg sublingual Q5M PRN (Reason: chest pain) pantoprazole 20 mg tablet,delayed release (DR/EC) 20 mg PO QDAY rosuvastatin 40 mg tablet 40 mg PO QAM tramadol 50 mg tablet 50 mg PO Q8H PRN (Reason: pain) triamterene-hydrochlorothiazid 37.5-25 mg tablet 1 tab PO QAM aspirin [Adult Aspirin Regimen] 81 mg tablet,delayed release (DR/EC) 81 mg PO DAILY allopurinol 100 mg tablet 50 mg PO .every other day Print Language: Khmer Instructions: Chest Pain (ED), Acute Headache (ED) Referrals: SAHRA DAVIS [Primary Care Provider, Internal Medicine] - 1 week
[2025-01-12 11:03] LABS: Basophils Percent Auto 0.2 % (0.2-2.0); Eosinophils Absolute Auto 0.1 10^3/uL (0.0-0.7); Eosinophils Percent Auto 0.7 % (0.9-7.0); Hemoglobin 9.8 g/dL (12.0-16.0); Immature Granulocytes Abs Auto 0.05 10^3/uL (0.00-0.03); Immature Granulocytes Pct Auto 0.5 % (0.0-0.5); Lymphocytes Absolute Auto 1.2 10^3/uL (1.2-3.8); Lymphocytes Percent Auto 10.8 % (20.5-60.0); Mean Corpuscular Hemoglobin 31.3 pg (26.7-34.0); Mean Corpuscular Volume 89.5 fL (81.0-99.0); Mean Platelet Volume 10.5 fL (9.5-13.5); Neutrophils Absolute Auto 8.7 10^3/uL (1.4-6.5); Neutrophils Percent Auto 78.8 % (43.0-75.0); Platelet Count 241 10^3/uL (150-450); Red Blood Count 3.13 10^6/uL (4.20-5.40)
[2025-01-12 11:19] LABS: Anion Gap 19.5; BUN Creatinine Ratio 20.8; Calcium 9.5 mg/dL (8.5-10.1); Carbon Dioxide 21.8 mmol/L (21.0-32.0); Chloride 96 mmol/L (98-107); Estimated GFR (African America 31 (>=60 mL/min/1.73m^2); Estimated GFR (Non-African Ame 26 (>=60 mL/min/1.73m^2); Glucose 209 mg/dL (74-106); Potassium 4.3 mmol/L (3.5-5.1); Sodium 133 mmol/L (136-145); Troponin I High Sensitivity 17.7 pg/mL (4.0-51.3)
[2025-01-12] MEDS: KETOROLAC TROMETHAMINE 30 MG/ML VIAL IVP (12:52)
[2025-01-12 13:09] LABS: Troponin I High Sensitivity 17.5 pg/mL (4.0-51.3)
--- NOTE | 2025-01-12 13:23 | CT_ITS ---
The [address] [address] Patient Name: OVIDIO AZAR MRN: [id number] date: 1955 Sex: F Assigned Patient Location: ER Current Patient Location: ER Accession/Order Number: [id number] Exam Date: 01/12/2025 14:01 Report Date: 01/12/2025 14:04 At the request of: ELFEGO LOTT MD Procedure: CT head/brain wo con CT BRAIN WITHOUT CONTRAST: CLINICAL HISTORY: Headache COMPARISON: None TECHNIQUE: Contiguous axial unenhanced images were obtained through the brain. This CT exam was performed using one or more following dose reduction techniques: Automated exposure control, adjustment of the mA and/or kV according to patient size, or use of iterative reconstruction technique. FINDINGS: There is no evidence of midline shift, intra or extra-axial fluid collection, hemorrhage or CT evidence acute large vascular distribution stroke. Mild chronic small vessel changes. Intracranial vascular calcifications. Cataract surgery. Visualized paranasal sinuses are clear. The surrounding soft tissues are normal. CT/CT head/brain wo con IMPRESSION: NO ACUTE INTRACRANIAL ABNORMALITY. MILD CHRONIC SMALL VESSEL CHANGES Impression dictated by: Todd Mack M.D. 01/12/2025 2:04 PM Dictation Location: [place] [address] Electronically authenticated by: [id number] Y Date: 01/12/2025 14:04
== END 2025-01-12 14:30 | disposition home or self-care (01) ==
PROVIDERS: Emergency Provider Emergency Medicine; PCP Internal Medicine
DX: R07.9 Chest pain, unspecified (principal); R51.9 Headache, unspecified; Z90.710 Acquired absence of both cervix and uterus; Z90.49 Acquired absence of other specified parts of digestive tract; Z96.659 Presence of unspecified artificial knee joint
CPT/HCPCS: 36415; 70450; 71045; 80048; 84484; 85025; 93005; 96374; 99285; J1885